=== PATIENT | female | born 1990 | race American Indian/Alaskan Native ===

== ENCOUNTER 2020-04-22 07:59 | Outpatient (REF) | payer OTHER, SELFPAY ==
[2020-04-22 16:49] LABS: CT PCR NOT DETECTED (Not Detect.); NG PCR NOT DETECTED (Not Detect.)
[2020-04-23 12:59] LABS: BV Int Neg Control Negative (Negative); BV Int Pos Control Positive (Positive)
== END 2020-04-22 08:00 | disposition home or self-care (01) ==
LOC: HO.LAB 07:59
PROVIDERS: Visit Provider Obstetrics & Gynecology
DX: Z01.411 Encounter for gynecological examination (general) (routine) with abnormal findings (principal); R35.0 Frequency of micturition; R30.0 Dysuria; R10.2 Pelvic and perineal pain; N76.0 Acute vaginitis; B96.89 Other specified bacterial agents as the cause of diseases classified elsewhere; R31.29 Other microscopic hematuria; N91.2 Amenorrhea, unspecified
CPT/HCPCS: 81002; 81025; 87086; 87480; 87491; 87510; 87591; 87660; 88142

== ENCOUNTER 2020-05-09 10:05 | Emergency (ER) | payer OTHER, SELFPAY ==
[2020-05-09 10:16] VITALS: BP 108/67; BP 115/70; PULSE 109; PULSE 98; RESP 20; TEMP 36.8; O2SAT 97; O2SAT 98; BMI 33.3
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
[2020-05-09] MEDS: clonazePAM 1 MG TABLET PO (10:52)
[2020-05-09] MEDS: Gabapentin 600 MG TABLET PO (10:53)
[2020-05-09 10:55] LABS: MANUAL DIFF FLAG NO
[2020-05-09 10:57] LABS: Basophils Absolute Auto 0.1 X10*3/uL (0.0-0.2); Basophils Percent Auto 0.9 % (0-2); Eosinophils Absolute Auto 0.5 X10*3/uL (0.0-0.4); Eosinophils Percent Auto 5.7 % (0-4); Hemoglobin 14.5 g/dl (12.0-16.0); Imm Gran Abs Auto 0.02 X10*3/uL (0.00-0.03); Imm Gran Pct Auto 0.2 % (0.0-0.4); Lymphocytes Absolute Auto 2.5 X10*3/uL (1.2-4.9); Lymphocytes Percent Auto 30.9 % (20-40); Mean Corpuscular HGB Conc 33.7 g/dl (31.0-35.0); Mean Corpuscular Hemoglobin 32.7 pg (27.0-33.0); Mean Corpuscular Volume 96.8 fL (80-98); Mean Platelet Volume 10.6 fL (9.4-12.3); Monocytes Absolute Auto 0.5 X10*3/uL (0.1-1.2); Neutrophils Absolute Auto 4.5 X10*3/uL (2.0-8.3); Neutrophils Percent Auto 56.3 % (45-73); Platelet Count 364 X10*3/uL (160-400); Red Blood Count 4.44 X10*6/uL (4.20-5.50); Red Cell Distribution Width 12.4 % (11.0-16.0)
[2020-05-09 11:00] LABS: INTERNATIONAL NORM RATIO 0.9 (0.9-1.1)
[2020-05-09 11:03] LABS: Partial Thromboplastin Time 31.4 SEC (24.1-38.0)
[2020-05-09 11:28] LABS: HCG Quantitative < 2 mIU/mL
--- NOTE | 2020-05-09 11:42 | CT_ITS ---
EXAMINATION: CT HEAD WITHOUT CONTRAST CLINICAL INFORMATION: Seizure COMPARISON: 06/21/2018 TECHNIQUE: Contiguous axial imaging was performed from the skull base to vertex without intravenous contrast. This CT examination was performed using dose optimization techniques as appropriate, variously including the following: * Automated exposure control * Adjustment of mA and/or kV according to patient size (this includes techniques or standardized protocols for targeted exams where dose is matched to indication/reason for exam; i.e. extremities or head) Use of iterative reconstruction technique DLP: 703 mGy-cm. FINDINGS: There is no evidence of acute intracranial hemorrhage or territorial infarction. No abnormal mass effect or midline shift is seen. Delgado to white matter differentiation is well preserved. No extra-axial fluid collections are identified. No hydrocephalus. No significant volume loss. There is no abnormal attenuation within the brain parenchyma. The osseous structures and soft tissues are normal. The mastoid air cells and visualized portions of the paranasal sinuses are well aerated. CT/CT head/brain wo con IMPRESSION: No acute intracranial pathology.
--- NOTE | 2020-05-09 11:49 | PC.NURSE ---
Patient to CT at this time
[2020-05-09 12:01] LABS: Glucose Urine UA NEG (NEG); Leukocyte Esterase Urine NEG (NEG); Nitrite Urine NEG (NEG); PH 6.5 (5.0-8.0); Specific Gravity - Urine 1.025 (1.005-1.025); Urine Blood 3+ (NEG); Urine Ketones NEG (NEG); Urine Protein NEG (NEG-TRACE)
[2020-05-09 12:04] VITALS: BP 98/61; PULSE 70; RESP 18; O2SAT 98
[2020-05-09 12:04] LABS: Appearance Urine HAZY; Color Urine YELLOW
[2020-05-09 12:16] LABS: Mucus Urine TRACE /LPF; Squamous Epithelial Cell Urine 1+ /LPF; WBC Urine 0 /HPF (0-4)
[2020-05-09 12:20] LABS: Alanine Aminotransferase 13 U/L (0-31); Albumin Level 4.6 g/dL (3.5-5.0); Alkaline Phosphatase 48 U/L (39-117); Anion Gap 14 (12-20); Aspartate Amino Transferase 14 U/L (5-31); Bilirubin Total 0.3 mg/dL (0.0-1.0); Blood Urea Nitrogen 15 mg/dL (9-16); Calcium 9.7 mg/dL (8.4-10.2); Carbon Dioxide 27 mmol/L (22-29); Chloride 103 mmol/L (96-108); Creatinine Clr Calc Pharmacy 105.7; Estimated Glomerular Filt Rate > 60; Glucose Random 92 mg/dL (60-115); Potassium 4.4 mmol/l (3.3-5.1); Sodium 140 mmol/L (135-145); Total Protein 7.2 g/dL (6.5-8.0)
== END 2020-05-09 12:30 | disposition left against medical advice (07) ==
PROVIDERS: Physician Assistant; Emergency Provider Emergency Medicine
DX: R56.9 Unspecified convulsions (principal); F17.200 Nicotine dependence, unspecified, uncomplicated; Z79.899 Other long term (current) drug therapy; Z71.6 Tobacco abuse counseling
CPT/HCPCS: 36415; 70450; 80053; 81001; 81003; 84702; 85025; 85610; 85730; 96360; 99284

== ENCOUNTER 2020-05-24 09:08 | Outpatient (REF) | payer OTHER, SELFPAY ==
[2020-05-24 11:07] LABS: HCG Quantitative < 2 mIU/mL; Thyroid Stimulating Hormone 1.32 uIU/mL (0.32-4.0)
[2020-05-25 13:47] LABS: Prolactin 5.5 ng/mL
== END 2020-05-24 09:09 | disposition home or self-care (01) ==
LOC: HO.LAB 09:08
PROVIDERS: Absent Provider Obstetrics & Gynecology; Visit Provider Internal Medicine
DX: N91.2 Amenorrhea, unspecified (principal); Z20.828 Contact with and (suspected) exposure to other viral communicable diseases
CPT/HCPCS: 84146; 84443; 84702; C9803; U0003

== ENCOUNTER 2020-06-05 11:18 | Emergency (ER) | payer OTHER, SELFPAY ==
[2020-06-05] VITALS (8 sets, daily range): BP systolic 120–128; BP diastolic 65–82; PULSE 66–120; RESP 16–25; TEMP 37.4; O2SAT 98; BMI 31.3
--- NOTE | 2020-06-05 11:34 | CT_ITS ---
EXAMINATION: CT CERVICAL SPINE WITHOUT CONTRAST CT THORACIC SPINE WITHOUT CONTRAST CT LUMBAR SPINE WITHOUT CONTRAST CLINICAL INFORMATION: History of fall with back injury. Left leg numbness and weakness. COMPARISON: CT cervical spine from 05/22/2018. Radiographs of lumbar spine from 02/04/2018. TECHNIQUE: Noncontrast multidetector CT imaging examination of the cervical spine was performed. Also, separate multidetector CT imaging exams of the thoracic and lumbar spine were performed. Axial images, as well as multiplanar reformatted images, are reviewed. This CT examination was performed using dose optimization techniques as appropriate, variously including the following: *Automated exposure control *Adjustment of mA and/or kV according to patient size (this includes techniques or standardized protocols for targeted exams where dose is matched to indication/reason for exam; i.e. extremities or head) *Use of iterative reconstruction technique DLP: 1974 mGy-cm (total) FINDINGS: CERVICAL SPINE: The skull base and craniocervical junction are normal. The cervical vertebra have normal height and alignment. No fractures in the anterior or posterior elements. No prevertebral soft tissue swelling. 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 The hypertrophied right C2 inferior articular process articulates with the C4 superior articular process. This congenital deformity is associated with chronic mild levocurvature of the upper cervical spine, and dextrocurvature of the lower cervical and upper thoracic spine. The facet joints are normal. The disc spaces are well-preserved. The spinal canal and neural foramina are patent. No focal spinal canal stenosis or spinal hematoma. Thyroid gland is normal. A 0.6 cm structure posterior to the right thyroid lobe likely represents a small lymph node; it is stable in size compared to 05/22/2018. THORACIC SPINE: The thoracic vertebra have normal height and alignment. The anterior and posterior elements are intact. The disc spaces are well-preserved. No degenerative disc disease. No evidence of disc herniation. No spinal canal or neural foraminal stenosis. No fracture, subluxation or paraspinal soft tissue swelling. LUMBAR SPINE: The 5 segmented lumbar vertebra have normal height and alignment. Anterior and posterior elements are intact. No fracture or subluxation. The intervertebral disc heights are maintained. Small central disc protrusions at L4-5 and L5-S1 produce mild indentation on the ventral surface of the thecal sac. No significant narrowing of the central spinal canal. No neural foraminal stenosis. No focal soft tissue swelling. The paraspinal muscles have a normal appearance. The sacrum and sacroiliac joints are normal. Within the pelvis, the visualized portions of the uterus, adnexa and urinary bladder are unremarkable. There are 0.3 cm calyceal stones of the interpolar region and lower pole of the left kidney. No hydronephrosis. CT/CT cervical spine wo con IMPRESSION: * No acute abnormalities in the cervical, thoracic or lumbar spine. No fracture or subluxation. 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 * Small central disc protrusions are noted at L4-L5 and L5-S1. * Small, nonobstructive calculi are present in the left kidney.
--- NOTE | 2020-06-05 11:34 | CT_ITS ---
EXAMINATION: CT HEAD WITHOUT CONTRAST CLINICAL INFORMATION: Seizure and fall COMPARISON: Baseline 05/09/2020 TECHNIQUE: Contiguous axial imaging was performed from the skull base to vertex without intravenous administration of contrast. This CT examination was performed using dose optimization techniques as appropriate, variously including the following: *Automated exposure control *Adjustment of mA and/or kV according to patient size (this includes techniques or standardized protocols for targeted exams where dose is matched to indication/reason for exam; i.e. extremities or head) *Use of iterative reconstruction technique DLP: 573 mGy-cm Motion degradation limits assessment.. Repeat imaging obtained. FINDINGS: There is no evidence of acute intracranial hemorrhage or territorial infarction. No abnormal mass effect or midline shift is seen. Delgado to white matter differentiation is well preserved. No extra-axial fluid collections are identified. The ventricles are normal in size. There is no abnormal attenuation within the brain parenchyma. The osseous structures and soft tissues are normal. The mastoid air cells and visualized portions of the paranasal sinuses are well aerated. CT/CT head/brain wo con IMPRESSION: No acute intracranial pathology.
[2020-06-05] MEDS: 0.9 % Sodium Chloride 1,000 ML 999 ML IVCONT (11:44)
[2020-06-05] MEDS: Morphine Sulfate 2 MG/ML CARTRIDGE 1 MG IVPUSH (11:44)
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
--- NOTE | 2020-06-05 12:43 | PC.NURSE ---
PT extremely agitated, given IM 5mg haldol and IM 2mg ativan.
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
[2020-06-05] MEDS: Haloperidol Lactate 5 MG/ML VIAL IM (12:44)
[2020-06-05] MEDS: LORazepam 2 MG/ML VIAL IM (12:44)
[2020-06-05 13:48] LABS: MANUAL DIFF FLAG NO
[2020-06-05 13:50] LABS: Basophils Absolute Auto 0.1 X10*3/uL (0.0-0.2); Basophils Percent Auto 0.6 % (0-2); Eosinophils Absolute Auto 0.4 X10*3/uL (0.0-0.4); Eosinophils Percent Auto 3.2 % (0-4); Hematocrit 41.7 % (37-47); Hemoglobin 14.1 g/dl (12.0-16.0); Imm Gran Abs Auto 0.05 X10*3/uL (0.00-0.03); Imm Gran Pct Auto 0.5 % (0.0-0.4); Lymphocytes Absolute Auto 2.9 X10*3/uL (1.2-4.9); Lymphocytes Percent Auto 26.5 % (20-40); Mean Corpuscular HGB Conc 33.8 g/dl (31.0-35.0); Mean Corpuscular Hemoglobin 32.8 pg (27.0-33.0); Mean Platelet Volume 10.1 fL (9.4-12.3); Monocytes Absolute Auto 0.6 X10*3/uL (0.1-1.2); Monocytes Percent Auto 5.3 % (2-11); Neutrophils Absolute Auto 7.1 X10*3/uL (2.0-8.3); Neutrophils Percent Auto 63.9 % (45-73); Platelet Count 338 X10*3/uL (160-400); Red Cell Distribution Width 12.4 % (11.0-16.0)
[2020-06-05 14:09] LABS: Anion Gap 13 (12-20); Blood Urea Nitrogen 10 mg/dL (9-16); Calcium 8.8 mg/dL (8.4-10.2); Carbon Dioxide 23 mmol/L (22-29); Chloride 107 mmol/L (96-108); Creatinine Clr Calc Pharmacy 135.2; Estimated Glomerular Filt Rate > 60; Glucose Random 84 mg/dL (60-115); Potassium 4.2 mmol/l (3.3-5.1); Sodium 139 mmol/L (135-145)
[2020-06-05 14:17] LABS: HCG Quantitative < 2 mIU/mL
== END 2020-06-05 16:47 | disposition home or self-care (01) ==
PROVIDERS: Emergency Provider Emergency Medicine
DX: S09.90XA Unspecified injury of head, initial encounter (principal); S39.92XA Unspecified injury of lower back, initial encounter; G40.909 Epilepsy, unspecified, not intractable, without status epilepticus; M54.5 Low back pain; M54.2 Cervicalgia; M79.605 Pain in left leg; M79.604 Pain in right leg; W10.9XXA Fall (on) (from) unspecified stairs and steps, initial encounter; Y93.9 Activity, unspecified; Y92.9 Unspecified place or not applicable; Y99.9 Unspecified external cause status; F17.200 Nicotine dependence, unspecified, uncomplicated; Z71.6 Tobacco abuse counseling; Z79.899 Other long term (current) drug therapy
CPT/HCPCS: 36415; 70450; 72125; 72128; 72131; 80048; 84702; 85025; 96361; 96372; 96374; 99284; 99285; J2060; J2270

== ENCOUNTER 2020-07-14 13:06 | Outpatient (REF) | payer OTHER, SELFPAY ==
[2020-07-15 09:40] LABS: BV Int Neg Control Negative (Negative); BV Int Pos Control Positive (Positive)
[2020-07-15 18:13] LABS: C. trachomatis RNA TMA NOT DETECTED (NOT DETECTED); N. gonorrhoeae RNA TMA NOT DETECTED (NOT DETECTED)
== END 2020-07-14 13:07 | disposition home or self-care (01) ==
LOC: HO.LAB 13:06
PROVIDERS: Visit Provider Advanced Practice Midwife
DX: R10.2 Pelvic and perineal pain (principal); N76.0 Acute vaginitis; B96.89 Other specified bacterial agents as the cause of diseases classified elsewhere; R30.0 Dysuria; F17.210 Nicotine dependence, cigarettes, uncomplicated; N91.2 Amenorrhea, unspecified; Z87.898 Personal history of other specified conditions; Z20.2 Contact with and (suspected) exposure to infections with a predominantly sexual mode of transmission
CPT/HCPCS: 36415; 87210; 87255; 87480; 87491; 87510; 87591; 87660; 99212

== ENCOUNTER 2020-08-15 08:40 | Emergency (ER) | payer OTHER, SELFPAY ==
--- NOTE | 2020-08-15 08:43 | ECG_ITS ---
Test Reason : DIFFICULTY BREATHING Blood Pressure : / mmHG Vent. Rate : 091 BPM Atrial Rate : 091 BPM P-R Int : 156 ms QRS Dur : 092 ms QT Int : 374 ms P-R-T Axes : 079 082 059 degrees QTc Int : 460 ms Poor data quality Normal sinus rhythm with sinus arrhythmia Septal infarct , age undetermined Abnormal ECG When compared with ECG of 21-JUN-2018 01:09, Non-specific change in ST segment in Anterior leads QT has lengthened Repeat EKG Referred By: Generic ED Physician Electronically Signed By:GIL JARRETT MD
[2020-08-15 09:19] VITALS: BP 128/85; PULSE 100; RESP 17; TEMP 36.6; O2SAT 97; BMI 30.9
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
--- NOTE | 2020-08-15 11:19 | PC.NURSE ---
PT DC AFTER REFILL OF MEDS. NO OTHER INTERVENTIONS
== END 2020-08-15 11:21 | disposition home or self-care (01) ==
PROVIDERS: Emergency Provider Emergency Medicine
DX: Z76.0 Encounter for issue of repeat prescription (principal); F41.9 Anxiety disorder, unspecified; J45.909 Unspecified asthma, uncomplicated; F32.9 Major depressive disorder, single episode, unspecified; F43.10 Post-traumatic stress disorder, unspecified; F17.200 Nicotine dependence, unspecified, uncomplicated; Z91.419 Personal history of unspecified adult abuse
CPT/HCPCS: 93005; 99282; 99283

== ENCOUNTER 2020-10-08 01:14 | Emergency (ER) | payer OTHER, SELFPAY ==
[2020-10-08] VITALS (14 sets, daily range): BP systolic 118–134; BP diastolic 67–93; PULSE 71–122; RESP 16–25; TEMP 36.6–36.8; O2SAT 93–100; BMI 29.9
--- NOTE | ~2020-10-08 | CT_ITS ---
EXAMINATION: CT HEAD WITHOUT CONTRAST CLINICAL INFORMATION: EtOH, fall and AMS. COMPARISON: None TECHNIQUE: Contiguous axial imaging was performed from the skull base to vertex without intravenous administration of contrast. This CT examination was performed using dose optimization techniques as appropriate, variously including the following: *Automated exposure control *Adjustment of mA and/or kV according to patient size (this includes techniques or standardized protocols for targeted exams where dose is matched to indication/reason for exam; i.e. extremities or head) *Use of iterative reconstruction technique DLP: 723 mGy-cm FINDINGS: There is no evidence of acute intracranial hemorrhage or territorial infarction. No abnormal mass effect or midline shift is seen. Delgado to white matter differentiation is well preserved. No extra-axial fluid collections are identified. The ventricles are normal in size. There is no abnormal attenuation within the brain parenchyma. The osseous structures and soft tissues are normal. There is diffuse mucoperiosteal thickening bilateral ethmoid and sphenoid sinuses. CT/CT head/brain wo con IMPRESSION: No acute intracranial process seen. Bilateral chronic sphenoid and ethmoid sinus inflammatory changes.
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
--- NOTE | 2020-10-08 01:50 | ECG_ITS ---
Test Reason : ETOH Blood Pressure : / mmHG Vent. Rate : 082 BPM Atrial Rate : 082 BPM P-R Int : 178 ms QRS Dur : 102 ms QT Int : 392 ms P-R-T Axes : 058 064 044 degrees QTc Int : 457 ms Normal sinus rhythm with sinus arrhythmia Normal ECG When compared to the previous EKG of No significant changes seen Referred By: Marisabel Burks Electronically Signed By:Cassius Jian
[2020-10-08] MEDS: Haloperidol Lactate 5 MG/ML VIAL IM (02:40)
[2020-10-08] MEDS: LORazepam 2 MG/ML VIAL IM (02:40)
[2020-10-08 03:04] LABS: Basophils Absolute Auto 0.1 X10*3/uL (0.0-0.2); Basophils Percent Auto 0.4 % (0-2); Eosinophils Absolute Auto 0.1 X10*3/uL (0.0-0.4); Eosinophils Percent Auto 0.4 % (0-4); Hematocrit 44.7 % (37-47); Hemoglobin 15.6 g/dl (12.0-16.0); Imm Gran Abs Auto 0.07 X10*3/uL (0.00-0.03); Imm Gran Pct Auto 0.5 % (0.0-0.4); Lymphocytes Absolute Auto 2.5 X10*3/uL (1.2-4.9); Lymphocytes Percent Auto 17.6 % (20-40); MANUAL DIFF FLAG NO; Mean Corpuscular HGB Conc 34.9 g/dl (31.0-35.0); Mean Corpuscular Hemoglobin 32.1 pg (27.0-33.0); Mean Platelet Volume 10.7 fL (9.4-12.3); Monocytes Absolute Auto 0.8 X10*3/uL (0.1-1.2); Monocytes Percent Auto 5.6 % (2-11); Neutrophils Absolute Auto 10.8 X10*3/uL (2.0-8.3); Neutrophils Percent Auto 75.5 % (45-73); Platelet Count 397 X10*3/uL (160-400); Red Blood Count 4.86 X10*6/uL (4.20-5.50); Red Cell Distribution Width 12.4 % (11.0-16.0); White Blood Count 14.2 X10*3/uL (4.8-10.8)
[2020-10-08 03:28] LABS: Ethanol 81 mg/dL
[2020-10-08 03:35] LABS: Alanine Aminotransferase 16 U/L (0-31); Albumin Level 4.5 g/dL (3.5-5.0); Alkaline Phosphatase 53 U/L (39-117); Anion Gap 20 (12-20); Aspartate Amino Transferase 18 U/L (5-31); Bilirubin Direct < 0.2 mg/dL (0.0-0.5); Bilirubin Total < 0.2 mg/dL (0.0-1.0); Blood Urea Nitrogen 9 mg/dL (9-16); Calcium 9.8 mg/dL (8.4-10.2); Carbon Dioxide 15 mmol/L (22-29); Chloride 110 mmol/L (96-108); Creatinine Clr Calc Pharmacy 114.8; Estimated Glomerular Filt Rate > 60; Glucose Random 102 mg/dL (60-115); Potassium 3.9 mmol/L (3.3-5.1); Sodium 141 mmol/L (135-145); Total Protein 7.2 g/dL (6.5-8.0)
--- NOTE | 2020-10-08 04:20 | PC.NURSE ---
PROVIDER GILBERTO MCFARLAND STATING TO HOLD THE MEDICATION FROM PREVIOUS NURSE FOR NAUSEA AND VOMITING. PATIENT NO LONGER HAVING THE NAUSEA AND VOMITING, WILL CONTINUE TO MONITOR FOR NAUSEA AND VOMITING AND WILL MEDICATE IF NEEDED AT THAT TIME.
[2020-10-08] MEDS: Gabapentin 600 MG TABLET PO (09:33)
[2020-10-08] MEDS: Escitalopram Oxalate 5 MG TABLET PO (09:33)
[2020-10-08] MEDS: clonazePAM 1 MG TABLET PO (09:33)
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
== END 2020-10-08 09:30 | disposition home or self-care (01) ==
PROVIDERS: Emergency Provider Emergency Medicine
DX: F10.120 Alcohol abuse with intoxication, uncomplicated (principal); Y90.4 Blood alcohol level of 80-99 mg/100 ml; Z78.1 Physical restraint status
CPT/HCPCS: 36415; 70450; 80048; 80076; 80320; 85025; 93005; 96372; 96374; 96375; 99285; J2060

== ENCOUNTER 2020-10-24 09:01 | Emergency (ER) | payer OTHER, SELFPAY ==
--- NOTE | ~2020-10-24 | US_ITS ---
EXAMINATION: US OBSTETRICAL ULTRASOUND CLINICAL INFORMATION: Left lower quadrant abdominal pain. Positive . COMPARISON: None. LMP: 08/26/2020. Gestational age by maternal dates is 8 weeks and 3 days. Estimated date of delivery by maternal dates is 06/02/2021. TECHNIQUE: Transabdominal ultrasound pelvis is performed. FINDINGS: There is single intrauterine gestational sac and yolk sac. No pole seen yet. No heart beat or motion seen. Mean distal sac diameter measures 0.99 cm corresponding to 5 weeks and 5 days. The right ovary measures 3.4 x 2.5 x 3.1 cm. There is anechoic corpus luteal cyst with peripheral flow measuring 2.3 x 1.6 x 2.2 cm. The left ovary measures 2.9 x 1.6 x 1.8 cm. US/US OB <= 14 weeks fetus IMPRESSION: Single intrauterine gestational sac with no pole seen yet. Mean sac diameter corresponds to 5 weeks 5 days. Small corpus luteal cyst right ovary.
--- NOTE | ~2020-10-24 | US_ITS ---
EXAMINATION: US OBSTETRICAL ULTRASOUND CLINICAL INFORMATION: Left lower quadrant abdominal pain. Positive . COMPARISON: None. LMP: 08/26/2020. Gestational age by maternal dates is 8 weeks and 3 days. Estimated date of delivery by maternal dates is 06/02/2021. TECHNIQUE: Transabdominal ultrasound pelvis is performed. FINDINGS: There is single intrauterine gestational sac and yolk sac. No pole seen yet. No heart beat or motion seen. Mean distal sac diameter measures 0.99 cm corresponding to 5 weeks and 5 days. The right ovary measures 3.4 x 2.5 x 3.1 cm. There is anechoic corpus luteal cyst with peripheral flow measuring 2.3 x 1.6 x 2.2 cm. The left ovary measures 2.9 x 1.6 x 1.8 cm. US/US OB transvaginal IMPRESSION: Single intrauterine gestational sac with no pole seen yet. Mean sac diameter corresponds to 5 weeks 5 days. Small corpus luteal cyst right ovary.
[2020-10-24 09:04] VITALS: BP 123/72; PULSE 109; RESP 24; TEMP 36.5; O2SAT 98; BMI 30.9
[2020-10-24] MEDS: Acetaminophen 325 MG TABLET 650 MG PO ×2 (09:08→12:10)
[2020-10-24 09:50] LABS: Glucose Urine UA NEG (NEG); Leukocyte Esterase Urine TRACE (NEG); Nitrite Urine NEG (NEG); UACC Culture Trigger YES; Urine Blood NEG (NEG); Urine Ketones 5 MG/DL (NEG); Urine Protein NEG (NEG-TRACE)
[2020-10-24 09:52] LABS: UPreg QC Valid YES; Urine Pregnancy POSITIVE (NEGATIVE)
[2020-10-24 10:11] LABS: Appearance Urine HAZY; Color Urine YELLOW
[2020-10-24 10:13] LABS: Bacteria Urine 1+ /LPF; Mucus Urine 2+ /LPF; RBC Urine 0 /HPF (0); Squamous Epithelial Cell Urine 3+ /LPF
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
[2020-10-24 11:08] LABS: MANUAL DIFF FLAG NO
[2020-10-24 11:10] LABS: Basophils Absolute Auto 0.1 X10*3/uL (0.0-0.2); Basophils Percent Auto 0.6 % (0-2); Eosinophils Absolute Auto 0.4 X10*3/uL (0.0-0.4); Hematocrit 43.8 % (37-47); Hemoglobin 14.9 g/dl (12.0-16.0); Imm Gran Abs Auto 0.05 X10*3/uL (0.00-0.03); Imm Gran Pct Auto 0.4 % (0.0-0.4); Lymphocytes Absolute Auto 2.8 X10*3/uL (1.2-4.9); Lymphocytes Percent Auto 23.1 % (20-40); Mean Corpuscular Volume 96.9 fL (80-98); Mean Platelet Volume 10.2 fL (9.4-12.3); Monocytes Absolute Auto 0.7 X10*3/uL (0.1-1.2); Monocytes Percent Auto 5.8 % (2-11); Neutrophils Absolute Auto 8.1 X10*3/uL (2.0-8.3); Neutrophils Percent Auto 67.1 % (45-73); Platelet Count 396 X10*3/uL (160-400); Red Blood Count 4.52 X10*6/uL (4.20-5.50); Red Cell Distribution Width 12.8 % (11.0-16.0)
[2020-10-24 11:21] LABS: INTERNATIONAL NORM RATIO 1.1 (0.9-1.1); Prothrombin Time 12.6 SEC (10.8-13.0)
--- NOTE | 2020-10-24 11:23 | PC.NURSE ---
PT TO ULTRASOUND, #20 IN L AC.
[2020-10-24 11:25] LABS: Partial Thromboplastin Time 38.3 SEC (24.1-38.0)
[2020-10-24 11:32] LABS: Alanine Aminotransferase 12 U/L (0-31); Albumin Level 4.4 g/dL (3.5-5.0); Alkaline Phosphatase 48 U/L (39-117); Anion Gap 11 (12-20); Aspartate Amino Transferase 13 U/L (5-31); Bilirubin Direct 0.2 mg/dL (0.0-0.5); Bilirubin Total 0.4 mg/dL (0.0-1.0); Blood Urea Nitrogen 8 mg/dL (9-16); Calcium 9.6 mg/dL (8.4-10.2); Carbon Dioxide 24 mmol/L (22-29); Chloride 107 mmol/L (96-108); Estimated Glomerular Filt Rate > 60; Glucose Random 90 mg/dL (60-115); Lipase 26 U/L (8-78); Potassium 4.2 mmol/L (3.3-5.1); Sodium 138 mmol/L (135-145); Total Protein 6.9 g/dL (6.5-8.0)
[2020-10-24 11:35] LABS: HCG Quantitative 11983 mIU/mL
[2020-10-24 11:43] VITALS: BP 92/49; PULSE 59; RESP 18; O2SAT 99
[2020-10-24] MEDS: 0.9 % Sodium Chloride 1,000 ML 999 ML IVCONT (12:04)
--- NOTE | 2020-10-24 12:28 | PC.NURSE ---
PT BECAME INCREASINGLY DISTRESSED AFTER RETURN FROM ULTRASOUND, WITH A FAMILY EMERGENCY REQUIRING HER TO LEAVE. PT INSISTING TO LEAVE AMA, ENCOURAGED TO STAY UNTIL ULTRASOUND RESULT CLEARS PRESENCE OF ECTOPIC PREG. PT BECAME AGITATED, TEARFUL, ADVISED TO WAIT FOR PROVIDER TO DISCUSS RESULTS OF ULTRASOUND. PT BEGAN TO PULL IV OUT, THIS RN INTERVENED. PT LEFT BEFORE SIGNING AMA PAPERWORK. WITNESSED AND DOCUMENTED DEPARTURE.
== END 2020-10-24 12:30 | disposition left against medical advice (07) ==
PROVIDERS: Physician Assistant; Emergency Provider Emergency Medicine
DX: O20.0 Threatened abortion (principal); Z3A.00 Weeks of gestation of pregnancy not specified; Z79.899 Other long term (current) drug therapy
CPT/HCPCS: 36415; 76801; 76817; 80048; 80076; 81001; 81003; 81025; 83690; 84702; 85025; 85610; 85730; 87086; 96360; 99283; 99284

== ENCOUNTER 2020-10-27 13:36 | Outpatient (REF) | payer OTHER, SELFPAY ==
[2020-10-27 14:32] LABS: Glucose Urine UA NEG (NEG); Leukocyte Esterase Urine 2+ (NEG); Nitrite Urine NEG (NEG); UACC Culture Trigger YES; Urine Blood TRACE (NEG); Urine Ketones NEG (NEG); Urine Protein NEG (NEG-TRACE)
[2020-10-27 14:43] LABS: Appearance Urine CLEAR; Color Urine YELLOW
[2020-10-27 15:08] LABS: Bacteria Urine 1+ /LPF; Mucus Urine 1+ /LPF; Squamous Epithelial Cell Urine 1+ /LPF
[2020-10-27 15:09] LABS: Trichomonas Urine NOTED
[2020-10-27 15:30] LABS: HCG Quantitative 26222 mIU/mL
[2020-10-28 04:00] LABS: Syphilis Screen Nonreactive (Nonreactive)
[2020-10-28 04:30] LABS: HBsAGNum1 0.41 S/CO (0.00-0.99); Hepatitis B Surface Antigen Negative (Negative)
[2020-10-28 04:41] LABS: HIV AB/AG Nonreactive (Nonreactive); HIV Num 1 0.08 S/CO (0.00-0.99); ~Hepatitis C Antibody Nonreactive (Nonreactive)
[2020-10-28 09:55] LABS: CT PCR NOT DETECTED (Not Detect.); NG PCR NOT DETECTED (Not Detect.)
== END 2020-10-27 13:37 | disposition home or self-care (01) ==
LOC: HO.LAB 13:36
PROVIDERS: Advanced Practice Midwife; Visit Provider Nurse Practitioner Family
DX: O99.341 Other mental disorders complicating pregnancy, first trimester (principal); O26.891 Other specified pregnancy related conditions, first trimester; B96.89 Other specified bacterial agents as the cause of diseases classified elsewhere; N76.0 Acute vaginitis; R10.2 Pelvic and perineal pain; R30.0 Dysuria; F41.9 Anxiety disorder, unspecified; F32.9 Major depressive disorder, single episode, unspecified; Z79.899 Other long term (current) drug therapy; Z20.2 Contact with and (suspected) exposure to infections with a predominantly sexual mode of transmission
CPT/HCPCS: 36415; 81001; 81003; 84702; 86780; 86803; 87086; 87340; 87389; 87491; 87591; 99212

== ENCOUNTER 2020-11-04 08:24 | Outpatient (REF) | payer OTHER, SELFPAY ==
--- NOTE | ~2020-11-04 | US_ITS ---
EXAMINATION: OBSTETRICAL ULTRASOUND, FIRST TRIMESTER HISTORY: 29-year-old with uncertain dates Viability LMP: Unknown COMPARISON: 10/24/2020 TECHNIQUE: Real time transabdominal imaging with color and M-mode Doppler. FINDINGS: A single, live IUP CRL of 8.1 mm c/w 6.6wks is noted. Heart Rate: 123 beats per minute. Both maternal ovaries are seen and appear normal. GESTATIONAL AGE: 1. GA from LMP: N/A wks 2. GA from AUA: 6.6 wks ESTIMATED DATE OF DELIVERY: 1. ELBA from LMP: N/A 2. ELBA from AUA: 06/24/2021 US/US OB pelvic and transvaginal IMPRESSION: 1. A single live IUP 2. CRL is consistent with 6.6 weeks of gestation giving an ELBA of 06/24/2021. 3. Normal ovaries
== END 2020-11-04 08:25 | disposition home or self-care (01) ==
LOC: HO.US 08:24
PROVIDERS: Visit Provider Obstetrics & Gynecology
DX: Z34.90 Encounter for supervision of normal pregnancy, unspecified, unspecified trimester (principal)
CPT/HCPCS: 76801; 76817

== ENCOUNTER → 2020-11-08 10:17 | Outpatient (BNVA) | payer OTHER, SELFPAY | PROVIDERS: Visit Provider Obstetrics & Gynecology | DX: Z34.90 Encounter for supervision of normal pregnancy, unspecified, unspecified trimester (principal) | CPT/HCPCS: 99212 ==

== ENCOUNTER 2020-11-13 07:40 | Emergency (ER) | payer OTHER, SELFPAY ==
--- NOTE | ~2020-11-13 | US_ITS ---
EXAMINATION: US OBSTETRICAL ULTRASOUND CLINICAL INFORMATION: , bleeding, check viability. Established due date 06/24/2021. COMPARISON: 11/04/2020 Gestational age by first ultrasoundis 8 weeks 1 day. Estimated date of delivery by first ultrasound is 06/24/2021. TECHNIQUE: Transabdominal and endovaginal pelvic ultrasound performed. FINDINGS: There is a single intrauterine gestational sac with visible yolk sac, embryo/fetus, and cardiac activity. Evidence of mild chorioamnionic separation which is normal at this age. There is no significant subchorionic hemorrhage or hematoma. HR: 152 beats per minute. CRL (crown rump length): 1.72 cm (8 weeks 2 days +/- 4 days). MATERNAL ADNEXA: The right maternal ovary measures 2.9 x 2.9 x 2.0 cm, 8.5 mL. No abnormality. The left maternal ovary measures 1.9 x 2.1 x 1.5 cm, 3.1 mL. No abnormality. There is no significant maternal adnexal mass. No maternal pelvic ascites. US/US OB <= 14 weeks fetus IMPRESSION: 1. Single live intrauterine gestation with ultrasound gestational age of 8 weeks 2 days +/- 4 days. 2. Estimated date of delivery is 06/23/2021 +/- 4 days. This is concordant with the original ultrasound which gave an estimated date of delivery of 06/24/2021. 3. No maternal adnexal mass or pelvic ascites. 4. No evidence of subchorionic hemorrhage.
[2020-11-13 07:43] VITALS: BP 100/68; PULSE 62; O2SAT 99
[2020-11-13 08:05] VITALS: BP 97/52; PULSE 69; RESP 18; TEMP 37; O2SAT 97
[2020-11-13 10:13] VITALS: BP 112/50; PULSE 48; RESP 18; TEMP 36.8; O2SAT 99; BMI 8172.4
[2020-11-13 10:37] LABS: MANUAL DIFF FLAG NO
[2020-11-13 10:38] LABS: Basophils Absolute Auto 0.1 X10*3/uL (0.0-0.2); Basophils Percent Auto 0.4 % (0-2); Eosinophils Absolute Auto 0.1 X10*3/uL (0.0-0.4); Eosinophils Percent Auto 0.4 % (0-4); Hematocrit 39.3 % (37-47); Hemoglobin 13.8 g/dl (12.0-16.0); Imm Gran Abs Auto 0.03 X10*3/uL (0.00-0.03); Imm Gran Pct Auto 0.3 % (0.0-0.4); Lymphocytes Percent Auto 17.5 % (20-40); Mean Corpuscular HGB Conc 35.1 g/dl (31.0-35.0); Mean Corpuscular Hemoglobin 32.7 pg (27.0-33.0); Mean Corpuscular Volume 93.1 fL (80-98); Mean Platelet Volume 10.9 fL (9.4-12.3); Monocytes Absolute Auto 0.6 X10*3/uL (0.1-1.2); Monocytes Percent Auto 4.7 % (2-11); Neutrophils Absolute Auto 8.9 X10*3/uL (2.0-8.3); Neutrophils Percent Auto 76.7 % (45-73); Platelet Count 355 X10*3/uL (160-400); Red Blood Count 4.22 X10*6/uL (4.20-5.50); Red Cell Distribution Width 12.4 % (11.0-16.0); White Blood Count 11.6 X10*3/uL (4.8-10.8)
--- NOTE | 2020-11-13 10:43 | ED_ITS ---
HPI - General Chief complaint: Abdominal Pain Stated complaint: ABD PAIN,8 WKS ,W/ SPOTTING Time Seen by Provider: 11/13/20 10:07 Source: patient Mode of arrival: ambulatory Limitations: no limitations History of Present Illness HPI Narrative: PLEASANT 29 YEARS OLD OF FEMALE ABOUT 7 WEEKS GESTATION PRESENTED TO EMERGENCY DEPARTMENT WITH CHIEF COMPLAINT NO NAUSEA VOMITING UNABLE TO KEEP FLUIDS DOWN AND ALSO VAGINAL SPOTTING Complaint: vaginal bleeding (MILD) Onset (ago): day(s) (1) Pain Consistency: constant Related Data Home Medications Medication Instructions Recorded Confirmed albuterol sulfate [ProAir HFA] 2 puff INHALATION Q4H PRN 08/15/20 11/10/20 Previous Rx's Medication Instructions Recorded vitamins no.144-folic 1 tab PO DAILY 180 Days #180 tab 10/27/20 acid 400 mcg chewable tablet pyridoxine (vitamin B6) 25 mg 25 mg PO TID 30 Days #90 tab 10/27/20 tablet metoclopramide HCl [Reglan] 10 mg PO Q6H PRN #15 tab 11/13/20 Allergies Allergy/AdvReac Type Severity Reaction Status Date / Time lamotrigine [From Lamictal] Allergy Unknown mookie Verified 11/10/20 12:59 isa syndrome topiramate [Topamax] Allergy Unknown unknown Verified 11/10/20 12:59 ANTI CONVULSANTS Allergy Mild MOOKIE Uncoded 10/27/20 14:22 ISA SYNDROME Review of Systems Review of Systems: Yes all other systems are reviewed and are negative Eyes: Eyes: Reports no additional eye complaints ENT: Reports as per HPI Cardiovascular: Cardiovascular: Reports no additional cardiovascular complaints Respiratory: Respiratory: Reports no additional respiratory complaints Gastrointestinal: Gastrointestinal: Reports no additional gastrointestinal complaints and Reports abdominal pain Psychiatric: Psychiatric: Reports no additional psychiatric complaints [facility] Past Medical History Medical History Anxiety Asthma Bradycardia Depression ETOH abuse PTSD (post-traumatic stress disorder) Surgical History No history of previous surgery Family History Family History Mother No problems noted. Father No problems noted. Social History Social History Alcohol intake: never Smoking Status: Former smoker Tobacco Type: Cigarette Advance Directives: No Advance Directives Information Provided: No Patient : Yes Sexual orientation: Straight/Heterosexual Gender identity: female Physical Exam Vital Signs: Vital Signs: Last Vital Signs Temp 98.2 F 11/13/20 10:13 Pulse 53 11/13/20 12:00 Resp 18 11/13/20 12:00 BP 100/47 L 11/13/20 12:00 Pulse Ox 99 11/13/20 10:13 Body Mass Index 8172.4 Const: General: cooperative, healthy appearing and comfortable Orientation/consciousness: oriented to person and oriented to place HENMT: Head: Yes normal to inspection Eyes: General: appearance normal, both eyes and all related structures Visual Hdz: normal visual hdz by confrontation Neck: Neck: Yes normal visual inspection, Yes full ROM and Yes no lymp hadenopathy Chest: Chest palpation & inspection: normal inspection of the chest and normal palpation of entire chest wall Resp: Effort & Inspection: able to speak in complete sentences Cardio: Jugular venous distension: no JVD Rate: regular rate GI: Inspection: Yes normal to inspection Palpation (GI): Soft to palpation, nontender, no guarding and not rigid Auscultation: normal bowel sounds Skin: General skin exam: no rashes or lesions noted and elasticity normal Neuro: General: oriented to person and oriented to place Extrem: General: Yes normal to inspection, Yes full ROM and Yes capillary refill normal Course Reevaluation(s) Reevaluation #1: She is feeling better at this time he is tolerating p.o. well ultrasound showed IUP 8 weeks 2 days alive, she is Rh positive, she can be discharged home Procedures EJ/Peripheral Line Arm R: Time Out Performed: Yes Skin Cleansed in Sterile Fashion: Yes Size (gauge): 20 IV Secured and Dressing Applied: Yes Patient Tolerated Procedure: well Additional Comments: ASKED BY RN TO ESTABLISH IV ACCESS PATIENT HAS DIFFICULT IV ACCESS UNDER ULTRASOUND GUIDED WITH LINEAR PROBE CANNULATED THE RIGHT BASILIC VEIN WITH A 20 GAUGE INTRO CAN IV CATHETER 1x 3/4 INCH CATHETER MDM - OB/Uterine Contractions Lab Data Result diagrams: 11/13/20 10:33 11/13/20 10:33 Labs: Lab Results 11/13/20 11/13/20 11/13/20 Range/Units 10:33 10:33 12:20 WBC 11.6 H (4.8-10.8) X10*3/uL RBC 4.22 (4.20-5.50) X10*6/uL Hgb 13.8 (12.0-16.0) g/dl Hct 39.3 (37-47) % MCV 93.1 (80-98) fL MCH 32.7 (27.0-33.0) pg MCHC 35.1 H (31.0-35.0) g/dl RDW 12.4 (11.0-16.0) % Plt Count 355 (160-400) X10*3/uL MPV 10.9 (9.4-12.3) fL Immature Gran % (Auto) 0.3 (0.0-0.4) % Neut % (Auto) 76.7 H (45-73) % Lymph % (Auto) 17.5 L (20-40) % Desha % (Auto) 4.7 (2-11) % Eos % (Auto) 0.4 (0-4) % Baso % (Auto) 0.4 (0-2) % Lymph # (Auto) 2.0 (1.2-4.9) X10*3/uL Desha # (Auto) 0.6 (0.1-1.2) X10*3/uL Eos # (Auto) 0.1 (0.0-0.4) X10*3/uL Baso # (Auto) 0.1 (0.0-0.2) X10*3/uL Abs Immat Gran (auto) 0.03 (0.00-0.03) X10*3/uL Absolute Neuts (auto) 8.9 H (2.0-8.3) X10*3/uL Absolute Nucleated RBC 0.000 (0.0-0.012) X10*3/uL Nucleated RBC % (auto) 0.0 (0.0-0.2) /100WBC Sodium 136 (135-145) mmol/L Potassium 3.8 (3.3-5.1) mmol/L Chloride 106 (96-108) mmol/L Carbon Dioxide 21 L (22-29) mmol/L Anion Gap 13 (12-20) BUN 6 L (9-16) mg/dL Creatinine 0.61 (0.5-1.4) mg/dL Estim Creat Clear Calc -35.1 Estimated GFR > 60 Random Glucose 97 (60-115) mg/dL Calcium 9.1 (8.4-10.2) mg/dL Total Bilirubin 0.4 (0.0-1.0) mg/dL AST 15 (5-31) U/L ALT 44 H (0-31) U/L Alkaline Phosphatase 41 (39-117) U/L Total Protein 6.2 L (6.5-8.0) g/dL Albumin 4.0 (3.5-5.0) g/dL Beta HCG, Quant 87019 mIU/mL Blood Type A Positive Imaging Data OB US: My impression: IUP hert rate Radiologist's impression: IMPRESSION: 1. Single live intrauterine gestation with ultrasound gestational age of 8 weeks 2 days +/- 4 days. 2. Estimated date of delivery is 06/23/2021 +/- 4 days. This is concordant with the original ultrasound which gave an estimated date of delivery of 06/24/2021. 3. No maternal adnexal mass or pelvic ascites. 4. No evidence of subchori Discharge Plan Discharge Clinical Impression: Vomiting affecting , Early stage of Patient Disposition: Home, Self-Care Instructions: Nausea and Vomiting in (ED) Additional Instructions: Follow-up with your OB call in a.m. to make an appointment Prescriptions: New metoclopramide HCl [Reglan] 10 mg tablet 10 mg PO Q6H PRN (Reason: nausea and vomiting) Qty: 15 RF: 0 No Action pyridoxine (vitamin B6) 25 mg tablet 25 mg PO TID 30 Days Qty: 90 RF: 0 albuterol sulfate [ProAir HFA] 90 mcg/actuation Hfa Aerosol Inhaler 2 puff INHALATION Q4H PRN (Reason: Respiratory Distress) RF: 0 no.144-folic acid 400 mcg tablet,chewable 1 tab PO DAILY 180 Days Qty: 180 RF: 1 Referrals: Physician,Unknown [Primary Care Provider] - 2 days Interventions: ED Discharge Assessment Last Done: 11/13/20 14:04 Discharge Date/Time: 11/13/20 13:45
[2020-11-13 11:02] LABS: Alanine Aminotransferase 44 U/L (0-31); Alkaline Phosphatase 41 U/L (39-117); Anion Gap 13 (12-20); Aspartate Amino Transferase 15 U/L (5-31); Bilirubin Total 0.4 mg/dL (0.0-1.0); Blood Urea Nitrogen 6 mg/dL (9-16); Calcium 9.1 mg/dL (8.4-10.2); Carbon Dioxide 21 mmol/L (22-29); Chloride 106 mmol/L (96-108); Creatinine Clr Calc Pharmacy -35.1; Estimated Glomerular Filt Rate > 60; Glucose Random 97 mg/dL (60-115); Potassium 3.8 mmol/L (3.3-5.1); Sodium 136 mmol/L (135-145); Total Protein 6.2 g/dL (6.5-8.0)
[2020-11-13] MEDS: ondansetron HCL 4 MG/2 ML VIAL IVPUSH (11:19)
[2020-11-13 12:00] VITALS: BP 100/47; PULSE 53; RESP 18
[2020-11-13] MEDS: 0.9 % Sodium Chloride 1,000 ML 999 ML IVCONT (12:18)
--- NOTE | 2020-11-13 12:30 | PC.NURSE ---
20G IV placed by to pt's right upper arm. IVF running in.
== END 2020-11-13 13:45 | disposition home or self-care (01) ==
PROVIDERS: Emergency Provider Emergency Medicine
DX: O21.0 Mild hyperemesis gravidarum (principal); Z3A.08 8 weeks gestation of pregnancy; Z87.891 Personal history of nicotine dependence; Z79.899 Other long term (current) drug therapy
CPT/HCPCS: 36415; 36556; 76801; 80053; 84702; 85025; 86900; 86901; 96365; 96375; 99283; 99284; J2405

== ENCOUNTER 2020-11-15 19:14 | Emergency (ER) | payer OTHER, SELFPAY ==
[2020-11-15 19:25] VITALS: BP 121/74; PULSE 89; RESP 22; TEMP 36.7; O2SAT 99
[2020-11-15 19:40] VITALS: BP 82/54; PULSE 79; RESP 18; TEMP 36.9; BMI 31.4
[2020-11-15 19:58] LABS: MANUAL DIFF FLAG NO
[2020-11-15 20:00] LABS: Basophils Absolute Auto 0.1 X10*3/uL (0.0-0.2); Basophils Percent Auto 0.3 % (0-2); Eosinophils Absolute Auto 0.4 X10*3/uL (0.0-0.4); Eosinophils Percent Auto 2.1 % (0-4); Hemoglobin 15.2 g/dl (12.0-16.0); Imm Gran Abs Auto 0.06 X10*3/uL (0.00-0.03); Imm Gran Pct Auto 0.4 % (0.0-0.4); Lymphocytes Percent Auto 29.9 % (20-40); Mean Corpuscular HGB Conc 35.3 g/dl (31.0-35.0); Mean Corpuscular Hemoglobin 33.1 pg (27.0-33.0); Mean Corpuscular Volume 93.7 fL (80-98); Mean Platelet Volume 10.7 fL (9.4-12.3); Monocytes Absolute Auto 1.1 X10*3/uL (0.1-1.2); Monocytes Percent Auto 6.4 % (2-11); Neutrophils Absolute Auto 10.1 X10*3/uL (2.0-8.3); Neutrophils Percent Auto 60.9 % (45-73); Platelet Count 434 X10*3/uL (160-400); Red Blood Count 4.59 X10*6/uL (4.20-5.50); Red Cell Distribution Width 12.4 % (11.0-16.0); White Blood Count 16.6 X10*3/uL (4.8-10.8)
[2020-11-15] MEDS: Magnesium Hydrox/Alum Hydrox 30 ML ORAL.SUSP PO (20:12)
[2020-11-15] MEDS: Famotidine/PF 20 MG/2 ML VIAL IVPUSH (20:12)
[2020-11-15] MEDS: 0.9 % Sodium Chloride 1,000 ML 999 ML IVCONT (20:12)
[2020-11-15] MEDS: ondansetron HCL 4 MG/2 ML VIAL IVPUSH (20:12)
[2020-11-15 20:26] VITALS: BP 95/57; PULSE 51; RESP 16; TEMP 37; O2SAT 99
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
[2020-11-15 20:27] LABS: Anion Gap 17 (12-20); Blood Urea Nitrogen 8 mg/dL (9-16); Calcium 10.3 mg/dL (8.4-10.2); Carbon Dioxide 20 mmol/L (22-29); Chloride 102 mmol/L (96-108); Creatinine Clr Calc Pharmacy 130.2; Estimated Glomerular Filt Rate > 60; Glucose Random 87 mg/dL (60-115); Potassium 3.9 mmol/L (3.3-5.1); Sodium 135 mmol/L (135-145)
[2020-11-15 21:06] VITALS: BP 107/38; PULSE 55; RESP 20; TEMP 36.6; O2SAT 100
[2020-11-15] MEDS: Lidocaine HCl Viscous 2 % 15 ML SOLUTION MUCOUS MEM (22:30)
== END 2020-11-15 22:40 | disposition home or self-care (01) ==
PROVIDERS: Emergency Provider Internal Medicine
DX: O21.0 Mild hyperemesis gravidarum (principal); O26.891 Other specified pregnancy related conditions, first trimester; R10.13 Epigastric pain; Z3A.10 10 weeks gestation of pregnancy
CPT/HCPCS: 36415; 80048; 85025; 96361; 96374; 96375; 99284; 99285; J2405

== ENCOUNTER → 2020-11-18 09:49 | Outpatient (BNVA) | payer OTHER, SELFPAY | PROVIDERS: Visit Provider Obstetrics & Gynecology | DX: Z34.90 Encounter for supervision of normal pregnancy, unspecified, unspecified trimester (principal) | CPT/HCPCS: 99212 ==

== ENCOUNTER 2020-12-03 08:14 | Emergency (ER) | payer OTHER, SELFPAY ==
[2020-12-03 08:18] VITALS: BP 110/60; BP 127/62; PULSE 63; PULSE 66; RESP 16; TEMP 36.7; O2SAT 99
[2020-12-03 08:57] LABS: MANUAL DIFF FLAG NO
[2020-12-03] MEDS: 0.9 % Sodium Chloride 1,000 ML 999 ML IVCONT (08:57)
[2020-12-03] MEDS: ondansetron HCL 4 MG/2 ML VIAL IVPUSH (08:57)
[2020-12-03 09:01] LABS: Basophils Absolute Auto 0.1 X10*3/uL (0.0-0.2); Basophils Percent Auto 0.5 % (0-2); Eosinophils Absolute Auto 0.1 X10*3/uL (0.0-0.4); Eosinophils Percent Auto 1.3 % (0-4); Hematocrit 42.3 % (37-47); Hemoglobin 14.9 g/dl (12.0-16.0); Imm Gran Abs Auto 0.02 X10*3/uL (0.00-0.03); Imm Gran Pct Auto 0.2 % (0.0-0.4); Lymphocytes Absolute Auto 1.8 X10*3/uL (1.2-4.9); Lymphocytes Percent Auto 18.4 % (20-40); Mean Corpuscular HGB Conc 35.2 g/dl (31.0-35.0); Mean Corpuscular Hemoglobin 32.6 pg (27.0-33.0); Mean Corpuscular Volume 92.6 fL (80-98); Mean Platelet Volume 10.4 fL (9.4-12.3); Monocytes Absolute Auto 0.5 X10*3/uL (0.1-1.2); Monocytes Percent Auto 5.5 % (2-11); Neutrophils Absolute Auto 7.3 X10*3/uL (2.0-8.3); Neutrophils Percent Auto 74.1 % (45-73); Platelet Count 385 X10*3/uL (160-400); Red Blood Count 4.57 X10*6/uL (4.20-5.50); Red Cell Distribution Width 12.2 % (11.0-16.0); White Blood Count 9.8 X10*3/uL (4.8-10.8)
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
--- NOTE | 2020-12-03 09:06 | PC.NURSE ---
Addendum entered by Hailey Shirley 12/03/20 09:38: IV established and labs drawn. Patient tolerated well. Hung NS 1l and medicated with Zofran. Urine cup at bedside. Awaiting lab results. Original Note: Patient reports nausea/vomiting with . 11 weeks at this time. Patient was seen in this ED and prescribed Reglan which did not help. Patient reports syncopal episode overnight. Alert and oriented. Respirations regular and even. Skin PWD.
[2020-12-03 09:32] VITALS: BP 99/47; PULSE 52; RESP 16; TEMP 36.7; O2SAT 99
--- NOTE | 2020-12-03 09:39 | PC.NURSE ---
Patient reports improvement in nausea since receiving the Zofran. Denies ability to provide urine sample at this time, cup remains at bedside. IV fluids continue to infuse.
[2020-12-03 10:10] LABS: Alanine Aminotransferase 14 U/L (0-31); Albumin Level 3.7 g/dL (3.5-5.0); Alkaline Phosphatase 32 U/L (39-117); Anion Gap 15 (12-20); Aspartate Amino Transferase 14 U/L (5-31); Bilirubin Total 0.3 mg/dL (0.0-1.0); Blood Urea Nitrogen 6 mg/dL (9-16); Calcium 8.5 mg/dL (8.4-10.2); Carbon Dioxide 16 mmol/L (22-29); Chloride 108 mmol/L (96-108); Creatinine Clr Calc Pharmacy 155.2; Estimated Glomerular Filt Rate > 60; Glucose Random 87 mg/dL (60-115); Magnesium 1.9 mg/dL (1.6-2.6); Potassium 3.7 mmol/L (3.3-5.1); Sodium 135 mmol/L (135-145); Total Protein 5.9 g/dL (6.5-8.0)
--- NOTE | 2020-12-03 10:33 | PC.NURSE ---
Jane RODRIGUEZ at bedside to perform pelvic exam and obtain samples. Patient tolerating well.
[2020-12-03 10:38] LABS: HCG Quantitative 47344 mIU/mL
[2020-12-03 10:44] VITALS: BP 124/60; PULSE 48
[2020-12-03 10:46] VITALS: BP 118/61; PULSE 51
[2020-12-03 10:47] VITALS: BP 118/64; PULSE 55
[2020-12-03 11:03] LABS: Glucose Urine UA NEG (NEG); Leukocyte Esterase Urine 3+ (NEG); Nitrite Urine NEG (NEG); PH 6.5 (5.0-8.0); UACC Culture Trigger YES; Urine Blood TRACE (NEG); Urine Ketones >=80 MG/DL (NEG); Urine Protein NEG (NEG-TRACE)
[2020-12-03 11:04] LABS: Appearance Urine HAZY; Color Urine YELLOW
[2020-12-03 11:13] LABS: Squamous Epithelial Cell Urine 3+ /LPF
[2020-12-03 11:14] LABS: Amorphous Sediment Urine 1+ /LPF; Mucus Urine 2+ /LPF
[2020-12-03 12:54] LABS: CT PCR NOT DETECTED (Not Detect.); NG PCR NOT DETECTED (Not Detect.)
[2020-12-03 12:57] LABS: BV Int Neg Control Negative (Negative); BV Int Pos Control Positive (Positive)
== END 2020-12-03 12:04 | disposition home or self-care (01) ==
PROVIDERS: Physician Assistant Medical; Emergency Provider Emergency Medicine Emergency Medical Services; PCP Internal Medicine
DX: O21.0 Mild hyperemesis gravidarum (principal); O23.41 Unspecified infection of urinary tract in pregnancy, first trimester; O23.591 Infection of other part of genital tract in pregnancy, first trimester; B37.3 Candidiasis of vulva and vagina; Z3A.11 11 weeks gestation of pregnancy
CPT/HCPCS: 36415; 80053; 81001; 81003; 83735; 84702; 85025; 87086; 87480; 87491; 87510; 87591; 87660; 96361; 96374; 99285; J2405

== ENCOUNTER 2020-12-08 09:32 | Outpatient (REF) | payer OTHER, SELFPAY ==
[2020-12-08 15:54] LABS: CT PCR NOT DETECTED (Not Detect.); NG PCR NOT DETECTED (Not Detect.)
[2020-12-09 08:41] LABS: BV Int Neg Control Negative (Negative); BV Int Pos Control Positive (Positive)
== END 2020-12-08 09:33 | disposition home or self-care (01) ==
LOC: HO.LAB 09:32
PROVIDERS: Visit Provider Advanced Practice Midwife
DX: O21.0 Mild hyperemesis gravidarum (principal); O26.891 Other specified pregnancy related conditions, first trimester; F32.9 Major depressive disorder, single episode, unspecified; F41.9 Anxiety disorder, unspecified; A59.9 Trichomoniasis, unspecified; N76.0 Acute vaginitis; B96.89 Other specified bacterial agents as the cause of diseases classified elsewhere; Z20.2 Contact with and (suspected) exposure to infections with a predominantly sexual mode of transmission; Z3A.11 11 weeks gestation of pregnancy
CPT/HCPCS: 81003; 87480; 87491; 87510; 87591; 87660; 88142; 99212

== ENCOUNTER 2020-12-16 12:47 | Outpatient (REF) | payer OTHER, SELFPAY ==
--- NOTE | ~2020-12-16 | US_ITS ---
EXAMINATION: OBSTETRICAL ULTRASOUND, FIRST TRIMESTER HISTORY: 29-year-old at 12.6 weeks of gestation NT screening COMPARISON: 11/13/2020 TECHNIQUE: Real time transabdominal imaging with color and M-mode Doppler. FINDINGS: A single, live IUP CRL of 73.7 mm c/w 13.4wks is noted. Heart Rate: 142 beats per minute. Normal yolk sac seen. NT was 1.43.mm. NB Present The embryo appears sonographically wnl for this GA. Both maternal ovaries are seen and appear normal. GESTATIONAL AGE: 1. Established GA: 12.6 wks 2. GA from AUA: 13.4 wks ESTIMATED DATE OF DELIVERY: 1. Established ELBA: 06/24/2021 2. ELBA from [facility]: 06/19/2021 US/US OB 1T nuc measure IMPRESSION: 1. A single live IUP 2. Size equals dates 3. NT of 1.3 mm MFM Consultation: I reviewed the ultrasound findings along with significance of NT measurement. The NT of less than 3mm is generally reassuring. However, the sensitivity for T21 detection is only 60%. I reviewed the availability of serum aneuploidy screening which includes cell-free DNA and placental protein based tests. I discussed the sensitivity, false-positive rate, and other limitations associated with each test. I also reviewed the availability of invasive diagnostic tests that are associated small but definite risk of miscarriage. We also reviewed the differences between screening tests and diagnostic tests. After our discussion, she opted for the First trimester screening that is based on cell-free DNA or non-invasive testing (NIPT). The result will be faxed to your office in approximately 7 days. A follow up at 18 weeks for survey has been scheduled. Thank you very much for this referral. Total time 30 minutes. The time spent was devoted to counseling the patient about the disease and diagnosis, coordinating care including reviewing her records, pertinent lab data and studies, as well as discussing diagnostic evaluation and workup, plan therapeutic interventions and future disposition of care. This includes any additional research needed to obtain further information in formulating the plan of care of this patient. This note was generated with a voice recognition program. Please excuse any errors which may have been overlooked during my review of this note. Sometimes these errors may affect the content or meaning of a given sentence.
== END 2020-12-16 12:48 | disposition home or self-care (01) ==
LOC: HO.US 12:47
PROVIDERS: Visit Provider Obstetrics & Gynecology
DX: Z34.90 Encounter for supervision of normal pregnancy, unspecified, unspecified trimester (principal); Z36.82 Encounter for antenatal screening for nuchal translucency
CPT/HCPCS: 76813

== ENCOUNTER 2020-12-16 14:12 | Outpatient (REF) | payer OTHER, SELFPAY ==
[2020-12-16 14:17] LABS: Courtesy Draw Natera Courtesy Draw
== END 2020-12-16 14:13 | disposition home or self-care (01) ==
LOC: HO.LNP 14:12
DX: Z13.89 Encounter for screening for other disorder (principal)

== ENCOUNTER 2021-03-03 09:21 | Outpatient (REF) | payer OTHER, SELFPAY | END 2021-03-03 09:22 | disposition home or self-care (01) | LOC: HO.LAB 09:21 | PROVIDERS: PCP Internal Medicine; Visit Provider Internal Medicine | DX: Z20.822 Contact with and (suspected) exposure to COVID-19 (principal) | CPT/HCPCS: C9803; U0003; U0005 ==

== ENCOUNTER 2021-09-01 07:59 | Outpatient (REF) | payer OTHER, SELFPAY ==
[2021-09-01 08:21] LABS: MANUAL DIFF FLAG NO
[2021-09-01 08:33] LABS: Basophils Absolute Auto 0.1 X10*3/uL (0.0-0.2); Basophils Percent Auto 0.6 % (0-2); Eosinophils Absolute Auto 0.4 X10*3/uL (0.0-0.4); Eosinophils Percent Auto 3.8 % (0-4); Hematocrit 44.2 % (37.0-47.0); Hemoglobin 14.5 g/dl (12.0-16.0); Imm Gran Abs Auto 0.03 X10*3/uL (0.00-0.03); Imm Gran Pct Auto 0.3 % (0.0-0.4); Lymphocytes Absolute Auto 3.5 X10*3/uL (1.2-4.9); Lymphocytes Percent Auto 36.2 % (20-40); Mean Corpuscular HGB Conc 32.8 g/dl (31.0-35.0); Mean Corpuscular Hemoglobin 32.3 pg (27.0-33.0); Mean Corpuscular Volume 98.4 fL (80.0-98.0); Mean Platelet Volume 10.1 fL (9.4-12.3); Monocytes Absolute Auto 0.6 X10*3/uL (0.1-1.2); Monocytes Percent Auto 6.6 % (2-11); Neutrophils Absolute Auto 5.1 x10*3/uL (2.0-8.3); Neutrophils Percent Auto 52.5 % (45-73); Platelet Count 412 X10*3/uL (160-400); Red Blood Count 4.49 X10*6/uL (4.20-5.50); Red Cell Distribution Width 12.5 % (11.0-16.0); White Blood Count 9.7 X10*3/uL (4.8-10.8)
[2021-09-01 09:03] LABS: Alanine Aminotransferase 29 U/L (0-31); Albumin Level 4.5 g/dL (3.5-5.0); Alkaline Phosphatase 44 U/L (39-117); Anion Gap 11 (12-20); Aspartate Amino Transferase 20 U/L (5-31); Bilirubin Total 0.6 mg/dL (0.0-1.0); Blood Urea Nitrogen 13 mg/dL (9-16); Calcium 10.6 mg/dL (8.4-10.2); Carbon Dioxide 26 mmol/L (22-29); Chloride 107 mmol/L (96-108); Cholesterol 267 mg/dL; Estimated Glomerular Filt Rate > 60; Glucose Fasting 88 mg/dL (60-99); HDL Cholesterol 51 mg/dL; LDL Cholesterol Calculated 190 mg/dl; Potassium 5.4 mmol/L (3.3-5.1); Sodium 139 mmol/L (135-145); Total Protein 7.3 g/dL (6.5-8.0); Triglycerides 133 mg/dL
[2021-09-01 09:23] LABS: Appearance Urine CLEAR; Color Urine YELLOW; Glucose Urine UA NEG (NEG); Leukocyte Esterase Urine 1+ (NEG); Nitrite Urine NEG (NEG); Urine Blood NEG (NEG); Urine Ketones NEG (NEG); Urine Protein NEG (NEG-TRACE)
[2021-09-01 09:24] LABS: Thyroid Stimulating Hormone 1.27 uIU/mL (0.32-4.0)
[2021-09-01 09:39] LABS: RBC Urine 0 /HPF (0); Squamous Epithelial Cell Urine 1+ /LPF
== END 2021-09-01 08:00 | disposition home or self-care (01) ==
LOC: HO.LAB 07:59
PROVIDERS: PCP Internal Medicine; Visit Provider Internal Medicine
DX: Z00.00 Encounter for general adult medical examination without abnormal findings (principal); Z13.0 Encounter for screening for diseases of the blood and blood-forming organs and certain disorders involving the immune mechanism
CPT/HCPCS: 36415; 80053; 80061; 81001; 84443; 85025

== ENCOUNTER 2021-11-29 09:41 | Emergency (ER) | payer OTHER, SELFPAY ==
--- NOTE | ~2021-11-29 | XR_ITS ---
EXAMINATION: XR CHEST CLINICAL INFORMATION: Chest pain COMPARISON: Chest x-ray 01/09/2018 TECHNIQUE: 2 views of the chest were obtained. FINDINGS: Cardiac silhouette is normal in size. The lungs are well aerated. There is no lobar consolidation. No pleural effusion or pneumothorax. No acute osseous abnormality. XR/XR chest 2V IMPRESSION: Stable examination demonstrating no acute pulmonary pathology.
[2021-11-29 09:45] VITALS: BP 134/95; PULSE 90; RESP 20; TEMP 36.8; O2SAT 98; BMI 29.2
--- NOTE | 2021-11-29 09:47 | ECG_ITS ---
Test Reason : chest pain Blood Pressure : / mmHG Vent. Rate : 042 BPM Atrial Rate : 000 BPM P-R Int : 000 ms QRS Dur : 094 ms QT Int : 448 ms P-R-T Axes : 000 060 047 degrees QTc Int : 374 ms Sinus bradycardia Abnormal ECG When compared with ECG of 29-NOV-2021 09:44, Vent. rate has decreased BY 44 BPM QT has shortened Referred By: Dee Shah Electronically Signed By:PATTY QUINONES
[2021-11-29 10:31] VITALS: PULSE 118; RESP 24; O2SAT 100
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
[2021-11-29] MEDS: Gabapentin 600 MG TABLET PO (11:43)
[2021-11-29] MEDS: clonazePAM 0.5 MG TABLET PO (11:43)
[2021-11-29 11:50] LABS: D Dimer High Sensitivity < 150 NG/ML
[2021-11-29 11:57] LABS: COVID-19 Test Negative (Negative)
[2021-11-29 12:00] LABS: Troponin-I High Sensitivity < 3.5 ng/L (<3.5-17.0)
[2021-11-29 12:16] VITALS: PULSE 44; O2SAT 100
== END 2021-11-29 13:58 | disposition home or self-care (01) ==
PROVIDERS: Physician Assistant; Emergency Provider Emergency Medicine; PCP Internal Medicine
DX: R07.89 Other chest pain (principal); Z20.822 Contact with and (suspected) exposure to COVID-19; F17.200 Nicotine dependence, unspecified, uncomplicated; F41.9 Anxiety disorder, unspecified
CPT/HCPCS: 71046; 84484; 85379; 87635; 93005; 99283; 99284

== ENCOUNTER 2022-01-18 09:52 | Emergency (ER) | payer OTHER, SELFPAY ==
--- NOTE | ~2022-01-18 | US_ITS ---
EXAMINATION: US PELVIS, AND TRANSVAGINAL ULTRASOUND PELVIC OVARIAN DOPPLER CLINICAL INFORMATION: 31-year-old female who is 6 months . Lower abdominal pain. Heavy vaginal bleeding with clots began 3 days ago. COMPARISON: 12/16/2020 TECHNIQUE: Ultrasound of the pelvis is performed using both transabdominal and transvaginal transducers along with Doppler. Transvaginal imaging is performed to improve evaluation of the endometrium and adnexa. FINDINGS: UTERUS AND CERVIX The anteflexed, anteverted uterus measures 12 x 4.2 x 5.8 cm ([id number] x AP x transverse dimension). The myometrial echotexture is normal. No evidence of leiomyoma. The cervix is approximately 3.8 cm in length. The endometrium has normal homogeneous echotexture and measures 0.7 cm AP (image 64 of 70). No evidence of endometrial fluid or polyp. ADNEXA: The right ovary is 3.9 x 3.2 x 2.8 cm. A simple appearing physiologic cyst/dominant follicle measures up to 2.9 cm. No follow-up imaging required. The left ovary, which is visible on transabdominal images, measures 2.2 x 1.4 x 2.5 cm. The ovary has normal echotexture. No adnexal mass. Color Doppler images with spectral waveforms show presence of normal arterial and venous flow within each ovary. FREE FLUID: None. US/US pelvic ovarian doppler IMPRESSION: * Normal ultrasound examination of the uterus and ovaries. No evidence of endometrial lesion. * Normal Doppler flow is detected within each ovary.
--- NOTE | ~2022-01-18 | CT_ITS ---
EXAMINATION: CT ABDOMEN AND PELVIS WITHOUT CONTRAST CLINICAL INFORMATION: Left-sided abdominal pain. Renal colic? COMPARISON: Pelvic ultrasound from 01/18/2022. Abdomen/pelvis CT from 09/18/2017. TECHNIQUE: Multidetector volumetric imaging was performed from the superior aspect of the liver through the pubic symphysis. Sagittal and coronal reformatted images were obtained on the technologist's workstation. This CT examination was performed using dose optimization techniques as appropriate, variously including the following: *Automated exposure control *Adjustment of mA and/or kV according to patient size (this includes techniques or standardized protocols for targeted exams where dose is matched to indication/reason for exam; i.e. extremities or head) *Use of iterative reconstruction technique DLP: 682 mGy-cm FINDINGS: LUNG BASES: The linear, hazy opacities in the lower lobes have a symmetric appearance, suggestive of mild atelectasis. No focal consolidation or pleural effusion. LIVER: The liver has normal size, shape, and attenuation. No evidence of liver mass. GALLBLADDER AND BILIARY TREE: Gallbladder is without radiopaque stones, wall thickening or pericholecystic fluid. No dilated bile ducts. PANCREAS: Normal. No edema, pancreatic ductal dilatation or mass. SPLEEN: Normal. ADRENAL GLANDS: Normal. KIDNEYS AND URETERS: Kidneys have normal size and normal cortical attenuation. No renal mass, hydronephrosis or perinephric edema. Punctate calyceal stone in the right upper pole (image 197, series 4). A few punctate calyceal stones are detected in the upper pole and interpolar region of the left kidney. No hydronephrosis. A calcification located posterior to the bladder in the left lower pelvis was present on 09/18/2017 and is consistent with a phlebolith. BLADDER: Normal. No calculi or wall thickening. BOWEL AND PERITONEUM: Stomach is unremarkable. No dilated loops of bowel. The appendix is normal. No overt bowel wall thickening or mesenteric fat stranding. No ascites or pneumoperitoneum. ABDOMINAL WALL: Unremarkable. VASCULATURE: Unremarkable. LYMPH NODES: No pathologic sized lymph nodes in the abdomen or pelvis. No inguinal lymphadenopathy. PELVIC VISCERA: The uterus is unremarkable. Simple cyst of the right ovary measures up to 2.8 cm. No imaging follow-up is recommended for a simple cyst of this size, if asymptomatic. No left-sided adnexal lesion. SKELETAL: Unremarkable. CT/CT abdomen pelvis wo con IMPRESSION: * No acute imaging findings in the abdomen or pelvis. * Punctate calyceal stones of both kidneys. No evidence of ureteral calculus or hydroureteronephrosis. * 2.8 cm simple cyst of the right ovary. .
--- NOTE | ~2022-01-18 | US_ITS ---
EXAMINATION: US PELVIS, AND TRANSVAGINAL ULTRASOUND PELVIC OVARIAN DOPPLER CLINICAL INFORMATION: 31-year-old female who is 6 months . Lower abdominal pain. Heavy vaginal bleeding with clots began 3 days ago. COMPARISON: 12/16/2020 TECHNIQUE: Ultrasound of the pelvis is performed using both transabdominal and transvaginal transducers along with Doppler. Transvaginal imaging is performed to improve evaluation of the endometrium and adnexa. FINDINGS: UTERUS AND CERVIX The anteflexed, anteverted uterus measures 12 x 4.2 x 5.8 cm ([id number]-[id number] x AP x transverse dimension). The myometrial echotexture is normal. No evidence of leiomyoma. The cervix is approximately 3.8 cm in length. The endometrium has normal homogeneous echotexture and measures 0.7 cm AP (image 64 of 70). No evidence of endometrial fluid or polyp. ADNEXA: The right ovary is 3.9 x 3.2 x 2.8 cm. A simple appearing physiologic cyst/dominant follicle measures up to 2.9 cm. No follow-up imaging required. The left ovary, which is visible on transabdominal images, measures 2.2 x 1.4 x 2.5 cm. The ovary has normal echotexture. No adnexal mass. Color Doppler images with spectral waveforms show presence of normal arterial and venous flow within each ovary. FREE FLUID: None. US/US pelvic and transvaginal IMPRESSION: * Normal ultrasound examination of the uterus and ovaries. No evidence of endometrial lesion. * Normal Doppler flow is detected within each ovary.
[2022-01-18 10:16] VITALS: BP 118/84; BP 124/83; PULSE 65; PULSE 84; RESP 16; TEMP 36.7; O2SAT 98; O2SAT 99
[2022-01-18 10:54] LABS: MANUAL DIFF FLAG NO
--- NOTE | 2022-01-18 10:55 | PC.NURSE ---
pt is being belligerent, loud, extremely rude, accusatory, entitled and badgering this rn for pain meds which have not being ordered by the provider. pt is also falsely accusing this rn of not speaking to the md about her subjective pain complaint. 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
[2022-01-18 10:59] LABS: Basophils Absolute Auto 0.1 X10*3/uL (0.0-0.2); Basophils Percent Auto 0.7 % (0-2); Eosinophils Absolute Auto 0.6 X10*3/uL (0.0-0.4); Eosinophils Percent Auto 5.4 % (0-4); Hematocrit 46.2 % (37.0-47.0); Hemoglobin 15.6 g/dl (12.0-16.0); Imm Gran Abs Auto 0.04 X10*3/uL (0.00-0.03); Imm Gran Pct Auto 0.3 % (0.0-0.4); Lymphocytes Absolute Auto 4.2 X10*3/uL (1.2-4.9); Lymphocytes Percent Auto 35.9 % (20-40); Mean Corpuscular HGB Conc 33.8 g/dl (31.0-35.0); Mean Corpuscular Hemoglobin 32.3 pg (27.0-33.0); Mean Corpuscular Volume 95.7 fL (80.0-98.0); Mean Platelet Volume 10.2 fL (9.4-12.3); Monocytes Absolute Auto 0.8 X10*3/uL (0.1-1.2); Monocytes Percent Auto 6.5 % (2-11); Neutrophils Percent Auto 51.2 % (45-73); Platelet Count 439 X10*3/uL (160-400); Red Blood Count 4.83 X10*6/uL (4.20-5.50); White Blood Count 11.7 X10*3/uL (4.8-10.8)
[2022-01-18] MEDS: Ketorolac Tromethamine 30 MG/ML VIAL 15 MG IVPUSH ×2 (11:01→15:27)
[2022-01-18] MEDS: 0.9 % Sodium Chloride 1,000 ML 999 ML IV (11:01)
[2022-01-18] MEDS: ondansetron HCL 4 MG/2 ML VIAL IVPUSH (11:01)
[2022-01-18 11:05] LABS: Appearance Urine CLOUDY; Color Urine RED; Glucose Urine UA NEG (NEG); Leukocyte Esterase Urine 2+ (NEG); Nitrite Urine POS (NEG); Specific Gravity - Urine <= 1.005 (1.005-1.025); UACC Culture Trigger YES; Urine Blood 3+ (NEG); Urine Ketones 15 MG/DL (NEG); Urine Protein 3+ MG/DL (NEG-TRACE)
[2022-01-18 11:09] LABS: INTERNATIONAL NORM RATIO 0.9 (0.9-1.1); Prothrombin Time 10.4 SEC (10.0-13.1)
[2022-01-18 11:12] LABS: UPreg QC Valid YES; Urine Pregnancy NEGATIVE (NEGATIVE)
[2022-01-18 11:13] LABS: Alanine Aminotransferase 11 U/L (0-31); Albumin Level 4.8 g/dL (3.5-5.0); Alkaline Phosphatase 45 U/L (39-117); Anion Gap 13 (12-20); Aspartate Amino Transferase 16 U/L (5-31); Bilirubin Total 0.5 mg/dL (0.0-1.0); Blood Urea Nitrogen 10 mg/dL (9-16); Calcium 9.6 mg/dL (8.4-10.2); Carbon Dioxide 23 mmol/L (22-29); Chloride 107 mmol/L (96-108); Creatinine Clr Calc Pharmacy 108.9; Estimated Glomerular Filt Rate > 60; Glucose Random 92 mg/dL (60-115); Potassium 4.3 mmol/L (3.3-5.1); Sodium 139 mmol/L (135-145); Total Protein 7.6 g/dL (6.5-8.0)
[2022-01-18 11:23] LABS: RBC Urine TNTC /HPF (0); Squamous Epithelial Cell Urine 4+ /LPF
[2022-01-18 11:24] LABS: Bacteria Urine TRACE /LPF
[2022-01-18] MEDS: Sertraline HCL 50 MG TABLET PO (12:15)
[2022-01-18] MEDS: Gabapentin 600 MG TABLET PO (12:15)
[2022-01-18] MEDS: clonazePAM 0.5 MG TABLET PO (12:15)
[2022-01-18 13:09] VITALS: BP 106/52; PULSE 60; RESP 16
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
[2022-01-18] MEDS: cefTRIAXone sodium 1 GM in 0.9 % Sodium Chloride 50 ML IV (13:22)
[2022-01-18 13:24] VITALS: BP 106/52; PULSE 60; RESP 16
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
--- NOTE | 2022-01-18 13:48 | PC.NURSE ---
IV ABX ORDERED BY PROVIDER. BLOOD CULTURE SAMPLES OBTAINED PRIOR TO THE START OF THE ABX - ROCEPHIN PT REMAINS COOPERATIVE WITH CARE.
[2022-01-18 13:57] LABS: Lactic Acid 0.9 mmol/L (0.5-2.0)
[2022-01-18 15:28] VITALS: BP 106/52; PULSE 60; RESP 16
== END 2022-01-18 16:22 | disposition home or self-care (01) ==
PROVIDERS: Emergency Provider Student in an Organized Health Care Education/Training Program; PCP Internal Medicine
DX: N10 Acute pyelonephritis (principal); N93.8 Other specified abnormal uterine and vaginal bleeding; R10.2 Pelvic and perineal pain; Z79.899 Other long term (current) drug therapy
CPT/HCPCS: 36415; 74176; 76830; 76856; 80053; 81001; 81003; 81025; 83605; 85025; 85610; 87040; 87086; 93975; 96361; 96365; 96375; 96376; 99284; J0696; J1885; J2405

== ENCOUNTER 2022-02-27 11:21 | Outpatient (REF) | payer OTHER, SELFPAY ==
--- NOTE | ~2022-02-27 | XR_ITS ---
EXAMINATION: XR CERVICAL SPINE CLINICAL INFORMATION: Right-sided cervical pain after feeling crack about 6 days ago . COMPARISON: CT cervical spine 06/05/2020. TECHNIQUE: 3 views of the cervical spine were obtained. FINDINGS: Nonspecific straightening of the cervical lordosis. No acute compression deformity or malalignment. The atlantooccipital and atlantoaxial articulations are maintained. Small anteroinferior osteophyte at C5. Mild disc space narrowing at multiple levels. No significant uncovertebral hypertrophy. No prevertebral soft tissue thickening. Imaged lung apices are clear. XR/XR cervical spine 2V IMPRESSION: No acute compression deformity or subluxation. Mild cervical spondylosis. If symptoms persist, recommend correlation with an MR of the cervical spine.
== END 2022-02-27 11:22 | disposition home or self-care (01) ==
LOC: HO.XRAY 11:21
PROVIDERS: PCP Internal Medicine; Visit Provider Internal Medicine
DX: M54.2 Cervicalgia (principal)
CPT/HCPCS: 72040

== ENCOUNTER 2022-04-09 18:09 | Emergency (ER) | payer OTHER, SELFPAY ==
--- NOTE | ~2022-04-09 | XR_ITS ---
EXAMINATION: XR LUMBOSACRAL SPINE CLINICAL INFORMATION: Fall with back pain COMPARISON: Lumbar spine radiographs 02/04/2018 TECHNIQUE: Three views of the lumbosacral spine. FINDINGS: Normal alignment. No subluxation. Vertebral body heights and intervertebral disc space heights are maintained. No appreciable pars defects. XR/XR lumbar spine 2-3V IMPRESSION: 1. No subluxation or fracture. 2. Preserved intervertebral disc space heights.
[2022-04-09 18:29] VITALS: BP 140/70; PULSE 87; O2SAT 98
[2022-04-09 18:30] VITALS: BMI 31.7
[2022-04-09 18:34] VITALS: BP 130/83; PULSE 71; RESP 18; O2SAT 97
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
--- OUTSIDE RECORDS SUMMARY | 2022-04-09 18:41 | XMS_ITS | Continuity of Care Document ---
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 phenobarbital3 anticonvulsant hypersensitivity syndrome Active 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 1had anticonvulsant hypersensitivity syndrome to lamictal, at risk for similar rxn to [id number] anticonvulsant hypersensitivity syndrome to lamictal risk of similar rxn to [id number] anticonvulsant hypersensitivity syndrome to lamictal, at risk for similar rxn to [id number] anticonvulsant hypersensitivity syndrome to lamictal, at risk for similar rxn to primidone Immunizations Given and Recorded Vaccine Date Status Refusal Reason tetanus/diphtheria/pertussis, acel(Tdap) 05/26/21 Given tetanus/diphtheria/pertussis, acel(Tdap) 11/26/13 Given Not Given Vaccine Date Status Refusal Reason pneumococcal 23-valent vaccine 01/03/18 Not Given P atient Refuses Medications albuterol 90 mcg/inh inhalation powder 2 puffs = 180 mcg, Inhalation, Every 6 hours, PRN as needed, # 1 each, 0 Refills, Maintenance, 01/18/21 13:47:00 EDT, Powder, [id number], Partial fill upon patient request if the [...] 28 days, Maintenance dose to being in [facility] 28 days after oading dose in June, # 1 kit, 8 Refills, Maintenance, 07/25/21 14:11:00 EST, [id number], Partial fill upon patient request if the prescripti... Start Date: 07/25/21 Stop Date: 04/21/22 Status: Orderedfamotidine 20 mg oral tablet 20 mg, 1, tablet, By Mouth, 2 times a day, # 60 tablet, Refills 0, Tot. Refills 0, Maintenance, 06/02/21 13:09:00 EST, Route to Pharmacy Electronically, [id number], Partial fill upon patient request if the prescription is for a schedule II opi... Start Date: 06/02/21 Status: OrderedFioricet oral capsule See Instructions, PRN as needed, Take 1 capsule every 4 hours as needed for migraines, # 10 capsule,1 Refills, Maintenance, 05/16/21 15:27:00 EST, Capsule, [facility] #[id number], Partial fill upon patient request if the prescription is for a schedule II... Start Date: 05/16/21 Status: Orderedgabapentin 300 mg oral capsule 300 [...] II opioid drug. Start Date: 03/01/21 Status: Orderedomeprazole 20 mg oral delayed release tablet 1 tablet = 20 mg, By Mouth, Daily, Take daily for acid reflux suppression, # 30 tablet, 1 Refills, Maintenance, 05/16/21 15:38:00 EST, CR Tablet, [facility]/pharmacy #[id number], Partial fill upon patient request if the prescription is for a schedule II opioid gregory... Start Date: 05/16/21 Status: OrderedPrenatal Multivitamins with Folic Acid 1 mg oral tablet 1 tablet, By Mouth, Daily, # 90 tablet, 3 Refills, Maintenance, 12/23/20 12:16:00 EDT, Tablet, [facility]/pharmacy #[id number], Partial fill upon patient request if [...] II opioid drug. Start Date: 12/23/20 Status: Orderedterconazole topical 0.4% cream 1 application, Vaginally, Daily, for 7 days, # 45 Gm, 0 Refills, Acute 06/12/21 17:29:00 EST, 06/05/21 17:29:00 EST, [facility]/pharmacy #[id number], Partial fill upon patient request if the prescription is for a schedule II opioid drug., 1 application Vaginally D... Start Date: 06/05/21 Stop Date: 06/12/21 Status: OrderedTums 500 mg oral tablet, chewable 250 mg, 0.5, tablet, Chew, 2 times a day, # 60 tablet, Refills 0, Tot. Refills 0, Maintenance, 05/26/21 16:02:00 EST, Route to Pharmacy Electronically, [facility]/pharmacy #[id number], Partial fill upon patient request if the prescription is for a schedule II opio... Start Date: 05/26/21 Status: OrderedTylenol 325 mg oral capsule 2 capsule = 650 mg, By Mouth, Every 4 hours, PRN as needed for pain, # 90 capsule, 1 Refills, Maintenance, 05/30/21 10:37:00 EST, Capsule, [facility]/pharmacy #[id number], Partial fill upon patient request if the prescription is for a schedule II opioid drug., 162... Start Date: 05/30/21 Status: OrderedUnisom 25 mg oral tablet 1 tablet = 25 mg, By Mouth, Daily at bedtime, PRN for sleep, Take before bedtime each night to help reduce nausea and vomiting in , # 30 tablet, 1 Refills, Maintenance, 05/16/21 15:26:00 EST, Tablet, [id number], Partial fill upon omer... Start Date: 05/16/21 Status: OrderedVitamin B6 50 mg oral tablet 50 mg, 1, tablet, By Mouth, Daily, Take daily to help prevent nausea and vomiting in , # 30tablet, Refills 1, Tot. Refills 1, Maintenance, 05/16/21 15:27:00 EST, Route to Pharmacy Electronically, [facility]/pharmacy #[id number], Partial fill upon patient... Start Date: 05/16/21 Status: OrderedZofran 4 mg oral tablet 1 tablet = 4 mg, By Mouth, 3 times a day, PRN Nausea, Take as needed every 8 hours for nausea and vomiting in , # 20 tablet, 1 Refills, Maintenance, 05/16/21 15:38:00 EST, [id number], Partial fill upon patient request if the prescript... Start Date: 05/16/21 Status: OrderedZofran 4 mg oral tablet 1 tablet = 4 mg, By Mouth, Every 8 hours, PRN as needed for nausea/vomiting, # 90 tablet, 0 Refills,Maintenance, 03/01/21 13:32:00 EDT, Tablet, [id number], Partial fill upon patient request ifthe [...] and vomiting in Active (Confirmed) Obese class II(Confirmed) Active PTSD (post-traumatic stress Active disorder)(Confirmed) (Confirmed) Active Tobacco use(Confirmed)6 Active Trichomonal vaginitis during Active (Confirmed)7 1Not currently in therapy or on medications. Was previously taking seroquel 150mg to sleep, gabapentin 400mg four times daily, clonazepam 0.5mg BID for anxiety but stopped in October with and moveto [place] (was previously living in [place])2Managed by [id number] states received treatment [place] [id number] with [id number] previous partner, does not have contact with him, has protective order and currenlty feels [id number] down with [id number] at [facility] Social History Social History Type Response Tobacco Use: 4 or less cigarettes(le ss than 1/4 pack)/day in last 30 days. Other: Cutting down wi th , currently down to one cigarette a day, wants to qu it. States gets rashes with patch. Sex
--- OUTSIDE RECORDS SUMMARY | 2022-04-09 18:41 | XMS_ITS | Continuity of Care Document ---
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 Start Date: 06/23/21 Status: OrderedApri 0.15 mg-0.03 mg oral tablet 1 tablet, By Mouth, Daily, # 28 tablet, 0 Refills, Maintenance, 08/02/21 12:51:00 EST, Tablet, [facility]/pharmacy #[id number], Partial fill upon patient request if the prescription is for a schedule II opioid drug., 1 tablet By Mouth Daily, 162, cm, 08/02/21 12:3... Start Date: 08/02/21 Status: OrderedDiflucan 150 mg oral tablet 1 tablet = 150 mg, By Mouth, Once, # 1 tablet, 1 Refills, Soft Stop, 08/02/21 12:51:00 EST, [facility]/pharmacy #[id number], Partial fill upon patient request [...] 0 Refills, Maintenance, 06/24/21 14:08:00 EST, [facility]/pharmacy #[id number], pt has been on Amitriptyline, topamax, Propranolol... Start Date: 06/24/21 Status: Orderedfamotidine 20 mg oral tablet 20 mg, 1, tablet, By Mouth, 2 times a day, # 28 tablet, Refills 1, Tot. Refills 1, Maintenance, 08/02/21 12:49:00 EST, Route to Pharmacy Electronically, [facility]/pharmacy #[id number], Partial fill upon patient request [...] FOR MODERATE PAIN, Route to Pharmacy Electronically, [id number], 162, cm, 08/02/21 12:39:00 EST, Height, 86.1, kg, 06/21/21 5:31:00 EST, Dry Weight Start Date: 09/13/21 Status: Orderedmetronidazole topical 0.75% gel with applicator 1 applicator, Vaginally, Daily at bedtime, for 5 days, # 70 Gm, 0 Refills, Acute 11/04/21 14:48:00 EDT, 10/30/21 14:48:00 EDT, Gel, [facility]/pharmacy #[id number], Partial fill upon patient request if the prescription is for a schedule II opioid drug., 1 applicat... Start Date: 10/30/21 Stop Date: 11/04/21 Status: OrderedrisperiDONE 2 mg oral tablet 2 [...] but stopped in October with and moveto GILLIAN (was previously living in [place])2Managed by [id number] states received treatment [place] [id number] with [id number] previous partner, does not have contact with him, has protective order and currenlty feels [id number] down with [id number] at [facility] Social History Social History Type Response Tobacco Use: 4 or less cigarettes(le ss than 1/4 pack)/day in last 30 days. Other: Cutting down wi th , currently down to one cigarette a day, wants to qu it. States gets rashes with patch. Sex
--- OUTSIDE RECORDS SUMMARY | 2022-04-09 18:41 | XMS_ITS | Continuity of Care Document ---
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 phenytoin2 anticonvulsant hypersensitivity syndrome Active phenobarbital3 anticonvulsant hypersensitivity syndrome Active primidone4 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 hypersensitivity syndrome 1had anticonvulsant hypersensitivity syndrome to lamictal, at risk for similar rxn to [id number] anticonvulsant hypersensitivity syndrome to lamictal risk of similar rxn to zruqjfync8kwb anticonvulsant hypersensitivity syndrome to lamictal, at risk for similar rxn to vtfjzbugkfjuk8arw anticonvulsant hypersensitivity syndrome to lamictal, at risk for similar rxn to primidone Immunizations Given and Recorded Vaccine Date Status Refusal Reason tetanus/diphtheria/pertussis, acel(Tdap) 05/26/21 Given tetanus/diphtheria/pertussis, acel(Tdap) 11/26/13 Given Not Given Vaccine Date Status Refusal Reason pneumococcal 23-valent vaccine 01/03/18 Not Given P atient Refuses Medications acetaminophen 325 mg oral tablet 975 mg, Tablet, By Mouth, Once, STAT, 06/15/21 13:25:00 EST, Stop date 06/15/21 13:25:00 EST Start Date: 06/15/21 Stop Date: 06/15/21 Status: CompletedAjovy Autoinjector 225 mg/1.5 mL subcutaneous solution = 225 mg, Subcutaneous Injection, Every 28 days, # 1 kit, 5 Refills, Maintenance, 06/08/21 16:10:00 EST, [facility], Partial fill upon patient request if the prescription is for a schedule II opioid drug., 162, cm, 06/02/21 13:02:00... Start Date: 06/08/21 Status: Orderedalbuterol 90 mcg/inh inhalation powder 2 puffs = 180 mcg, Inhalation, Every 6 hours, PRN as needed, # 1 each, 0 Refills, Maintenance, 01/18/21 13:47:00 EDT, Powder, [facility]/pharmacy #[id number], Partial fill upon patient request if [...] if the prescriptio... Start Date: 01/23/21 Status: OrderedDiflucan 150 mg oral tablet 1 tablet = 150 mg, By Mouth, Once, # 1 tablet, 0 Refills, Soft Stop, 06/15/21 16:45:00 EST, Tablet, [id number], 162, cm, 06/09/21 11:44:00 EST, Height, 89.5, kg, 06/15/21 12:03:00 EST, Dry Weight Start Date: 06/15/21 Status: OrderedEmgality Prefilled Pen 120 mg/mL subcutaneous [...] 28 days, Maintenance dose to being in [facility] 28 days after oading dose in June, [...] capsule,1 Refills, Maintenance, 05/16/21 15:27:00 EST, Capsule, [id number], Partial fill upon patient request [...] Refills, Maintenance, 05/16/21 15:38:00 EST, CR Tablet, [id number], Partial fill upon patient [...] II opioid drug. Start Date: 12/23/20 Status: OrderedTums 500 mg oral tablet, chewable 250 mg, 0.5, tablet, Chew, 2 times a day, # 60 tablet, Refills 0, Tot. Refills 0, Maintenance, 05/26/21 16:02:00 EST, Route to Pharmacy Electronically, [id number], Partial fill upon patient request if the prescription is for a schedule II opio... Start Date: 05/26/21 Status: OrderedTylenol 325 mg oral capsule 2 capsule = 650 mg, By Mouth, Every 4 hours, PRN as needed for pain, # 90 capsule, 1 Refills, Maintenance, 05/30/21 10:37:00 EST, Capsule, [id number], Partial fill upon patient request if the prescription is for a schedule II opioid drug., 162... Start Date: 05/30/21 Status: OrderedUnisom 25 mg oral tablet 1 tablet = 25 mg, By Mouth, Daily at bedtime, PRN for sleep, Take before bedtime each night to help reduce nausea and vomiting in , # 30 tablet, 1 Refills, Maintenance, 05/16/21 15:26:00 EST, Tablet, [facility]/pharmacy #[id number], Partial fill upon omer... Start Date: 05/16/21 Status: OrderedVitamin B6 50 mg oral tablet 1, tablet, By Mouth, Daily, TO HELP PREVENT NAUSEA AND VOMITING IN ., # 30 tablet, Refills 1, Route to Pharmacy Electronically, [id number], 162, cm, 06/09/21 11:44:00 EST, Height, 82.6, kg, 04/10/21 12:12:00 EDT, Dry Weight Start Date: 06/12/21 Status: OrderedZofran 4 mg oral tablet 1 tablet = 4 mg, By Mouth, 3 times a day, PRN Nausea, Take as needed every 8 hours for nausea and vomiting in , # 20 tablet, 1 Refills, Maintenance, 05/16/21 15:38:00 EST, [facility]/pharmacy #[id number], Partial fill upon patient request if the prescript... Start Date: 05/16/21 Status: OrderedZofran 4 mg oral tablet 1 tablet = 4 mg, By Mouth, Every 8 hours, PRN as needed for nausea/vomiting, # 90 tablet, 0 Refills,Maintenance, 03/01/21 13:32:00 EDT, Tablet, [facility]/pharmacy #[id number], Partial fill upon patient request ifthe [...] [place] (was previously living in [place])2Managed by [id number] states received treatment in [id number] with [id number] previous partner, does not have contact with him, has protective order and currenlty feels [id number] down with wxybrtnpn2Ncesjeb at [facility] Vital Signs Most recent to oldest [Reference Range]: 1 2 Weight 89.5 kg 89.5 kg (06/15/21 12:03 PM) (06/15/21 12:00 PM) Oxygen Saturation [94-100 %] 96 % (06/15/21 12:26 PM) Blood Pressure [90-138/55-84 mm Hg] 105/65 mm Hg (06/15/21 12:26 PM) Respiratory Rate [16-30 br/min] 18 br/min 18 br/mi n (06/15/21 4:39 PM) (06/15/21 12:26 PM) Temperature [96.8-100.4 DegF] 98.2 DegF 98.2 DegF (06/15/21 12:03 PM) (06/15/21 12:00 PM) Mode of Delivery (Oxygen) Room air (06/15/21 12:26 PM) Blood pressure sites Arm, right (06/15/21 12:26 PM) Temperature Route Oral Oral (06/15/21 12:03 PM) (06/15/21 12:00 PM) Dry Weight 89.5 kg 89.5 kg (06/15/21 12:03 PM) (06/15/21 12:00 PM) Social History Social History Type Response Tobacco Use: 4 or less cigarettes(le ss than 1/4 pack)/day in last 30 days. Other: Cutting down wi th , currently down to one cigarette a day, wants to qu it. States gets rashes with patch. Sex
--- OUTSIDE RECORDS SUMMARY | 2022-04-09 18:41 | XMS_ITS | Continuity of Care Document ---
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 phenytoin2 anticonvulsant hypersensitivity syndrome Active phenobarbital3 anticonvulsant hypersensitivity syndrome Active primidone4 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 Start Date: 01/18/21 Status: OrderedColace sodium 100 mg oral capsule 100 mg, 1, capsule, By Mouth, 2 times a day, PRN, # 60 capsule, Refills 1, Tot. Refills 1, Maintenance, for constipation, 01/23/21 14:19:00 EDT, Route to Pharmacy Electronically, [facility]/pharmacy #[id number], Partial fill upon patient request [...] if the prescriptio... Start Date: 01/23/21 Status: OrderedPrenatal Multivitamins with Folic Acid 1 mg oral tablet 1 tablet, By Mouth, Daily, # 90 tablet, 3 Refills, Maintenance, 12/23/20 12:16:00 EDT, Tablet, [id number], Partial fill upon patient request if the prescription is for a schedule II opioid drug., 1 tablet By Mouth Daily, 162, cm, 12/20/20 11:3... Start Date: 12/23/20 Status: Orderedsucralfate 1 gm oral tablet See [...] hours, PRN as needed for nausea/vomiting, # 30 tablet, 0 Refills,Maintenance, 01/18/21 13:47:00 EDT, Tablet, [id number], Partial fill upon patient request ifthe prescription is for a schedule II opioid drug... Start Date: 01/18/21 Status: Ordered Problem List Condition Effective Dates [...] and moveto GILLIAN (was previously living in [place])2Managed by [id number] states received treatment in [id number] with [id number] previous partner, does not have contact with him, has protective order and currenlty feels dseq2Gjirreu down with itszckpro5Rmmxruz at [facility] Social History Social History Type Response Tobacco Use: 4 or less cigarettes(le ss than 1/4 pack)/day in last 30 days. Other: Cutting down wi th , currently down to one cigarette a day, wants to qu it. States gets rashes with patch. Sex
--- OUTSIDE RECORDS SUMMARY | 2022-04-09 18:41 | XMS_ITS | Continuity of Care Document ---
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 phenytoin2 anticonvulsant hypersensitivity syndrome Active phenobarbital3 anticonvulsant hypersensitivity syndrome Active primidone4 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 hypersensitivity syndrome 1had anticonvulsant hypersensitivity syndrome to lamictal, at risk for similar rxn to uafnwnsczuevz8Lxm anticonvulsant hypersensitivity syndrome to lamictal risk of similar rxn to xtdeafwcd8mzf anticonvulsant hypersensitivity syndrome to lamictal, at risk for similar rxn to jpkryanrifrdr9feh anticonvulsant hypersensitivity syndrome to lamictal, at risk [...] Refills, Maintenance, 01/18/21 13:47:00 EDT, Powder, [id number], Partial fill upon patient request if the [...] 28 days, Maintenance dose to being in [facility] 28 days after oading dose in June, # 1 kit, 8 Refills, Maintenance, 07/25/21 14:11:00 EST, [id number], Partial fill upon patient request if the prescripti... Start Date: 07/25/21 Stop Date: 04/21/22 Status: Orderedfamotidine 10 mg oral tablet 1 tablet = 10 mg, By Mouth, 2 times a day, # 60 tablet, 2 Refills, Maintenance, 04/14/21 10:26:00 EDT, Tablet, [id number], Partial fill upon patient request if the prescription is for a schedule II opioid drug., 162, cm, 04/03/21 12:24:00 EDT,... Start Date: 04/14/21 Status: Orderedgabapentin 300 mg oral capsule 300 [...] 3 Refills, Maintenance, 12/23/20 12:16:00 EDT, Tablet, [facility]/pharmacy #[id number], Partial fill [...] tablet, 0 Refills,Maintenance, 03/01/21 13:32:00 EDT, Tablet, [facility]/pharmacy #[id number], Partial fill upon patient request ifthe [...] and moveto [place] (was previously living in [place])2Managed by [id number] states received treatment [place] [id number] with [id number] previous partner, does not have contact with him, has protective order and currenlty feels shup0Vdlfeoe down with pogdrvnzq3Pejgilc at [facility] Social History Social History Type Response Tobacco Use: 4 or less cigarettes(le ss than 1/4 pack)/day in last 30 days. Other: Cutting down wi th , currently down to one cigarette a day, wants to qu it. States gets rashes with patch. Sex
--- OUTSIDE RECORDS SUMMARY | 2022-04-09 18:41 | XMS_ITS | Continuity of Care Document ---
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 phenytoin2 anticonvulsant hypersensitivity syndrome Active phenobarbital3 anticonvulsant hypersensitivity syndrome Active primidone4 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 Start Date: 06/23/21 Status: OrderedEmgality Prefilled Pen 120 mg/mL subcutaneous solution = 120 mg, Subcutaneous Infusion, Every 28 days, loading dose= 2 kits, begin in June 2021 after you deliver June 20, # 2 kit, 0 Refills, Maintenance, 06/24/21 14:08:00 EST, [facility]/pharmacy #[id number], pt has been on Amitriptyline, topamax, Propranolol... Start Date: 06/24/21 Status: Orderedfamotidine 20 mg oral tablet 20 mg, 1, tablet, By Mouth, 2 times a day, # 60 tablet, Refills 0, Tot. Refills 0, Maintenance, 06/02/21 13:09:00 EST, Route to Pharmacy Electronically, [facility]/pharmacy #[id number], Partial fill upon patient request if the prescription is for a schedule II opi... Start Date: 06/02/21 Status: Orderedgabapentin 300 mg oral capsule 300 mg, 1, capsule, By Mouth, 3 times a day, Refills 0, Maintenance, 03/30/21 14:18:00 EDT, Partial fill upon patient request if the prescription is for a schedule II opioid drug. Start Date: 03/30/21 Status: Orderedibuprofen 800 mg oral tablet 800 mg, 1, tablet, By Mouth, Every 8 hours, PRN, Take 1 tablet every 8 hours as needed for pain, # 60 tablet, Refills 0, Tot. Refills 0, Maintenance, Pain , Moderate, 06/23/21 4:20:00 EST, Route to Pharmacy Electronically, [facility]/pharmacy #[id number], Partial... Start Date: 06/23/21 Status: OrderedSEROquel 25 mg oral tablet 25 mg, 1, tablet, By Mouth, Daily, # 30 tablet, Refills 0, Maintenance, 03/30/21 14:17:00 EDT, Partial fill upon patient request if the prescription is for a schedule II opioid drug. Start Date: 03/30/21 Status: OrderedZofran 4 mg oral tablet 1 [...] and moveto [place] (was previously living in [place])2Managed by [id number] states received treatment [place] [id number] with kpzuhjcge6rolh previous partner, does not have contact with him, has protective order and currenlty feels ccok0Nbvcahi down with sialgdrat6Mfctziy at [facility] Social History Social History Type Response Tobacco Use: 4 or less cigarettes(le ss than 1/4 pack)/day in last 30 days. Other: Cutting down wi th , currently down to one cigarette a day, wants to qu it. States gets rashes with patch. Sex
--- OUTSIDE RECORDS SUMMARY | 2022-04-09 18:41 | XMS_ITS | Continuity of Care Document ---
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 Start Date: 01/18/21 Status: OrderedColace sodium 100 mg oral capsule 100 mg, 1, capsule, By Mouth, 2 times a day, PRN, # 60 capsule, Refills 1, Tot. Refills 1, Maintenance, for constipation, 01/23/21 14:19:00 EDT, Route to Pharmacy Electronically, [facility]/pharmacy #[id number], Partial fill upon patient request [...] and moveto GILLIAN (was previously living in [place])2Managed by [id number] states received treatment [place] [id number] with ccjkntann7tbur previous partner, does not have contact with him, has protective order and currenlty feels smuu7Hrtfzee down with msjcpcapy4Uegvnyw at [facility] Social History Social History Type Response Tobacco Use: 4 or less cigarettes(le ss than 1/4 pack)/day in last 30 days. Other: Cutting down wi th , currently down to one cigarette a day, wants to qu it. States gets rashes with patch. Sex
--- OUTSIDE RECORDS SUMMARY | 2022-04-09 18:41 | XMS_ITS | Continuity of Care Document ---
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 phenytoin2 anticonvulsant hypersensitivity syndrome Active phenobarbital3 anticonvulsant hypersensitivity syndrome Active primidone4 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 Start Date: 01/18/21 Status: OrderedColace sodium 100 mg oral capsule 100 mg, 1, capsule, By Mouth, 2 times a day, PRN, # 60 capsule, Refills 1, Tot. Refills 1, Maintenance, for constipation, 01/23/21 14:19:00 EDT, Route to Pharmacy Electronically, [facility]/pharmacy #[id number], Partial fill upon patient request [...] if the prescriptio... Start Date: 01/23/21 Status: Orderedfamotidine 10 mg oral tablet 1 tablet = 10 mg, By Mouth, 2 times a day, # 60 tablet, 0 Refills, Maintenance, 03/06/21 12:19:00 EDT, Tablet, [facility]/pharmacy #[id number], Partial fill upon patient request if the prescription is for a schedule II opioid drug., 162, cm, 03/06/21 11:46:00 EDT,... Start Date: 03/06/21 Status: Orderedgabapentin 300 mg oral capsule 300 mg, 1, capsule, By Mouth, 3 times a day, Refills 0, Maintenance, 03/30/21 14:18:00 EDT, Partial fill upon patient request if the prescription is for a schedule II opioid drug. Start Date: 03/30/21 Status: OrderedLotrisone 0.05%-1% cream 1 application, Topically, 2 times a day, # 45 Gm, 0 Refills, Acute 04/09/21 17:13:00 EDT, 03/30/21 17:12:00 EDT, Cream, [facility]/pharmacy #[id number], Partial fill upon patient request if the prescription is for a schedule II opioid drug., 1 application Topicall... Start Date: 03/30/21 Stop Date: 04/09/21 Status: OrderedMelatonin Daily at bedtime, 0 Refills, [...] and moveto GILLIAN (was previously living in [place])2Managed by [id number] states [place] [id number] with xzvoeutdx6vpbx previous partner, does not have contact with him, has protective order and currenlty feels ktfs9Cfgfqyh down with ezbrnuoze7Uddgysz at [facility] Social History Social History Type Response Tobacco Use: 4 or less cigarettes(le ss than 1/4 pack)/day in last 30 days. Other: Cutting down wi th , currently down to one cigarette a day, wants to qu it. States gets rashes with patch. Sex
--- OUTSIDE RECORDS SUMMARY | 2022-04-09 18:41 | XMS_ITS | Continuity of Care Document ---
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 phenytoin2 anticonvulsant hypersensitivity syndrome Active phenobarbital3 anticonvulsant hypersensitivity syndrome Active 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 Start Date: 01/18/21 Status: OrderedAspercreme with Lidocaine 4% topical cream See Instructions, apply to sore area as needed for low back discomfort not to exceed 3 applications in 24 hours, # 5 Gm, 0 Refills, Acute 03/30/21 15:44:00 EDT, 03/01/21 15:43:00 EDT, [id number], Partial fill upon patient request if the presc... Start Date: 03/01/21 Stop Date: 03/30/21 Status: OrderedColace sodium 100 mg oral capsule [...] 0 Refills, Maintenance, 03/06/21 12:19:00 EDT, Tablet, [facility]/pharmacy #[id number], Partial fill upon patient request if the prescription is for a schedule II opioid drug., 162, cm, 03/06/21 11:46:00 EDT,... Start Date: 03/06/21 Status: OrderedMelatonin Daily at bedtime, 0 Refills, [...] and moveto [place] (was previously living in [place])2Managed by [id number] states received [place] [id number] with bvchdxtqv8lzvy previous partner, does not have contact with him, has protective order and currenlty feels cuxu0Isluquq down with jzsyywlfu7Jyarjwr at [facility] [place] Social History Social History Type Response Tobacco Use: 4 or less cigarettes(le ss than 1/4 pack)/day in last 30 days. Other: Cutting down wi th , currently down to one cigarette a day, wants to qu it. States gets rashes with patch. Sex
--- OUTSIDE RECORDS SUMMARY | 2022-04-09 18:41 | XMS_ITS | Continuity of Care Document ---
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 phenytoin2 anticonvulsant hypersensitivity syndrome Active phenobarbital3 anticonvulsant hypersensitivity syndrome Active primidone4 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 Start Date: 06/23/21 Status: OrderedApri 0.15 mg-0.03 mg oral tablet 1 tablet, By Mouth, Daily, # 28 tablet, 0 Refills, Maintenance, 08/02/21 12:51:00 EST, Tablet, [id number], Partial fill upon patient request if the prescription is for a schedule II opioid drug., 1 tablet By Mouth Daily, 162, cm, 08/02/21 12:3... Start Date: 08/02/21 Status: OrderedDiflucan 150 mg oral tablet 1 tablet = 150 mg, By Mouth, Once, # 1 tablet, 1 Refills, Soft Stop, 08/02/21 12:51:00 EST, [id number], Partial fill upon patient [...] 08/02/21 12:49:00 EST, Route to Pharmacy Electronically, [id number], Partial fill upon patient [...] FOR MODERATE PAIN, Route to Pharmacy Electronically, [id number], 162, cm, 08/02/21 12:39:00 EST, Height, 86.1, [...] and moveto [place] (was previously living in [place])2Managed by [id number] states received treatment [place] [id number] with mloqhsqrz9wayc previous partner, does not have contact with him, has protective order and currenlty feels mtqe1Fmuswdn down with inmbkbxpg7Pfbkkbp at [facility] [place] Social History Social History Type Response Tobacco Use: 4 or less cigarettes(le ss than 1/4 pack)/day in last 30 days. Other: Cutting down wi th , currently down to one cigarette a day, wants to qu it. States gets rashes with patch. Sex
--- OUTSIDE RECORDS SUMMARY | 2022-04-09 18:41 | XMS_ITS | Continuity of Care Document ---
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 phenytoin2 anticonvulsant hypersensitivity syndrome Active phenobarbital3 anticonvulsant hypersensitivity syndrome Active primidone4 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 Start Date: 06/23/21 Status: OrderedApri 0.15 mg-0.03 mg oral tablet 1 tablet, By Mouth, Daily, # 28 tablet, 0 Refills, Maintenance, 08/02/21 12:51:00 EST, Tablet, [facility]/pharmacy #[id number], Partial fill upon patient request if the prescription is for a schedule II opioid drug., 1 tablet By Mouth Daily, 162, cm, 08/02/21 12:3... Start Date: 08/02/21 Status: OrderedDiflucan 150 mg oral tablet 1 tablet = 150 mg, By Mouth, Once, # 1 tablet, 1 Refills, Soft Stop, 08/02/21 12:51:00 EST, [facility]/pharmacy #[id number], Partial fill [...] kit, 0 Refills, Maintenance, 06/24/21 14:08:00 EST, [facility]/pharmacy #[id number], pt has been on Amitriptyline, topamax, Propranolol... Start Date: 06/24/21 Status: Orderedfamotidine 20 mg oral tablet 20 mg, 1, tablet, By Mouth, 2 times a day, # 28 tablet, Refills 1, Tot. Refills 1, Maintenance, 08/02/21 12:49:00 EST, [facility] [...] FOR MODERATE PAIN, Route to Pharmacy Electronically, [id number], 162, cm, 08/02/21 12:39:00 EST, Height, 86.1, kg, 06/21/21 5:31:00 EST, Dry Weight Start Date: 09/13/21 Status: OrderedrisperiDONE 2 mg oral tablet 2 [...] [place] (was previously living in [place])2Managed by [id number] states received treatment [place] [id number] with eljhtngli7tkwj previous partner, does not have contact with him, has protective order and currenlty feels agxh4Sytntas down with hcejxoxee9Dencfla at [facility] Social History Social History Type Response Tobacco Use: 4 or less cigarettes(le ss than 1/4 pack)/day in last 30 days. Other: Cutting down wi th , currently down to one cigarette a day, wants to qu it. States gets rashes with patch. Sex
--- OUTSIDE RECORDS SUMMARY | 2022-04-09 18:41 | XMS_ITS | Continuity of Care Document ---
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 phenytoin2 anticonvulsant hypersensitivity syndrome Active phenobarbital3 anticonvulsant hypersensitivity syndrome Active primidone4 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 Start Date: 01/18/21 Status: OrderedColace sodium 100 mg oral capsule 100 mg, 1, capsule, By Mouth, 2 times a day, PRN, # 60 capsule, Refills 1, Tot. Refills 1, Maintenance, for constipation, 01/23/21 14:19:00 EDT, Route to Pharmacy Electronically, [facility]/pharmacy #[id number], Partial fill upon patient request [...] and moveto [place]ILLIAN (was previously living in [place])2Managed by [id number] states received treatment [place] [id number] with kpqtkyzcg1wfdf previous partner, does not have contact with him, has protective order and currenlty feels ddpp7Lqettvu down with wpmsmxbno7Gjthvmq at [facility] Social History Social History Type Response Tobacco Use: 4 or less cigarettes(le ss than 1/4 pack)/day in last 30 days. Other: Cutting down wi th , currently down to one cigarette a day, wants to qu it. States gets rashes with patch. Sex
--- OUTSIDE RECORDS SUMMARY | 2022-04-09 18:41 | XMS_ITS | Continuity of Care Document ---
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 phenytoin2 anticonvulsant hypersensitivity syndrome Active phenobarbital3 anticonvulsant hypersensitivity syndrome Active primidone4 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 Start Date: 06/23/21 Status: OrderedApri 0.15 mg-0.03 mg oral tablet 1 tablet, By Mouth, Daily, # 28 tablet, 3 Refills, Maintenance, 01/22/22 12:59:00 EDT, Tablet, [facility]/pharmacy #[id number], Partial fill upon patient request if the prescription is for a schedule II opioid drug., 1 tablet By Mouth Daily, 162, cm, 10/26/21 15:3... Start Date: 01/22/22 Status: OrderedDiflucan 150 mg oral tablet 1 tablet = 150 mg, By Mouth, Once, # 1 tablet, 1 Refills, Soft Stop, 08/02/21 12:51:00 EST, [facility]/pharmacy #[id number], Partial fill upon patient request [...] kit, 0 Refills, Maintenance, 06/24/21 14:08:00 EST, [facility]/pharmacy #[id number], pt has been on Amitriptyline, topamax, Propranolol... Start Date: 06/24/21 Status: Orderedfamotidine 20 mg oral tablet 20 mg, 1, tablet, By Mouth, 2 times a day, # 28 tablet, Refills 1, Tot. Refills 1, Maintenance, 08/02/21 12:49:00 EST, Route to Pharmacy Electronically, [facility]/pharmacy #[id number], Partial fill upon patient request [...] FOR MODERATE PAIN, Route to Pharmacy Electronically, [id number], 162, cm, 08/02/21 12:39:00 EST, Height, 86.1, [...] but stopped in October with and moveto [place] (was previously living in [place])2Managed by [id number] states received treatment [place] [id number] with ijflcttxf5cwrh previous partner, does not have contact with him, has protective order and currenlty feels vwrr2Mpienbd down with obagczcrx1Uwpohwg at [facility] Social History Social History Type Response Tobacco Use: 4 or less cigarettes(le ss than 1/4 pack)/day in last 30 days. Other: Cutting down wi th , currently down to one cigarette a day, wants to qu it. States gets rashes with patch. Sex
--- OUTSIDE RECORDS SUMMARY | 2022-04-09 18:41 | XMS_ITS | Continuity of Care Document ---
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 phenytoin2 anticonvulsant hypersensitivity syndrome Active phenobarbital3 anticonvulsant hypersensitivity syndrome Active primidone4 anticonvulsant hypersensitivity syndrome Active 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 1had anticonvulsant hypersensitivity syndrome to lamictal, at risk for similar rxn to mgbkwifqmuipa3Jbj anticonvulsant hypersensitivity syndrome to lamictal risk of similar rxn to xytxuwdab2pcl anticonvulsant hypersensitivity syndrome to lamictal, at risk for similar rxn to adsdppbjcsdse3wmr anticonvulsant hypersensitivity syndrome to lamictal, at risk for similar rxn to primidone Immunizations Given and Recorded Vaccine Date Status Refusal Reason tetanus/diphtheria/pertussis, acel(Tdap) 11/26/13 Given Not Given Vaccine Date Status Refusal Reason pneumococcal 23-valent vaccine 01/03/18 Not Given P atient Refuses Medications acetaminophen/butalbital/caffeine 325 mg-50 mg-40 mg oral tablet TAKE 1 TO 2 TABLETS EVERY 6 HOURS NEEDED FOR PAIN Start Date: 01/02/18 Status: Orderedalbuterol 90 mcg/inh inhalation powder 2 puffs, Inhalation, Every 6 hours, PRN as needed, # 1 each, 0 Refills, Maintenance, 01/03/18 14:46:50 EDT, Powder Start Date: 01/03/18 Status: OrderedAtivan 1 mg oral tablet 1 tablet = 1 mg, By Mouth, 2 times a day, 0 Refills, Maintenance, 01/02/18 21:41:52 EDT, Tablet Start Date: 01/02/18 Status: OrderedcloNIDine 0.1 mg oral tablet 0.1 mg, 1, tablet, By Mouth, Daily at bedtime, Refills 0, Maintenance, 01/02/18 21:42:09 EDT Start Date: 01/02/18 Status: OrderedProtonix 40 mg oral delayed release tablet = 40 mg, By Mouth, 2 times a day, # 60 tablet, 0 Refills, Maintenance, 10/18/18 9:46:45 EDT, EC Tablet Start Date: 10/18/18 Stop Date: 11/17/18 Status: Orderedraltegravir 600 mg oral tablet 2 tablet = 1,200 mg, By Mouth, Daily, # 10 tablet, 0 Refills, Maintenance, 09/30/18 2:10:38 EDT, Tablet Start Date: 09/30/18 Stop Date: 10/05/18 Status: OrderedTruvada 200 mg-300 mg oral tablet 1 tablet, By Mouth, Daily, # 5 tablet, 0 Refills, Maintenance, 09/30/18 2:10:26 EDT, Tablet Start Date: 09/30/18 Stop Date: 10/05/18 Status: Ordered Problem List Condition Effective Dates Status Health Status Informant Anxiety(Confirmed) Active Asthma(Confirmed) Active Depression(Confirmed) Active Pelvic inflammatory disease(Confirmed) Active Gastritis(Confirmed) Active GERD (gastroesophageal reflux Active disease)(Confirmed) Migraines(Confirmed) Active PTSD (post-traumatic stress Active disorder)(Confirmed) Vital Signs Most recent to oldest [Reference Range]: 1 Height 162 cm (12/20/20 11:30 AM) Pulse Rate [55-90 bpm] 64 bpm (12/20/20 11:30 AM) Blood Pressure [90-138/55-84 mm Hg] 114/75 mm Hg (12/20/20 11:30 AM) Respiratory Rate [16-30 br/min] 18 br/min (12/20/20 11:30 AM) Temperature [96.8-100.4 DegF] 98.6 DegF (12/20/20 11:30 AM) Blood pressure sites Arm, right (12/20/20 11:30 AM) Temperature Route Oral (12/20/20 11:30 AM) Social History Social History Type Response Smoking Status Former smoker entered on: 01/02/18 Sex
--- OUTSIDE RECORDS SUMMARY | 2022-04-09 18:41 | XMS_ITS | Continuity of Care Document ---
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 Start Date: 06/23/21 Status: OrderedApri 0.15 mg-0.03 mg oral tablet 1 tablet, By Mouth, Daily, # 28 tablet, 3 Refills, Maintenance, 01/22/22 12:59:00 EDT, Tablet, [facility]/pharmacy #[id number], Partial fill upon patient request if the prescription is for a schedule II opioid drug., 1 tablet By Mouth Daily, 162, cm, 10/26/21 15:3... Start Date: 01/22/22 Status: OrderedDiflucan 150 mg oral tablet 1 tablet = 150 mg, By Mouth, Once, # 1 tablet, 1 Refills, Soft Stop, 08/02/21 12:51:00 EST, [facility]/pharmacy #[id number], Partial fill upon patient request [...] kit, 0 Refills, Maintenance, 06/24/21 14:08:00 EST, [facility]/pharmacy #[id number], pt has been on Amitriptyline, topamax, Propranolol... Start Date: 06/24/21 Status: Orderedfamotidine 20 mg oral tablet 20 mg, 1, tablet, By Mouth, 2 times a day, # 28 tablet, Refills 1, Tot. Refills 1, Maintenance, 08/02/21 12:49:00 EST, Route to Pharmacy Electronically, [facility]/pharmacy #[id number], Partial fill upon patient request [...] hours, PRN, # 60 tablet, Refills 0, Maintenance, NEEDED FOR MODERATEPAIN, 02/19/22 15:19:00 EDT, Route to Pharmacy Electronically, [id number], 162, cm, 02/09/22 15:31:00 EDT, Height, 86.1, kg, 06/21/21 5:31:00 EST... Start Date: 02/19/22 Status: OrderedrisperiDONE 2 mg oral tablet 2 [...] but stopped in October with and moveto [place] (was previously living in [place])2Managed by [id number] states received treatment [place] [id number] with lwgnydibt3ewxc previous partner, does not have contact with him, has protective order and currenlty feels tzad7Etcpngt down with aafotqkba2Tpvqhvy at [facility] Social History Social History Type Response Tobacco Use: 4 or less cigarettes(le ss than 1/4 pack)/day in last 30 days. Other: Cutting down wi th , currently down to one cigarette a day, wants to qu it. States gets rashes with patch. Sex Care Team PersonnelName: Quentin Magana MD Address: [address] [place] [id number]-
--- OUTSIDE RECORDS SUMMARY | 2022-04-09 18:41 | XMS_ITS | Continuity of Care Document ---
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 phenytoin2 anticonvulsant hypersensitivity syndrome Active phenobarbital3 anticonvulsant hypersensitivity syndrome Active primidone4 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/pharmacy #[id number], Partial fill upon omer... Start Date: 06/23/21 Status: OrderedEmgality Prefilled Pen 120 mg/mL subcutaneous solution = 120 mg, Subcutaneous Infusion, Every 28 days, loading dose= 2 kits, begin in June 2021 after you deliver June 20, # 2 kit, 0 Refills, Maintenance, 06/24/21 14:08:00 EST, [facility]/pharmacy #[id number], pt has been on Amitriptyline, topamax, Propranolol... Start Date: 06/24/21 Status: Orderedfamotidine 20 mg oral tablet 20 mg, 1, tablet, By Mouth, 2 times a day, # 60 tablet, Refills 0, Tot. Refills 0, Maintenance, 06/02/21 13:09:00 EST, Route to Pharmacy Electronically, [facility]/pharmacy #[id number], Partial fill upon patient request if [...] 06/23/21 4:20:00 EST, Route to Pharmacy Electronically, [facility]/pharmacy #[id number], Partial... Start Date: 06/23/21 Status: OrderedSEROquel 25 mg oral tablet 25 mg, 1, tablet, By Mouth, Daily, # 30 tablet, Refills 0, Maintenance, 03/30/21 14:17:00 EDT, Partial fill upon patient request if the prescription is for a schedule II opioid drug. Start Date: 03/30/21 Status: OrderedVitamin B6 50 mg oral tablet 1, tablet, By Mouth, Daily, TO HELP PREVENT NAUSEA AND VOMITING IN ., # 30 tablet, Refills 1, Route to Pharmacy Electronically, [id number], 162, cm, 06/22/21 14:22:00 EST, Height, 86.1, kg, 06/21/21 5:31:00 EST, Dry Weight Start Date: 07/13/21 Status: OrderedZofran 4 mg oral tablet 1 tablet = 4 mg, By Mouth, Every 8 hours, PRN as needed for nausea/vomiting, # 90 tablet, 0 Refills,Maintenance, 03/01/21 13:32:00 EDT, Tablet, [facility]/pharmacy #[id number], Partial fill upon patient request ifthe [...] and moveto [place] (was previously living in [place])2Managed by [id number] states received treatment [place] [id number] with [id number] previous partner, does not have contact with him, has protective order and currenlty feels zovq2Etjdmng down with cylnpomqj9Motnfnu at [facility] Social History Social History Type Response Tobacco Use: 4 or less cigarettes(le ss than 1/4 pack)/day in last 30 days. Other: Cutting down wi th , currently down to one cigarette a day, wants to qu it. States gets rashes with patch. Sex
--- OUTSIDE RECORDS SUMMARY | 2022-04-09 18:41 | XMS_ITS | Continuity of Care Document ---
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 phenytoin2 anticonvulsant hypersensitivity syndrome Active phenobarbital3 anticonvulsant hypersensitivity syndrome Active primidone4 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 hypersensitivity syndrome 1had anticonvulsant hypersensitivity syndrome to lamictal, at risk for similar rxn to yxavrloksdgfh0Tuy anticonvulsant hypersensitivity syndrome to lamictal risk of similar rxn to ryupgtbhx4iuk anticonvulsant hypersensitivity syndrome to lamictal, at risk for similar rxn to ktrafzdaotqdw0xrs anticonvulsant hypersensitivity syndrome to lamictal, at risk [...] Refills, Maintenance, 01/18/21 13:47:00 EDT, Powder, [id number], Partial fill upon patient request if the [...] 28 days, Maintenance dose to being in [facility] 28 days after oading dose in [...] 3 Refills, Maintenance, 12/23/20 12:16:00 EDT, Tablet, [facility]/pharmacy #[id number], Partial fill upon patient request if [...] tablet, 0 Refills,Maintenance, 03/01/21 13:32:00 EDT, Tablet, [facility]/pharmacy #[id number], Partial fill upon patient request ifthe [...] but stopped in October with and moveto [place] (was previously living in [place])2Managed by [id number] states [place] [id number] with nweihjnlx3oqdf previous partner, does not have contact with him, has protective order and currenlty feels qquo9Qmjgfrq down with rqdprlygk7Bfgnkbi at [facility] Social History Social History Type Response Tobacco Use: 4 or less cigarettes(le ss than 1/4 pack)/day in last 30 days. Other: Cutting down wi th , currently down to one cigarette a day, wants to qu it. States gets rashes with patch. Sex
--- OUTSIDE RECORDS SUMMARY | 2022-04-09 18:41 | XMS_ITS | Continuity of Care Document ---
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 phenytoin2 anticonvulsant hypersensitivity syndrome Active phenobarbital3 anticonvulsant hypersensitivity syndrome Active primidone4 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 Start Date: 06/23/21 Status: OrderedEmgality Prefilled Pen 120 mg/mL subcutaneous solution = 120 mg, Subcutaneous Infusion, Every 28 days, loading dose= 2 kits, begin in June 2021 after you deliver June 20, # 2 kit, 0 Refills, Maintenance, 06/24/21 14:08:00 EST, [facility]/pharmacy #[id number], pt has been on Amitriptyline, topamax, Propranolol... Start Date: 06/24/21 Status: Orderedfamotidine 20 mg oral tablet 20 mg, 1, tablet, By Mouth, 2 times a day, # 60 tablet, Refills 0, Tot. Refills 0, Maintenance, 06/02/21 13:09:00 EST, Route to Pharmacy Electronically, [facility]/pharmacy #[id number], Partial fill upon patient request if the prescription is for a schedule II opi... Start Date: 06/02/21 Status: Orderedgabapentin 300 mg oral capsule 300 mg, 1, capsule, By Mouth, 3 times a day, Refills 0, Maintenance, 03/30/21 14:18:00 EDT, Partial fill upon patient request if the prescription is for a schedule II opioid drug. Start Date: 03/30/21 Status: Orderedgabapentin 300 mg oral capsule 300 mg, Capsule, By Mouth, 06/23/21 9:00:00 EST Start Date: 06/23/21 Stop Date: 06/23/21 Status: Completedibuprofen 800 mg oral tablet 800 mg, 1, tablet, By Mouth, Every 8 hours, PRN, Take 1 tablet every 8 hours as needed for pain, # 60 tablet, Refills 0, Tot. Refills 0, Maintenance, Pain , Moderate, 06/23/21 4:20:00 EST, Route to Pharmacy Electronically, [facility]/pharmacy #[id number], Partial... Start Date: 06/23/21 Status: OrderedSEROquel [...] tablet, 0 Refills,Maintenance, 03/01/21 13:32:00 EDT, Tablet, [facility]/pharmacy #[id number], Partial fill upon patient [...] and moveto [place] (was previously living in [place])2Managed by [id number] states received [place] [id number] with srnhnwwbw3xtff previous partner, does not have contact with him, has protective order and currenlty feels mbma1Tacxvlf down with xrsnsrgcg5Rywovpu at [facility] [place] Vital Signs Most recent to oldest 1 2 3 [Reference Range]: Height 162 cm 162 cm 162 cm (06/22/21 2:22 PM) (06/22/21 8:52 AM) (06/21/21 11:14 PM) Weight 86.1 kg (06/21/21 4:35 AM) Oxygen Saturation [94-100 99 % 99 % 100 % %] (06/21/21 8:15 AM) (06/21/21 8:00 AM) (06/21/21 6:45 AM) Pulse Rate [55-90 bpm] 70 bpm 74 bpm 68 bpm (06/23/21 7:44 AM) (06/23/21 12:00 AM) (06/22/21 2:22 PM) Body Mass Index 32.81 [18.5-24.99] *>HHI* (06/21/21 4:35 AM) Blood Pressure 110/69 mm Hg 122/77 mm Hg 122/78 mm Hg [90-138/55-84 mm Hg] (06/23/21 7:44 AM) (06/23/21 12:00 AM) ( 2:22 PM) Respiratory Rate [16-30 16 br/min 18 br/min 19 br/mi n br/min] (06/23/21 7:44 AM) (06/23/21 7:39 AM) (06/23/21 12:00 AM) Temperature [96.8-100.4 98.1 DegF 97.9 DegF 97.9 Deg F DegF] (06/23/21 7:44 AM) (06/23/21 12:00 AM) (06/22/21 2:22 PM) Mode of Delivery (Oxygen) Room air Room air (06/21/21 3:54 AM) (06/21/21 3:05 AM) Blood pressure sites Arm, right Arm, right Arm, right (06/23/21 7:44 AM) (06/23/21 12:00 AM) (06/22/21 2:22 PM) Temperature Route Oral Oral Oral (06/23/21 7:44 AM) (06/23/21 12:00 AM) (06/22/21 2:22 PM) Dry Weight 86.1 kg (06/21/21 4:35 AM) Social History Social History Type Response Tobacco Use: 4 or less cigarettes(le ss than 1/4 pack)/day in last 30 days. Other: Cutting down wi th , currently down to one cigarette a day, wants to qu it. States gets rashes with patch. Sex
--- OUTSIDE RECORDS SUMMARY | 2022-04-09 18:42 | XMS_ITS | Continuity of Care Document ---
:1990 Author Organization 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 phenytoin2 anticonvulsant hypersensitivity syndrome Active phenobarbital3 anticonvulsant hypersensitivity syndrome Active primidone4 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 Start Date: 04/10/21 Stop Date: 04/16/21 Status: Orderedalbuterol 90 mcg/inh inhalation powder 2 puffs = 180 mcg, Inhalation, Every 6 hours, PRN as needed, # 1 each, 0 Refills, Maintenance, 01/18/21 13:47:00 EDT, Powder, [facility]/pharmacy #[id number], Partial fill upon patient request [...] 0 Refills, Maintenance, 03/06/21 12:19:00 EDT, Tablet, [id number], Partial fill upon patient request if the prescription is for a schedule II opioid drug., 162, cm, 03/06/21 11:46:00 EDT,... Start Date: 03/06/21 Status: OrderedFlagyl 500 mg oral tablet 1 tablet = 500 mg, By Mouth, Every 12 hours, for 7 days, # 14 tablet, 0 Refills, Acute 04/17/21 13:56:00 EDT, 04/10/21 13:56:00 EDT, Tablet, [id number], Partial fill upon [...] 3 Refills, Maintenance, 12/23/20 12:16:00 EDT, Tablet, [facility]/pharmacy #[id number], Partial fill upon patient request [...] 0 Refills,Maintenance, 03/01/21 13:32:00 EDT, Tablet, [facility]/pharmacy #[id number], Partial fill upon patient request [...] and moveto [place] (was previously living in [place])2Managed by [id number] states [place] [id number] with tggqjhgpy5gnby previous partner, does not have contact with him, has protective order and currenlty feels qvrx1Mbmoaio down with ynibqnmmx1Fngwrxi at [facility] Vital Signs Most recent to oldest [Reference Range]: 1 Oxygen Saturation [94-100 %] 99 % (04/10/21 12:36 PM) Blood Pressure [90-138/55-84 mm Hg] 110/64 mm Hg (04/10/21 12:36 PM) Respiratory Rate [16-30 br/min] 18 br/min (04/10/21 12:36 PM) Temperature [96.8-100.4 DegF] 98.1 DegF (04/10/21 12:12 PM) Mode of Delivery (Oxygen) Room air (04/10/21 12:36 PM) Blood pressure sites Arm, right (04/10/21 12:36 PM) Temperature Route Oral (04/10/21 12:12 PM) Dry Weight 82.6 kg (04/10/21 12:12 PM) Dry Weight Obtained Via Standing scale (04/10/21 12:12 PM) Social History Social History Type Response Tobacco Use: 4 or less cigarettes(le ss than 1/4 pack)/day in last 30 days. Other: Cutting down wi th , currently down to one cigarette a day, wants to qu it. States gets rashes with patch. Sex
--- OUTSIDE RECORDS SUMMARY | 2022-04-09 18:42 | XMS_ITS | Continuity of Care Document ---
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 phenytoin2 anticonvulsant hypersensitivity syndrome Active phenobarbital3 anticonvulsant hypersensitivity syndrome Active primidone4 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 hypersensitivity syndrome 1had anticonvulsant hypersensitivity syndrome to lamictal, at risk for similar rxn to oegflvzdcjfia1Nhc anticonvulsant hypersensitivity syndrome to lamictal risk of similar rxn to seglgpsir0xqt anticonvulsant hypersensitivity syndrome to lamictal, at risk for similar rxn to svlncnsyhtcbg5bzo anticonvulsant hypersensitivity syndrome to lamictal, at risk [...] Refills, Maintenance, 01/18/21 13:47:00 EDT, Powder, [id number], Partial fill upon patient request if the [...] 28 days, Maintenance dose to being in [facility] 28 days after oading dose in June, [...] 3 Refills, Maintenance, 12/23/20 12:16:00 EDT, Tablet, [facility]/pharmacy #[id number], Partial fill upon patient [...] tablet, 0 Refills,Maintenance, 03/01/21 13:32:00 EDT, Tablet, [facility]/pharmacy #[id number], Partial fill upon patient [...] and moveto [place] (was previously living in [place])2Managed by [id number] states received treatment [place] [id number] with fjwbkjjqp9ufrt previous partner, does not have contact with him, has protective order and currenlty feels kemg9Gjczypw down with eqvcxnsbp3Meglpyw at [facility] Social History Social History Type Response Tobacco Use: 4 or less cigarettes(le ss than 1/4 pack)/day in last 30 days. Other: Cutting down wi th , currently down to one cigarette a day, wants to qu it. States gets rashes with patch. Sex
--- OUTSIDE RECORDS SUMMARY | 2022-04-09 18:42 | XMS_ITS | Continuity of Care Document ---
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 phenytoin2 anticonvulsant hypersensitivity syndrome Active phenobarbital3 anticonvulsant hypersensitivity syndrome Active primidone4 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 Start Date: 01/23/21 Status: OrderedMelatonin Daily at bedtime, 0 Refills, [...] 0 Refills,Maintenance, 03/01/21 13:32:00 EDT, Tablet, [id number], Partial fill upon patient request ifthe prescription [...] but stopped in October with and moveto [place] (was previously living in [place])2Managed by [id number] states received treatment [place] [id number] with qwefdhgvh8pces previous partner, does not have contact with him, has protective order and currenlty feels xrcz6Bincyxc down with [place]sesvkznj4Hzhbdtj [place] [facility] [place] Social History Social History Type Response Tobacco Use: 4 or less cigarettes(le ss than 1/4 pack)/day in last 30 days. Other: Cutting down wi th , currently down to one cigarette a day, wants to qu it. States gets rashes with patch. Sex
--- OUTSIDE RECORDS SUMMARY | 2022-04-09 18:42 | XMS_ITS | Continuity of Care Document ---
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 phenytoin2 anticonvulsant hypersensitivity syndrome Active phenobarbital3 anticonvulsant hypersensitivity syndrome Active primidone4 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 Start Date: 06/23/21 Status: OrderedApri 0.15 mg-0.03 mg oral tablet 1 tablet, By Mouth, Daily, # 28 tablet, 0 Refills, Maintenance, 08/02/21 12:51:00 EST, Tablet, [facility]/pharmacy #[id number], Partial fill upon patient request if the prescription is for a schedule II opioid drug., 1 tablet By Mouth Daily, 162, cm, 08/02/21 12:3... Start Date: 08/02/21 Status: OrderedDiflucan 150 mg oral tablet 1 tablet = 150 mg, By Mouth, Once, # 1 tablet, 1 Refills, Soft Stop, 08/02/21 12:51:00 EST, [facility]/pharmacy #[id number], Partial fill upon [...] kit, 0 Refills, Maintenance, 06/24/21 14:08:00 EST, [facility]/pharmacy #[id number], pt has been on Amitriptyline, topamax, Propranolol... Start Date: 06/24/21 Status: Orderedfamotidine 20 mg oral tablet 20 mg, 1, tablet, By Mouth, 2 times a day, # 28 tablet, Refills 1, Tot. Refills 1, Maintenance, 08/02/21 12:49:00 EST, Route to Pharmacy Electronically, [facility]/pharmacy #[id number], Partial fill upon [...] FOR MODERATE PAIN, Route to Pharmacy Electronically, [id number], 162, cm, 08/02/21 12:39:00 EST, Height, 86.1, [...] [place] (was previously living in [place])2Managed by [id number] states received treatment [place] [id number] with gthgznqhi6iulj previous partner, does not have contact with him, has protective order and currenlty feels rpfh9Fcfqqod down with llfeaqwgk4Tjvgibz at [facility] [place] Social History Social History Type Response Tobacco Use: 4 or less cigarettes(le ss than 1/4 pack)/day in last 30 days. Other: Cutting down wi th , currently down to one cigarette a day, wants to qu it. States gets rashes with patch. Sex
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
--- OUTSIDE RECORDS SUMMARY | 2022-04-09 18:42 | XMS_ITS | Continuity of Care Document ---
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 Start Date: 01/18/21 Status: OrderedColace sodium 100 mg oral capsule 100 mg, 1, capsule, By Mouth, 2 times a day, PRN, # 60 capsule, Refills 1, Tot. Refills 1, Maintenance, for constipation, 01/23/21 14:19:00 EDT, Route to Pharmacy Electronically, [facility]/pharmacy #[id number], Partial fill upon [...] 0 Refills, Maintenance, 03/06/21 12:19:00 EDT, Tablet, [facility]/pharmacy #[id number], Partial fill upon [...] 04/09/21 17:13:00 EDT, 03/30/21 17:12:00 EDT, Cream, [facility]/pharmacy #[id number], Partial fill upon [...] [place] (was previously living in [place])2Managed by [id number] states received treatment [place] [id number] with bzxavqzzt4fral previous partner, does not have contact with him, has protective order and currenlty feels hiem7Dzcttgi down with pbztocttq8Lxdgmkc at [facility] [place] Social History Social History Type Response Tobacco Use: 4 or less cigarettes(le ss than 1/4 pack)/day in last 30 days. Other: Cutting down wi th , currently down to one cigarette a day, wants to qu it. States gets rashes with patch. Sex
--- OUTSIDE RECORDS SUMMARY | 2022-04-09 18:42 | XMS_ITS | Continuity of Care Document ---
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 phenytoin2 anticonvulsant hypersensitivity syndrome Active phenobarbital3 anticonvulsant hypersensitivity syndrome Active primidone4 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 hypersensitivity syndrome 1had anticonvulsant hypersensitivity syndrome to lamictal, at risk for similar rxn to klwczgedemjqo1Qzc anticonvulsant hypersensitivity syndrome to lamictal risk of similar rxn to yhhtuikfg9teh anticonvulsant hypersensitivity syndrome to lamictal, at risk for similar rxn to oyahcroftcxgy4qyg anticonvulsant hypersensitivity syndrome to lamictal, at risk [...] Refills, Maintenance, 01/18/21 13:47:00 EDT, Powder, [id number], Partial fill upon patient request if the [...] and moveto [place] (was previously living in [place])2Managed by [id number] states received treatment in [id number] with xuvwulxkq3ygae previous partner, does not have contact with him, has protective order and currenlty feels ftgv9Xqocfdr down with tavaszoem0Wdezece at [facility] [place] Social History Social History Type Response Tobacco Use: 4 or less cigarettes(le ss than 1/4 pack)/day in last 30 days. Other: Cutting down wi th , currently down to one cigarette a day, wants to qu it. States gets rashes with patch. Sex
--- OUTSIDE RECORDS SUMMARY | 2022-04-09 18:42 | XMS_ITS | Continuity of Care Document ---
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 phenytoin2 anticonvulsant hypersensitivity syndrome Active phenobarbital3 anticonvulsant hypersensitivity syndrome Active primidone4 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 Start Date: 01/23/21 Stop Date: 03/24/21 Status: OrderedColace sodium 100 mg oral capsule 100 mg, 1, capsule, By Mouth, 2 times a day, PRN, # 20 capsule, Refills 0, Tot. Refills 0, Maintenance, for constipation, 01/23/21 17:05:00 EDT, Route to Pharmacy Electronically, [facility]/pharmacy #[id number], Partial fill upon patient request [...] tablet, 0 Refills,Maintenance, 01/18/21 13:47:00 EDT, Tablet, [facility]/pharmacy #[id number], Partial fill upon patient request ifthe prescription [...] but stopped in October with and moveto [place] (was previously living in [place])2Managed by [id number] states received treatment [place] [id number] with iogjsalge7khns previous partner, does not have contact with him, has protective order and currenlty feels kvsd2Knrwjen down with cpvviarpa3Qezesqj at [facility] [place] Social History Social History Type Response Tobacco Use: 4 or less cigarettes(le ss than 1/4 pack)/day in last 30 days. Other: Cutting down wi th , currently down to one cigarette a day, wants to qu it. States gets rashes with patch. Sex
--- OUTSIDE RECORDS SUMMARY | 2022-04-09 18:42 | XMS_ITS | Continuity of Care Document ---
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 Anticonvulsant hypersensitivity syndrome primidone4 anticonvulsant hypersensitivity syndrome Active 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 Start Date: 06/23/21 Status: OrderedApri 0.15 mg-0.03 mg oral tablet 1 tablet, By Mouth, Daily, # 28 tablet, 0 Refills, Maintenance, 08/02/21 12:51:00 EST, Tablet, [facility]/pharmacy #[id number], Partial fill upon patient request if the prescription is for a schedule II opioid drug., 1 tablet By Mouth Daily, 162, cm, 08/02/21 12:3... Start Date: 08/02/21 Status: OrderedDiflucan 150 mg oral tablet 1 tablet = 150 mg, By Mouth, Once, # 1 tablet, 1 Refills, Soft Stop, 08/02/21 12:51:00 EST, [facility]/pharmacy #[id number], Partial fill upon patient request if [...] Refills, Maintenance, 06/24/21 14:08:00 EST, [facility]/pharmacy #[id number], pt has been on Amitriptyline, topamax, Propranolol... Start Date: 06/24/21 Status: Orderedfamotidine 20 mg oral tablet 20 mg, 1, tablet, By Mouth, 2 times a day, # 28 tablet, Refills 1, Tot. Refills 1, Maintenance, 08/02/21 12:49:00 EST, Route to Pharmacy Electronically, [facility]/pharmacy #[id number], Partial fill upon patient request if [...] 08/02/21 Status: Orderedibuprofen 800 mg oral tablet See Instructions, TAKE 1 TABLET EVERY 8 HOURS NEEDED FOR MODERATE PAIN, # 60 tablet, Refills 0, Instructions Replace Required Details, Route to Pharmacy Electronically, [id number], 162, cm, 06/22/21 14:22:00 EST, Height, 86.1, kg, 06/21/21 5:3... Start Date: 07/27/21 Status: OrderedrisperiDONE 2 mg oral tablet 2 [...] and moveto [place] (was previously living in [place])2Managed by [id number] states received treatment [place] [id number] with wishmoyls3iauu previous partner, does not have contact with him, has protective order and currenlty feels tfke4Swwurtq down with jvpeikppd4Pximblj at [facility] Social History Social History Type Response Tobacco Use: 4 or less cigarettes(le ss than 1/4 pack)/day in last 30 days. Other: Cutting down wi th , currently down to one cigarette a day, wants to qu it. States gets rashes with patch. Sex
--- OUTSIDE RECORDS SUMMARY | 2022-04-09 18:42 | XMS_ITS | Continuity of Care Document ---
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 phenytoin2 anticonvulsant hypersensitivity syndrome Active phenobarbital3 anticonvulsant hypersensitivity syndrome Active primidone4 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/pharmacy #[id number], Partial fill upon omer... Start Date: 06/23/21 Status: OrderedEmgality Prefilled Pen 120 mg/mL subcutaneous solution = 120 mg, Subcutaneous Infusion, Every 28 days, loading dose= 2 kits, begin in June 2021 after you deliver June 20, # 2 kit, 0 Refills, Maintenance, 06/24/21 14:08:00 EST, [facility]/pharmacy #[id number], pt has been on Amitriptyline, topamax, Propranolol... Start Date: 06/24/21 Status: Orderedfamotidine 20 mg oral tablet 20 mg, 1, tablet, By Mouth, 2 times a day, # 60 tablet, Refills 0, Tot. Refills 0, Maintenance, 06/02/21 13:09:00 EST, Route to Pharmacy Electronically, [facility]/pharmacy #[id number], Partial fill upon patient [...] EST, Route to Pharmacy Electronically, [facility]/pharmacy #[id number], Partial... Start Date: 06/23/21 Status: [...] 0 Refills,Maintenance, 03/01/21 13:32:00 EDT, Tablet, [id number], Partial fill upon patient request ifthe prescription [...] and moveto [place] (was previously living in [place])2Managed by [id number] states [place] [id number] with opbacduzf7syps previous partner, does not have contact with him, has protective order and currenlty feels yeaf6Myoklcx down with qaspmcnss1Kfmtrsi at [facility] Social History Social History Type Response Tobacco Use: 4 or less cigarettes(le ss than 1/4 pack)/day in last 30 days. Other: Cutting down wi th , currently down to one cigarette a day, wants to qu it. States gets rashes with patch. Sex
--- OUTSIDE RECORDS SUMMARY | 2022-04-09 18:42 | XMS_ITS | Continuity of Care Document ---
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 phenytoin2 anticonvulsant hypersensitivity syndrome Active phenobarbital3 anticonvulsant hypersensitivity syndrome Active primidone4 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 Start Date: 01/18/21 Status: OrderedColace sodium 100 mg oral capsule 100 mg, 1, capsule, By Mouth, 2 times a day, PRN, # 60 capsule, Refills 1, Tot. Refills 1, Maintenance, for constipation, 01/23/21 14:19:00 EDT, Route to Pharmacy Electronically, [facility]/pharmacy #[id number], Partial fill [...] tablet, 0 Refills,Maintenance, 01/18/21 13:47:00 EDT, Tablet, [facility]/pharmacy #[id number], Partial fill upon patient request ifthe prescription [...] but stopped in October with and moveto [place] (was previously living in [place])2Managed by [id number] states received treatment [place] [id number] with wksuicnvr3dsby previous partner, does not have contact with him, has protective order and currenlty feels lfnw3Ozeefgb down with ihjfgqayo6Hfywapf at [facility] [place] Social History Social History Type Response Tobacco Use: 4 or less cigarettes(le ss than 1/4 pack)/day in last 30 days. Other: Cutting down wi th , currently down to one cigarette a day, wants to qu it. States gets rashes with patch. Sex
--- OUTSIDE RECORDS SUMMARY | 2022-04-09 18:42 | XMS_ITS | Continuity of Care Document ---
:1990 Author Organization [facility] Address [address] [place] [address]- Care Team Providers Name Role Phone Po Quentin MCFARLAND [id number] Date[facility]): [facility] - 03/03/[address] 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 hypersensitivity syndrome 1had anticonvulsant hypersensitivity syndrome to lamictal, at risk for similar rxn to uawtuftbpovhi3Txv anticonvulsant hypersensitivity syndrome to lamictal risk of similar rxn to kskcwjskd2vyl anticonvulsant hypersensitivity syndrome to lamictal, at risk for similar rxn to aprdiqiidfhht8jvm anticonvulsant hypersensitivity syndrome to lamictal, at risk [...] Refills, Maintenance, 01/18/21 13:47:00 EDT, Powder, [id number], Partial fill upon patient request if the [...] tablet, 0 Refills,Maintenance, 03/01/21 13:32:00 EDT, Tablet, [facility]/pharmacy #[id number], Partial fill upon patient request ifthe prescription [...] but stopped in October with and moveto [place] (was previously living in [place])2Managed by [id number] states received treatment [place] [id number] with qjqnvbpqq6fwhm previous partner, does not have contact with him, has protective order and currenlty feels jkrx5Ifosqjy down with uztkoipsl0Vezcrqj at [facility] Social History Social History Type Response Tobacco Use: 4 or less cigarettes(le ss than 1/4 pack)/day in last 30 days. Other: Cutting down wi th , currently down to one cigarette a day, wants to qu it. States gets rashes with patch. Sex
--- OUTSIDE RECORDS SUMMARY | 2022-04-09 18:42 | XMS_ITS | Continuity of Care Document ---
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 phenytoin2 anticonvulsant hypersensitivity syndrome Active phenobarbital3 anticonvulsant hypersensitivity syndrome Active 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 28 days after oading dose in [...] Refills, Maintenance, 12/23/20 12:16:00 EDT, Tablet, [facility]/pharmacy #[id number], Partial fill upon patient request if [...] 0 Refills,Maintenance, 03/01/21 13:32:00 EDT, Tablet, [facility]/pharmacy #[id number], Partial fill upon patient request ifthe [...] but stopped in October with and moveto [place] (was previously living in [place])2Managed by [id number] states received treatment [place] [id number] with axdkaadru5zmxz previous partner, does not have contact with him, has protective order and currenlty feels uati7Kjuqsss down with gkwraqliq3Puqtzdv at [facility] Social History Social History Type Response Tobacco Use: 4 or less cigarettes(le ss than 1/4 pack)/day in last 30 days. Other: Cutting down wi th , currently down to one cigarette a day, wants to qu it. States gets rashes with patch. Sex
--- OUTSIDE RECORDS SUMMARY | 2022-04-09 18:42 | XMS_ITS | Continuity of Care Document ---
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 phenytoin2 anticonvulsant hypersensitivity syndrome Active phenobarbital3 anticonvulsant hypersensitivity syndrome Active primidone4 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 Start Date: 03/06/21 Status: Orderedlidocaine-menthol 4.5%-5% topical gel 1 application, Topically, Daily, PRN as needed for pain, # 99.2 Gm, 0 Refills, Acute 03/14/21 13:00:00 EDT, 03/06/21 12:23:00 EDT, Gel, [id number], Partial fill upon patient request if the prescription is for a schedule II opioid drug., 1 appl... Start Date: 03/06/21 Stop Date: 03/14/21 Status: Orderedmagnesium oxide 400 mg oral tablet 1 tablet = 400 mg, By Mouth, Daily, for 10 days, # 10 tablet, 0 Refills, Acute 03/16/21 12:27:00 EDT, 03/06/21 12:27:00 EDT, Tablet, [id number], Partial fill upon patient request if the prescription is for a schedule II opioid drug., 162, cm,... Start Date: 03/06/21 Stop Date: 03/16/21 Status: OrderedMelatonin Daily at bedtime, 0 Refills, [...] but stopped in October with and moveto [place] (was previously living in [place])2Managed by [id number] states received treatment [place] [id number] with smbpswhaf5jbgx previous partner, does not have contact with him, has protective order and currenlty feels oftm9Njhasvb down with elcwsaclp9Rpzhktg at [facility] Social History Social History Type Response Tobacco Use: 4 or less cigarettes(le ss than 1/4 pack)/day in last 30 days. Other: Cutting down wi th , currently down to one cigarette a day, wants to qu it. States gets rashes with patch. Sex
--- OUTSIDE RECORDS SUMMARY | 2022-04-09 18:42 | XMS_ITS | Continuity of Care Document ---
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 Start Date: 01/18/21 Status: OrderedColace sodium 100 mg oral capsule 100 mg, 1, capsule, By Mouth, 2 times a day, PRN, # 60 capsule, Refills 1, Tot. Refills 1, Maintenance, for constipation, 01/23/21 14:19:00 EDT, Route to Pharmacy Electronically, [facility]/pharmacy #[id number], Partial fill upon patient [...] 0 Refills, Maintenance, 03/06/21 12:19:00 EDT, Tablet, [facility]/pharmacy #[id number], Partial fill upon patient [...] 04/09/21 17:13:00 EDT, 03/30/21 17:12:00 EDT, Cream, [facility]/pharmacy #[id number], Partial fill upon patient [...] and moveto [place] (was previously living in [place])2Managed by [id number] states received treatment [place] [id number] with tagfzlrvd1dtjg previous partner, does not have contact with him, has protective order and currenlty feels kyie2Uxvgfwn down with hbvoolghl8Hdpadub at [facility] Social History Social History Type Response Tobacco Use: 4 or less cigarettes(le ss than 1/4 pack)/day in last 30 days. Other: Cutting down wi th , currently down to one cigarette a day, wants to qu it. States gets rashes with patch. Sex
--- OUTSIDE RECORDS SUMMARY | 2022-04-09 18:42 | XMS_ITS | Continuity of Care Document ---
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 phenytoin2 anticonvulsant hypersensitivity syndrome Active phenobarbital3 anticonvulsant hypersensitivity syndrome Active primidone4 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 Start Date: 06/23/21 Status: OrderedApri 0.15 mg-0.03 mg oral tablet 1 tablet, By Mouth, Daily, # 28 tablet, 3 Refills, Maintenance, 01/22/22 12:59:00 EDT, Tablet, [facility]/pharmacy #[id number], Partial fill upon patient request if the prescription is for a schedule II opioid drug., 1 tablet By Mouth Daily, 162, cm, 10/26/21 15:3... Start Date: 01/22/22 Status: OrderedDiflucan 150 mg oral tablet 1 tablet = 150 mg, By Mouth, Once, # 1 tablet, 1 Refills, Soft Stop, 08/02/21 12:51:00 EST, [facility]/pharmacy #[id number], Partial fill upon patient request if [...] Refills, Maintenance, 06/24/21 14:08:00 EST, [facility]/pharmacy #[id number], pt has been on Amitriptyline, topamax, Propranolol... Start Date: 06/24/21 Status: Orderedfamotidine 20 mg oral tablet 20 mg, 1, tablet, By Mouth, 2 times a day, # 28 tablet, Refills 1, Tot. Refills 1, Maintenance, 08/02/21 12:49:00 EST, Route to Pharmacy Electronically, [facility]/pharmacy #[id number], Partial fill upon patient request if [...] FOR MODERATE PAIN, Route to Pharmacy Electronically, [id number], 162, cm, 08/02/21 12:39:00 EST, Height, 86.1, [...] but stopped in October with and moveto [place] (was previously living in [place])2Managed by [id number] states received treatment [place] [id number] with ahagqeexi3ghdg previous partner, does not have contact with him, has protective order and currenlty feels xpro4Auduggw down with dllocqfyz7Jogixin at [facility] Social History Social History Type Response Tobacco Use: 4 or less cigarettes(le ss than 1/4 pack)/day in last 30 days. Other: Cutting down wi th , currently down to one cigarette a day, wants to qu it. States gets rashes with patch. Sex
--- OUTSIDE RECORDS SUMMARY | 2022-04-09 18:42 | XMS_ITS | Continuity of Care Document ---
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 phenytoin2 anticonvulsant hypersensitivity syndrome Active phenobarbital3 anticonvulsant hypersensitivity syndrome Active primidone4 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 Start Date: 06/23/21 Status: OrderedEmgality Prefilled Pen 120 mg/mL subcutaneous solution = 120 mg, Subcutaneous Infusion, Every 28 days, loading dose= 2 kits, begin in June 2021 after you deliver June 20, # 2 kit, 0 Refills, Maintenance, 06/24/21 14:08:00 EST, [facility]/pharmacy #[id number], pt has been on Amitriptyline, topamax, Propranolol... Start Date: 06/24/21 Status: Orderedfamotidine 20 mg oral tablet 20 mg, 1, tablet, By Mouth, 2 times a day, # 60 tablet, Refills 0, Tot. Refills 0, Maintenance, 06/02/21 13:09:00 EST, Route to Pharmacy Electronically, [facility]/pharmacy #[id number], Partial fill upon patient request [...] 03/30/21 Status: Orderedibuprofen 800 mg oral tablet See Instructions, TAKE 1 TABLET EVERY 8 HOURS NEEDED FOR MODERATE PAIN, # 60 tablet, Refills 0, Instructions Replace Required Details, Route to Pharmacy Electronically, [facility] [id number], 162, cm, 06/22/21 14:22:00 EST, Height, 86.1, kg, 06/21/21 5:3... Start Date: 07/27/21 Status: OrderedSEROquel 25 mg oral tablet 25 [...] tablet, Refills 1, Route to Pharmacy Electronically, [facility] [id number], 162, cm, 06/22/21 14:22:00 EST, Height, 86.1, kg, 06/21/21 5:31:00 EST, Dry Weight Start Date: 07/13/21 Status: OrderedZofran 4 mg oral tablet 1 tablet = 4 mg, By Mouth, Every 8 hours, PRN as needed for nausea/vomiting, # 90 tablet, 0 Refills,Maintenance, 03/01/21 13:32:00 EDT, Tablet, [facility]/pharmacy #[id number], Partial fill upon patient request [...] [place] (was previously living in [place])2Managed by [id number] states received treatment [place] [id number] with pftddgzpr4dcqm previous partner, does not have contact with him, has protective order and currenlty feels xswc1Xapnzsa down with ypmxymqsg3Uaeuuym [place] [facility] Social History Social History Type Response Tobacco Use: 4 or less cigarettes(le ss than 1/4 pack)/day in last 30 days. Other: Cutting down wi th , currently down to one cigarette a day, wants to qu it. States gets rashes with patch. Sex
--- OUTSIDE RECORDS SUMMARY | 2022-04-09 18:42 | XMS_ITS | Continuity of Care Document ---
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 phenobarbital3 anticonvulsant hypersensitivity syndrome Active 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 Start Date: [...] 08/02/21 12:49:00 EST, [facility]ically, [facility] [...] FOR MODERATE PAIN, Route to Pharmacy Electronically, [id number], 162, cm, 08/02/21 12:39:00 EST, Height, 86.1, [...] [place] (was previously living in [place])2Managed by [id number] states received treatment [place] [id number] with acpgjcptz4qjlv previous partner, does not have contact with him, has protective order and currenlty feels uumo5Bhshwqx down with msyqlllek4Zmywpjj at [facility] Social History Social History Type Response Tobacco Use: 4 or less cigarettes(le ss than 1/4 pack)/day in last 30 days. Other: Cutting down wi th , currently down to one cigarette a day, wants to qu it. States gets rashes with patch. Sex
--- OUTSIDE RECORDS SUMMARY | 2022-04-09 18:42 | XMS_ITS | Continuity of Care Document ---
:1990 Author Organization [facility] Address Unavailable , Care Team Providers Name Role Phone Po Quentin MCFARLAND Primary Care Physician Encounter 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 hypersensitivity syndrome phenobarbital3 anticonvulsant hypersensitivity syndrome Active primidone4 anticonvulsant hypersensitivity syndrome Active 1had anticonvulsant hypersensitivity syndrome to lamictal, at risk for similar rxn to qwthfgaycuxmf8Iqk anticonvulsant hypersensitivity syndrome to lamictal risk of similar rxn to tjdypgzmy1jkl anticonvulsant hypersensitivity syndrome to lamictal, at risk for similar rxn to ouhlwjgnpyamb2qwk anticonvulsant hypersensitivity syndrome to lamictal, at risk [...] 06/23/21 4:19:00 EST, Route to Pharmacy Electronically, [facility]/pharmacy #[id number], Partial fill upon omer... Start Date: 06/23/21 Status: OrderedApri 0.15 mg-0.03 mg oral tablet 1 tablet, By Mouth, Daily, # 28 tablet, 0 Refills, Maintenance, 08/02/21 12:51:00 EST, Tablet, [facility]/pharmacy #[id number], Partial fill upon patient request if the prescription is for a schedule II opioid drug., 1 tablet By Mouth Daily, 162, cm, 08/02/21 12:3... Start Date: 08/02/21 Status: OrderedDiflucan 150 mg oral tablet 1 tablet = 150 mg, By Mouth, Once, # 1 tablet, 1 Refills, Soft Stop, 08/02/21 12:51:00 EST, [facility]/pharmacy #[id number], Partial fill upon patient [...] kit, 0 Refills, Maintenance, 06/24/21 14:08:00 EST, [facility]/pharmacy #[id number], pt has been on Amitriptyline, topamax, Propranolol... Start Date: 06/24/21 Status: Orderedfamotidine 20 mg oral tablet 20 mg, 1, tablet, By Mouth, 2 times a day, # 28 tablet, Refills 1, Tot. Refills 1, Maintenance, 08/02/21 12:49:00 EST, Route to Pharmacy Electronically, [facility]/pharmacy #[id number], Partial fill upon patient [...] FOR MODERATE PAIN, Route to Pharmacy Electronically, [id number], 162, cm, 08/02/21 12:39:00 EST, Height, 86.1, [...] but stopped in October with and moveto [place] (was previously living in [place])2Managed by [id number] states received treatment [place] [id number] with mxvbkqkxf6yrpg previous partner, does not have contact with him, has protective order and currenlty feels gzcq0Blvmrhb down with jyajwaliq4Vfgiirh at [facility] Social History Social History Type Response Tobacco Use: 4 or less cigarettes(le ss than 1/4 pack)/day in last 30 days. Other: Cutting down wi th , currently down to one cigarette a day, wants to qu it. States gets rashes with patch. Sex
--- OUTSIDE RECORDS SUMMARY | 2022-04-09 18:42 | XMS_ITS | Continuity of Care Document ---
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 phenytoin2 anticonvulsant hypersensitivity syndrome Active phenobarbital3 anticonvulsant hypersensitivity syndrome Active primidone4 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 hypersensitivity syndrome 1had anticonvulsant hypersensitivity syndrome to lamictal, at risk for similar rxn to kosdkjoialrgg6Cfz anticonvulsant hypersensitivity syndrome to lamictal risk of similar rxn to mqqtvsrnd9dsr anticonvulsant hypersensitivity syndrome to lamictal, at risk for similar rxn to ilmxanscufgez9rhz anticonvulsant hypersensitivity syndrome to lamictal, at risk for similar rxn to primidone Immunizations Given and Recorded Vaccine Date Status Refusal Reason tetanus/diphtheria/pertussis, acel(Tdap) 05/26/21 Given tetanus/diphtheria/pertussis, acel(Tdap) 11/26/13 Given Not Given Vaccine Date Status Refusal Reason pneumococcal 23-valent vaccine 01/03/18 Not Given P atient Refuses Medications Ajovy Autoinjector 225 mg/1.5 mL subcutaneous solution = 225 mg, Subcutaneous Injection, Every 28 days, # 1 kit, 5 Refills, Maintenance, 06/08/21 16:10:00 [facility], [employer] [facility], Partial fill upon patient request if the prescription is for a schedule II opioid drug., 162, cm, 06/02/21 13:02:00... Start Date: 06/08/21 Status: Orderedalbuterol 90 mcg/inh inhalation powder 2 puffs = 180 mcg, Inhalation, Every 6 hours, PRN as needed, # 1 each, 0 Refills, Maintenance, 01/18/21 13:47:00 EDT, Powder, [facility]/pharmacy #[id number], Partial fill upon patient [...] 28 days, Maintenance dose to being in [facility] 28 days after oading dose in June, # 1 kit, 8 Refills, Maintenance, 07/25/21 14:11:00 EST, [facility]/pharmacy #[id number], Partial fill upon patient request if the prescripti... Start Date: 07/25/21 Stop Date: 04/21/22 Status: Orderedfamotidine 20 mg oral tablet 20 mg, 1, tablet, By Mouth, 2 times a day, # 60 tablet, Refills 0, Tot. Refills 0, Maintenance, 06/02/21 13:09:00 EST, Route to Pharmacy Electronically, [facility]/pharmacy #[id number], Partial fill upon patient [...] 3 Refills, Maintenance, 12/23/20 12:16:00 EDT, Tablet, [facility]/pharmacy #[id number], Partial fill upon patient [...] 05/26/21 16:02:00 EST, Route to Pharmacy Electronically, [facility]/pharmacy #[id number], Partial fill upon patient [...] 1 Refills, Maintenance, 05/16/21 15:26:00 EST, Tablet, [facility]/pharmacy #[id number], Partial fill upon omer... Start Date: 05/16/21 Status: OrderedVitamin B6 50 mg oral tablet 1, tablet, By Mouth, Daily, TO HELP PREVENT NAUSEA AND VOMITING IN ., # 30 tablet, Refills 1, Route to Pharmacy Electronically, [id number], 162, cm, 06/09/21 11:44:00 EST, Height, 82.6, kg, 04/10/21 12:12:00 EDT, Dry Weight Start Date: 06/12/21 Status: OrderedZofran 4 mg oral tablet 1 tablet = 4 mg, By Mouth, Every 8 hours, PRN as needed for nausea/vomiting, # 90 tablet, 0 Refills,Maintenance, 03/01/21 13:32:00 EDT, Tablet, [facility]/pharmacy #[id number], Partial fill upon patient request ifthe prescription is for a schedule II opioid drug... Start Date: 03/01/21 Status: OrderedZofran 4 mg oral tablet 1 tablet = 4 mg, By Mouth, 3 times a day, PRN Nausea, Take as needed every 8 hours for nausea and vomiting in , # 10 tablet, 0 Refills, Maintenance, 06/19/21 19:38:00 EST, [facility]/pharmacy #[id number], Partial fill upon patient request if the prescript... Start Date: 06/19/21 Status: Ordered Problem List Condition Effective Dates [...] and moveto [place] (was previously living in [place])2Managed by [id number] states received [place] [id number] with cikfvyefi3qxnu previous partner, does not have contact with him, has protective order and currenlty feels iyng7Diwszad down with inetvvlss1Yrmztyf at [facility] Vital Signs Most recent to oldest [Reference Range]: 1 Weight 86.1 kg (06/18/21 10:38 PM) Oxygen Saturation [94-100 %] 99 % (06/18/21 10:44 PM) Blood Pressure [90-138/55-84 mm Hg] 124/76 mm Hg (06/18/21 10:44 PM) Dry Weight 86.1 kg (06/18/21 10:38 PM) Weight Obtained Via Standing scale (06/18/21 10:38 PM) Dry Weight Obtained Via Standing scale (06/18/21 10:38 PM) Social History Social History Type Response Tobacco Use: 4 or less cigarettes(le ss than 1/4 pack)/day in last 30 days. Other: Cutting down wi th , currently down to one cigarette a day, wants to qu it. States gets rashes with patch. Sex
--- OUTSIDE RECORDS SUMMARY | 2022-04-09 18:42 | XMS_ITS | Continuity of Care Document ---
:1990 Author Organization [facility] Address [address] [place] [id number]- Care Team Providers Name Role Phone Po Quentin MCFARLAND Primary Care Physician Encounter [facility] Date(s): 03/01/21 - 03/01/[address] [address] Discharge Disposition: A-D/C Home Attending [...] lamictal, at risk for similar rxn to phrybqajyndan7Ipf anticonvulsant hypersensitivity syndrome to lamictal risk of similar rxn to xumiimsos4vkm anticonvulsant hypersensitivity syndrome to lamictal, at risk for similar rxn to irobmnzaxgboo5hnm anticonvulsant hypersensitivity syndrome to lamictal, at risk [...] tablet, 0 Refills,Maintenance, 03/01/21 13:32:00 EDT, Tablet, [facility]/pharmacy #[id number], Partial fill upon patient [...] but stopped in October with and moveto [place] (was previously living in [place])2Managed by [id number] states received treatment [place] [id number] with spjcrygac0ukuv previous partner, does not have contact with him, has protective order and currenlty feels wckg4Chxwnuc down with dtpfpzrxq1Sdmcrho at [facility] Social History Social History Type Response Tobacco Use: 4 or less cigarettes(le ss than 1/4 pack)/day in last 30 days. Other: Cutting down wi th , currently down to one cigarette a day, wants to qu it. States gets rashes with patch. Sex
--- OUTSIDE RECORDS SUMMARY | 2022-04-09 18:42 | XMS_ITS | Continuity of Care Document ---
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 phenytoin2 anticonvulsant hypersensitivity syndrome Active phenobarbital3 anticonvulsant hypersensitivity syndrome Active primidone4 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 Start Date: 01/18/21 Status: OrderedColace sodium 100 mg oral capsule 100 mg, 1, capsule, By Mouth, 2 times a day, PRN, # 60 capsule, Refills 1, Tot. Refills 1, Maintenance, for constipation, 01/23/21 14:19:00 EDT, Route to Pharmacy Electronically, [facility]/pharmacy #[id number], Partial fill upon patient request [...] GILLIAN (was previously living in [place])2Managed by [id number] states received treatment [place] [id number] with upadpbbny4soro previous partner, does not have contact with him, has protective order and currenlty feels bwky1Sxtciec down with etxbkhpsv1Dlrfxcw at [facility] Social History Social History Type Response Tobacco Use: 4 or less cigarettes(le ss than 1/4 pack)/day in last 30 days. Other: Cutting down wi th , currently down to one cigarette a day, wants to qu it. States gets rashes with patch. Sex
--- OUTSIDE RECORDS SUMMARY | 2022-04-09 18:42 | XMS_ITS | Continuity of Care Document ---
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 phenytoin2 anticonvulsant hypersensitivity syndrome Active phenobarbital3 anticonvulsant hypersensitivity syndrome Active primidone4 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 Start Date: 06/23/21 Status: OrderedEmgality Prefilled Pen 120 mg/mL subcutaneous solution = 120 mg, Subcutaneous Infusion, Every 28 days, loading dose= 2 kits, begin in June 2021 after you deliver June 20, # 2 kit, 0 Refills, Maintenance, 06/24/21 14:08:00 EST, [facility]/pharmacy #[id number], pt has been on Amitriptyline, topamax, Propranolol... Start Date: 06/24/21 Status: Orderedfamotidine 20 mg oral tablet 20 mg, 1, tablet, By Mouth, 2 times a day, # 60 tablet, Refills 0, Tot. Refills 0, Maintenance, 06/02/21 13:09:00 EST, Route to Pharmacy Electronically, [facility]/pharmacy #[id number], Partial fill upon patient [...] 06/23/21 4:20:00 EST, Route to Pharmacy Electronically, [facility]/pharmacy #[id number], Partial... Start Date: 06/23/21 Status: OrderedSEROquel [...] tablet, Refills 1, Route to Pharmacy Electronically, [id number], 162, cm, 06/22/21 14:22:00 EST, Height, 86.1, kg, 06/21/21 5:31:00 EST, Dry Weight Start Date: 07/13/21 Status: OrderedZofran 4 mg oral tablet 1 tablet = 4 mg, By Mouth, Every 8 hours, PRN as needed for nausea/vomiting, # 90 tablet, 0 Refills,Maintenance, 03/01/21 13:32:00 EDT, Tablet, [facility]/pharmacy #[id number], Partial fill upon patient [...] and moveto [place] (was previously living in [place])2Managed by [id number] states received treatment [place] [id number] with mppddhoqv8spdw previous partner, does not have contact with him, has protective order and currenlty feels nned5Sodymxo down with lrehisezk5Jnocyni at [facility] Social History Social History Type Response Tobacco Use: 4 or less cigarettes(le ss than 1/4 pack)/day in last 30 days. Other: Cutting down wi th , currently down to one cigarette a day, wants to qu it. States gets rashes with patch. Sex
--- OUTSIDE RECORDS SUMMARY | 2022-04-09 18:43 | XMS_ITS | Continuity of Care Document ---
:1990 Author Organization [facility] Address [address] [place] [address]- Care Team Providers Name Role Phone Po Quentin MCFARLAND Primary Care Physician Encounter [facility] [place] Date(s): 03/30/21 - 03/30/[address] [address] Discharge Disposition: A-D/C Home Attending Physician: Florence [...] lamictal, at risk for similar rxn to abbzbyloltlyi6Tpw anticonvulsant hypersensitivity syndrome to lamictal risk of similar rxn to cvxwvdgze1fbq anticonvulsant hypersensitivity syndrome to lamictal, at risk for similar rxn to kdsbhpfpwsuuq4bro anticonvulsant hypersensitivity syndrome to lamictal, at risk [...] Refills, Maintenance, 01/18/21 13:47:00 EDT, Powder, [id number], Partial fill upon patient request if the prescription is for a schedule II opioid drug., 2 puffs Inhalati... Start Date: 01/18/21 Status: OrderedColace sodium 100 mg oral capsule 100 mg, 1, capsule, By Mouth, 2 times a day, PRN, # 60 capsule, Refills 1, Tot. Refills 1, Maintenance, for constipation, 01/23/21 14:19:00 EDT, Route to Pharmacy Electronically, [facility]/pharmacy #[id number], Partial fill upon [...] 0 Refills, Maintenance, 03/06/21 12:19:00 EDT, Tablet, [facility]/pharmacy #[id number], Partial fill upon [...] 04/09/21 17:13:00 EDT, 03/30/21 17:12:00 EDT, Cream, [id number], Partial fill upon patient request [...] 3 Refills, Maintenance, 12/23/20 12:16:00 EDT, Tablet, [facility]/pharmacy #[id number], Partial fill upon [...] tablet, 0 Refills,Maintenance, 03/01/21 13:32:00 EDT, Tablet, [facility]/pharmacy #[id number], Partial fill upon [...] and moveto [place] (was previously living in [place])2Managed by [id number] states received treatment [place] [id number] with vkbxwzqkk6wnzb previous partner, does not have contact with him, has protective order and currenlty feels wxjx3Pmknyoc down with ungjjgvld4Qfljfvw at [facility] Vital Signs Most recent to oldest [Reference Range]: 1 Oxygen Saturation [94-100 %] 99 % (03/30/21 2:10 PM) Blood Pressure [90-138/55-84 mm Hg] 125/71 mm Hg (03/30/21 2:10 PM) Temperature [96.8-100.4 DegF] 98.5 DegF (03/30/21 2:10 PM) Social History Social History Type Response Tobacco Use: 4 or less cigarettes(le ss than 1/4 pack)/day in last 30 days. Other: Cutting down wi th , currently down to one cigarette a day, wants to qu it. States gets rashes with patch. Sex
--- OUTSIDE RECORDS SUMMARY | 2022-04-09 18:43 | XMS_ITS | Continuity of Care Document ---
:1990 Author Organization [facility] Address [address] [place] [id number]- Care Team Providers Name Role Phone Po Quentin MCFARLAND Primary Care Physician Encounter [facility] Date(s): 10/26/21 - 11/25/[address] [address]- Attending Physician: Bernardo Eason Admitting Physician: AdmtrBernardo [...] lamictal, at risk for similar rxn to ngihzasevctab4Drh anticonvulsant hypersensitivity syndrome to lamictal risk of similar rxn to lrttvnysj9hkp anticonvulsant hypersensitivity syndrome to lamictal, at risk for similar rxn to cbvipvwwplbif4knh anticonvulsant hypersensitivity syndrome to lamictal, at risk [...] 06/23/21 4:19:00 EST, Route to Pharmacy Electronically, [facility]/pharmacy #[id number], Partial fill upon omer... Start Date: 06/23/21 Status: OrderedApri 0.15 mg-0.03 mg oral tablet 1 tablet, By Mouth, Daily, # 28 tablet, 0 Refills, Maintenance, 08/02/21 12:51:00 EST, Tablet, [facility]/pharmacy #[id number], Partial fill upon patient request if the prescription is for a schedule II opioid drug., 1 tablet By Mouth Daily, 162, cm, 08/02/21 12:3... Start Date: 08/02/21 Status: OrderedDiflucan 150 mg oral tablet 1 tablet = 150 mg, By Mouth, Once, # 1 tablet, 1 Refills, Soft Stop, 08/02/21 12:51:00 EST, [facility]/pharmacy #[id number], Partial fill upon patient request if [...] kit, 0 Refills, Maintenance, 06/24/21 14:08:00 EST, [facility]/pharmacy #[id number], pt has been on Amitriptyline, topamax, Propranolol... Start Date: 06/24/21 Status: Orderedfamotidine 20 mg oral tablet 20 mg, 1, tablet, By Mouth, 2 times a day, # 28 tablet, Refills 1, Tot. Refills 1, Maintenance, 08/02/21 12:49:00 EST, Route to Pharmacy Electronically, [facility]/pharmacy #[id number], Partial fill upon patient request if [...] FOR MODERATE PAIN, Route to Pharmacy Electronically, [facility]35, 162, cm, 08/02/21 12:39:00 EST, Height, 86.1, [...] but stopped in October with and moveto [place] (was previously living in [place])2Managed by [id number] states received treatment [place] [id number] with ljxnnidpb8mwta previous partner, does not have contact with him, has protective order and currenlty feels wtef1Cmobowu down with xurxhomtz3Mgfasnn at [facility] Social History Social History Type Response Tobacco Use: 4 or less cigarettes(le ss than 1/4 pack)/day in last 30 days. Other: Cutting down wi th , currently down to one cigarette a day, wants to qu it. States gets rashes with patch. Sex
--- OUTSIDE RECORDS SUMMARY | 2022-04-09 18:43 | XMS_ITS | Continuity of Care Document ---
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 phenytoin2 anticonvulsant hypersensitivity syndrome Active phenobarbital3 anticonvulsant hypersensitivity syndrome Active primidone4 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 Start Date: 06/23/21 Status: OrderedApri 0.15 mg-0.03 mg oral tablet 1 tablet, By Mouth, Daily, # 28 tablet, 3 Refills, Maintenance, 01/22/22 12:59:00 EDT, Tablet, [facility]/pharmacy #[id number], Partial fill upon patient request if the prescription is for a schedule II opioid drug., 1 tablet By Mouth Daily, 162, cm, 10/26/21 15:3... Start Date: 01/22/22 Status: OrderedDiflucan 150 mg oral tablet 1 tablet = 150 mg, By Mouth, Once, # 1 tablet, 1 Refills, Soft Stop, 08/02/21 12:51:00 EST, [facility]/pharmacy #[id number], Partial fill upon patient [...] kit, 0 Refills, Maintenance, 06/24/21 14:08:00 EST, [facility]/pharmacy #[id number], pt has been on Amitriptyline, topamax, Propranolol... Start Date: 06/24/21 Status: Orderedfamotidine 20 mg oral tablet 20 mg, 1, tablet, By Mouth, 2 times a day, # 28 tablet, Refills 1, Tot. Refills 1, Maintenance, 08/02/21 12:49:00 EST, Route to Pharmacy Electronically, [facility]/pharmacy #[id number], Partial fill upon patient [...] 02/19/22 15:19:00 EDT, Route to Pharmacy Electronically, [id number], 162, cm, 02/09/22 15:31:00 EDT, Height, 86.1, kg, 06/21/21 5:31:00 EST... Start Date: 02/19/22 Status: Orderedmetronidazole topical 0.75% gel with applicator 1 application, Vaginally, Daily at bedtime, X5 DAYS., # 70 Gm, 0 Refills, Maintenance, 03/01/22 11:29:00 EDT, [id number], 5, 1 APPLICATOR VAGINALLY DAILY AT BEDTIME,X5 DAYS, 162, cm, 02/09/22 15:31:00 EDT, Height, 86.1, kg, 06/21/21 5:31:00 EST,... Start Date: 03/01/22 Status: OrderedrisperiDONE 2 mg oral tablet 2 [...] and moveto [place] (was previously living in [place])2Managed by [id number] states received treatment [place] [id number] with [id number] previous partner, does not have contact with him, has protective order and currenlty feels [id number] down with [id number] [facility] [place] History Social History Type Response Tobacco Use: 4 or less cigarettes(le ss than 1/4 pack)/day in last 30 days. Other: Cutting down wi th , currently down to one cigarette a day, wants to qu it. States gets rashes with patch. Sex Care Team PersonnelName: Quentin Magana MD Address: [address] [place] [phone]
[2022-04-09] MEDS: LORazepam 1 MG TABLET 2 MG PO (19:14)
[2022-04-09] MEDS: oxyCODONE HCl Immed Release 5 MG TABLET PO (19:14)
--- NOTE | 2022-04-09 19:20 | PC.NURSE ---
Assumed care of pt. at 1900. Pt. is alert and oriented, sitting in bed talking on phone. Pt. c/o pain during movement at a 10/10 d/t sciatic pain. Pt. requesting to attempt to use the bathroom. Medicated with pain meds and then will attempt to ambulate after pain meds have had a chance to be effective.
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
[2022-04-09 20:25] VITALS: BP 111/54; PULSE 63; RESP 20; TEMP 36.8; O2SAT 98
--- NOTE | 2022-04-09 21:11 | PC.NURSE ---
Pt. able to use the restroom when going for her x-ray. Pt. sitting in bed. Pt. reports decrease in pain following pain meds. Pt. being dc'd back to home.
== END 2022-04-09 21:19 | disposition home or self-care (01) ==
PROVIDERS: Emergency Provider Emergency Medicine; PCP Internal Medicine
DX: S30.0XXA Contusion of lower back and pelvis, initial encounter (principal); W10.8XXA Fall (on) (from) other stairs and steps, initial encounter; F41.9 Anxiety disorder, unspecified; F17.210 Nicotine dependence, cigarettes, uncomplicated; F12.90 Cannabis use, unspecified, uncomplicated; Y93.89 Activity, other specified; Y92.038 Other place in apartment as the place of occurrence of the external cause; Y99.9 Unspecified external cause status
CPT/HCPCS: 72100; 99283; 99284

== ENCOUNTER 2022-08-04 15:43 | Emergency (ER) | payer OTHER, SELFPAY ==
--- NOTE | 2022-08-04 | ECG_ITS ---
Test Reason : CHEST PAIN Blood Pressure : / mmHG Vent. Rate : 050 BPM Atrial Rate : 050 BPM P-R Int : 172 ms QRS Dur : 108 ms QT Int : 452 ms P-R-T Axes : 057 071 048 degrees QTc Int : 412 ms Sinus bradycardia with marked sinus arrhythmia Otherwise normal ECG When compared with ECG of 29-NOV-2021 11:59, No significant change was found Referred By: Santos Vogt Electronically Signed By:GIL JARRETT MD
--- NOTE | ~2022-08-04 | CT_ITS ---
EXAMINATION: CT HEAD WITHOUT CONTRAST CLINICAL INFORMATION: Seizure COMPARISON: 10.08.2020 TECHNIQUE: Contiguous axial imaging was performed from the skull base to vertex without intravenous administration of contrast. This CT examination was performed using dose optimization techniques as appropriate, variously including the following: *Automated exposure control *Adjustment of mA and/or kV according to patient size (this includes techniques or standardized protocols for targeted exams where dose is matched to indication/reason for exam; i.e. extremities or head) *Use of iterative reconstruction technique DLP: 642 mGy-cm FINDINGS: There is no evidence of acute intracranial hemorrhage or territorial infarction. No abnormal mass effect or midline shift is seen. Delgado to white matter differentiation is well preserved. No extra-axial fluid collections are identified. No hydrocephalus. No significant volume loss. There is no abnormal attenuation within the brain parenchyma. No acute osseous or soft tissue abnormality. Mild mucosal thickening within the included paranasal sinuses. Mastoid air cells are clear. CT/CT head/brain wo IV con IMPRESSION: No acute intracranial pathology.
[2022-08-04 15:48] VITALS: BP 114/78; BP 126/83; PULSE 88; RESP 18; TEMP 36.7; O2SAT 97; O2SAT 99; BMI 31.8
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
--- OUTSIDE RECORDS SUMMARY | 2022-08-04 16:15 | XMS_ITS | Continuity of Care Document ---
:1990 Author Organization [facility] Address [address] [place] [address]- Care Team Providers Name Role Phone Po Quentin MCFARLAND Primary Care Physician Encounter [facility] Date(s): 05/02/22 - 06/01/[address] [address]- Allergies, Adverse Reactions, Alerts Substance Reaction Severity Status carbamazepine1 anticonvulsant hypersensitivity syndrome Active phenytoin2 anticonvulsant hypersensitivity syndrome Active phenobarbital3 mookie marcello syndrome Severe Active anticonvulsant hypersensitivity syndrome 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 Lamictal4 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 Start Date: 06/23/21 Status: OrderedApri 0.15 mg-0.03 mg oral tablet 1 tablet, By Mouth, Daily, # 28 tablet, 3 Refills, Maintenance, 01/22/22 12:59:00 EDT, Tablet, [facility]/pharmacy #[id number], Partial fill upon patient request if [...] 1 Refills, Soft Stop, 08/02/21 12:51:00 EST, [facility]/pharmacy #[id number], Partial fill upon patient request if the prescription is for a schedule II opioid drug., 162, cm, 08/02/21 12:39:00 EST, Height, 86.1, kg,... Start Date: 08/02/21 Status: OrderedElla 30 mg oral tablet 1 tablet = 30 mg, By Mouth, Once, # 1 tablet, 11 Refills, Soft Stop, 06/01/22 14:34:00 EST, [facility]/pharmacy #[id number], Partial fill upon patient request if [...] kit, 0 Refills, Maintenance, 06/24/21 14:08:00 EST, [facility]/pharmacy #[id number], pt has been on Amitriptyline, topamax, Propranolol... Start Date: 06/24/21 Status: Orderedfamotidine 20 mg oral tablet 20 mg, 1, tablet, By Mouth, 2 times a day, # 28 tablet, Refills 1, Tot. Refills 1, Maintenance, 08/02/21 12:49:00 EST, Route to Pharmacy Electronically, [facility]/pharmacy #[id number], Partial fill upon patient request if [...] 02/19/22 15:19:00 EDT, Route to Pharmacy Electronically, [id number], 162, cm, 02/09/22 15:31:00 EDT, Height, 86.1, [...] Gm, 0 Refills, Maintenance, 03/01/22 11:29:00 EDT, [facility] [id number], 5, 1 APPLICATOR VAGINALLY DAILY AT BEDTIME,X5 DAYS, 162, cm, 02/09/22 15:31:00 EDT, Height, 86.1, kg, 06/21/21 5:31:00 EST,... Start Date: 03/01/22 Status: Orderednaproxen 500 mg oral tablet 1 tablet = 500 mg, By Mouth, 2 times a day, # 60 tablet, 3 Refills, Maintenance, 05/23/22 11:17:00 EST, Tablet, [facility]/pharmacy #[id number], Partial fill upon patient request if [...] II opioid drug. Start Date: 04/08/22 Status: OrderedHerb Salas, See Instructions, # 1 each, Refills 0, Tot. Refills 0, Maintenance, Patient needs herb fordischarge. Thank you, 04/09/22 12:44:00 EDT, Supply [...] [place] (was previously living in [place])2Managed by [id number] states received treatment [place] [id number] with xohowqmea5mrle previous partner, does not have contact with him, has protective order and currenlty feels ytcp9Hrorksz down with jfxfgevxy0Isbbhkx at [facility] [place] [place] Social History Social History Type Response Tobacco [...] Reference Physician Member Role: PCP Address: Address: [address] [place] [address]- Care Team Related PersonsName: SKY MCKEON Address: AMERCN Address: home [address] [place] [address] [place] Name: ANTONIO CHAMPION Address: home [address] [place] [address] Name: ALBA CHAMPION Address: home [address] [place] [address] Name: ANTONIO VARGAS Address: home [address] [place] [address] Name: WARREN VARGAS Address: home [address] Name: CRISSY FOX Address: home [address] [place] [address]
--- OUTSIDE RECORDS SUMMARY | 2022-08-04 16:15 | XMS_ITS | Continuity of Care Document ---
:1990 Author Organization [facility] Address [address] [place] [address]- Care Team Providers Name Role Phone Po Quentin MCFARLAND Primary Care Physician Encounter [facility] Date(s): 04/04/22 - 05/11/[address] [id number] Attending Physician: [...] lamictal, at risk for similar rxn to fuacyecqdfuuk2Xuq anticonvulsant hypersensitivity syndrome to lamictal risk of similar rxn to fmcfmcrey0dru anticonvulsant hypersensitivity syndrome to lamictal, at risk for similar rxn to xvwtshnirqqct9liojmd marcello bwhybtmn4nwm anticonvulsant hypersensitivity syndrome to lamictal, at risk [...] 06/23/21 4:19:00 EST, Route to Pharmacy Electronically, [facility]/pharmacy #[id number], Partial fill upon omer... Start Date: 06/23/21 Status: OrderedApri 0.15 mg-0.03 mg oral tablet 1 tablet, By Mouth, Daily, # 28 tablet, 3 Refills, Maintenance, 01/22/22 12:59:00 EDT, Tablet, [facility]/pharmacy #[id number], Partial fill upon patient request [...] 1 Refills, Soft Stop, 08/02/21 12:51:00 EST, [facility]/pharmacy #[id number], Partial fill upon patient request [...] kit, 0 Refills, Maintenance, 06/24/21 14:08:00 EST, [facility]/pharmacy #[id number], pt has been on Amitriptyline, topamax, Propranolol... Start Date: 06/24/21 Status: Orderedfamotidine 20 mg oral tablet 20 mg, 1, tablet, By Mouth, 2 times a day, # 28 tablet, Refills 1, Tot. Refills 1, Maintenance, 08/02/21 12:49:00 EST, Route to Pharmacy Electronically, [facility]/pharmacy #[id number], Partial fill upon patient request [...] 02/19/22 15:19:00 EDT, Route to Pharmacy Electronically, [facility] [id number], 162, cm, 02/09/22 15:31:00 EDT, Height, 86.1, [...] Gm, 0 Refills, Maintenance, 03/01/22 11:29:00 EDT, [facility] 20568, 5, 1 APPLICATOR VAGINALLY DAILY AT BEDTIME,X5 DAYS, 162, cm, 02/09/22 15:31:00 EDT, Height, 86.1, kg, 06/21/21 5:31:00 EST,... Start Date: 03/01/22 Status: Orderedoutpatient Physical therapy outpatient Physical therapy, [...] opioid drug. Start Date: 04/08/22 Status: OrderedJosue Walker, See Instructions, # 1 each, Refills 0, [...] and moveto [place] (was previously living in [place])2Managed by MIE4Mzxoysk states received treatment [place] [id number] with rzmmcjizy3cfuh previous partner, does not have contact with him, has protective order and currenlty feels uati4Bmkjfxg down with vniwwnbgv8Hkpjytw at [facility] [place] Social History Social History Type Response Tobacco Use: 4 or less cigarettes(le ss than 1/4 pack)/day in last 30 days. Other: Cutting down wi th , currently down to one cigarette a day, wants to qu it. States gets rashes with patch. Sex Patient Care team information Care Team PersonnelName: Bruna Hoyos RN Position: Lynda RN Member Role: Primary Care Nurse Name: Edin Jacobs RN Position: S RN Member Role: Primary Care Nurse Name: Quentin Magana MD Position: Reference Physician Member Role: PCP Address: Address: [address] [place] [address]- [place] Care Team Related PersonsName: SKY MCKEON Address: AMER[employer] Address: home [address] [place] [address] Name: ANTONIO CHAMPION Address: home [address] [place] [address] Name: ALBA CHAMPION Address: home [address] [place] [address] Name: ANTONIO VARGAS Address: home [address] [place] [address] Name: WARREN VARGAS Address: home [address] Name: CRISSY FOX Address: home [address] [place] [address]
--- OUTSIDE RECORDS SUMMARY | 2022-08-04 16:16 | XMS_ITS | Continuity of Care Document ---
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 phenytoin2 anticonvulsant hypersensitivity syndrome Active phenobarbital3 mookie marcello syndrome Severe Active anticonvulsant hypersensitivity syndrome primidone4 anticonvulsant hypersensitivity syndrome Active 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 Start Date: 06/23/21 Status: OrderedApri 0.15 mg-0.03 mg oral tablet 1 tablet, By Mouth, Daily, # 28 tablet, 3 Refills, Maintenance, 01/22/22 12:59:00 EDT, Tablet, [facility]/pharmacy #[id number], Partial fill upon patient [...] 1 Refills, Soft Stop, 08/02/21 12:51:00 EST, [facility]/pharmacy #[id number], Partial fill upon patient [...] kit, 0 Refills, Maintenance, 06/24/21 14:08:00 EST, [facility]/pharmacy #0373, pt has been on Amitriptyline, topamax, Propranolol... Start Date: 06/24/21 Status: Orderedfamotidine 20 mg oral tablet 20 mg, 1, tablet, By Mouth, 2 times a day, # 28 tablet, Refills 1, Tot. Refills 1, Maintenance, 08/02/21 12:49:00 EST, Route to Pharmacy Electronically, [facility]/pharmacy #[id number], Partial fill upon patient [...] 02/19/22 15:19:00 EDT, Route to Pharmacy Electronically, [facility] [id number], 162, cm, 02/09/22 15:31:00 EDT, Height, 86.1, [...] Gm, 0 Refills, Maintenance, 03/01/22 11:29:00 EDT, [facility] 56172, 5, 1 APPLICATOR VAGINALLY DAILY AT BEDTIME,X5 [...] and moveto [place] (was previously living in [place])2Managed by [id number] states received treatment [place] [id number] with znvceaztp9vcpf previous partner, does not have contact with him, has protective order and currenlty feels qnnl4Yqirswf down with wvhfzqexm6Iqbbkpi at [place] Social History Social History Type Response Tobacco Use: 4 or less cigarettes(le ss than 1/4 pack)/day in last 30 days. Other: Cutting down wi th , currently down to one cigarette a day, wants to qu it. States gets rashes with patch. Sex Patient Care team information Care Team PersonnelName: Bruna Hoyos RN Position: S RN Member Role: Primary Care Nurse Name: Edin Jacobs RN Position: S RN Member Role: Primary Care Nurse Name: Quentin Magana MD Position: Reference Physician Member Role: PCP Address: Address: [address] [place] [address]- Care Team Related PersonsName: SKY MCKEON Address: AMERCN Address: home [address] [place] [address] Name: ANTONIO CHAMPION Address: home [address] [place] [address] Name: ALBA CHAMPION Address: [address] [place] [address] Name: ANTONIO VARGAS Address: home [address] [place] [address] Name: WARREN VARGAS Address: home [address] Name: CRISSY FOX Address: home [address] [place] [address]
--- OUTSIDE RECORDS SUMMARY | 2022-08-04 16:16 | XMS_ITS | Continuity of Care Document ---
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 phenytoin2 anticonvulsant hypersensitivity syndrome Active primidone3 anticonvulsant hypersensitivity syndrome Active phenobarbital4 mookie marcello syndrome Severe Active anticonvulsant hypersensitivity syndrome Lamictal5 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 1had anticonvulsant hypersensitivity syndrome to lamictal, at risk for similar rxn to qwexzkntktmld0Qlh anticonvulsant hypersensitivity syndrome to lamictal risk of similar rxn to kkphmivyh5jcp anticonvulsant hypersensitivity syndrome to lamictal, at risk for similar rxn to bmeebnuvz3hkf anticonvulsant hypersensitivity syndrome to lamictal, at risk for similar rxn to phenobarbital5 mookie marcello syndrome Immunizations Given and Recorded [...] 06/23/21 4:19:00 EST, Route to Pharmacy Electronically, [facility]/pharmacy #[id number], Partial fill upon omer... Start Date: 06/23/21 Status: OrderedApri 0.15 mg-0.03 mg oral tablet 1 tablet, By Mouth, Daily, # 28 tablet, 3 Refills, Maintenance, 01/22/22 12:59:00 EDT, Tablet, [facility]/pharmacy #[id number], Partial fill upon patient request [...] 1 Refills, Soft Stop, 08/02/21 12:51:00 EST, [facility]/pharmacy #[id number], Partial fill upon patient request if the prescription is for a schedule II opioid drug., 162, cm, 08/02/21 12:39:00 EST, Height, 86.1, kg,... Start Date: 08/02/21 Status: OrderedElla 30 mg oral tablet 1 tablet = 30 mg, By Mouth, Once, # 1 tablet, 11 Refills, Soft Stop, 06/01/22 14:34:00 EST, [facility]/pharmacy #[id number], Partial fill upon patient request [...] kit, 0 Refills, Maintenance, 06/24/21 14:08:00 EST, [facility]/pharmacy #0373, pt has been on Amitriptyline, topamax, Propranolol... Start Date: 06/24/21 Status: Orderedfamotidine 20 mg oral tablet 20 mg, 1, tablet, By Mouth, 2 times a day, # 28 tablet, Refills 1, Tot. Refills 1, Maintenance, 08/02/21 12:49:00 EST, Route to Pharmacy Electronically, [facility]/pharmacy #0373, Partial fill upon patient request [...] 02/19/22 15:19:00 EDT, Route to Pharmacy Electronically, [facility] 78934, 162, cm, 02/09/22 15:31:00 EDT, Height, 86.1, [...] Gm, 0 Refills, Maintenance, 03/01/22 11:29:00 EDT, [facility] 16596, 5, 1 APPLICATOR VAGINALLY DAILY AT BEDTIME,X5 DAYS, 162, cm, 02/09/22 15:31:00 EDT, Height, 86.1, kg, 06/21/21 5:31:00 EST,... Start Date: 03/01/22 Status: Orderednaproxen 500 mg oral tablet 1 tablet = 500 mg, By Mouth, 2 times a day, # 60 tablet, 3 Refills, Maintenance, 05/23/22 11:17:00 EST, Tablet, [facility]/pharmacy #[id number], Partial fill upon patient request [...] but stopped in October with and moveto [place] (was previously living in [place])2Managed by [id number] states received treatment [place] [id number] with jbbhqnnnr5ehva previous partner, does not have contact with him, has protective order and currenlty feels fjvg2Drlbdtx down with upoqinsyz4Upfawci at [place] Social History Social History Type [...] Reference Physician Member Role: PCP Address: Address: [address] [place] [address]- Care Team Related PersonsName: CINDYDG DAVIKELVIN Address: AMERCN Address: home [address] [place] [address] Name: ANTONIO CHAMPION Address: home [address] [place] [address] Name: ALBA CHAMPION Address: [address] [place] [address] Name: ANTONIO VARGAS Address: home [address] [place] [address] Name: WARREN VARGAS Address: home [address] Name: CRISSY FOX Address: home [address] [place] [address]
[2022-08-04 17:31] LABS: Appearance Urine Cloudy; Color Urine Yellow; Glucose Urine UA Negative (Negative); Leukocyte Esterase Urine Small (1+) (Negative); Nitrite Urine Negative (Negative); PH 5.5 (5.0-9.0); Specific Gravity - Urine 1.015 (1.005-1.025); UMIC TRIGGER UACC YES; Urine Blood Moderate (2+) (Negative); Urine Ketones Negative (Negative); Urine Protein Negative (Neg-Trace)
--- NOTE | 2022-08-04 17:31 | ED_ITS ---
HPI - Psych General Chief Complaint: Psychiatric Symptoms <MICHAEL Loo - Last Filed: 08/05/22 16:43> Stated Complaint: CRISIS,MANIC,?SZ/NO POST ICTAL PERIOD PER EMS <MICHAEL Loo - Last Filed: 08/05/22 16:43> Time Seen by Provider: 08/04/22 16:16 <MICHEAL Loo - Last Filed: 08/05/22 16:43> Source: patient <MICHAEL Loo - Last Filed: 08/05/22 16:43> Mode of arrival: ambulatory <MICHAEL Loo - Last Filed: 08/05/22 16:43> Limitations: no limitations <MICHAEL Loo Last Filed: 08/05/22 16:43> History of Present Illness HPI Narrative: 31-year-old female with depression presents to the ED for severe depression, and paranoia and sad. Patient states feeling like this since her physician changed the doses of her antidepressants. Usually when her antidepressants doses are changed patient states she does have reversing gets more sad. Patient denies any suicidal or homicidal thoughts. Patient wants help. Patient did not take his psych meds today. <MICHAEL Loo - Last Filed: 08/05/22 16:43> Related Data Home Medications: Home Medications Medication Instructions Recorded Confirmed albuterol sulfate 90 mcg/actuation 2 puff inhalation Q4H PRN 08/15/20 08/04/22 aerosol inhaler (ProAir HFA) Respiratory Distress clonazepam 1 mg tablet 1 mg PO BID PRN Anxiety 05/03/22 08/04/22 quetiapine 50 mg tablet 100 mg PO BEDTIME 05/03/22 08/04/22 fluoxetine 20 mg capsule 2 cap PO DAILY 08/04/22 08/04/22 prazosin 2 mg capsule 1 cap PO BID 08/04/22 08/04/22 Previous Rx's Medication Instructions Recorded metronidazole 0.75 % (37.5 mg/5 1 appful vaginal DAILY 7 days #70 02/27/22 gram) vaginal gel grams acetaminophen 500 mg tablet 1,000 mg PO QID PRN fever or pain 03/23/22 (Tylenol Extra Strength) #14 tabs gabapentin 600 mg tablet 600 mg PO BID 2 days #4 tabs 05/03/22 tramadol 50 mg tablet 50 mg PO Q8H PRN pain #60 tabs 05/03/22 <MICHAEL Loo - Last Filed: 08/05/22 16:43> Allergies/Adverse Reactions: Allergies Allergy/AdvReac Type Severity Reaction Status Date / Time lamotrigine [From Lamictal] Allergy Unknown mookie Verified 05/03/22 11:20 isa syndrome topiramate [Topamax] Allergy Unknown unknown Verified 05/03/22 11:20 ANTI CONVULSANTS Allergy Mild MOOKIE Uncoded 05/03/22 11:20 ISA SYNDROME <MICHAEL Loo - Last Filed: 08/05/22 16:43> Review of Systems Review of Systems: Paranoid, depressed. <MICHAEL Loo - Last Filed: 08/05/22 16:43> Yes all other systems are reviewed and are negative <MICHAEL Loo - Last Filed: 08/05/22 16:43> PMFSH Past Medical History Medical History: Medical History Anxiety Asthma Bradycardia Depression ETOH abuse PTSD (post-traumatic stress disorder) <MICHAEL Loo - Last Filed: 08/05/22 16:43> Surgical History: Surgical History No history of previous surgery <MICHAEL Loo - Last Filed: 08/05/22 16:43> Family History Family History: Family History Mother Heart attack Father Suicide Maternal Grandmother Emphysema lung <MICHAEL Loo - Last Filed: 08/05/22 16:43> Social History Social History: Social History (Updated 05/03/22 @ 11:23 by DION Pecaock) Household Members: Children Housing: Condominium Housing Other:: Snf Alcohol intake: never Patient Tobacco Use Status: Current everyday Tobacco user Tobacco use type: Cigarette Cigarette Packs Per Day: 1 Cigarettes Per Day: 3 Years Smoked: 10 e-Cigarette/Vaping Use: Never Used Second Hand Smoke Exposure: Yes Substance Use Type: Marijuana Trauma History: HX DV service: No Current occupational status: disabled Sexual orientation: Straight/Heterosexual Gender identity: Female Cognitive needs: No Hearing needs: No Vision needs: No <MICHAEL Loo - Last Filed: 08/05/22 16:43> Physical Exam Vital Signs: Vital Signs: Last Vital Signs Temp 98.1 F 08/05/22 05:13 Pulse 55 08/05/22 11:10 Resp 18 08/05/22 11:10 BP 92/53 L 08/05/22 11:10 Pulse Ox 98 08/05/22 11:10 O2 Del Method 08/05/22 11:10 BMI result Body Mass Index 31.8 <MICHAEL Loo - Last Filed: 08/05/22 16:43> Vital Signs: Last Vital Signs Temp 98.1 F 08/05/22 05:13 Pulse 55 08/05/22 11:10 Resp 18 08/05/22 11:10 BP 92/53 L 08/05/22 11:10 Pulse Ox 98 08/05/22 11:10 O2 Del Method 08/05/22 11:10 BMI result Body Mass Index 31.8 <Ryan London MD - Last Filed: 08/05/22 06:22> Vital Signs: Last Vital Signs Temp 98.1 F 08/05/22 05:13 Pulse 55 08/05/22 11:10 Resp 18 08/05/22 11:10 BP 92/53 L 08/05/22 11:10 Pulse Ox 98 08/05/22 11:10 O2 Del Method 08/05/22 11:10 BMI result Body Mass Index 31.8 <Raymond Rocha MD - Last Filed: 08/05/22 14:29> Const: General: cooperative, healthy appearing, comfortable, no acute distress, well developed, alert, awake and Physically active <MICHAEL Loo - Last Filed: 08/05/22 16:43> Orientation/consciousness: oriented to person, oriented to place, oriented to time and patient oriented x3 <MICHAEL Loo - Last Filed: 08/05/22 16:43> HEENT: Head: Yes normal to inspection, Yes No palpable skull fracture present, Yes normocephalic, Yes atraumatic and No abrasion <MICHAEL Loo - Last Filed: 08/05/22 16:43> Eyes: General: appearance normal, both eyes and all related structures <MICHAEL Loo Last Filed: 08/05/22 16:43> Neck: Neck: Yes normal visual inspection, Yes full ROM, Yes no lymph adenopathy, Yes no meningeal signs, Yes trachea midline, Yes supple, No anterior neck swelling and No tender <MICHAEL Loo Last Filed: 08/05/22 16:43> Chest: Chest palpation & inspection: normal inspection of the chest and normal palpation of entire chest wall <MICHAEL Loo Last Filed: 08/05/22 16:43> Resp: Effort & Inspection: normal respiratory effort and able to speak in complete sentences <Santos Vogt [facility] Last Filed: 08/05/22 16:43> Auscultation: clear to auscultation bilaterally <MICHAEL Loo Last Filed: 08/05/22 16:43> Cardio: Jugular venous distension: no JVD <MICHAEL Loo Last Filed: 08/05/22 16:43> Heart sounds: S1 normal heart sound present and S2 normal heart sound present <Santos Vogt [facility] Last Filed: 08/05/22 16:43> GI: Inspection: Yes normal to inspection and No abdominal wall ecchymosis <Santos Vogt [facility] Last Filed: 08/05/22 16:43> Palpation (GI): Soft to palpation, not firm, nontender, no guarding and not rigid <Santos Vogt [facility] Last Filed: 08/05/22 16:43> : General: No CVA tenderness and Yes no CVA tenderness <MICHAEL Loo Last Filed: 08/05/22 16:43> Back/Spine/Pelvis: Back: no CVA tenderness, No CVA tenderness and No back tenderness <MICHAEL Loo Last Filed: 08/05/22 16:43> Skin: General skin exam: no rashes or lesions noted and elasticity normal <MICHAEL Loo Last Filed: 08/05/22 16:43> Neuro: Other: negative for any neuro deficits. <MICHAEL Loo Last Filed: 08/05/22 16:43> General: oriented to person, oriented to place, oriented to time, patient oriented x3, gait normal, tone normal, moves all extremities, Normal light touch and pain sensation, no meningeal signs, no focal motor deficits and CN's II-XI intact bilaterally <MICHAEL Loo - Last Filed: 08/05/22 16:43> Extrem: General: Yes normal to inspection and Yes full ROM <MICHAEL Loo - Last Filed: 08/05/22 16:43> Psych: Appearance: grossly normal, well kempt and not disheveled <MICHAEL Loo - Last Filed: 08/05/22 16:43> Course Course Course Narrative: Labs ordered. Med rec and crisis consult placed <MICHAEL Loo Last Filed: 08/05/22 16:43> Reevaluation(s) Reevaluation #1: EMS notes states patient had tonic clonic seizure at home. Patient states she has had seizures multiple times before in the past but she states she never followed up with the primary care doctor or informed in so she was never placed on medication. Presently no neuro deficits. <MICHAEL Loo - Last Filed: 08/05/22 16:43> Reevaluation #2: patient is complaining of migraine headache requesting Fioricet. Patient is awaiting crisis evaluation. <Ryan London MD - Last Filed: 08/05/22 06:22> Time: 04:22 <Ryan London MD - Last Filed: 08/05/22 06:22> Reevaluation #3: The patient is waiting for care team evaluation however due to significant amount of patient's decrease care team staff at this time, the patient's evaluation is pending. I did interview the patient, she is here for depression and anxiety after having her medications changed. She states she is not suicidal or homicidal. She states she just wants to get into a respite and she states that she can call [facility] resp[facility] the and they will accept her she is medically cleared. The patient denied being ill in any way recently. She denied fever, chills, chest pain, shortness of breath. Patient's physical exa mination was unremarkable with a nonfocal neurologic exam. My independent interpretation the patient's laboratory evaluation is as follows, white blood cell count was elevated 12,100 she had similar elevations in the past. Comprehensive metabolic panel was normal. test was negative. Ur inalysis revealed moderate blood and trace leukocyte esterase. Microscopic revealed 6-10 rbc's 0-5 wbc's and 6-10 squamous cells with trace bacteria-this is a non clean catch specimen I do not think this urinary infection. Urine tox screen was positive for benzodiazepines, she takes clonidine) and marijuana. COVID-19 is negative. At this time I believe the patient is medically cleared and can go to a respite for further treatment. Therefore the patient will be discharged home. I did advise her to contact my time to see if they can take her interested, otherwise she should follow-up with her prescribing provider to discuss her medication regimen. <Raymond Rocha MD - Last Filed: 08/05/22 14:29> Time: 14:24 <Raymond Rocha MD - Last Filed: 08/05/22 14:29> Medications Administered Discontinued Medications Generic Name Dose Route Start Last Admin Trade Name Freq PRN Reason Stop Dose Admin Acetaminophen/Butalbital/Caffeine 1 tab 08/04/22 18:50 08/04/22 18:57 Butalb/Acetamin/Caff 50/325/40 Tablet PO 08/04/22 18:51 1 tab ONCE ONE Administration Acetaminophen/Butalbital/Caffeine 1 tab 08/05/22 04:21 08/05/22 04:28 Butalb/Acetamin/Caff 50/325/40 Tablet PO 08/05/22 04:22 1 tab ONCE ONE Administration Clonazepam 1 mg 08/04/22 18:08 08/04/22 18:16 Clonazepam 1 Mg Tablet PO 08/04/22 18:09 1 mg ONCE ONE Administration Clonazepam 1 mg 08/04/22 20:48 08/05/22 05:32 Clonazepam 1 Mg Tablet PO 1 mg BID PRN Administration Anxiety Fluoxetine HCl 40 mg 08/04/22 21:00 08/05/22 08:22 Fluoxetine Hcl 20 Mg Capsule PO 40 mg DAILY FELTON Administration Gabapentin 600 mg 08/04/22 21:00 08/05/22 05:32 Gabapentin 600 Mg Tablet PO 600 mg BID FELTON Administration Metronidazole 5 gm 08/04/22 21:00 08/05/22 08:11 Metronidazole 0.75 % Vaginal Gel 70 Gm Tube VAGINAL Not Given DAILY FELTON Prazosin HCl 2 mg 08/04/22 21:00 08/05/22 08:22 Prazosin Hcl 1 Mg Capsule PO 2 mg BID FELTON Administration Protocol Quetiapine Fumarate 100 mg 08/04/22 21:00 08/04/22 21:02 Quetiapine Fumarate 100 Mg Tablet PO 100 mg BEDTIME FELTON Administration Tramadol HCl 50 mg 08/04/22 20:48 08/05/22 13:45 Tramadol Hcl 50 Mg Tablet PO 50 mg Q8H PRN Administration Pain, Mild (Pain Scale 1-3) <MICHAEL Loo - Last Filed: 08/05/22 16:43> Medications Administered Discontinued Medications Generic Name Dose Route Start Last Admin Trade Name Freq PRN Reason Stop Dose Admin Acetaminophen/Butalbital/Caffeine 1 tab 08/04/22 18:50 08/04/22 18:57 Butalb/Acetamin/Caff 50/325/40 Tablet PO 08/04/22 18:51 1 tab ONCE ONE Administration Acetaminophen/Butalbital/Caffeine 1 tab 08/05/22 04:21 08/05/22 04:28 Butalb/Acetamin/Caff 50/325/40 Tablet PO 08/05/22 04:22 1 tab ONCE ONE Administration Clonazepam 1 mg 08/04/22 18:08 08/04/22 18:16 Clonazepam 1 Mg Tablet PO 08/04/22 18:09 1 mg ONCE ONE Administration Clonazepam 1 mg 08/04/22 20:48 08/05/22 05:32 Clonazepam 1 Mg Tablet PO 1 mg BID PRN Administration Anxiety Fluoxetine HCl 40 mg 08/04/22 21:00 08/05/22 08:22 Fluoxetine Hcl 20 Mg Capsule PO 40 mg DAILY FELTON Administration Gabapentin 600 mg 08/04/22 21:00 08/05/22 05:32 Gabapentin 600 Mg Tablet PO 600 mg BID FELTON Administration Metronidazole 5 gm 08/04/22 21:00 08/05/22 08:11 Metronidazole 0.75 % Vaginal Gel 70 Gm Tube VAGINAL Not Given DAILY FELTON Prazosin HCl 2 mg 08/04/22 21:00 08/05/22 08:22 Prazosin Hcl 1 Mg Capsule PO 2 mg BID FELTON Administration Protocol Quetiapine Fumarate 100 mg 08/04/22 21:00 08/04/22 21:02 Quetiapine Fumarate 100 Mg Tablet PO 100 mg BEDTIME FELTON Administration Tramadol HCl 50 mg 08/04/22 20:48 08/05/22 13:45 Tramadol Hcl 50 Mg Tablet PO 50 mg Q8H PRN Administration Pain, Mild (Pain Scale 1-3) <Ryan London MD - Last Filed: 08/05/22 06:22> Medications Administered Discontinued Medications Generic Name Dose Route Start Last Admin Trade Name Freq PRN Reason Stop Dose Admin Acetaminophen/Butalbital/Caffeine 1 tab 08/04/22 18:50 08/04/22 18:57 Butalb/Acetamin/Caff 50/325/40 Tablet PO 08/04/22 18:51 1 tab ONCE ONE Administration Acetaminophen/Butalbital/Caffeine 1 tab 08/05/22 04:21 08/05/22 04:28 Butalb/Acetamin/Caff 50/325/40 Tablet PO 08/05/22 04:22 1 tab ONCE ONE Administration Clonazepam 1 mg 08/04/22 18:08 08/04/22 18:16 Clonazepam 1 Mg Tablet PO 08/04/22 18:09 1 mg ONCE ONE Administration Clonazepam 1 mg 08/04/22 20:48 08/05/22 05:32 Clonazepam 1 Mg Tablet PO 1 mg BID PRN Administration Anxiety Fluoxetine HCl 40 mg 08/04/22 21:00 08/05/22 08:22 Fluoxetine Hcl 20 Mg Capsule PO 40 mg DAILY FELTON Administration Gabapentin 600 mg 08/04/22 21:00 08/05/22 05:32 Gabapentin 600 Mg Tablet PO 600 mg BID FELTON Administration Metronidazole 5 gm 08/04/22 21:00 08/05/22 08:11 Metronidazole 0.75 % Vaginal Gel 70 Gm Tube VAGINAL Not Given DAILY FELTON Prazosin HCl 2 mg 08/04/22 21:00 08/05/22 08:22 Prazosin Hcl 1 Mg Capsule PO 2 mg BID FELTON Administration Protocol Quetiapine Fumarate 100 mg 08/04/22 21:00 08/04/22 21:02 Quetiapine Fumarate 100 Mg Tablet PO 100 mg BEDTIME FELTON Administration Tramadol HCl 50 mg 08/04/22 20:48 08/05/22 13:45 Tramadol Hcl 50 Mg Tablet PO 50 mg Q8H PRN Administration Pain, Mild (Pain Scale 1-3) <Raymond Rocha MD - Last Filed: 08/05/22 14:29> Medical Decision Making Medical Decision Making [facility] Narrative: 31 yold female presents to the ED for depression paranoia and not sleeping. Patient states there was a change in psych medication and wanting psych evaluation. patient did not have any seizure during the ED and had normal workup. <MICHAEL Loo - Last Filed: 08/05/22 16:43> Differential Diagnosis Differential Diagnoses: The differential diagnosis associated with the presentation includes ( Depression, SI,) <MICHAEL Loo - Last Filed: 08/05/22 16:43> Admission/Observation considered <MICHAEL Loo - Last Filed: 08/05/22 16:43> Consult Healthcare Provider Management of the patient was discussed with: Behavioral Health Provider <MICHAEL Loo - Last Filed: 08/05/22 16:43> Lab Data [facility] Lab Attestation statement: I reviewed the patient's lab results. <MICHAEL Loo - Last Filed: 08/05/22 16:43> Result Diagrams: 08/04/22 17:31 08/04/22 17:31 <MICHAEL Loo - Last Filed: 08/05/22 16:43> Labs: Lab Results 08/04/22 08/04/22 08/04/22 Range/Units 17:23 17:23 17:31 WBC 12.1 H (4.8-10.8) X10*3/uL RBC 4.13 L (4.20-5.50) X10*6/uL Hgb 13.2 (12.0-16.0) g/dl Hct 38.4 (37.0-47.0) % MCV 93.0 (80.0-98.0) fL MCH 32.0 (27.0-33.0) pg MCHC 34.4 (31.0-35.0) g/dl RDW 13.2 (11.0-16.0) % Plt Count 441 H (160-400) X10*3/uL MPV 10.2 (9.4-12.3) fL Immature Gran % (Auto) 0.3 (0.0-0.4) % Neut % (Auto) 63.7 (45-73) % Lymph % (Auto) 26.9 (20-40) % [place] % (Auto) 5.4 (2-11) % Eos % (Auto) 3.0 (0-4) % Baso % (Auto) 0.7 (0-2) % Lymph # (Auto) 3.3 (1.2-4.9) X10*3/uL [place] # (Auto) 0.7 (0.1-1.2) X10*3/uL Eos # (Auto) 0.4 (0.0-0.4) X10*3/uL Baso # (Auto) 0.1 (0.0-0.2) X10*3/uL Abs Immat Gran (auto) 0.04 H (0.00-0.03) X10*3/uL Absolute Neuts (auto) 7.7 (2.0-8.3) x10*3/uL Absolute Nucleated RBC 0.000 (0.0-0.012) X10*3/uL Nucleated RBC % (auto) 0.0 (0.0-0.2) /100WBC Sodium (135-145) mmol/L Potassium (3.3-5.1) mmol/L Chloride (96-108) mmol/L Carbon Dioxide (22-29) mmol/L Anion Gap (12-20) BUN (9-16) mg/dL Creatinine (0.5-1.4) mg/dL Estim Creat Clear Calc Estimated GFR Random Glucose (60-115) mg/dL Calcium (8.4-10.2) mg/dL Magnesium (1.6-2.6) mg/dL Total Bilirubin (0.0-1.0) mg/dL AST (5-31) U/L ALT (0-31) U/L Alkaline Phosphatase (39-117) U/L Total Protein (6.5-8.0) g/dL Albumin (3.5-5.0) g/dL Beta HCG, Quant mIU/mL Urine Color Yellow Urine Appearance Cloudy Urine pH 5.5 (5.0-9.0) Ur Specific [place] 1.015 (1.005-1.025) Urine Protein Negative (Neg-Trace) mg/dL Urine Glucose (UA) Negative (Negative) mg/dL Urine Ketones Negative (Negative) mg/dL Urine Blood Moderate (2+) H (Negative) Urine Nitrite Negative (Negative) Ur Leukocyte Esterase Small (1+) H (Negative) Urine RBC 6-10 H (0-2) /HPF Urine WBC 0-5 (0-5) /HPF Ur Squamous Epith Cells 6-10 (0-2) /HPF Urine Bacteria Trace (None Seen) Hyaline Casts 0-2 (0-2) /LPF Urine Opiates Screen Not Detected (Not Detect) Urine Fentanyl Screen Not Detected (Not Detect) Ur Barbiturates Screen Not Detected (Not Detect) Ur Phencyclidine Scrn Not Detected (Not Detect) Ur Amphetamines Screen Not Detected (Not Detect) U Benzodiazepines Scrn POSITIVE H (Not Detect) Urine Cocaine Screen Not Detected (Not Detect) U Marijuana (THC) Screen POSITIVE H (Not Detect) COVID-19 (YADIRA) (Negative) COVID-19 Clin Com 08/04/22 08/05/22 Range/Units 17:31 09:17 WBC (4.8-10.8) X10*3/uL RBC (4.20-5.50) X10*6/uL Hgb (12.0-16.0) g/dl Hct (37.0-47.0) % MCV (80.0-98.0) fL MCH (27.0-33.0) pg MCHC (31.0-35.0) g/dl RDW (11.0-16.0) % Plt Count (160-400) X10*3/uL MPV (9.4-12.3) fL Immature Gran % (Auto) (0.0-0.4) % Neut % (Auto) (45-73) % Lymph % (Auto) (20-40) % [place] % (Auto) (2-11) % Eos % (Auto) (0-4) % Baso % (Auto) (0-2) % Lymph # (Auto) (1.2-4.9) X10*3/uL [place] # (Auto) (0.1-1.2) X10*3/uL Eos # (Auto) (0.0-0.4) X10*3/uL Baso # (Auto) (0.0-0.2) X10*3/uL Abs Immat Gran (auto) (0.00-0.03) X10*3/uL Absolute Neuts (auto) (2.0-8.3) x10*3/uL Absolute Nucleated RBC (0.0-0.012) X10*3/uL Nucleated RBC % (auto) (0.0-0.2) /100WBC Sodium 140 (135-145) mmol/L Potassium 4.5 (3.3-5.1) mmol/L Chloride 108 (96-108) mmol/L Carbon Dioxide 22 (22-29) mmol/L Anion Gap 15 (12-20) BUN 9 (9-16) mg/dL Creatinine 0.79 (0.5-1.4) mg/dL Estim Creat Clear Calc 105.3 Estimated GFR > 60 Random Glucose 88 (60-115) mg/dL Calcium 9.6 (8.4-10.2) mg/dL Magnesium 2.1 (1.6-2.6) mg/dL Total Bilirubin 0.5 (0.0-1.0) mg/dL AST 16 (5-31) U/L ALT 11 (0-31) U/L Alkaline Phosphatase 41 (39-117) U/L Total Protein 6.7 (6.5-8.0) g/dL Albumin 4.3 (3.5-5.0) g/dL Beta HCG, Quant < 2 mIU/mL Urine Color Urine Appearance Urine pH (5.0-9.0) Ur Specific [place] (1.005-1.025) Urine Protein (Neg-Trace) mg/dL Urine Glucose (UA) (Negative) mg/dL Urine Ketones (Negative) mg/dL Urine Blood (Negative) Urine Nitrite (Negative) Ur Leukocyte Esterase (Negative) Urine RBC (0-2) /HPF Urine WBC (0-5) /HPF Ur Squamous Epith Cells (0-2) /HPF Urine Bacteria (None Seen) Hyaline Casts (0-2) /LPF Urine Opiates Screen (Not Detect) Urine Fentanyl Screen (Not Detect) Ur Barbiturates Screen (Not Detect) Ur Phencyclidine Scrn (Not Detect) Ur Amphetamines Screen (Not Detect) U Benzodiazepines Scrn (Not Detect) Urine Cocaine Screen (Not Detect) U Marijuana (THC) Screen (Not Detect) COVID-19 (YADIRA) Negative (Negative) COVID-19 Clin Com See Note <MICHAEL Loo - Last Filed: 08/05/22 16:43> Lab Results 08/04/22 08/04/22 08/04/22 Range/Units 17:23 17:23 17:31 WBC 12.1 H (4.8-10.8) X10*3/uL RBC 4.13 L (4.20-5.50) X10*6/uL Hgb 13.2 (12.0-16.0) g/dl Hct 38.4 (37.0-47.0) % MCV 93.0 (80.0-98.0) fL MCH 32.0 (27.0-33.0) pg MCHC 34.4 (31.0-35.0) g/dl RDW 13.2 (11.0-16.0) % Plt Count 441 H (160-400) X10*3/uL MPV 10.2 (9.4-12.3) fL Immature Gran % (Auto) 0.3 (0.0-0.4) % Neut % (Auto) 63.7 (45-73) % Lymph % (Auto) 26.9 (20-40) % [place] % (Auto) 5.4 (2-11) % Eos % (Auto) 3.0 (0-4) % Baso % (Auto) 0.7 (0-2) % Lymph # (Auto) 3.3 (1.2-4.9) X10*3/uL [place] # (Auto) 0.7 (0.1-1.2) X10*3/uL Eos # (Auto) 0.4 (0.0-0.4) X10*3/uL Baso # (Auto) 0.1 (0.0-0.2) X10*3/uL Abs Immat Gran (auto) 0.04 H (0.00-0.03) X10*3/uL Absolute Neuts (auto) 7.7 (2.0-8.3) x10*3/uL Absolute Nucleated RBC 0.000 (0.0-0.012) X10*3/uL Nucleated RBC % (auto) 0.0 (0.0-0.2) /100WBC Sodium (135-145) mmol/L Potassium (3.3-5.1) mmol/L Chloride (96-108) mmol/L Carbon Dioxide (22-29) mmol/L Anion Gap (12-20) BUN (9-16) mg/dL Creatinine (0.5-1.4) mg/dL Estim Creat Clear Calc Estimated GFR Random Glucose (60-115) mg/dL Calcium (8.4-10.2) mg/dL Magnesium (1.6-2.6) mg/dL Total Bilirubin (0.0-1.0) mg/dL AST (5-31) U/L ALT (0-31) U/L Alkaline Phosphatase (39-117) U/L Total Protein (6.5-8.0) g/dL Albumin (3.5-5.0) g/dL Beta HCG, Quant mIU/mL Urine Color Yellow Urine Appearance Cloudy Urine pH 5.5 (5.0-9.0) Ur Specific [place] 1.015 (1.005-1.025) Urine Protein Negative (Neg-Trace) mg/dL Urine Glucose (UA) Negative (Negative) mg/dL Urine Ketones Negative (Negative) mg/dL Urine Blood Moderate (2+) H (Negative) Urine Nitrite Negative (Negative) Ur Leukocyte Esterase Small (1+) H (Negative) Urine RBC 6-10 H (0-2) /HPF Urine WBC 0-5 (0-5) /HPF Ur Squamous Epith Cells 6-10 (0-2) /HPF Urine Bacteria Trace (None Seen) Hyaline Casts 0-2 (0-2) /LPF Urine Opiates Screen Not Detected (Not Detect) Urine Fentanyl Screen Not Detected (Not Detect) Ur Barbiturates Screen Not Detected (Not Detect) Ur Phencyclidine Scrn Not Detected (Not Detect) Ur Amphetamines Screen Not Detected (Not Detect) U Benzodiazepines Scrn POSITIVE H (Not Detect) Urine Cocaine Screen Not Detected (Not Detect) U Marijuana (THC) Screen POSITIVE H (Not Detect) COVID-19 (YADIRA) (Negative) COVID-19 Clin Com 08/04/22 08/05/22 Range/Units 17:31 09:17 WBC (4.8-10.8) X10*3/uL RBC (4.20-5.50) X10*6/uL Hgb (12.0-16.0) g/dl Hct (37.0-47.0) % MCV (80.0-98.0) fL MCH (27.0-33.0) pg MCHC (31.0-35.0) g/dl RDW (11.0-16.0) % Plt Count (160-400) X10*3/uL MPV (9.4-12.3) fL Immature Gran % (Auto) (0.0-0.4) % Neut % (Auto) (45-73) % Lymph % (Auto) (20-40) % [place] % (Auto) (2-11) % Eos % (Auto) (0-4) % Baso % (Auto) (0-2) % Lymph # (Auto) (1.2-4.9) X10*3/uL [place] # (Auto) (0.1-1.2) X10*3/uL Eos # (Auto) (0.0-0.4) X10*3/uL Baso # (Auto) (0.0-0.2) X10*3/uL Abs Immat Gran (auto) (0.00-0.03) X10*3/uL Absolute Neuts (auto) (2.0-8.3) x10*3/uL Absolute Nucleated RBC (0.0-0.012) X10*3/uL Nucleated RBC % (auto) (0.0-0.2) /100WBC Sodium 140 (135-145) mmol/L Potassium 4.5 (3.3-5.1) mmol/L Chloride 108 (96-108) mmol/L Carbon Dioxide 22 (22-29) mmol/L Anion Gap 15 (12-20) BUN 9 (9-16) mg/dL Creatinine 0.79 (0.5-1.4) mg/dL Estim Creat Clear Calc 105.3 Estimated GFR > 60 Random Glucose 88 (60-115) mg/dL Calcium 9.6 (8.4-10.2) mg/dL Magnesium 2.1 (1.6-2.6) mg/dL Total Bilirubin 0.5 (0.0-1.0) mg/dL AST 16 (5-31) U/L ALT 11 (0-31) U/L Alkaline Phosphatase 41 (39-117) U/L Total Protein 6.7 (6.5-8.0) g/dL Albumin 4.3 (3.5-5.0) g/dL Beta HCG, Quant < 2 mIU/mL Urine Color Urine Appearance Urine pH (5.0-9.0) Ur Specific [place] (1.005-1.025) Urine Protein (Neg-Trace) mg/dL Urine Glucose (UA) (Negative) mg/dL Urine Ketones (Negative) mg/dL Urine Blood (Negative) Urine Nitrite (Negative) Ur Leukocyte Esterase (Negative) Urine RBC (0-2) /HPF Urine WBC (0-5) /HPF Ur Squamous Epith Cells (0-2) /HPF Urine Bacteria (None Seen) Hyaline Casts (0-2) /LPF Urine Opiates Screen (Not Detect) Urine Fentanyl Screen (Not Detect) Ur Barbiturates Screen (Not Detect) Ur Phencyclidine Scrn (Not Detect) Ur Amphetamines Screen (Not Detect) U Benzodiazepines Scrn (Not Detect) Urine Cocaine Screen (Not Detect) U Marijuana (THC) Screen (Not Detect) COVID-19 ([facility]) Negative (Negative) COVID-19 Clin Com See Note <Ryan London MD - Last Filed: 08/05/22 06:22> Lab Results 08/04/22 08/04/22 08/04/22 Range/Units 17:23 17:23 17:31 WBC 12.1 H (4.8-10.8) X10*3/uL RBC 4.13 L (4.20-5.50) X10*6/uL Hgb 13.2 (12.0-16.0) g/dl Hct 38.4 (37.0-47.0) % MCV 93.0 (80.0-98.0) fL MCH 32.0 (27.0-33.0) pg MCHC 34.4 (31.0-35.0) g/dl RDW 13.2 (11.0-16.0) % Plt Count 441 H (160-400) X10*3/uL MPV 10.2 (9.4-12.3) fL Immature Gran % (Auto) 0.3 (0.0-0.4) % Neut % (Auto) 63.7 (45-73) % Lymph % (Auto) 26.9 (20-40) % [place] % (Auto) 5.4 (2-11) % Eos % (Auto) 3.0 (0-4) % Baso % (Auto) 0.7 (0-2) % Lymph # (Auto) 3.3 (1.2-4.9) X10*3/uL [place] # (Auto) 0.7 (0.1-1.2) X10*3/uL Eos # (Auto) 0.4 (0.0-0.4) X10*3/uL Baso # (Auto) 0.1 (0.0-0.2) X10*3/uL Abs Immat Gran (auto) 0.04 H (0.00-0.03) X10*3/uL Absolute Neuts (auto) 7.7 (2.0-8.3) x10*3/uL Absolute Nucleated RBC 0.000 (0.0-0.012) X10*3/uL Nucleated RBC % (auto) 0.0 (0.0-0.2) /100WBC Sodium (135-145) mmol/L Potassium (3.3-5.1) mmol/L Chloride (96-108) mmol/L Carbon Dioxide (22-29) mmol/L Anion Gap (12-20) BUN (9-16) mg/dL Creatinine (0.5-1.4) mg/dL Estim Creat Clear Calc Estimated GFR Random Glucose (60-115) mg/dL Calcium (8.4-10.2) mg/dL Magnesium (1.6-2.6) mg/dL Total Bilirubin (0.0-1.0) mg/dL AST (5-31) U/L ALT (0-31) U/L Alkaline Phosphatase (39-117) U/L Total Protein (6.5-8.0) g/dL Albumin (3.5-5.0) g/dL Beta HCG, Quant mIU/mL Urine Color Yellow Urine Appearance Cloudy Urine pH 5.5 (5.0-9.0) Ur Specific [place] 1.015 (1.005-1.025) Urine Protein Negative (Neg-Trace) mg/dL Urine Glucose (UA) Negative (Negative) mg/dL Urine Ketones Negative (Negative) mg/dL Urine Blood Moderate (2+) H (Negative) Urine Nitrite Negative (Negative) Ur Leukocyte Esterase Small (1+) H (Negative) Urine RBC 6-10 H (0-2) /HPF Urine WBC 0-5 (0-5) /HPF Ur Squamous Epith Cells 6-10 (0-2) /HPF Urine Bacteria Trace (None Seen) Hyaline Casts 0-2 (0-2) /LPF Urine Opiates Screen Not Detected (Not Detect) Urine Fentanyl Screen Not Detected (Not Detect) Ur Barbiturates Screen Not Detected (Not Detect) Ur Phencyclidine Scrn Not Detected (Not Detect) Ur Amphetamines Screen Not Detected (Not Detect) U Benzodiazepines Scrn POSITIVE H (Not Detect) Urine Cocaine Screen Not Detected (Not Detect) U Marijuana (THC) Screen POSITIVE H (Not Detect) COVID-19 (YADIRA) (Negative) COVID-19 Clin Com 08/04/22 08/05/22 Range/Units 17:31 09:17 WBC (4.8-10.8) X10*3/uL RBC (4.20-5.50) X10*6/uL Hgb (12.0-16.0) g/dl Hct (37.0-47.0) % MCV (80.0-98.0) fL MCH (27.0-33.0) pg MCHC (31.0-35.0) g/dl RDW (11.0-16.0) % Plt Count (160-400) X10*3/uL MPV (9.4-12.3) fL Immature Gran % (Auto) (0.0-0.4) % Neut % (Auto) (45-73) % Lymph % (Auto) (20-40) % [place] % (Auto) (2-11) % Eos % (Auto) (0-4) % Baso % (Auto) (0-2) % Lymph # (Auto) (1.2-4.9) X10*3/uL [place] # (Auto) (0.1-1.2) X10*3/uL Eos # (Auto) (0.0-0.4) X10*3/uL Baso # (Auto) (0.0-0.2) X10*3/uL Abs Immat Gran (auto) (0.00-0.03) X10*3/uL Absolute Neuts (auto) (2.0-8.3) x10*3/uL Absolute Nucleated RBC (0.0-0.012) X10*3/uL Nucleated RBC % (auto) (0.0-0.2) /100WBC Sodium 140 (135-145) mmol/L Potassium 4.5 (3.3-5.1) mmol/L Chloride 108 (96-108) mmol/L Carbon Dioxide 22 (22-29) mmol/L Anion Gap 15 (12-20) BUN 9 (9-16) mg/dL Creatinine 0.79 (0.5-1.4) mg/dL Estim Creat Clear Calc 105.3 Estimated GFR > 60 Random Glucose 88 (60-115) mg/dL Calcium 9.6 (8.4-10.2) mg/dL Magnesium 2.1 (1.6-2.6) mg/dL Total Bilirubin 0.5 (0.0-1.0) mg/dL AST 16 (5-31) U/L ALT 11 (0-31) U/L Alkaline Phosphatase 41 (39-117) U/L Total Protein 6.7 (6.5-8.0) g/dL Albumin 4.3 (3.5-5.0) g/dL Beta HCG, Quant < 2 mIU/mL Urine Color Urine Appearance Urine pH (5.0-9.0) Ur Specific [place] (1.005-1.025) Urine Protein (Neg-Trace) mg/dL Urine Glucose (UA) (Negative) mg/dL Urine Ketones (Negative) mg/dL Urine Blood (Negative) Urine Nitrite (Negative) Ur Leukocyte Esterase (Negative) Urine RBC (0-2) /HPF Urine WBC (0-5) /HPF Ur Squamous Epith Cells (0-2) /HPF Urine Bacteria (None Seen) Hyaline Casts (0-2) /LPF Urine Opiates Screen (Not Detect) Urine Fentanyl Screen (Not Detect) Ur Barbiturates Screen (Not Detect) Ur Phencyclidine Scrn (Not Detect) Ur Amphetamines Screen (Not Detect) U Benzodiazepines Scrn (Not Detect) Urine Cocaine Screen (Not Detect) U Marijuana (THC) Screen (Not Detect) COVID-19 (YADIRA) Negative (Negative) COVID-19 Clin Com See Note <Raymond Rocha MD - Last Filed: 08/05/22 14:29> Chronic Conditions Patient?s care impacted by: Other (Depression) <MICHAEL Loo - Last Filed: 08/05/22 16:43> Attestation Attending Attestation: I reviewed [employer]/PA/Resident note, assessment and plan. I agree with the documentation, assessment and plan unless otherwise stated. <Ryan London MD - Last Filed: 08/05/22 06:22> Discharge Plan Discharge Clinical Impression: Depression <MICHAEL Loo - Last Filed: 08/05/22 16:43> Patient Disposition: Home, Self-Care <MICHAEL Loo - Last Filed: 08/05/22 16:43> Additional Instructions: Your blood work was unremarkable. Your urine tox screen was positive for marijuana. Your urine tox screen was also positive for benzodiazepines but this is secondary to the medication that you take for anxiety (Klonopin) Your COVID-19 test was negative At this time you are not suicidal or homicida but you are depressed. Your medically cleared to go to respite. [facility] can [facility]. If you are feeling worse in any way please return to the emergency department and we can re-evaluate you and try to help you. <MICHAEL Loo - Last Filed: 08/05/22 16:43> Prescriptions: No Action acetaminophen [Tylenol Extra Strength] 500 mg tablet 1,000 mg PO QID PRN (Reason: fever or pain) Qty: 14 0RF albuterol sulfate [ProAir HFA] 90 mcg/actuation Hfa Aerosol Inhaler 2 puff INHALATION Q4H PRN (Reason: Respiratory Distress) fluoxetine 20 mg capsule 2 cap PO DAILY prazosin 2 mg capsule 1 cap PO BID metronidazole 0.75 % (37.5mg/5 gram) gel 1 appful vaginal DAILY 7 Days Qty: 70 0RF Rx Instructions: Please given a for 7 days total clonazepam 1 mg tablet 1 mg PO BID PRN (Reason: Anxiety) quetiapine 50 mg tablet 100 mg PO BEDTIME gabapentin 600 mg tablet 600 mg PO BID 2 Days Qty: 4 0RF tramadol 50 mg tablet 50 mg PO Q8H PRN (Reason: pain) Qty: 60 0RF <MICHAEL Loo - Last Filed: 08/05/22 16:43> Interventions: [place]-Suicide Risk Severity Scale Last Done: 08/04/22 23:51 ED Discharge Assessment Last Done: 08/05/22 14:47 <MICHAEL Loo - Last Filed: 08/05/22 16:43> Discharge Date/Time: 08/05/22 14:48 <MICHAEL Loo - Last Filed: 08/05/22 16:43>
[2022-08-04 17:35] LABS: MANUAL DIFF FLAG NO
[2022-08-04 17:37] LABS: Basophils Absolute Auto 0.1 X10*3/uL (0.0-0.2); Basophils Percent Auto 0.7 % (0-2); Eosinophils Absolute Auto 0.4 X10*3/uL (0.0-0.4); Hematocrit 38.4 % (37.0-47.0); Hemoglobin 13.2 g/dl (12.0-16.0); Imm Gran Abs Auto 0.04 X10*3/uL (0.00-0.03); Imm Gran Pct Auto 0.3 % (0.0-0.4); Lymphocytes Absolute Auto 3.3 X10*3/uL (1.2-4.9); Lymphocytes Percent Auto 26.9 % (20-40); Mean Corpuscular HGB Conc 34.4 g/dl (31.0-35.0); Mean Platelet Volume 10.2 fL (9.4-12.3); Monocytes Absolute Auto 0.7 X10*3/uL (0.1-1.2); Monocytes Percent Auto 5.4 % (2-11); Neutrophils Absolute Auto 7.7 x10*3/uL (2.0-8.3); Neutrophils Percent Auto 63.7 % (45-73); Platelet Count 441 X10*3/uL (160-400); Red Blood Count 4.13 X10*6/uL (4.20-5.50); Red Cell Distribution Width 13.2 % (11.0-16.0); White Blood Count 12.1 X10*3/uL (4.8-10.8)
[2022-08-04 17:39] LABS: Amphetamine Screen Urine Not Detected (Not Detect); Barbiturates, Urine Not Detected (Not Detect); Benzodiazepines Screen Urine POSITIVE (Not Detect); Cannabinoid Screen Urine POSITIVE (Not Detect); Cocaine Screen Urine Not Detected (Not Detect); Fentanyl, urine Not Detected (Not Detect); Opiate Screen Urine Not Detected (Not Detect); Phencyclidine Screen Urine Not Detected (Not Detect)
[2022-08-04 17:45] LABS: Bacteria Urine Trace (None Seen); Hyaline Casts Urine 0-2 /LPF (0-2); UACC Culture Trigger YES; WBC Urine 0-5 /HPF (0-5)
[2022-08-04 18:02] LABS: Alanine Aminotransferase 11 U/L (0-31); Albumin Level 4.3 g/dL (3.5-5.0); Alkaline Phosphatase 41 U/L (39-117); Anion Gap 15 (12-20); Aspartate Amino Transferase 16 U/L (5-31); Bilirubin Total 0.5 mg/dL (0.0-1.0); Blood Urea Nitrogen 9 mg/dL (9-16); Calcium 9.6 mg/dL (8.4-10.2); Carbon Dioxide 22 mmol/L (22-29); Chloride 108 mmol/L (96-108); Creatinine Clr Calc Pharmacy 105.3; Estimated Glomerular Filt Rate > 60; Glucose Random 88 mg/dL (60-115); HCG Quantitative < 2 mIU/mL; Potassium 4.5 mmol/L (3.3-5.1); Sodium 140 mmol/L (135-145); Total Protein 6.7 g/dL (6.5-8.0)
--- NOTE | 2022-08-04 18:14 | PHA.MEDREC ---
Pharmacy Consult ? Medication Reconciliation Pharmacy has completed the medication reconciliation. Poor historian, able to name some medications but unclear about doses and timing. Pt told Claudio our quality assurance intern that along with her prescription medications she takes the maximum dose of Matt's Wort and she confirmed that her prescriber was aware of this.
[2022-08-04] MEDS: clonazePAM 1 MG TABLET PO (18:16)
--- NOTE | 2022-08-04 18:17 | PC.NURSE ---
pt reporting increased anxiety, pacing around room stating that the call resendiz noise is a trigger. verbal order for Clonazapam 1mg administered per MAR
[2022-08-04] MEDS: Butalb/Acetamin/Caff 50/325/40 TABLET 1 TAB PO (18:57)
--- NOTE | 2022-08-04 19:50 | PC.NURSE ---
Pt resting comfortably on stretcher at this time, reports decreased anxiety, talking on phone with son
[2022-08-04] MEDS: Gabapentin 600 MG TABLET PO (21:02)
[2022-08-04] MEDS: QUEtiapine Fumarate 100 MG TABLET PO (21:02)
[2022-08-04 21:05] VITALS: BP 104/51; PULSE 79; RESP 15; O2SAT 99
--- NOTE | 2022-08-04 21:09 | PC.NURSE ---
Pt refusing Prazosin and prozac states I am not sure if that is what is causing my mood swings and change in behavior so I do not want that medication tonight . provider aware
--- NOTE | 2022-08-04 22:15 | PC.NURSE ---
pt sleeping at this time, respirations are even and unlabored, no apparent distress
[2022-08-05 00:44] LABS: Magnesium 2.1 mg/dL (1.6-2.6)
[2022-08-05] MEDS: traMADoL HCL 50 MG TABLET PO ×2 (04:28→13:45)
[2022-08-05] MEDS: Butalb/Acetamin/Caff 50/325/40 TABLET 1 TAB PO (04:28)
--- NOTE | 2022-08-05 04:45 | PC.NURSE ---
I assumed nursing care of Gayla at 0300. Since that time she has remained on a 1:1, mostly sleeping. She has woken once to void and had a c/o of migraine AMES. She requested Tramadol and Fioricet, which were given. SHe is calm, cooperative, makes eye contact with RN and has been pleasant. There are no complaints in addition to AMES. We will continue to monitor Gayla.
[2022-08-05 05:13] VITALS: BP 114/83; PULSE 67; RESP 18; TEMP 36.7; O2SAT 98
[2022-08-05] MEDS: Gabapentin 600 MG TABLET PO (05:32)
[2022-08-05] MEDS: clonazePAM 1 MG TABLET PO (05:32)
--- NOTE | 2022-08-05 07:38 | PC.NURSE ---
Patient remains watch for safety denies SI/HI waiitng to speak with care team, some anxiety noted is easily redirected. No distress noted reports improved headache pain will CTM awaiting care team
[2022-08-05] MEDS: FLUoxetine HCl 20 MG CAPSULE 40 MG PO (08:22)
[2022-08-05] MEDS: Prazosin HCL 1 MG CAPSULE 2 MG PO (08:22)
[2022-08-05 09:36] LABS: COVID-19 Test Negative (Negative); IDNOW Serial# 16C4AD1C
[2022-08-05 11:10] VITALS: BP 92/53; PULSE 55; RESP 18; O2SAT 98
--- NOTE | 2022-08-05 12:44 | PC.NURSE ---
Patient sleeping no distress or agitation noted will CTM
--- NOTE | 2022-08-05 14:24 | PC.NURSE ---
Patient agitation increased apologized to patient who was angry agitated and swearing advised patient she cannot swear needs to be patient with proces patient difficult to redirect advised attending MD who spoke with patient and agreed patient can leave will prepare for transfer.
== END 2022-08-05 14:48 | disposition home or self-care (01) ==
PROVIDERS: Internal Medicine; Physician Assistant; Emergency Provider Emergency Medicine Emergency Medical Services; PCP Internal Medicine
DX: F32.A Depression, unspecified (principal); R45.1 Restlessness and agitation; F60.0 Paranoid personality disorder; F41.9 Anxiety disorder, unspecified; F43.10 Post-traumatic stress disorder, unspecified; R51.9 Headache, unspecified; F17.210 Nicotine dependence, cigarettes, uncomplicated; F12.90 Cannabis use, unspecified, uncomplicated; Z79.899 Other long term (current) drug therapy; Z20.822 Contact with and (suspected) exposure to COVID-19
CPT/HCPCS: 36415; 70450; 80053; 80307; 81001; 83735; 84702; 85025; 87086; 87635; 93005; 99285

== ENCOUNTER 2022-11-02 11:36 | Emergency (ER) | payer OTHER, SELFPAY ==
[2022-11-02 11:46] VITALS: BP 139/79; PULSE 90; RESP 20; TEMP 36.9; O2SAT 98; BMI 31.9
[2022-11-02] MEDS: oxyCODONE HCl Immed Release 5 MG TABLET PO (11:57)
[2022-11-02] MEDS: LORazepam 2 MG/ML VIAL IM (11:59)
[2022-11-02] MEDS: Ketorolac Tromethamine 60 MG/2 ML VIAL IM (12:00)
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
--- OUTSIDE RECORDS SUMMARY | 2022-11-02 12:07 | XMS_ITS | Continuity of Care Document ---
Author Name Unknown Organization [facility] Address [address] [place] [id number]- Care Team Providers Care Engraver Apprentice Decorative Name Role Phone Po Quentin MCFARLAND Primary Care Physician Encounter [facility] [place] Date(s): 09/19/22 - 10/19/[address] [address]- Attending Physician: Bernardo Eason Admitting Physician: Bernardo Eason Referring Physician: Admtr ArJolanta Allergies, Adverse Reactions, Alerts Substance Reaction [...] 02/07/11 Fer rded SARS-CoV-2 (COVID-19) Ad26 vaccine 12/30/21 Given SARS-CoV-2 (COVID-19) Ad26 vaccine 06/22/21 Record [...] 06/23/21 4:19:00 EST, Route to Pharmacy Electronically, [facility]/pharmacy #[id number], Partial fill upon omer... Start Date: 06/23/21 Status: Ordered Apri 0.15 mg-0.03 mg oral tablet 1 tablet, By Mouth, Daily, # 28 tablet, 3 Refills, Maintenance, 01/22/22 12:59:00 EDT, Tablet, [facility]/pharmacy #[id number], Partial fill upon patient [...] 1 Refills, Soft Stop, 08/02/21 12:51:00 EST, [facility]/pharmacy #[id number], Partial fill upon patient request if the prescription is for a schedule II opioid drug., 162, cm, 08/02/21 12:39:00 EST, Height, 86.1, kg,... Start Date: 08/02/21 Status: Ordered Donna 30 mg oral tablet 1 tablet = 30 mg, By Mouth, Once, # 1 tablet, 11 Refills, Soft Stop, 06/01/22 14:34:00 EST, [facility]/pharmacy #[id number], Partial fill upon patient [...] 08/02/21 12:49:00 EST, Route to Pharmacy Electronically, [facility]/pharmacy #[id number], Partial fill upon patient [...] Refills 0, Maintenance, NEEDED FOR MODERATE PAIN, 10/06/22 2:47:00 EDT, Route to Pharmacy Electronically, [facility] STORE [id number], 162, cm, 05/23/22 10:54:00 EST, Height, 84, kg, 04/09/22 0:16:00 EDT, D... Start Date: 10/06/22 Status: Ordered lidocaine 4% patch 1 patch, [...] 3 Refills, Maintenance, 05/23/22 11:17:00 EST, Tablet, [facility]/pharmacy #[id number], Partial fill upon patient [...] stopped in October with and move to [place] (was previously living in [place]) 2Managed by PCP 3Patient states received treatment in 2019 4quit with 5with previous partner, does not have contact with him, has protective order and currenlty feels safe 6Cutting down with 7Treated at [facility] Social History Social History Type Response Tobacco [...] Reference Physician Member Role: PCP Address: Address: [address] [place] [id number]- Care Team Related Persons Name: SKY MCKEON Address: [employer] Address: home [address] [place] [address] Name: ANTONIO CHAMPION Address: home [address] [place] [address] Name: ALBA CHAMPION Address: home [address] [place] [address] Name: ANTONIO VARGAS Address: home [address] [place] [address] Name: WARREN VARGAS Address: home [address] Name: CRISSY FOX Address: home [address] [place] [address]
[2022-11-02 12:08] LABS: MANUAL DIFF FLAG NO
--- OUTSIDE RECORDS SUMMARY | 2022-11-02 12:08 | XMS_ITS | Continuity of Care Document ---
Author Name Unknown Organization [facility] Marilin Hopper [facility] Address [address], [address] [place] [address]- Care Team Providers Care Microfilm Technician Name Role Phone Po Quentin MCFARLAND Primary Care Physician Encounter [facility] [place] Date(s): 07/22/22 - 08/21/22 [facility] [employer] [facility] [address], [address]th [place] [address]- Allergies, Adverse Reactions, Alerts Substance Reaction Severity [...] 4:19:00 EST, Route to Pharmacy Electronically, [facility]/pharmacy #[id number], Partial fill upon omer... Start Date: 06/23/21 Status: Ordered Apri 0.15 mg-0.03 mg oral tablet 1 tablet, By Mouth, Daily, # 28 tablet, 3 Refills, Maintenance, 01/22/22 12:59:00 EDT, Tablet, [facility]/pharmacy #[id number], [...] Refills, Soft Stop, 08/02/21 12:51:00 EST, [facility]/pharmacy #[id number], Partial fill upon patient request if the prescription is for a schedule II opioid drug., 162, cm, 08/02/21 12:39:00 EST, Height, 86.1, kg,... Start Date: 08/02/21 Status: Ordered Donna 30 mg oral tablet 1 tablet = 30 mg, By Mouth, Once, # 1 tablet, 11 Refills, Soft Stop, 06/01/22 14:34:00 EST, [facility]/pharmacy #[id number], [...] 0 Refills, Maintenance, 06/24/21 14:08:00 EST, [facility]/pharmacy #[id number], pt has been on Amitriptyline, topamax, Propranolol... Start Date: 06/24/21 Status: Ordered famotidine 20 mg oral tablet 20 mg, 1, tablet, By Mouth, 2 times a day, # 28 tablet, Refills 1, Tot. Refills 1, Maintenance, 08/02/21 12:49:00 EST, [facility] [...] 02/19/22 15:19:00 EDT, Route to Pharmacy Electronically, [facility] STORE [id number], 162, cm, 02/09/22 15:31:00 EDT, Height, 86.1, [...] Refills, Maintenance, 05/23/22 11:17:00 EST, Tablet, [facility]/pharmacy #[id number], [...] stopped in October with and move to [place] (was previously living in [place]) 2Managed by PCP 3Patient states received treatment in 2019 4quit with 5with previous partner, does not have contact with him, has protective order and currenlty feels safe 6Cutting down with 7[place] [facility] [place] Social History Social History Type Response Tobacco Use: 4 or less cigar ettes(less than 1/4 pack)/day in last 30 days. Other: Cutting down with , currently down to one cigarette a day, wants to quit. States gets rashes with patch. Sex Patient Care team information Care Team Personnel Name: Bruna Hoyos RN Position: Lynda RN Member Role: Primary Care Nurse Name: Quentin Magana MD Position: Reference Physician Member Role: PCP Address: Address: [address] [place] [address]- Care Team Related Persons Name: SKY MCKENO Address: [employer] Address: home [address] [place] [address] Name: ANTONIO CHAMPION Address: home [address] [place] [address] Name: ALBA CHAMPION Address: home [address] [place] [address] Name: ANTONIO VARGAS Address: home [address] [place] [address] Name: WARREN VARGAS Address: home [address] Name: CRISSY FOX Address: home [address] [place] [address]
--- OUTSIDE RECORDS SUMMARY | 2022-11-02 12:08 | XMS_ITS | Continuity of Care Document ---
Author Name Unknown Organization [facility] Address [address] [place] [id number]- Care Team Providers Care Power System Operator Name Role Phone Po Quentin MCFARLAND Primary Care Physician [place] [facility] [place](s): 07/10/22 - 09/28/[address] [address] Attending Physician: Haylee Hill MD Admitting Physician: Haylee Hill MD Allergies, Adverse Reactions, Alerts Substance Reaction [...] 4:19:00 EST, Route to Pharmacy Electronically, [facility]/pharmacy #[id number], Partial fill upon omer... Start Date: 06/23/21 Status: Ordered Apri 0.15 mg-0.03 mg oral tablet 1 tablet, By Mouth, Daily, # 28 tablet, 3 Refills, Maintenance, 01/22/22 12:59:00 EDT, Tablet, [facility]/pharmacy #[id number], Partial fill upon patient [...] Refills, Soft Stop, 08/02/21 12:51:00 EST, [facility]/pharmacy #[id number], Partial fill upon patient request if the prescription is for a schedule II opioid drug., 162, cm, 08/02/21 12:39:00 EST, Height, 86.1, kg,... Start Date: 08/02/21 Status: Ordered Donna 30 mg oral tablet 1 tablet = 30 mg, By Mouth, Once, # 1 tablet, 11 Refills, Soft Stop, 06/01/22 14:34:00 EST, [facility]/pharmacy #[id number], Partial fill upon patient [...] 0 Refills, Maintenance, 06/24/21 14:08:00 EST, [facility]/pharmacy #[id number], pt has been on Amitriptyline, topamax, Propranolol... Start Date: 06/24/21 Status: Ordered famotidine 20 mg oral tablet 20 mg, 1, tablet, By Mouth, 2 times a day, # 28 tablet, Refills 1, Tot. Refills 1, Maintenance, 08/02/21 12:49:00 EST, Route to Pharmacy Electronically, [facility]/pharmacy #[id number], Partial fill upon patient [...] 02/19/22 15:19:00 EDT, Route to Pharmacy Electronically, [facility] STORE [id number], 162, cm, 02/09/22 15:31:00 EDT, Height, 86.1, [...] 3 Refills, Maintenance, 05/23/22 11:17:00 EST, Tablet, [facility]/pharmacy #[id number], Partial fill upon patient [...] stopped in October with and move to [place] (was previously living in [place]) 2Managed by PCP 3Patient states received treatment in 2019 4quit with 5with previous partner, does not have contact with him, has protective order and currenlty feels safe 6Cutting down with 7[place] [facility] [place] Social History Social History Type [...] Reference Physician Member Role: PCP Address: Address: [address] [place] [id number]- Care Team Related Persons Name: SKY MCKEON Address: [employer] Address: home [address] [place] [address] Name: ANTONIO CHAMPION Address: home [address] [place] [address] Name: ALBA CHAMPION Address: home [address] [place] [address] Name: ANTONIO VARGAS Address: home [address] [place] [address] Name: WARREN VARGAS Address: home [address] Name: CRISSY FOX Address: home [address] [place] [address]
--- OUTSIDE RECORDS SUMMARY | 2022-11-02 12:08 | XMS_ITS | Continuity of Care Document ---
Author Name Unknown Organization [facility] Address [address] [place] [id number]- Care Team Providers Care Info Analyst Name Role Phone Po Quentin MCFARLAND Primary Care Physician [place] [facility] [place] 07/08/22 - 08/31/[address] [address]- Attending Physician: Not on Staff, Attending MD [...] Pharmacy Electronically, [facility] STORE [id number], 162, cm, 02/09/22 15:31:00 EDT, Height, 86.1, [...] stopped in October with and move to [place] (was previously living in [place]) 2Managed by PCP 3Patient states received treatment in 2019 4quit with 5with previous partner, does not have contact with him, has protective order and currenlty feels safe 6Cutting down with 7[place] [facility] [place] Reference Physician Member Role: PCP Address: Address: [address] [place] [id number]- Care Team Related Persons Name: SKY MCKEON Address: [employer] Address: home [address] [place] [address] [place] Name: ANTONIO CHAMPION Address: [address] [place] [address] Name: ALBA CHAMPION Address: [address] [place] [address] Name: ANTONIO VARGAS Address: home [address] [place] [address] Name: WARREN VARGAS Address: home [address] Name: CRISSY FOX Address: home [address] [place] [address]
--- OUTSIDE RECORDS SUMMARY | 2022-11-02 12:09 | XMS_ITS | Continuity of Care Document ---
Author Name Unknown Organization [facility] Address [address] [place] [address]- Care Team Providers Care Washer Assembler Name Role Phone Po Quentin MCFARLAND Primary Care Physician [place] [facility] [place] Date(s): 08/10/22 - 10/19/[address] [address]- Attending Physician: Not on Staff, Attending MD [...] 06/23/21 4:19:00 EST, Route to Pharmacy Electronically, [facility]/pharmacy #[id number], Partial fill upon omer... Start Date: 06/23/21 Status: Ordered Apri 0.15 mg-0.03 mg oral tablet 1 tablet, By Mouth, Daily, # 28 tablet, 3 Refills, Maintenance, 01/22/22 12:59:00 EDT, Tablet, [facility]/pharmacy #[id number], Partial fill upon patient request if [...] 1 Refills, Soft Stop, 08/02/21 12:51:00 EST, [facility]/pharmacy #[id number], Partial fill upon patient request if the prescription is for a schedule II opioid drug., 162, cm, 08/02/21 12:39:00 EST, Height, 86.1, kg,... Start Date: 08/02/21 Status: Ordered Donna 30 mg oral tablet 1 tablet = 30 mg, By Mouth, Once, # 1 tablet, 11 Refills, Soft Stop, 06/01/22 14:34:00 EST, [facility]/pharmacy #[id number], Partial fill upon patient request if [...] kit, 0 Refills, Maintenance, 06/24/21 14:08:00 EST, [facility]/pharmacy #0373, pt has been on Amitriptyline, topamax, Propranolol... Start Date: 06/24/21 Status: Ordered famotidine 20 mg oral tablet 20 mg, 1, tablet, By Mouth, 2 times a day, # 28 tablet, Refills 1, Tot. Refills 1, Maintenance, 08/02/21 12:49:00 EST, Route to Pharmacy Electronically, [facility]/pharmacy #[id number], Partial fill upon patient request if [...] 10/06/22 2:47:00 EDT, Route to Pharmacy Electronically, [facility] STORE [id number], 162, cm, 05/23/22 10:54:00 EST, Height, 84, [...] 3 Refills, Maintenance, 05/23/22 11:17:00 EST, Tablet, [facility]/pharmacy #[id number], Partial fill upon patient request if [...] stopped in October with and move to [place] (was previously living in [place]) 2Managed by PCP 3Patient states received treatment in 2019 4quit with 5with previous partner, does not have contact with him, has protective order and currenlty feels safe 6Cutting down with 7[place] [facility] [place] Social History Social History Type Response Tobacco [...] Reference Physician Member Role: PCP Address: Address: [address] [place] [address]- Care Team Related Persons Name: SKY MCKEON Address: [employer] Address: [address] [place] [address] Name: ANTONIO CHAMPION Address: [address] [place] [address] Name: ALBA CHAMPION Address: [address] [place] [address] Name: ANTONIO VARGAS Address: home [address] [place] [address] Name: WARREN VARGAS Address: home [address] Name: CRISSY FOX Address: home [address] [place] [address]
[2022-11-02 12:10] LABS: Basophils Absolute Auto 0.1 X10*3/uL (0.0-0.2); Eosinophils Absolute Auto 0.2 X10*3/uL (0.0-0.4); Eosinophils Percent Auto 2.7 % (0-4); Hematocrit 43.9 % (37.0-47.0); Imm Gran Abs Auto 0.02 X10*3/uL (0.00-0.03); Imm Gran Pct Auto 0.2 % (0.0-0.4); Lymphocytes Percent Auto 36.8 % (20-40); Mean Corpuscular HGB Conc 34.2 g/dl (31.0-35.0); Mean Corpuscular Hemoglobin 32.5 pg (27.0-33.0); Mean Platelet Volume 10.1 fL (9.4-12.3); Monocytes Absolute Auto 0.6 X10*3/uL (0.1-1.2); Monocytes Percent Auto 7.8 % (2-11); Neutrophils Absolute Auto 4.2 x10*3/uL (2.0-8.3); Neutrophils Percent Auto 51.5 % (45-73); Platelet Count 443 X10*3/uL (160-400); Red Blood Count 4.62 X10*6/uL (4.20-5.50); Red Cell Distribution Width 12.7 % (11.0-16.0); White Blood Count 8.1 X10*3/uL (4.8-10.8)
[2022-11-02 12:30] LABS: Alanine Aminotransferase 14 U/L (0-31); Albumin Level 4.5 g/dL (3.5-5.0); Alkaline Phosphatase 39 U/L (39-117); Anion Gap 14 (12-20); Aspartate Amino Transferase 17 U/L (5-31); Bilirubin Total 0.5 mg/dL (0.0-1.0); Blood Urea Nitrogen 12 mg/dL (9-16); Carbon Dioxide 23 mmol/L (22-29); Chloride 108 mmol/L (96-108); Creatinine Clr Calc Pharmacy 110.8; Estimated Glomerular Filt Rate > 60; Glucose Random 89 mg/dL (60-115); Potassium 4.5 mmol/L (3.3-5.1); Sodium 140 mmol/L (135-145); Total Protein 7.1 g/dL (6.5-8.0)
[2022-11-02 12:33] LABS: HCG Quantitative < 2 mIU/mL
[2022-11-02] MEDS: diazePAM 10 MG/2 ML CARTRIDGE 5 MG IM (12:51)
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
== END 2022-11-02 14:46 | disposition home or self-care (01) ==
PROVIDERS: Physician Assistant Medical; Emergency Provider Emergency Medicine; PCP Internal Medicine
DX: M54.16 Radiculopathy, lumbar region (principal); F17.210 Nicotine dependence, cigarettes, uncomplicated; F12.90 Cannabis use, unspecified, uncomplicated
CPT/HCPCS: 36415; 80053; 83735; 84702; 85025; 96372; 99284; J1885; J2060; J3360

== ENCOUNTER 2022-12-10 13:06 | Emergency (ER) | payer OTHER, SELFPAY ==
--- NOTE | ~2022-12-10 | US_ITS ---
EXAMINATION: US VENOUS ULTRASOUND WITH DOPPLER LOWER EXTREMITY, LEFT CLINICAL INFORMATION: Left lower extremity pain. COMPARISON: None available. TECHNIQUE: Ultrasound of the deep veins is performed from the hip to the calf with compression sonography and color and pulse Doppler assessment. Spectral analysis with color-flow imaging is performed. FINDINGS: There is normal venous compression and respiratory variation and augmented flow. The visualized common femoral vein, superficial femoral vein, profunda femoral vein, popliteal vein, and the trifurcation region shows no evidence of deep venous thrombosis. If the patient's symptoms persist, followup ultrasound in 5 days 7 days might be of value to exclude proximal propagation from a non-visualized calf vein. US/US venous duplex LE IMPRESSION: No DVT demonstrated in the left lower extremity.
--- NOTE | ~2022-12-10 | XR_ITS ---
EXAMINATION: XR CHEST CLINICAL INFORMATION: Chest pain. COMPARISON: 11/29/2021 TECHNIQUE: 2 views of the chest were obtained. FINDINGS: The lungs are well expanded. No focal consolidation. No pleural effusion. Cardiac silhouette is unchanged. XR/XR chest 2V IMPRESSION: No acute abnormality.
--- NOTE | 2022-12-10 13:08 | ECG_ITS ---
Test Reason : RADIATING CHEST PAIN Blood Pressure : / mmHG Vent. Rate : 098 BPM Atrial Rate : 098 BPM P-R Int : 166 ms QRS Dur : 096 ms QT Int : 366 ms P-R-T Axes : 072 069 051 degrees QTc Int : 467 ms Normal sinus rhythm Possible Left atrial enlargement Borderline ECG When compared with ECG of 04-AUG-2022 16:52, Vent. rate has increased BY 48 BPM QT has lengthened Referred By: Garry Locke Electronically Signed By:PATTY QUINONES
[2022-12-10 14:19] VITALS: BP 113/75; PULSE 67; RESP 22; TEMP 36.4; O2SAT 97; BMI 31.4
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
[2022-12-10 15:33] VITALS: BP 108/77; PULSE 87; RESP 18; TEMP 36.7; O2SAT 99
--- NOTE | 2022-12-10 15:36 | PC.NURSE ---
Alert and oriented. States has had pain in her left lower leg for 1 week. reports that it feels like a strong stabbing cramping pain that comes and goes. States today the pain has worsened. Leg without edema or redness, however patient states that at times it becomes red and swollen . States left arm is also swollen however does not appear swollen at this time. Vss. afebrile. Denies trauma to leg. Able to wiggle toes and has good sensation in leg and toes. states toes feel a little numb'.
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
--- NOTE | 2022-12-10 15:42 | PC.NURSE ---
states pain starts in the back of her calf and shoots up towards her thigh. Tender upon palpation.
[2022-12-10 16:00] VITALS: BP 118/62; PULSE 54; RESP 16; TEMP 36.7; O2SAT 97
[2022-12-10] MEDS: oxyCODONE HCl Immed Release 5 MG TABLET PO ×3 (16:13→19:00)
--- NOTE | 2022-12-10 17:11 | PC.NURSE ---
Patient states pain is 7/10. Provider notified with new order for 5mg oxy, given per order. Patient on phone resting in room at this time.
[2022-12-10 18:55] VITALS: BP 118/67; PULSE 65; RESP 16; TEMP 36.8; O2SAT 98
--- NOTE | 2022-12-10 19:01 | PC.NURSE ---
Alert and oriented, medicated per order and reviewed discharge plan. patient verbalized understanding
== END 2022-12-10 19:02 | disposition home or self-care (01) ==
PROVIDERS: Emergency Provider Emergency Medicine; PCP Internal Medicine
DX: M54.16 Radiculopathy, lumbar region (principal); M79.605 Pain in left leg; R07.89 Other chest pain; R60.0 Localized edema; F17.210 Nicotine dependence, cigarettes, uncomplicated; Z71.6 Tobacco abuse counseling; Z79.899 Other long term (current) drug therapy
CPT/HCPCS: 71046; 93005; 93971; 99284

== ENCOUNTER 2022-12-17 10:03 | Emergency (ER) | payer OTHER, SELFPAY ==
--- NOTE | ~2022-12-17 | US_ITS ---
EXAMINATION: ULTRASOUND PELVIC, COMPLETE CLINICAL INFORMATION: Heavy bleeding. Beta hCG less than 2 COMPARISON: Pelvic ultrasound 01/18/2022. CT scan abdomen pelvis 01/18/2022 TECHNIQUE: Transvaginal: Used to better visualize pelvic structures Transabdominal: Not adequate for visualization Spectral Doppler and color Doppler exam was utilized. LMP: 10/20/2022 FINDINGS: UTERUS: Uterus is anteverted. Uterus is unremarkable. Uterus measures 10.6 x 4.1 x 5.0 cm endometrial thickness 0.6 cm. No fluid collections in the endometrial cavity. Nabothian cysts at cervix. ADNEXA: Ovarian vascularity:Doppler demonstrates both arterial and venous vascular flow in the right and left ovary. No evidence of ovarian torsion. Right Ovary: 2 x 2 0.5 x 2.4 cm. Volume 6.3 mL Left Ovary: 3.4 x 3.8 x 2.8 cm. Volume 18.9 mL. Dominant anechoic follicle measuring 2.4 x 2 x 2.2 cm Cul-de-sac: No Fluid US/US pelvic and transvaginal IMPRESSION: Normal ultrasound of pelvis.
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
[2022-12-17 10:10] VITALS: BP 117/51; BP 120/72; PULSE 65; PULSE 68; RESP 18; TEMP 36.7; O2SAT 98; O2SAT 99; BMI 33.6
[2022-12-17 10:40] LABS: MANUAL DIFF FLAG NO
[2022-12-17 10:42] LABS: Basophils Absolute Auto 0.1 X10*3/uL (0.0-0.2); Basophils Percent Auto 0.7 % (0-2); Eosinophils Absolute Auto 0.6 X10*3/uL (0.0-0.4); Eosinophils Percent Auto 6.7 % (0-4); Hematocrit 40.9 % (37.0-47.0); Hemoglobin 13.7 g/dl (12.0-16.0); Imm Gran Abs Auto 0.02 X10*3/uL (0.00-0.03); Imm Gran Pct Auto 0.2 % (0.0-0.4); Lymphocytes Absolute Auto 2.7 X10*3/uL (1.2-4.9); Lymphocytes Percent Auto 33.3 % (20-40); Mean Corpuscular HGB Conc 33.5 g/dl (31.0-35.0); Mean Corpuscular Hemoglobin 31.9 pg (27.0-33.0); Mean Corpuscular Volume 95.1 fL (80.0-98.0); Mean Platelet Volume 10.1 fL (9.4-12.3); Monocytes Absolute Auto 0.4 X10*3/uL (0.1-1.2); Monocytes Percent Auto 5.4 % (2-11); Neutrophils Absolute Auto 4.4 x10*3/uL (2.0-8.3); Neutrophils Percent Auto 53.7 % (45-73); Platelet Count 400 X10*3/uL (160-400); Red Cell Distribution Width 12.4 % (11.0-16.0); White Blood Count 8.2 X10*3/uL (4.8-10.8)
[2022-12-17 10:45] LABS: Appearance Urine Clear; Color Urine Yellow; Glucose Urine UA Negative (Negative); Leukocyte Esterase Urine Negative (Negative); Nitrite Urine Negative (Negative); Specific Gravity - Urine <= 1.005 (1.005-1.025); Urine Blood Negative (Negative); Urine Ketones Negative (Negative); Urine Protein Negative (Neg-Trace)
[2022-12-17 10:49] LABS: INTERNATIONAL NORM RATIO 0.9 (0.9-1.1); Prothrombin Time 10.6 SEC (10.0-13.1)
[2022-12-17 11:22] LABS: Alanine Aminotransferase 10 U/L (0-31); Alkaline Phosphatase 39 U/L (39-117); Anion Gap 11 (12-20); Aspartate Amino Transferase 15 U/L (5-31); Bilirubin Direct 0.1 mg/dL (0.0-0.5); Bilirubin Total 0.4 mg/dL (0.0-1.0); Blood Urea Nitrogen 8 mg/dL (9-16); Calcium 9.5 mg/dL (8.4-10.2); Carbon Dioxide 27 mmol/L (22-29); Chloride 106 mmol/L (96-108); Creatinine Clr Calc Pharmacy 119.9; Estimated Glomerular Filt Rate > 60; Glucose Random 101 mg/dL (60-115); Lipase 12 U/L (8-78); Potassium 4.1 mmol/L (3.3-5.1); Sodium 140 mmol/L (135-145); Total Protein 6.8 g/dL (6.5-8.0)
[2022-12-17 11:45] LABS: HCG Quantitative < 2 mIU/mL
[2022-12-17] MEDS: Morphine Sulfate 4 MG/ML CARTRIDGE IVPUSH (12:21)
[2022-12-17 13:20] VITALS: BP 127/75; PULSE 85; RESP 13; TEMP 36.5; O2SAT 100
[2022-12-17 13:32] LABS: CT PCR NOT DETECTED (Not Detect.); NG PCR NOT DETECTED (Not Detect.)
[2022-12-17] MEDS: Ketorolac Tromethamine 15 MG/ML VIAL IVPUSH (15:01)
--- NOTE | 2022-12-17 15:23 | PC.NURSE ---
pt medicated per aug for 04/02 pain
[2022-12-17] MEDS: metroNIDAZOLE 500 MG TABLET PO (16:35)
[2022-12-17] MEDS: Doxycycline Monohydrate 100 MG CAPSULE PO (16:35)
[2022-12-17] MEDS: Fluconazole 150 MG TABLET PO (16:35)
[2022-12-17] MEDS: cefTRIAXone sodium 500 MG, Lidocaine HCl 1 % MPF 1 ML IM (16:37)
[2022-12-17] MEDS: clonazePAM 1 MG TABLET PO (16:41)
[2022-12-17] MEDS: Gabapentin 600 MG TABLET PO (16:41)
[2022-12-18 08:30] LABS: BV Int Neg Control Negative (Negative); BV Int Pos Control Positive (Positive)
== END 2022-12-17 16:53 | disposition home or self-care (01) ==
PROVIDERS: Physician Assistant; Emergency Provider Emergency Medicine; PCP Internal Medicine
DX: N73.0 Acute parametritis and pelvic cellulitis (principal); R10.30 Lower abdominal pain, unspecified
CPT/HCPCS: 0353U; 36415; 76830; 76856; 80048; 80076; 81003; 83690; 83735; 84702; 85025; 85610; 87480; 87510; 87660; 96372; 96374; 96375; 99284; J0696; J1885; J2270

== ENCOUNTER 2023-01-07 09:31 | Emergency (ER) | payer OTHER, SELFPAY ==
[2023-01-07 09:43] VITALS: BP 150/100; PULSE 86; O2SAT 98
[2023-01-07 09:53] VITALS: BP 150/110; PULSE 108; RESP 20; TEMP 36.4; O2SAT 98; BMI 35.4
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
--- NOTE | 2023-01-07 10:41 | MHC.EDTECH ---
Called [facility] line @[phone], took call
[2023-01-07 10:58] LABS: MANUAL DIFF FLAG NO
[2023-01-07 11:07] LABS: Basophils Absolute Auto 0.1 X10*3/uL (0.0-0.2); Basophils Percent Auto 0.8 % (0-2); Eosinophils Absolute Auto 0.4 X10*3/uL (0.0-0.4); Eosinophils Percent Auto 4.8 % (0-4); Hematocrit 43.1 % (37.0-47.0); Hemoglobin 14.9 g/dl (12.0-16.0); Imm Gran Abs Auto 0.03 X10*3/uL (0.00-0.03); Imm Gran Pct Auto 0.3 % (0.0-0.4); Lymphocytes Absolute Auto 3.4 X10*3/uL (1.2-4.9); Lymphocytes Percent Auto 38.6 % (20-40); Mean Corpuscular HGB Conc 34.6 g/dl (31.0-35.0); Mean Corpuscular Volume 95.4 fL (80.0-98.0); Mean Platelet Volume 10.4 fL (9.4-12.3); Monocytes Absolute Auto 0.5 X10*3/uL (0.1-1.2); Monocytes Percent Auto 5.4 % (2-11); Neutrophils Absolute Auto 4.5 x10*3/uL (2.0-8.3); Neutrophils Percent Auto 50.1 % (45-73); Platelet Count 399 X10*3/uL (160-400); Red Blood Count 4.52 X10*6/uL (4.20-5.50); Red Cell Distribution Width 12.7 % (11.0-16.0); White Blood Count 8.9 X10*3/uL (4.8-10.8)
--- NOTE | 2023-01-07 11:07 | MHC.EDTECH ---
Called [facility]. Spoke w/ jose @ [phone]. took call
[2023-01-07] MEDS: dexAMETHasone sod phosphate 10 MG/ML VIAL IVPUSH (11:14)
[2023-01-07] MEDS: Ketorolac Tromethamine 15 MG/ML VIAL IVPUSH (11:14)
[2023-01-07] MEDS: LORazepam 2 MG/ML VIAL 1 MG IVPUSH (11:14)
[2023-01-07 11:24] LABS: Anion Gap 13 (12-20); Blood Urea Nitrogen 17 mg/dL (9-16); C Reactive Protein 0.23 mg/dL (< or = 0.50); Calcium 9.3 mg/dL (8.4-10.2); Carbon Dioxide 21 mmol/L (22-29); Chloride 108 mmol/L (96-108); Creatinine Clr Calc Pharmacy 114.7; Estimated Glomerular Filt Rate > 60; Glucose Random 77 mg/dL (60-115); Sodium 138 mmol/L (135-145)
[2023-01-07 11:49] LABS: Appearance Urine Clear; Color Urine Yellow; Glucose Urine UA Negative (Negative); Leukocyte Esterase Urine Negative (Negative); Nitrite Urine Negative (Negative); Specific Gravity - Urine <= 1.005 (1.005-1.025); Urine Blood Negative (Negative); Urine Ketones Negative (Negative); Urine Protein Negative (Neg-Trace)
[2023-01-07 11:58] LABS: Erythrocyte Sedimentation Rate 6 MM/HR (0-20)
[2023-01-07 11:58] LABS: Amphetamine Screen Urine Not Detected (Not Detect); Barbiturates, Urine Not Detected (Not Detect); Benzodiazepines Screen Urine Not Detected (Not Detect); Cannabinoid Screen Urine POSITIVE (Not Detect); Cocaine Screen Urine Not Detected (Not Detect); Fentanyl, urine Not Detected (Not Detect); Opiate Screen Urine Not Detected (Not Detect); Phencyclidine Screen Urine Not Detected (Not Detect)
[2023-01-07] MEDS: HYDROmorphone HCl 0.5 MG/0.5 ML SYRINGE IVPUSH (12:01)
--- NOTE | 2023-01-07 12:01 | PC.NURSE ---
PT REMAINS TEARFUL AND STATES NO CHANGE IN HER PAIN. MEDICATED CHARTED
[2023-01-07 13:23] LABS: UPreg QC Valid YES; Urine Pregnancy NEGATIVE (NEGATIVE)
== END 2023-01-07 12:39 | disposition short-term general hospital (02) ==
PROVIDERS: Emergency Provider Emergency Medicine; PCP Internal Medicine
DX: M54.16 Radiculopathy, lumbar region (principal); R32 Unspecified urinary incontinence; F17.210 Nicotine dependence, cigarettes, uncomplicated; F12.90 Cannabis use, unspecified, uncomplicated; Z79.899 Other long term (current) drug therapy
CPT/HCPCS: 36415; 51702; 80048; 80307; 81003; 81025; 82550; 85025; 85652; 86140; 96374; 96375; 99285; J1100; J1170; J1885; J2060

== ENCOUNTER 2023-01-17 08:38 | Outpatient (AMB) | payer OTHER, SELFPAY ==
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
[2023-01-17 08:42] VITALS: BP 110/70; BMI 34.9
== END 2023-01-17 09:28 | disposition home or self-care (01) ==
PROVIDERS: PCP Internal Medicine; Visit Provider Internal Medicine
DX: M54.32 Sciatica, left side (principal); F32.0 Major depressive disorder, single episode, mild; F41.9 Anxiety disorder, unspecified; G47.00 Insomnia, unspecified
CPT/HCPCS: 99214

== ENCOUNTER 2023-02-15 09:27 | Emergency (ER) | payer OTHER, SELFPAY ==
--- NOTE | ~2023-02-15 | XR_ITS ---
EXAMINATION: XR CHEST CLINICAL INFORMATION: Chest pain COMPARISON: Previous chest x-ray November 2022 TECHNIQUE: Frontal view of the chest was obtained. FINDINGS: No significant abnormality is noted involving the heart, lungs, mediastinum, bony thorax or soft tissues. XR/XR chest 1V IMPRESSION: Unremarkable examination.
--- NOTE | ~2023-02-15 | CT_ITS ---
EXAMINATION: CT HEAD WITHOUT CONTRAST CLINICAL INFORMATION: Question head strike. Right lower extremity numbness. COMPARISON: CT scan of the head 08/05/2022. TECHNIQUE: Contiguous axial imaging was performed from the skull base to vertex without intravenous administration of contrast. This CT examination was performed using dose optimization techniques as appropriate, variously including the following: *Automated exposure control *Adjustment of mA and/or kV according to patient size (this includes techniques or standardized protocols for targeted exams where dose is matched to indication/reason for exam; i.e. extremities or head) *Use of iterative reconstruction technique DLP: 638 mGy-cm FINDINGS: There is no acute intracranial hemorrhage or abnormal extra-axial collection. No intracranial mass effect or midline shift. Lateral and third ventricles are normal. No hydrocephalus. Delgado-white matter differentiation is grossly preserved and there is no evidence of acute territorial infarct. The calvarium and skull base are intact. Mastoid air cells and middle ear cavities are well aerated. No active paranasal sinus disease. CT/CT head/brain wo IV con IMPRESSION: Normal CT scan of the head.
[2023-02-15 09:34] VITALS: BP 114/63; BP 89/69; PULSE 72; PULSE 75; RESP 20; TEMP 36.6; O2SAT 98; BMI 32.2
--- NOTE | 2023-02-15 09:48 | ECG_ITS ---
Test Reason : CHEST PAIN, DIZZINESS Blood Pressure : / mmHG Vent. Rate : 050 BPM Atrial Rate : 050 BPM P-R Int : 176 ms QRS Dur : 104 ms QT Int : 424 ms P-R-T Axes : 054 046 031 degrees QTc Int : 386 ms Sinus bradycardia with sinus arrhythmia Otherwise normal ECG When compared with ECG of 10-DEC-2022 13:10, Vent. rate has decreased BY 48 BPM QT has shortened Referred By: Ariel Beavers Electronically Signed By:ZANE MACHUCA
[2023-02-15 10:27] VITALS: BP 108/59; PULSE 55; RESP 16; TEMP 36.6; O2SAT 97
[2023-02-15 10:29] LABS: MANUAL DIFF FLAG NO
[2023-02-15 10:32] LABS: Basophils Percent Auto 0.5 % (0-2); Eosinophils Absolute Auto 0.2 X10*3/uL (0.0-0.4); Eosinophils Percent Auto 2.4 % (0-4); Hematocrit 45.1 % (37.0-47.0); Hemoglobin 15.6 g/dl (12.0-16.0); Imm Gran Abs Auto 0.02 X10*3/uL (0.00-0.03); Imm Gran Pct Auto 0.2 % (0.0-0.4); Lymphocytes Absolute Auto 2.2 X10*3/uL (1.2-4.9); Lymphocytes Percent Auto 26.6 % (20-40); Mean Corpuscular HGB Conc 34.6 g/dl (31.0-35.0); Mean Corpuscular Hemoglobin 32.1 pg (27.0-33.0); Mean Corpuscular Volume 92.8 fL (80.0-98.0); Mean Platelet Volume 10.5 fL (9.4-12.3); Monocytes Absolute Auto 0.5 X10*3/uL (0.1-1.2); Monocytes Percent Auto 5.8 % (2-11); Neutrophils Absolute Auto 5.3 x10*3/uL (2.0-8.3); Neutrophils Percent Auto 64.5 % (45-73); Platelet Count 362 X10*3/uL (160-400); Red Blood Count 4.86 X10*6/uL (4.20-5.50); Red Cell Distribution Width 12.4 % (11.0-16.0); White Blood Count 8.2 X10*3/uL (4.8-10.8)
[2023-02-15 10:47] LABS: IDNOW Serial# 9DB6401D
[2023-02-15 10:48] LABS: Alanine Aminotransferase 8 U/L (0-31); Albumin Level 3.9 g/dL (3.5-5.0); Alkaline Phosphatase 39 U/L (39-117); Anion Gap 12 (12-20); Aspartate Amino Transferase 13 U/L (5-31); Bilirubin Total 0.4 mg/dL (0.0-1.0); Blood Urea Nitrogen 9 mg/dL (9-16); COVID-19 Test Negative (Negative); Calcium 9.7 mg/dL (8.4-10.2); Carbon Dioxide 24 mmol/L (22-29); Chloride 108 mmol/L (96-108); Creatinine Clr Calc Pharmacy 116.2; Estimated Glomerular Filt Rate > 60; Glucose Random 104 mg/dL (60-115); Magnesium 1.9 mg/dL (1.6-2.6); Potassium 3.7 mmol/L (3.3-5.1); Sodium 140 mmol/L (135-145); Total Protein 6.7 g/dL (6.5-8.0)
[2023-02-15 10:53] LABS: B Type Natriuretic Peptide < 10 pg/mL (<100)
[2023-02-15 10:55] LABS: Troponin-I High Sensitivity < 2.7 ng/L (<3.5-17.0)
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
[2023-02-15 11:10] VITALS: O2SAT 100
[2023-02-15 11:11] VITALS: PULSE 62; RESP 20; O2SAT 100
[2023-02-15] MEDS: Gabapentin 600 MG TABLET PO (11:20)
[2023-02-15 11:21] VITALS: BP 99/68; PULSE 53; RESP 16; O2SAT 100
[2023-02-15 11:45] LABS: Appearance Urine Clear; Color Urine Yellow; Glucose Urine UA Negative (Negative); Leukocyte Esterase Urine Negative (Negative); Nitrite Urine Negative (Negative); Urine Blood Negative (Negative); Urine Ketones Trace mg/dL (Negative); Urine Protein Negative (Neg-Trace)
--- NOTE | 2023-02-15 12:04 | PC.NURSE ---
pt vitals stable, reports bilateral leg numbness and pain. ekg, ct, labs done. will cont to [facility].
[2023-02-15 12:23] LABS: UPreg QC Valid YES; Urine Pregnancy NEGATIVE (NEGATIVE)
[2023-02-15 12:28] LABS: Amphetamine Screen Urine Not Detected (Not Detect); Barbiturates, Urine Not Detected (Not Detect); Benzodiazepines Screen Urine POSITIVE (Not Detect); Cannabinoid Screen Urine POSITIVE (Not Detect); Cocaine Screen Urine Not Detected (Not Detect); Fentanyl, urine Not Detected (Not Detect); Opiate Screen Urine Not Detected (Not Detect); Phencyclidine Screen Urine Not Detected (Not Detect)
[2023-02-15] MEDS: clonazePAM 1 MG TABLET PO (12:44)
--- NOTE | 2023-02-15 12:59 | PC.NURSE ---
called to bedside by tech who noted pt was shaking, HR increased from baseline segun 50s to mid 90s. Eval by Guy and , pseudo seizure suspected, pt was alert and talking, and remembered episode. home klonapin given per aug, will cont to [facility]
[2023-02-15 13:10] VITALS: BP 104/56; PULSE 56; RESP 16; O2SAT 98
[2023-02-15 13:21] LABS: C Reactive Protein 0.17 mg/dL (< or = 0.50)
[2023-02-15 13:42] LABS: HCG Quantitative < 2 mIU/mL
[2023-02-15 14:04] LABS: Erythrocyte Sedimentation Rate 6 MM/HR (0-20)
[2023-02-15] MEDS: Ketorolac Tromethamine 15 MG/ML VIAL 30 MG IM (14:28)
[2023-02-15 15:02] LABS: Troponin-I High Sensitivity < 2.7 ng/L (<3.5-17.0)
== END 2023-02-15 14:40 | disposition home or self-care (01) ==
PROVIDERS: Physician Assistant; Emergency Provider Emergency Medicine Emergency Medical Services; PCP Internal Medicine
DX: M54.32 Sciatica, left side (principal); M54.31 Sciatica, right side; R55 Syncope and collapse; R07.89 Other chest pain; F41.1 Generalized anxiety disorder; F43.0 Acute stress reaction; R42 Dizziness and giddiness; F17.210 Nicotine dependence, cigarettes, uncomplicated; R06.02 Shortness of breath; R00.2 Palpitations; Z20.822 Contact with and (suspected) exposure to COVID-19; Z20.828 Contact with and (suspected) exposure to other viral communicable diseases; Z79.899 Other long term (current) drug therapy; Z71.6 Tobacco abuse counseling
CPT/HCPCS: 36415; 70450; 71045; 80053; 80307; 81003; 81025; 82550; 83605; 83735; 83880; 84484; 84702; 85025; 85652; 86140; 87635; 93005; 96372; 99285; J1885

== ENCOUNTER 2023-03-21 07:13 | Outpatient (AMB) | payer OTHER, SELFPAY ==
--- NOTE | 2023-03-21 07:15 | MHC.PC.OV ---
Intake Visit Reasons: weak nails, ? vitamin deficiency [phone] Allergies oxycodone Allergy (Intermediate, Verified 03/21/23 07:15) pruritus lamotrigine [From Lamictal] Allergy (Unknown, Verified 03/21/23 07:15) mookie ias syndrome topiramate [Topamax] Allergy (Unknown, Verified 03/21/23 07:15) unknown ANTI CONVULSANTS Allergy (Mild, Uncoded 03/21/23 07:15) MOOKIE ISA SYNDROME Tobacco use date assessed: 01/17/23 Dental Screening Dental Screen Date: 03/21/23 Did you have a dental visit in the last 12 months?: Yes Did you have a dental problem in the last 6 months where you did not have access to dental care?: No Was dental information given to patient?: Patient has dentist HPI HPI Comments History of Present Illness Details 32-year-old female past medical history significant for depression, insomnia, low back pain. Patient last seen by Dr. Cuevas in April 2022. Patient presents today for Telehealth for Brittle nails. Patient reports weak nails since she was admitted at [facility] x3 weeks and December due to her to her sciatica pain. Patient reports she was diagnosed with degenerative disc disease. Since being home she reports her nails on bilateral hands and toes are extremely weak and that her whole nails are falling off and is painful. Patient reports when they grow back they are very thin and do have yellowish discoloration. [facility] Medical History Anxiety Asthma Bradycardia Depression ETOH abuse PTSD (post-traumatic stress disorder) Surgical History No history of previous surgery Family History Mother Heart attack Father Suicide Mental health disorder Maternal Grandmother Emphysema lung Social History Household Members: Children [facility] Alcohol intake: never Patient Tobacco Use Status: Current everyday Tobacco user Tobacco use type: Cigarette Cigarette Packs Per Day: 1 Years Smoked: 10 e-Cigarette/Vaping Use: Never Used Second Hand Smoke Exposure: Yes Substance Use Type: Marijuana Trauma History: HX DV service: No Current occupational status: disabled Sexual orientation: Straight/Heterosexual Gender identity: Female Cognitive needs: No Hearing needs: No Vision needs: No Female Reproductive History Menstrual Age of Menarche: 13 Questionnaire PHQ-9 Over the last 2 weeks, how often have you been bothered by any of the following problems? 1. Little interest or pleasure in doing things: more than half the days 2. Feeling down, depressed, or hopeless: more than half the days 3. Trouble falling or staying asleep, or sleeping too much: more than half the days 4. Feeling tired or having little energy: not at all 5. Poor appetite or overeating: not at all 6. Feeling bad about yourself - or that you are a failure or have let yourself or your family down: not at all 7. Trouble concentrating on things, such as reading the newspaper or watching television: not at all 8. Moving or speaking so slowly that other people could have noticed. Or the opposite - being so fidgety or restless that you have been moving around a lot more than usual: not at all 9. Thoughts that you would be better off or of hurting yourself in some way: not at all Total score: 6 Depression Screening Interpretation: Positive Depression Screening Follow-up: Existing condition, In treatment and Community Mental Health Worker F/U 33209 - PHQ-9 Billing: Yes Source: Developed by Drs. Mejia Dennis, Roscoe Blake and colleagues, with an educational madison from [employer]. Thrive Questionnaire Date Thrive assessed: 01/17/23 AUDIT C Alcohol Use Questionnaire (AUDIT-C) 1. How often do you have a drink containing alcohol?: Never Total Score: 0 THEE-7 AMB Questionnaire THEE-7 Date THEE - 7 assessed: 01/17/23 Source: Developed by Drs. Mejia Dennis, Roscoe Blake and colleagues, with an educational madison from [employer]. Physical exam (Primary Care) Tobacco/Smoking Status: Tobacco use Status Tobacco use date assessed 01/17/23 03/21/23 07:17 Patient Tobacco Use Status Current everyday Tobacco 03/21/23 07:17 Tobacco use type Cigarette 03/21/23 07:17 e-Cigarette/Vaping Use Never Used 03/21/23 07:17 PHQ-9: PHQ-9 Score PHQ-9: Total score 6 03/21/23 07:26 Depression Screening Interpretation: Positive Depression Screening Follow-up: Existing condition, In treatment and Community Mental Health Worker F/U Thrive Assessment: Date of Thrive Assessment Date Thrive assessed 01/17/23 03/21/23 07:17 Telehealth Telehealth Location of provider rendering services: practice address Location of patient: address on file Patient Identification confirmed using: Name, : Yes Telehealth method: video (Android) Patient verbally consented to treatment: Yes Patient verbally consented to billing insurance company: Yes Patient informed of any privacy concerns related to visit: Yes Minutes spent on Phone/Video with Pt.: 5 Assessment and Plan Assessment & Plan (1) Brittle nails: Code(s): L60.3 - Nail dystrophy Plan: Will draw CBC, CMP, ferritin, iron studies, vitamin-D, TSH, vitamin B12, folate and vitamin B1 to further evaluate for any deficiencies. If lab so are within normal limits patient can take zrml-[id number] biotin to strengthen nails. If no impyovemtn dicussed referral to podiatry/Dermatology. Orders: Orders Comprehensive Met. Panel Today L60.3 - Nail dystrophy Complete Blood Count no Diff Today L60.3 - Nail dystrophy TSH reflex Free T4 Today L60.3 - Nail dystrophy Ferritin Today L60.3 - Nail dystrophy Vitamin D 25-OH Total Today L60.3 - Nail dystrophy Vitamin B12 and Folate Today L60.3 - Nail dystrophy Vitamin B1 Today L60.3 - Nail dystrophy IRON PROFILE Today L60.3 - Nail dystrophy Coding Level of Care Code Tele New Pt Level 3 (16428) Diagnoses Brittle nails L60.3
--- OUTSIDE RECORDS SUMMARY | 2023-03-21 07:16 | XMS_ITS | Continuity of Care Document ---
Author Name Unknown Organization [facility] Address [address] [place] [id number]- Care Team Providers Care Wild Life Photographer Name Role Phone Po Quentin MCFARLAND Primary Care Physician En[place] [facility] [place](s): 01/17/23 - 02/16/[address] [address]- Allergies, Adverse Reactions, Alerts Substance Reaction Severity Status carbamazepine 1 anticonvulsant hypersensitivity syndro me Active phenytoin 2 anticonvulsant hypersensitivity syndrome Active phenobarbital 3 mookie marcello syndr ome anticonvulsant hypersensitivity syndrome Severe Active Lamictal 4 mookie marcello syndr ome 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 primidone 5 anticonvulsant hypersensitivity syndrome Active 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 1had anticonvulsant hypersensitivity syndrome to lamictal, at risk for similar rxn to carbamazepine 2Had anticonvulsant hypersensitivity syndrome to lamictal risk of similar rxn to phenytoin 3had anticonvulsant hypersensitivity syndrome to lamictal, at risk for similar rxn to phenobarbital 4steven marcello syndrome 5had anticonvulsant hypersensitivity syndrome to lamictal, at risk [...] acel(DTaP) 05/13/12 Recorded diphtheria/tetanus/pertussis, acel(DTaP) 05/13/12 Recorded Medications acetaminophen 325 mg oral tablet 650 mg, By Mouth, Every 4 hours, PRN, Take 2 tablets every 4 hours as needed for pain, # 60 tablet,Refills 0, Tot. Refills 0, Maintenance, Pain , Mild, 06/23/21 4:19:00 EST, [id number] fill upon omer... Start Date: 06/23/21 Status: Ordered Apri 0.15 mg-0.03 mg oral tablet 1 tablet, By Mouth, Daily, # 28 tablet, 3 Refills, Maintenance, 01/22/22 12:59:00 EDT, Tablet, [facility]/pharmacy #[id number], Partial fill upon patient request [...] 1 Refills, Soft Stop, 08/02/21 12:51:00 EST, [facility]/pharmacy #[id number], Partial fill upon patient request if the prescription is for a schedule II opioid drug., 162, cm, 08/02/21 12:39:00 EST, Height, 86.1, kg,... Start Date: 08/02/21 Status: Ordered Donna 30 mg oral tablet 1 tablet = 30 mg, By Mouth, Once, # 1 tablet, 11 Refills, Soft Stop, 06/01/22 14:34:00 EST, [facility]/pharmacy #[id number], Partial fill upon patient request [...] kit, 0 Refills, Maintenance, 06/24/21 14:08:00 EST, [facility]/pharmacy #[id number], pt has been on Amitriptyline, topamax, Propranolol... Start Date: 06/24/21 Status: Ordered famotidine 20 mg oral tablet 20 mg, 1, tablet, By Mouth, 2 times a day, # 28 tablet, Refills 1, Tot. Refills 1, Maintenance, 08/02/21 12:49:00 EST, Route to Pharmacy Electronically, [facility]/pharmacy #[id number], Partial fill upon patient request [...] 10/06/22 2:47:00 EDT, Route to Pharmacy Electronically, [id number], 162, cm, 05/23/22 10:54:00 EST, Height, 84, [...] 3 Refills, Maintenance, 05/23/22 11:17:00 EST, Tablet, [facility]/pharmacy #[id number], Partial fill upon patient request [...] stopped in October with and move to [place] (was previously living in [place]) 2Managed by PCP 3Patient states received treatment in 2019 4quit with 5with previous partner, does not have contact with him, has protective order and currenlty feels safe 6Cutting down with 7Treated at [facility] [place] Social History Social History Type [...] Physician Member Role: PCP Address: Address: [address] [place] [address]- [place] Care Team Related Persons Name: SKY MCKEON Address: [employer] Address: home [address] [place] [address] Name: ANTONIO CHAMPION Address: home [address] [place] [address] Name: ALBA CHAMPION Address: home [address] [place] [address] Name: ANTONIO VARGAS Address: home [address] [place] [address] Name: WARREN VARGAS Address: home [address] Name: CRISSY FOX Address: home [address] [place] [address]
== END 2023-03-21 07:35 | disposition home or self-care (01) ==
LOC: HO.HMGH 07:13
PROVIDERS: PCP Internal Medicine; Visit Provider Nurse Practitioner Family
DX: L60.3 Nail dystrophy (principal)
CPT/HCPCS: 99212

== ENCOUNTER 2023-05-05 04:31 | Emergency (ER) | payer OTHER, SELFPAY ==
--- NOTE | ~2023-05-05 | XR_ITS ---
EXAMINATION: XR WRIST, RIGHT XR HAND, RIGHT CLINICAL INFORMATION: Fall and pain. COMPARISON: None available. TECHNIQUE: PA, lateral, and oblique views of the right wrist and PA, lateral, and oblique views of the right hand FINDINGS: RIGHT WRIST: The bones and soft tissues are normal. No fracture. Alignment is anatomic. Joint spaces are maintained. No erosions or soft tissue calcifications. RIGHT HAND: The bones and soft tissues are normal. No fracture. Alignment is anatomic. Joint spaces are maintained. No erosions or soft tissue calcifications. XR/XR hand wrist RT IMPRESSION: No acute osseous abnormality.
--- NOTE | ~2023-05-05 | CT_ITS ---
EXAMINATION: CT HEAD WITHOUT CONTRAST CT CERVICAL SPINE WITHOUT CONTRAST CLINICAL INFORMATION: Fall. Pain. COMPARISON: 02/15/2023. TECHNIQUE: Contiguous axial imaging was performed through the head and cervical spine without intravenous administration of contrast. This CT examination was performed using dose optimization techniques as appropriate, variously including the following: *Automated exposure control *Adjustment of mA and/or kV according to patient size (this includes techniques or standardized protocols for targeted exams where dose is matched to indication/reason for exam; i.e. extremities or head) *Use of iterative reconstruction technique DLP: 1020 mGy-cm FINDINGS: The lateral, third and fourth ventricles are normally outlined. The cortical sulci and basal cisterns are normally outlined as well. There is no acute territorial defect, hemorrhage or midline shift. The extra-axial spaces are unremarkable. Calvarium: Intact. Maxilla facial sinuses and mastoids: Clear as visualized. Cervical spine: There is straightening of the expected cervical spine curvature. The disc spaces are maintained. The bone mineralization is normal. There is no fracture. The spinal canal and neuroforamen are patent. The soft tissues are unremarkable. The visualized upper lung leach are clear. CT/CT head/brain wo IV con IMPRESSION: No acute intracranial abnormality. Straightening of the cervical spine curvature of uncertain significance. No evidence for fracture.
--- NOTE | ~2023-05-05 | CT_ITS ---
EXAMINATION: CT HEAD WITHOUT CONTRAST CT CERVICAL SPINE WITHOUT CONTRAST CLINICAL INFORMATION: Fall. Pain. COMPARISON: 02/15/2023. TECHNIQUE: Contiguous axial imaging was performed through the head and cervical spine without intravenous administration of contrast. This CT examination was performed using dose optimization techniques as appropriate, variously including the following: *Automated exposure control *Adjustment of mA and/or kV according to patient size (this includes techniques or standardized protocols for targeted exams where dose is matched to indication/reason for exam; i.e. extremities or head) *Use of iterative reconstruction technique DLP: 1020 mGy-cm FINDINGS: The lateral, third and fourth ventricles are normally outlined. The cortical sulci and basal cisterns are normally outlined as well. There is no acute territorial defect, hemorrhage or midline shift. The extra-axial spaces are unremarkable. Calvarium: Intact. Maxilla facial sinuses and mastoids: Clear as visualized. Cervical spine: There is straightening of the expected cervical spine curvature. The disc spaces are maintained. The bone mineralization is normal. There is no fracture. The spinal canal and neuroforamen are patent. The soft tissues are unremarkable. The visualized upper lung leach are clear. CT/CT cervical spine wo IV con IMPRESSION: No acute intracranial abnormality. Straightening of the cervical spine curvature of uncertain significance. No evidence for fracture.
[2023-05-05 04:38] VITALS: BP 108/62; PULSE 96; O2SAT 96
--- NOTE | 2023-05-05 04:40 | ED.FALL ---
HPI - Fall General Chief Complaint: Fall Stated Complaint: Fall Time Seen by Provider: 05/05/23 04:38 Source: patient and EMS Mode of arrival: EMS Limitations: no limitations History of Present Illness HPI Narrative: 32-year-old female came in by EMS for evaluation after a mechanical fall. Patient took a prescribed Seroquel last night to help her to sleep, patient was going down stairs fell about 3 steps complaining of neck pain and right hand / wrist pain. No head injury, no LOC. No abdominal pain, no lower extremities pain. Related Data Home Medications Medication Instructions Recorded Confirmed albuterol sulfate 90 mcg/actuation 2 puff inhalation Q4H PRN 08/15/20 01/17/23 aerosol inhaler (ProAir HFA) Respiratory Distress clonazepam 1 mg tablet 1 mg PO BID PRN Anxiety 05/03/22 01/17/23 quetiapine 50 mg tablet 100 mg PO BEDTIME 05/03/22 01/17/23 magnesium oxide 400 mg (241.3 mg 400 mg PO DAILY 01/17/23 01/17/23 magnesium) tablet prednisone 20 mg tablet 20 mg PO DAILY 01/17/23 01/17/23 quetiapine 50 mg tablet,extended 50 mg PO BEDTIME 01/17/23 01/17/23 release 24 hr Previous Rx's Medication Instructions Recorded acetaminophen 500 mg tablet 1,000 mg (2 x 500 mg) PO QID PRN 03/23/22 (Tylenol Extra Strength) fever or pain #14 tabs tramadol 50 mg tablet 50 mg PO Q8H PRN pain 30 days #90 04/04/23 tabs Allergies Allergy/AdvReac Type Severity Reaction Status Date / Time oxycodone Allergy Intermediate pruritus Verified 03/21/23 07:15 lamotrigine [From Lamictal] Allergy Unknown mookie Verified 03/21/23 07:15 isa syndrome topiramate [Topamax] Allergy Unknown unknown Verified 03/21/23 07:15 ANTI CONVULSANTS Allergy Mild MOOKIE Uncoded 03/21/23 07:15 ISA SYNDROME Review of Systems Review of Systems: All other systems are reviewed and are negative Constitutional: Reports as per HPI and Reports no additional constitutional complaints Eyes: Reports as per HPI and Reports no additional eye complaints Reports system reviewed and no additional complaints, except as documented Cardiovascular: Reports as per HPI and Reports no additional cardiovascular complaints Respiratory: Reports as per HPI and Reports no additional respiratory complaints Gastrointestinal: Reports as per HPI and Reports no additional gastrointestinal complaints Genitourinary: Reports no additional female genitourinary complaints Musculoskeletal: Reports no additional musculoskeletal complaints Skin/Breast: Reports system reviewed and no additional complaints, except as docu Psychiatric: Reports no additional psychiatric complaints Endocrine: Reports no additional endocrine complaints Hematologic/Lymphatic: Reports no additional hematologic/lymphatic complaints Allergic/Immunologic: Reports no additional allergic/immunologic complaints Reports system reviewed and no additional complaints, except as documented and Reports Abnormal speech present [facility] Past Medical History Medical History ETOH abuse Anxiety Asthma Depression Bradycardia PTSD (post-traumatic stress disorder) Surgical History No history of previous surgery Family History Family History Mother Heart attack Father Suicide Mental health disorder Maternal Grandmother Emphysema lung Social History Social History Household Members: Children Housing: [facility] Alcohol intake: never Patient Tobacco Use Status: Current everyday Tobacco user Tobacco use type: Cigarette Cigarette Packs Per Day: 1 Years Smoked: 10 Smoked in Last 30 Days: No e-Cigarette/Vaping Use: Never Used Second Hand Smoke Exposure: Yes Use of substances other than those prescribed or required for medical reasons: No Substance Use Type: Marijuana Trauma History: HX DV service: No Current occupational status: disabled Sexual orientation: Straight/Heterosexual Gender identity: Female Cognitive needs: No Hearing needs: No Vision needs: No Physical Exam Vital Signs: Vital Signs: Last Vital Signs Temp 97.5 F 05/05/23 04:41 Pulse 84 05/05/23 04:41 Resp 16 05/05/23 04:41 BP 111/59 L 05/05/23 04:41 Pulse Ox 94 05/05/23 04:41 O2 Del Method Room Air 05/05/23 04:41 BMI result Body Mass Index 30.9 Vital signs have been reviewed and appear to be correct. Blood pressure elevated. Heart rate normal. Respiratory rate normal. Temperature normal. Oxygen saturation normal. Appearance: Alert. Oriented X3. No acute distress. Head: Normal external exam. Normocephalic. Atraumatic. No Hoffmann signs noted. No raccoon eyes noted Eyes: PERRLA. EOMI. Conjunctiva and sclera normal. Eyelids normal. ENT: TM's Normal. Pharynx normal. Uvula midline. Moist mucous membranes. No trismus noted. No drooling noted. No muffled voice noted. Neck: Normal inspection. Neck supple. FROM. No adenopathy. Thyroid Normal. No meningeal signs. No neck mass noted. CVS: Normal heart rate and rhythm. Heart sound normal. No murmurs noted. Pulses normal throughout. Respiratory: No respiratory distress. Painless inspiration. Breath sounds normal. No wheezes/rales/rhonchi noted. Chest nontender. No accessory muscle usage noted or decreased air movement noted. Abdomen: Soft and nontender. Bowel sounds normal in all 4 quadrants. No distention noted. No organomegaly noted. No visible injury noted. Back: No CVA tenderness. Full range of motion noted. Skin: Skin warm and dry. Normal skin color. Normal skin turgor. No rashes/lesions/lacerations noted. Extremities: right hand/ wrist: Tenderness with no deformity neurovascularly intact Neuro: Oriented X 3. Cranial nerve exam: II-XII are grossly intact No motor deficit. No sensory deficit. Reflexes normal. Course Reevaluation(s) Reevaluation #1: s/p fall head and neck and right hand / wrist injury. No radiographic evidence of acute fracture or pathology and head/C-spine CT and right hand/ wrist x-ray. Time: 06:07 Medications Administered Discontinued Medications Generic Name Dose Route Start Last Admin Trade Name Freq PRN Reason Stop Dose Admin Ibuprofen 800 mg 05/05/23 04:38 05/05/23 05:16 Ibuprofen 800 Mg Tablet PO 05/05/23 04:39 800 mg ONCE ONE Administration Medical Decision Making Differential Diagnosis Differential Diagnoses: The differential diagnosis associated with the presentation includes ( Mechanical fall, right hand fracture, right hand contusion, right wrist fracture, right wrist contusion, intracranial bleed, cervical spine injury.) Admission/Observation Consideration of admission/observation: Escalation of care including admission/observation considered Independent Interpretation I performed an independent interpretation of an: Plain X-Ray ( Right hand/ wrist: No acute fracture dislocation.) and CT Scan ( Head /cervical spine: No acute intracranial pathology, no cervical spine fracture or subluxation.) Radiology Impression Discussion of test interpretation with radiology: I have reviewed the radiologist's reading. Discharge Plan Discharge Clinical Impression: Accident due to mechanical fall without injury, Contusion of multiple sites of right hand and wrist, Closed head injury Patient Disposition: Home, Self-Care Instructions: Contusion in Adults (ED) Additional Instructions: take [id number] Tylenol 500 mg tablet or ibuprofen 200 mg tablet every 6 hours if needed for pain. Prescriptions: No Action acetaminophen [Tylenol Extra Strength] 500 mg tablet 1,000 mg PO QID PRN (Reason: fever or pain) Qty: 14 0RF tramadol 50 mg tablet 50 mg PO Q8H PRN (Reason: pain) 30 Days Qty: 90 0RF albuterol sulfate [ProAir HFA] 90 mcg/actuation Hfa Aerosol Inhaler 2 puff INHALATION Q4H PRN (Reason: Respiratory Distress) clonazepam 1 mg tablet 1 mg PO BID PRN (Reason: Anxiety) quetiapine 50 mg tablet 100 mg PO BEDTIME quetiapine 50 mg tablet extended release 24 hr 50 mg PO BEDTIME magnesium oxide 400 mg (241.3 mg magnesium) tablet 400 mg PO DAILY prednisone 20 mg tablet 20 mg PO DAILY
[2023-05-05 04:41] VITALS: BP 111/59; PULSE 84; RESP 16; TEMP 36.4; O2SAT 94; BMI 30.9
[2023-05-05] MEDS: Ibuprofen 800 MG TABLET PO (05:16)
== END 2023-05-05 06:44 | disposition home or self-care (01) ==
LOC: HO.ED 06:42
PROVIDERS: Emergency Provider Emergency Medicine
DX: S09.90XA Unspecified injury of head, initial encounter (principal); S60.221A Contusion of right hand, initial encounter; S60.211A Contusion of right wrist, initial encounter; W10.8XXA Fall (on) (from) other stairs and steps, initial encounter; F17.210 Nicotine dependence, cigarettes, uncomplicated; F12.90 Cannabis use, unspecified, uncomplicated; Y93.9 Activity, unspecified; Y92.9 Unspecified place or not applicable; Y99.9 Unspecified external cause status
CPT/HCPCS: 70450; 72125; 73110; 73130; 99284

== ENCOUNTER 2023-07-12 19:39 | Emergency (ER) | payer OTHER, SELFPAY ==
--- NOTE | ~2023-07-12 | CT_ITS ---
EXAMINATION: CT SOFT TISSUE NECK WITH CONTRAST CLINICAL INFORMATION: Questionable foreign body COMPARISON: CT cervical spine 05/05/2023 TECHNIQUE: Following the administration of 60 mL of Omnipaque 350 intravenous contrast, helical imaging was performed in the axial plane with generation of coronal and sagittal reformatted images. This CT examination was performed using dose optimization techniques as appropriate, variously including the following: *Automated exposure control. *Adjustment of mA and/or kV according to patient size (this includes techniques or standardized protocols for targeted exams where dose is matched to indication/reason for exam; i.e. extremities or head). *Use of iterative reconstruction technique. DLP: 459.65 mGy-cm mGy-cm. FINDINGS: Nasopharynx/Skull Base: Nonspecific prominence of the adenoid tonsils. Trace scattered paranasal sinus mucosal thickening. The mastoid air cells are well-aerated. Suprahyoid Neck: No exophytic mass/lesion is visualized. The parotid and submandibular glands are within normal limits. Infrahyoid Neck: The hypopharynx, larynx, and proximal subglottic airway are within normal limits. Thyroid: Heterogeneous thyroid gland. Nodes: No significant cervical lymph nodes by CT size criteria. Lung Apices: The partially visualized lungs are clear. Vascular Structures:The left vertebral artery arises directly from the aorta. Osseous Structures: The curvature of the upper cervical spine which may be partially positional. Reversal of the normal cervical lordosis. Other Findings: Limited intracranial evaluation is within normal limits. CT/CT soft tissue neck w IV con IMPRESSION: No radiopaque foreign body is visualized. Nonspecific prominence of the adenoid tonsils may be reactive. Clinical correlation is recommended.
[2023-07-12 19:46] VITALS: BP 141/106; PULSE 118; RESP 18; TEMP 37; O2SAT 98; BMI 33.5
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
[2023-07-12 20:14] LABS: MANUAL DIFF FLAG NO
[2023-07-12] MEDS: HYDROmorphone HCl 0.5 MG/0.5 ML SYRINGE IVPUSH (20:16)
[2023-07-12] MEDS: 0.9 % Sodium Chloride 1,000 ML 999 ML IV (20:16)
[2023-07-12 20:19] VITALS: BP 112/88; PULSE 83; RESP 18; O2SAT 98
[2023-07-12 20:19] LABS: Basophils Percent Auto 0.3 % (0-2); Eosinophils Percent Auto 0.7 % (0-4); Hematocrit 45.5 % (37.0-47.0); Hemoglobin 15.7 g/dl (12.0-16.0); Imm Gran Abs Auto 0.01 X10*3/uL (0.00-0.03); Imm Gran Pct Auto 0.2 % (0.0-0.4); Lymphocytes Absolute Auto 2.5 X10*3/uL (1.2-4.9); Lymphocytes Percent Auto 43.1 % (20-40); Mean Corpuscular HGB Conc 34.5 g/dl (31.0-35.0); Mean Corpuscular Hemoglobin 31.9 pg (27.0-33.0); Mean Corpuscular Volume 92.5 fL (80.0-98.0); Mean Platelet Volume 10.3 fL (9.4-12.3); Monocytes Absolute Auto 0.8 X10*3/uL (0.1-1.2); Monocytes Percent Auto 13.8 % (2-11); Neutrophils Absolute Auto 2.4 x10*3/uL (2.0-8.3); Neutrophils Percent Auto 41.9 % (45-73); Platelet Count 333 X10*3/uL (160-400); Red Blood Count 4.92 X10*6/uL (4.20-5.50); Red Cell Distribution Width 12.6 % (11.0-16.0); White Blood Count 5.8 X10*3/uL (4.8-10.8)
[2023-07-12 20:39] LABS: Alanine Aminotransferase 33 U/L (0-31); Albumin Level 4.5 g/dL (3.5-5.0); Alkaline Phosphatase 47 U/L (39-117); Anion Gap 11 (12-20); Aspartate Amino Transferase 37 U/L (5-31); Bilirubin Direct < 0.2 mg/dL (0.0-0.5); Bilirubin Total 0.2 mg/dL (0.0-1.0); Blood Urea Nitrogen 10 mg/dL (9-16); Calcium 9.9 mg/dL (8.4-10.2); Carbon Dioxide 27 mmol/L (22-29); Chloride 106 mmol/L (96-108); Creatinine Clr Calc Pharmacy 104.5; Estimated Glomerular Filt Rate > 60; Glucose Random 94 mg/dL (60-115); Lipase 14 U/L (8-78); Potassium 4.3 mmol/L (3.3-5.1); Sodium 140 mmol/L (135-145); Total Protein 7.7 g/dL (6.5-8.0)
[2023-07-12 20:43] LABS: HCG Quantitative < 2 mIU/mL
[2023-07-12] MEDS: iohexoL 350 MG/ML 100 ML INFUS..BTL 60 ML IV (20:58)
--- NOTE | 2023-07-12 21:00 | PC.NURSE ---
pt appears more comfortable. has been handling secretions since arrival to ed. reports diff breathing but has no evidence of such, grimaces with movement and cough.
--- NOTE | 2023-07-13 00:28 | PC.NURSE ---
pt discharged to waiting room, explained to the pt that this rn was going to look for a ride home for her and to wait in her room till discharged then go to the waiting room where a ride would pick her up. Pt upset crying and unable to confirm her address with her due to she was not in the waiting room when this rn came to confirm her address. I also looked outside and pt was not there. pt ambulated with steady gait to waiting room.
--- NOTE | 2023-07-13 00:32 | PC.NURSE ---
charger Jessa also offered the pt a bus pass for the morning and stated she has kids at home.
== END 2023-07-12 23:50 | disposition home or self-care (01) ==
PROVIDERS: Emergency Provider Emergency Medicine Emergency Medical Services
DX: R09.A2 Foreign body sensation, throat (principal)
CPT/HCPCS: 36415; 70491; 80048; 80076; 83690; 84702; 85025; 96361; 96374; 99284; J1170; Q9967

== ENCOUNTER 2023-07-17 10:19 | Emergency (ER) | payer OTHER, SELFPAY ==
--- NOTE | ~2023-07-17 | CT_ITS ---
EXAMINATION: CT FACIAL BONES WITH CONTRAST CLINICAL INFORMATION: Right-sided mandibular pain. History of abscess. COMPARISON: Soft tissue neck CT scan 07/12/2023. TECHNIQUE: Assurance Analyst images were obtained. CT acquisition of the face was performed after the intravenous administration of 85 mL Omnipaque 350. This CT examination was performed using dose optimization techniques as appropriate, variously including the following: *Automated exposure control *Adjustment of mA and/or kV according to patient size (this includes techniques or standardized protocols for targeted exams where dose is matched to indication/reason for exam; i.e. extremities or head) *Use of iterative reconstruction technique DLP: 230 mGy-cm FINDINGS: The mandible is intact with no evidence of acute fracture. No worrisome or lytic osseous lesion. The temporomandibular joints are unremarkable. No worrisome inflammatory changes within the subcutaneous soft tissues. Cash Teller spaces are symmetric. Parapharyngeal and retromaxillary fat is preserved. Parotid glands and submandibular glands are normal. The tongue base and epiglottis are normal. There are no pathologically enlarged cervical lymph nodes within the [id number] of this examination. Visualized cervical carotid and vertebral arteries are patent. Internal jugular veins fill symmetrically. The skull base is intact. No mastoid or middle ear effusion. There is mild to moderate paranasal sinus disease primarily affecting the maxillary sinuses. All of the major paranasal sinus and pathways are patent. Limited visualization of the intracranial anatomy reveals no abnormal finding. Specifically there is no midline shift or hydrocephalus. CT/CT facial bones w IV con IMPRESSION: Unremarkable examination in that there is no discrete anatomic finding to provide an explanation for this patient's right mandibular pain.
[2023-07-17 10:46] VITALS: BP 132/85; BP 136/88; PULSE 61; PULSE 68; RESP 16; TEMP 36.8; O2SAT 97; O2SAT 98; BMI 33.3
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
[2023-07-17 11:51] LABS: MANUAL DIFF FLAG NO
[2023-07-17] MEDS: 0.9 % Sodium Chloride 1,000 ML 999 ML IV (11:53)
[2023-07-17] MEDS: Morphine Sulfate 4 MG/ML CARTRIDGE IVPUSH (11:54)
[2023-07-17 11:58] LABS: Basophils Absolute Auto 0.1 X10*3/uL (0.0-0.2); Basophils Percent Auto 0.6 % (0-2); Eosinophils Absolute Auto 0.3 X10*3/uL (0.0-0.4); Eosinophils Percent Auto 2.8 % (0-4); Hematocrit 46.9 % (37.0-47.0); Hemoglobin 16.1 g/dl (12.0-16.0); Imm Gran Abs Auto 0.03 X10*3/uL (0.00-0.03); Imm Gran Pct Auto 0.3 % (0.0-0.4); Lymphocytes Absolute Auto 3.1 X10*3/uL (1.2-4.9); Lymphocytes Percent Auto 34.6 % (20-40); Mean Corpuscular HGB Conc 34.3 g/dl (31.0-35.0); Mean Corpuscular Hemoglobin 31.5 pg (27.0-33.0); Mean Corpuscular Volume 91.8 fL (80.0-98.0); Mean Platelet Volume 10.7 fL (9.4-12.3); Monocytes Absolute Auto 0.5 X10*3/uL (0.1-1.2); Monocytes Percent Auto 6.1 % (2-11); Neutrophils Percent Auto 55.6 % (45-73); Platelet Count 388 X10*3/uL (160-400); Red Blood Count 5.11 X10*6/uL (4.20-5.50); Red Cell Distribution Width 12.3 % (11.0-16.0); White Blood Count 8.9 X10*3/uL (4.8-10.8)
--- NOTE | 2023-07-17 11:58 | PC.NURSE ---
patient a&ox3, left sided dental pain, iv inserted by ultrasound to lt ac, labs drawn, ivf hung per order, pt medicated for pain 04/02, will continue to monitor
[2023-07-17 12:00] VITALS: BP 136/82; PULSE 66; RESP 16; TEMP 36.7; O2SAT 97
[2023-07-17 12:14] LABS: C Reactive Protein < 0.10 mg/dL (< or = 0.50)
[2023-07-17 12:17] LABS: Alanine Aminotransferase 16 U/L (0-31); Albumin Level 4.7 g/dL (3.5-5.0); Alkaline Phosphatase 39 U/L (39-117); Anion Gap 14 (12-20); Aspartate Amino Transferase 15 U/L (5-31); Bilirubin Direct 0.2 mg/dL (0.0-0.5); Bilirubin Total 0.5 mg/dL (0.0-1.0); Blood Urea Nitrogen 13 mg/dL (9-16); Calcium 9.9 mg/dL (8.4-10.2); Carbon Dioxide 22 mmol/L (22-29); Chloride 112 mmol/L (96-108); Creatinine Clr Calc Pharmacy 105.4; Estimated Glomerular Filt Rate > 60; Glucose Random 84 mg/dL (60-115); Magnesium 2.2 mg/dL (1.6-2.6); Potassium 3.7 mmol/L (3.3-5.1); Sodium 144 mmol/L (135-145)
[2023-07-17 13:16] LABS: Erythrocyte Sedimentation Rate 10 MM/HR (0-20)
[2023-07-17] MEDS: HYDROmorphone HCl 1 MG/ML SYRINGE IVPUSH (13:32)
--- NOTE | 2023-07-17 13:33 | PC.NURSE ---
pt a&ox3, returned from CT scan in 04/02 pain, pt being medicated per order, call resendiz within reach, will continue to monitor
[2023-07-17] MEDS: iohexoL 350 MG/ML 75 ML INFUS..BTL 85 ML IV (13:34)
[2023-07-17] MEDS: OXcarbazepine 300 MG TABLET PO (15:28)
[2023-07-17 15:37] VITALS: BP 127/80; PULSE 61; RESP 15; TEMP 36.9; O2SAT 97
== END 2023-07-17 15:40 | disposition home or self-care (01) ==
PROVIDERS: Physician Assistant Medical; Emergency Provider Emergency Medicine
DX: G50.0 Trigeminal neuralgia (principal); K08.89 Other specified disorders of teeth and supporting structures; R50.9 Fever, unspecified; F17.210 Nicotine dependence, cigarettes, uncomplicated; Z79.899 Other long term (current) drug therapy
CPT/HCPCS: 36415; 70487; 80048; 80076; 83735; 85025; 85652; 86140; 96361; 96374; 96375; 99284; J1170; J2270; Q9967

== ENCOUNTER 2023-08-18 11:27 | Emergency (ER) | payer OTHER, SELFPAY ==
[2023-08-18 11:37] VITALS: BP 133/80; BP 150/81; PULSE 89; PULSE 90; RESP 22; TEMP 37; O2SAT 98; BMI 31.5
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
[2023-08-18 11:51] VITALS: BP 114/69; PULSE 71; RESP 16; O2SAT 98
[2023-08-18] MEDS: 0.9 % Sodium Chloride 1,000 ML 999 ML IV (11:54)
[2023-08-18] MEDS: Morphine Sulfate 4 MG/ML CARTRIDGE IVPUSH (11:55)
[2023-08-18 12:05] LABS: MANUAL DIFF FLAG NO
[2023-08-18 12:06] VITALS: BP 128/84; PULSE 72; RESP 16; O2SAT 98
[2023-08-18 12:06] LABS: Basophils Percent Auto 0.4 % (0-2); Eosinophils Absolute Auto 0.5 X10*3/uL (0.0-0.4); Eosinophils Percent Auto 5.4 % (0-4); Hematocrit 38.5 % (37.0-47.0); Hemoglobin 13.4 g/dl (12.0-16.0); Imm Gran Abs Auto 0.01 X10*3/uL (0.00-0.03); Imm Gran Pct Auto 0.1 % (0.0-0.4); Lymphocytes Absolute Auto 2.7 X10*3/uL (1.2-4.9); Lymphocytes Percent Auto 29.6 % (20-40); Mean Corpuscular HGB Conc 34.8 g/dl (31.0-35.0); Mean Corpuscular Hemoglobin 32.4 pg (27.0-33.0); Mean Corpuscular Volume 93.2 fL (80.0-98.0); Mean Platelet Volume 10.5 fL (9.4-12.3); Monocytes Absolute Auto 0.5 X10*3/uL (0.1-1.2); Monocytes Percent Auto 5.6 % (2-11); Neutrophils Absolute Auto 5.4 x10*3/uL (2.0-8.3); Neutrophils Percent Auto 58.9 % (45-73); Platelet Count 313 X10*3/uL (160-400); Red Blood Count 4.13 X10*6/uL (4.20-5.50); Red Cell Distribution Width 12.7 % (11.0-16.0); White Blood Count 9.1 X10*3/uL (4.8-10.8)
[2023-08-18 12:17] LABS: Anion Gap 12 (12-20); Blood Urea Nitrogen 7 mg/dL (9-16); Calcium 8.6 mg/dL (8.4-10.2); Carbon Dioxide 22 mmol/L (22-29); Chloride 114 mmol/L (96-108); Creatinine Clr Calc Pharmacy 102.5; Estimated Glomerular Filt Rate > 60; Glucose Random 86 mg/dL (60-115); Potassium 3.7 mmol/L (3.3-5.1); Sodium 144 mmol/L (135-145)
[2023-08-18] MEDS: oxyCODONE HCl Immed Release 5 MG TABLET PO (12:50)
[2023-08-18] MEDS: OXcarbazepine 300 MG TABLET PO (12:50)
== END 2023-08-18 12:58 | disposition home or self-care (01) ==
PROVIDERS: Nurse Practitioner Family; Emergency Provider Emergency Medicine
DX: G50.0 Trigeminal neuralgia (principal); Z79.899 Other long term (current) drug therapy; F17.210 Nicotine dependence, cigarettes, uncomplicated
CPT/HCPCS: 36415; 80048; 85025; 96361; 96374; 99284; J2270

== ENCOUNTER 2023-08-25 09:06 | Emergency (ER) | payer OTHER, SELFPAY ==
[2023-08-25 09:20] VITALS: BP 134/81; PULSE 87; RESP 22; TEMP 36.9; O2SAT 97
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
[2023-08-25 09:30] VITALS: BP 126/90; PULSE 110; O2SAT 98; BMI 32.7
[2023-08-25] MEDS: Ketorolac Tromethamine 15 MG/ML VIAL IM (09:54)
[2023-08-25 10:29] LABS: MANUAL DIFF FLAG NO
[2023-08-25 10:38] LABS: Basophils Percent Auto 0.4 % (0-2); Eosinophils Absolute Auto 0.3 X10*3/uL (0.0-0.4); Eosinophils Percent Auto 3.3 % (0-4); Hematocrit 44.8 % (37.0-47.0); Hemoglobin 15.7 g/dl (12.0-16.0); Imm Gran Abs Auto 0.03 X10*3/uL (0.00-0.03); Imm Gran Pct Auto 0.3 % (0.0-0.4); Lymphocytes Percent Auto 38.3 % (20-40); Mean Corpuscular Hemoglobin 32.2 pg (27.0-33.0); Mean Platelet Volume 10.5 fL (9.4-12.3); Monocytes Absolute Auto 0.6 X10*3/uL (0.1-1.2); Monocytes Percent Auto 6.1 % (2-11); Neutrophils Absolute Auto 5.3 x10*3/uL (2.0-8.3); Neutrophils Percent Auto 51.6 % (45-73); Platelet Count 408 X10*3/uL (160-400); Red Blood Count 4.87 X10*6/uL (4.20-5.50); Red Cell Distribution Width 12.5 % (11.0-16.0); White Blood Count 10.3 X10*3/uL (4.8-10.8)
[2023-08-25] MEDS: Acetaminophen 325 MG TABLET 975 MG PO (10:48)
[2023-08-25] MEDS: oxyCODONE HCl Immed Release 5 MG TABLET PO (10:48)
[2023-08-25 10:54] LABS: Alanine Aminotransferase 15 U/L (0-31); Albumin Level 4.4 g/dL (3.5-5.0); Alkaline Phosphatase 37 U/L (39-117); Anion Gap 14 (12-20); Aspartate Amino Transferase 16 U/L (5-31); Bilirubin Total 0.4 mg/dL (0.0-1.0); Blood Urea Nitrogen 18 mg/dL (9-16); Calcium 9.7 mg/dL (8.4-10.2); Carbon Dioxide 23 mmol/L (22-29); Chloride 108 mmol/L (96-108); Creatinine Clr Calc Pharmacy 115.6; Estimated Glomerular Filt Rate > 60; Glucose Random 101 mg/dL (60-115); Potassium 4.2 mmol/L (3.3-5.1); Sodium 141 mmol/L (135-145); Total Protein 7.1 g/dL (6.5-8.0)
[2023-08-25 10:56] LABS: HCG Quantitative < 2 mIU/mL
[2023-08-25] MEDS: OXcarbazepine 150 MG TABLET 450 MG PO (11:11)
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
[2023-08-29 01:48] LABS: Oxcarbazepine 8.6 mcg/mL (8.0-35.0)
== END 2023-08-25 11:45 | disposition home or self-care (01) ==
PROVIDERS: Emergency Provider Student in an Organized Health Care Education/Training Program; PCP Internal Medicine
DX: G50.0 Trigeminal neuralgia (principal); R56.9 Unspecified convulsions; Z79.899 Other long term (current) drug therapy
CPT/HCPCS: 36415; 80053; 80339; 84702; 85025; 96372; 99284; J1885

== ENCOUNTER 2023-08-26 12:25 | Outpatient (AMB) | payer OTHER, SELFPAY ==
[2023-08-26 12:28] VITALS: BP 122/78; BMI 31.6
--- NOTE | 2023-08-26 12:28 | MHC.PC.OV ---
Vital Signs 08/26/23 12:28 Height 5 ft 4 in Weight 184 lb BMI 31.6 BP 122/78 Blood Pressure Location Lt brachial Position Sitting Intake Visit Reasons: ED Follow up Intake Note: Patient here for ED follow up Trigeminal Neuralgia [employer] Required: No Accompanied by: Child Allergies oxycodone Allergy (Intermediate, Verified 08/26/23 12:40) pruritus lamotrigine [From Lamictal] Allergy (Unknown, Verified 08/26/23 12:40) mookie isa syndrome topiramate [Topamax] Allergy (Unknown, Verified 08/26/23 12:40) unknown ANTI CONVULSANTS Allergy (Mild, Uncoded 08/26/23 12:40) MOOKIE ISA SYNDROME Medication List - Last Reconciled 08/26/23 by Daily Llamas MD acetaminophen (Tylenol Extra Strength) 1,000 mg (2 x 500 mg) PO QID PRN albuterol sulfate 90 mcg/actuation (ProAir HFA) 2 puffs inhalation Q4H PRN clonazepam 1 mg PO BID PRN gabapentin 600 mg PO TID magnesium oxide 400 mg PO DAILY oxcarbazepine (Trileptal) 450 mg (1.5 x 300 mg) PO BID 5 days quetiapine 100 mg PO BEDTIME quetiapine ER 50 mg PO BEDTIME tramadol 50 mg PO Q8H PRN 30 days Tobacco use date assessed: 08/26/23 Dental Screening Dental Screen Date: 08/26/23 Did you have a dental visit in the last 12 months?: Yes Did you have a dental problem in the last 6 months where you did not have access to dental care?: No Was dental information given to patient?: Patient has dentist HPI HPI Comments History of Present Illness Details This is a 32-year-old female with mild major depression, anxiety and mild asthma that comes today as a hospital discharge follow-up with discharge date 08/25/2023 due to right facial pain that started yesterday after having what it looked like a seizure despite no loss of consciousness. She has a very poor historian. She was seen August 18 and was diagnosed with trigeminal neuralgia and started oxycodone and ox carbamazepine which she said it did help with the pain. I was giving her tramadol for a very long time and last prescription was feel August 05 through [facility] and this is not the 1st time that she feels oxycodone while feeling tramadol. Last refill of tramadol that she as she asking to be 4 times a day instead of 3 times a day. I did refused. She use tramadol for her sciatica. In April she went to ER due to a fall and head CT showed no acute intracranial abnormality. Her right jaw pain is like electric shock-like and happens about every 30 seconds. While I was interviewing her a was very hard because she kept screaming and touching her right side of the face while crying. She is accompanied by her 2-year-old son which as per patient he is autistic although was well behaved today in the office visit. She had labs done yesterday with no significant abnormality. Had face CT showing no mandibular abnormality in June 2023 in 1 of her ER visits. She will be referred to Neurology and I will order an urgent MRI of the brain. She denies any blurry vision. While she was walking out she threw herself on the floor and started to shake while being conscious and saying my baby . She did not hit her head or had any bowel or bladder incontinence. Oxygen saturation was 96% and heart rate of 110. 911 was called and she was transported by stretcher to [facility] ER. Mild major depression and anxiety are follow by Psychiatry Bethany Morris which prescribed clonazepam and gabapentin for her. She use rescue inhaler as needed for her asthma. [facility] Medical History ETOH abuse Anxiety Asthma Depression Bradycardia PTSD (post-traumatic stress disorder) Surgical History No history of previous surgery Family History Mother Heart attack Father Suicide Mental health disorder Maternal Grandmother Emphysema lung Social History Household Members: Children Housing: Condominium Alcohol intake: never Patient Tobacco Use Status: Current everyday Tobacco user Tobacco use type: Cigarette Cigarettes Per Day: 3 Years Smoked: 10 e-Cigarette/Vaping Use: Never Used Second Hand Smoke Exposure: Yes Substance Use Type: Marijuana Trauma History: HX DV service: No Current occupational status: disabled Sexual orientation: Straight/Heterosexual Gender identity: Female Cognitive needs: No Hearing needs: No Vision needs: No Female Reproductive History Menstrual Age of Menarche: 13 Questionnaire PHQ-9 Over the last 2 weeks, how often have you been bothered by any of the following problems? 1. Little interest or pleasure in doing things: nearly every day 2. Feeling down, depressed, or hopeless: nearly every day 3. Trouble falling or staying asleep, or sleeping too much: not at all 4. Feeling tired or having little energy: not at all 5. Poor appetite or overeating: nearly every day 6. Feeling bad about yourself - or that you are a failure or have let yourself or your family down: nearly every day 7. Trouble concentrating on things, such as reading the newspaper or watching television: nearly every day 8. Moving or speaking so slowly that other people could have noticed. Or the opposite - being so fidgety or restless that you have been moving around a lot more than usual: nearly every day 9. Thoughts that you would be better off or of hurting yourself in some way: not at all Total score: 18 Depression Screening Interpretation: Positive Depression Screening Follow-up: Existing condition and Community Mental Health Worker F/U Depression Screening Done: Yes 20999 - PHQ-9 Billing: Yes Source: Developed by Drs. Mejia Dennis, Chely Boyd, Roscoe Arizmendi and colleagues, with an educational madison from [employer]. Thrive Questionnaire Date Thrive assessed: 08/26/23 I am a: Patient What is your living situation today?: I have a steady place to live Within the past 12 months, did the food you bought not last and you didn't have the money to get more?: Never true Within the past 12 months, did you worry whether your food would run out before you got money to buy more?: Never true Do you have trouble paying for medicines?: No Do you have trouble getting transportation to medical appointments?: No Do you have trouble paying your heating and electricity bill?: No Do you have trouble taking care of your child, family member or friend?: No Do you have trouble with day-to-day activities such as bathing, preparing meals, shopping, managing finances, etc.?: No Are you currently unemployed and looking for a job?: No Are you interested in more education?: No Please select the resources that you would like help with: None Currently or been in a relationship where the following occur: no concerns reported THRIVE Score: 0 AUDIT C Alcohol Use Questionnaire (AUDIT-C) 1. How often do you have a drink containing alcohol?: Never Total Score: 0 THEE-7 AMB Questionnaire THEE-7 Date THEE - 7 assessed: 08/26/23 Feeling nervous, anxious, or on edge: 3 = Nearly every day Not being able to stop or control worryin = More than half the days Worrying too much about different things: 3 = Nearly every day Trouble relaxin = More than half the days Being so restless that it is hard to sit still: 3 = Nearly every day Becoming easily annoyed or irritable: 3 = Nearly every day Feeling afraid as if something awful might happen: 1 = Several days Total THEE-7 score (0-4 normal; 5-9 mild; 10-14 moderate; 15-21 severe): 17 Source: Developed by Drs. Mejia Dennis, Chely Boyd, Roscoe Arizmendi and colleagues, with an educational madison from [employer]. THEE-7 Assessment Billing THEE-7 Assessment Tool: THEE-7 Assessment 13845 Review of Systems Const All systems reviewed & are unremarkable except as noted in HPI and below Reports headache(s) Eyes Reports no additional complaints, Denies change in vision and Denies other visual disturbances ENT Reports headache(s) Card Denies chest pain at rest, Denies chest pain with activity, Denies edema, Denies irregular heart rhythm, Denies claudication, Denies dyspnea, Denies dyspnea on exertion, Denies orthopnea, Denies paroxysmal nocturnal dyspnea and Denies slow heart rate Resp Denies cough, Denies dyspnea and Denies dyspnea on exertion GI Denies abdominal pain, Denies change in bowel habits, Denies excessive flatus, Denies nausea and Denies vomiting Denies urinary incontinence, Denies urinary hesitancy and Denies urinary urgency Musc Denies abnormal gait, Reports back pain, Denies atrophy, Denies deformity, Reports arthralgias and Denies limited range of motion Skin/Breast Denies bleeding lesions, Denies changing lesions and Denies rash Neuro Denies abnormal gait, Reports headache(s) and Denies lack of coordination Physical exam (Primary Care) Vital Signs: Last Vital Signs BP 122/78 08/26/23 12:28 BMI result Body Mass Index 31.6 Tobacco/Smoking Status: Tobacco use Status Tobacco use date assessed 08/26/23 08/26/23 12:41 Patient Tobacco Use Status Current everyday Tobacco 08/26/23 12:41 Tobacco use type Cigarette 08/26/23 12:41 e-Cigarette/Vaping Use Never Used 08/26/23 12:41 PHQ-9: PHQ-9 Score PHQ-9: Total score 18 08/26/23 13:05 Depression Screening Interpretation: Positive Depression Screening Follow-up: Existing condition and Community Mental Health Worker F/U Thrive Assessment: Date of Thrive Assessment Date Thrive assessed 08/26/23 08/26/23 12:43 Currently or been in a relationship where the following occur: no concerns reported Const Other: In pain. Eyes General: appearance normal, both eyes and all related structures Eyelids: Yes eyelids normal Conjunctivae: conjunctivae normal Neck Neck: Yes normal visual inspection and Yes supple Resp Effort & Inspection: normal respiratory effort Auscultation: clear to auscultation bilaterally Cardio Jugular venous distension: no JVD Rate: regular rate Rhythm: regular rhythm Heart sounds: S1 normal heart sound present and S2 normal heart sound present Extrem General: Yes full ROM Assessment and Plan Assessment & Plan (1) Hospital discharge follow-up: Code(s): Z09 - Encounter for follow-up examination after completed treatment for conditions other than malignant neoplasm Plan: Discharge date 08/25/2023 due to right facial headache. Labs were done showing no significant abnormality. Still is in the same pain as before discharge. Was asking for oxycodone. Said that oxycodone 10 mg every 8 hours was given to her before any was given her pruritus but not the 5 mg. (2) Trigeminal neuralgia of right side of face: Code(s): G50.0 - Trigeminal neuralgia Plan: Continue oxcarbazepine. Refer urgently to neurology. (3) Mild major depression: Code(s): F32.0 - Major depressive disorder, single episode, mild Plan: Continue Seroquel. Follow-up with psychiatry. (4) Anxiety: Code(s): F41.9 - Anxiety disorder, unspecified Plan: Follow-up with psychiatry. (5) Mild asthma: Code(s): J45.909 - Unspecified asthma, uncomplicated Plan: Use rescue inhaler as needed. Orders: Orders MR head/brain wo con Today G50.0 - Trigeminal neuralgia Referrals Neurology Referral G50.0 - Trigeminal neuralgia Medications: Changed From oxcarbazepine (Trileptal) Trigeminal neuralgia 450 mg (1.5 x 300 mg) PO BID 5 days 15 tabs 0RF G50.0 - Trigeminal neuralgia To oxcarbazepine (Trileptal) Trigeminal neuralgia 450 mg (1.5 x 300 mg) PO BID 30 days 90 tabs 1RF G50.0 - Trigeminal neuralgia Coding Level of Care Code TCM Mod MDM <= 7 Days Diagnoses Hospital discharge follow-up Z09 Trigeminal neuralgia of right side of face G50.0 Mild major depression F32.0 Anxiety F41.9 Mild asthma J45.909 Additional Codes THEE-7 Assessment Billing - THEE-7 Assessment Tool: THEE-7 Assessment 85820 ([id number]) Time Spent (min) 25
== END 2023-08-26 12:53 | disposition home or self-care (01) ==
PROVIDERS: Visit Provider Internal Medicine
DX: G50.0 Trigeminal neuralgia (principal); Z79.891 Long term (current) use of opiate analgesic; F33.9 Major depressive disorder, recurrent, unspecified; J45.909 Unspecified asthma, uncomplicated
CPT/HCPCS: 99214

== ENCOUNTER 2023-08-26 13:20 | Emergency (ER) | payer OTHER, SELFPAY ==
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
[2023-08-26 13:48] VITALS: BP 157/67; PULSE 100; BMI 24.0
[2023-08-26] MEDS: diazePAM 2 MG TABLET 5 MG PO (14:01)
--- NOTE | 2023-08-26 14:45 | PC.NURSE ---
PT VERBALLY ABUSIVE TO STAFF SINCE ARRIVAL. RX'S FOR ALL NEEDED MEDS SENT TO PHARMACY. PT CRYING, YELLING. LEA CANCHOLA SPOKE WITH PT
== END 2023-08-26 14:46 | disposition home or self-care (01) ==
PROVIDERS: Emergency Provider Emergency Medicine
DX: R51.9 Headache, unspecified (principal); G50.0 Trigeminal neuralgia; Z79.899 Other long term (current) drug therapy
CPT/HCPCS: 99282; 99283

== ENCOUNTER 2023-09-30 16:34 | Outpatient (REF) | payer OTHER, SELFPAY ==
--- NOTE | ~2023-09-30 | MR_ITS ---
EXAMINATION: MR BRAIN WITHOUT AND WITH CONTRAST CLINICAL INFORMATION: Trigeminal neuralgia. COMPARISON: CT scan of the head 05/05/2023. CT face 07/17/2023. TECHNIQUE: Multiplanar MR imaging of the brain was performed without and with contrast. A total of 8 mL Gadavist was utilized for this examination. FINDINGS: Dedicated high-resolution imaging through the posterior fossa reveals no cerebellopontine angle cistern mass. There is no abnormal enhancement along the cisternal segments of the trigeminal nerves. Meckel's caves are unremarkable. Cavernous sinuses enhance symmetrically. Cavernous internal carotid artery flow voids are maintained. There is homogeneous enhancement within the anterior lobe of the pituitary gland. No suprasellar mass effect or chiasmatic compression. The pituitary stalk is midline. Although only partially included within the [id number] of this examination there is absence of the right C3 pedicle and articular pillar. The right C2 pillar articulates with C4 on the right side. Postcontrast images reveal no abnormal intracranial mass or enhancement. There is no intracranial mass effect or midline shift. Lateral and third ventricles are normal. No hydrocephalus. Midline structures including the cervicomedullary junction are normal. No acute bone marrow signal changes. There is no acute territorial infarct. MR/MR head/brain wo/w con IMPRESSION: Unremarkable examination in that there is no discrete anatomic finding to provide an explanation for this patient's trigeminal neuralgia. 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 The right C2 pillar articulates with C4 on the right side.
[2023-09-30] MEDS: gadobutroL 10 ML VIAL IVPUSH (17:19)
== END 2023-09-30 16:35 | disposition home or self-care (01) ==
LOC: HO.MRI 16:34
PROVIDERS: PCP Internal Medicine; Visit Provider Internal Medicine
DX: G50.0 Trigeminal neuralgia (principal)
CPT/HCPCS: 70553; A9585

== ENCOUNTER 2023-11-11 10:34 | Outpatient (REF) | payer OTHER, SELFPAY ==
[2023-11-11 11:32] LABS: Amphetamine Screen Urine POSITIVE (Not Detect); Barbiturates, Urine Not Detected (Not Detect); Benzodiazepines Screen Urine Not Detected (Not Detect); Buprenorphine Scr Not Detected (Not Detect); Cannabinoid Screen Urine POSITIVE (Not Detect); Cocaine Screen Urine Not Detected (Not Detect); Fentanyl, urine Not Detected (Not Detect); Methadone Screen, Urine Not Detected (Not Detect); Opiate Screen Urine Not Detected (Not Detect); Oxycodone Screen Urine Not Detected (Not Detect); Phencyclidine Screen Urine Not Detected (Not Detect)
== END 2023-11-11 10:35 | disposition home or self-care (01) ==
LOC: HO.LAB 10:34
PROVIDERS: Visit Provider Internal Medicine
DX: G50.0 Trigeminal neuralgia (principal)
CPT/HCPCS: 80307

== ENCOUNTER 2023-11-12 21:20 | Emergency (ER) | payer OTHER, SELFPAY ==
[2023-11-12 21:32] VITALS: BP 146/88; BP 95/64; PULSE 100; PULSE 110; RESP 17; TEMP 37.1; O2SAT 94; O2SAT 99
[2023-11-12 21:50] LABS: MANUAL DIFF FLAG NO
--- NOTE | 2023-11-12 21:53 | MHC.EDTECH ---
labs drawn pt tolerated it well.
[2023-11-12 21:54] LABS: Basophils Absolute Auto 0.1 X10*3/uL (0.0-0.2); Basophils Percent Auto 0.7 % (0-2); Eosinophils Absolute Auto 0.3 X10*3/uL (0.0-0.4); Eosinophils Percent Auto 3.4 % (0-4); Imm Gran Abs Auto 0.02 X10*3/uL (0.00-0.03); Imm Gran Pct Auto 0.2 % (0.0-0.4); Lymphocytes Absolute Auto 4.7 X10*3/uL (1.2-4.9); Lymphocytes Percent Auto 51.2 % (20-40); Mean Corpuscular Hemoglobin 32.7 pg (27.0-33.0); Mean Corpuscular Volume 93.5 fL (80.0-98.0); Mean Platelet Volume 10.5 fL (9.4-12.3); Monocytes Absolute Auto 0.6 X10*3/uL (0.1-1.2); Monocytes Percent Auto 6.8 % (2-11); Neutrophils Absolute Auto 3.5 x10*3/uL (2.0-8.3); Neutrophils Percent Auto 37.7 % (45-73); Platelet Count 333 X10*3/uL (160-400); Red Blood Count 4.28 X10*6/uL (4.20-5.50); Red Cell Distribution Width 12.7 % (11.0-16.0); White Blood Count 9.1 X10*3/uL (4.8-10.8)
[2023-11-12] MEDS: OXcarbazepine 150 MG TABLET 450 MG PO (21:58)
[2023-11-12] MEDS: oxyCODONE HCl Immed Release 5 MG TABLET PO (21:58)
--- NOTE | 2023-11-12 22:00 | PC.NURSE ---
pt biba from home, a&ox4, respirations even and unlabored. per ems pt from home where son witnessed 2 seizures, per ems pt had one 15 second seizure prior to arrival. upon arrival, pt moaning in pain and grabbing right face. pt reports hx of similar episodes. reports 10/10 right sided face pain. seizure pads in place. at bedside. pt medicated per aug at this time, tolerated well with water.
[2023-11-12 22:02] LABS: Lactic Acid 0.6 mmol/L (0.5-2.0)
[2023-11-12 22:11] LABS: Alanine Aminotransferase 14 U/L (0-31); Albumin Level 4.2 g/dL (3.5-5.0); Alkaline Phosphatase 53 U/L (39-117); Anion Gap 13 (12-20); Aspartate Amino Transferase 16 U/L (5-31); Bilirubin Direct < 0.2 mg/dL (0.0-0.5); Bilirubin Total 0.2 mg/dL (0.0-1.0); Blood Urea Nitrogen 14 mg/dL (9-16); Calcium 10.3 mg/dL (8.4-10.2); Carbon Dioxide 25 mmol/L (22-29); Chloride 107 mmol/L (96-108); Estimated Glomerular Filt Rate > 60; Ethanol < 10 mg/dL; Glucose Random 91 mg/dL (60-115); Potassium 4.2 mmol/L (3.3-5.1); Sodium 141 mmol/L (135-145); Total Protein 6.7 g/dL (6.5-8.0)
--- NOTE | 2023-11-12 22:15 | ED_ITS ---
HPI - Seizure General Chief Complaint: Seizure Stated Complaint: pain, 10 sec seizure Time Seen by Provider: 11/12/23 21:32 Source: patient and EMS Mode of arrival: EMS Limitations: no limitations History of Present Illness ED Provider: Dr. Marisabel Burks HPI Narrative: Patient comes to the emergency room complaining of shock like sensation to the right side of the face. Patient states that she has previously been diagnosed with trigeminal neuralgia. According to EMS, patient had a 12nd seizure. Patient was not postictal. Patient denies SI or HI Seizure History: Yes Related Data Home Medications ?Medication ?Instructions ?Recorded ?Confirmed albuterol sulfate 90 mcg/actuation 2 puff inhalation Q4H PRN 08/15/20 08/26/23 aerosol inhaler (ProAir HFA) Respiratory Distress clonazepam 1 mg tablet 1 mg PO BID PRN Anxiety 05/03/22 08/26/23 quetiapine 50 mg tablet 100 mg PO BEDTIME 05/03/22 08/26/23 magnesium oxide 400 mg (241.3 mg 400 mg PO DAILY 01/17/23 08/26/23 magnesium) tablet quetiapine 50 mg tablet,extended 50 mg PO BEDTIME 01/17/23 08/26/23 release 24 hr gabapentin 600 mg tablet 600 mg PO TID 08/26/23 08/26/23 Previous Rx's ?Medication ?Instructions ?Recorded acetaminophen 500 mg tablet 1,000 mg (2 x 500 mg) PO QID PRN 03/23/22 (Tylenol Extra Strength) fever or pain #14 tabs tramadol 50 mg tablet 50 mg PO Q8H PRN pain 30 days #90 08/05/23 tabs diazepam 5 mg tablet (Valium) 5 mg PO TID PRN muscle spasm #6 08/26/23 tabs oxcarbazepine 300 mg tablet 450 mg (1.5 x 300 mg) PO BID #20 08/26/23 (Trileptal) tabs oxcarbazepine 300 mg tablet 450 mg (1.5 x 300 mg) PO BID 30 08/26/23 (Trileptal) days #90 tabs oxcarbazepine 150 mg tablet 450 mg (3 x 150 mg) PO DAILY 1 11/12/23 (Trileptal) month #90 tabs Allergies Allergy/AdvReac Type Severity Reaction Status Date / Time oxycodone Allergy Intermediate pruritus Verified 11/12/23 21:36 lamotrigine [From Lamictal] Allergy Unknown mookie Verified 11/12/23 21:36 isa syndrome topiramate [Topamax] Allergy Unknown unknown Verified 11/12/23 21:36 ANTI CONVULSANTS Allergy Mild MOOKIE Uncoded 11/12/23 21:36 ISA SYNDROME Review of Systems 2 Review of Systems: Constitutional : No Weight loss, No Fever, No Chills, No Night Sweats, No Fatigue, No Malaise ENT/Mouth : No Hearing loss, No Ear Pain, No Nasal Congestion, No Sinus Pain, No Hoarseness, No sore throat, No Rhinorrhea, No Swallowing Difficulty Eyes: No Eye Pain, No Swelling, No Redness, No Foreign Body, No Discharge, No Vision Changes Cardiovascular : No Chest Pain, No SOB, No Dyspnea on Exertion, No Orthopnea, No Edema, No Palpitations Respiratory : No Cough, No Sputum, No Wheezing, No Smoke Exposure, No Dyspnea Gastrointestinal : No Nausea, No Vomiting, No Diarrhea, No Constipation, No abdominal Pain, No Hematochezia, No Melena Genitourinary : no irregular bleeding, No Dysuria, No Urinary Frequency, No Hematuria, No Urinary Incontinence, No Urgency, No Flank Pain, No Urinary Flow Changes, No Hesitancy Musculoskeletal : No joint pain, No Myalgias, No Joint Swelling Skin : No Skin Lesions, No rash Neuro : No Weakness, No Numbness, No Paresthesias, No Loss of Consciousness, No Dizziness, No Headache, complaining of shock-like sensations on the right side of the face Psych : No Anxiety/Panic, No Depression, No SI/HI/AH/VH, No Social Issues, Heme/Lymph: No Bruising, No Bleeding,No Lymphadenopathy Endocrine : No Polyuria, No Polydipsia, No Temperature Intolerance [facility] Past Medical History Medical History (Updated 11/12/23 @ 22:23 by Marisabel Burks MD) Trigeminal neuralgia of right side of face ETOH abuse Anxiety Asthma Depression Bradycardia PTSD (post-traumatic stress disorder) Surgical History No history of previous surgery Family History Family History Mother Heart attack Father Suicide Mental health disorder Maternal Grandmother Emphysema lung Social History Social History Household Members: Children Housing: Condominium Alcohol intake: never Patient Tobacco Use Status: Current everyday Tobacco user Tobacco use type: Cigarette Cigarettes Per Day: 3 Years Smoked: 10 e-Cigarette/Vaping Use: Never Used Second Hand Smoke Exposure: Yes Substance Use Type: Marijuana Trauma History: HX DV service: No Current occupational status: disabled Sexual orientation: Straight/Heterosexual Gender identity: Female Cognitive needs: No Hearing needs: No Vision needs: No Physical Exam 2 Vital Signs: Vital Signs: Last Vital Signs Temp 98.7 F 11/12/23 21:32 Pulse 110 H 11/12/23 21:32 Resp 17 11/12/23 21:32 BP 95/64 11/12/23 21:32 Pulse Ox 94 11/12/23 21:32 O2 Del Method Room Air 11/12/23 21:32 BMI result Body Mass Index 30.0 Const: Other: Appearance: Alert. Oriented X3. Crying Eyes: Pupils equal, round and reactive to light. ENT: Pharynx normal. Neck: Normal inspection. Neck supple. No lymph nodes noted. No crepitus CVS: Normal heart rate and rhythm. Pulses normal. Normal S1 and S2 Respiratory: No respiratory distress. Breath sounds normal. No Wheezing. No rales Abdomen: Soft and nontender. No rigidity. No distention. Skin: Skin warm and dry. Normal skin color. Normal skin turgor. Extremities: No lower extremity edema. No Lacerations. No Rash Neuro: Oriented X 3. No motor deficit. No sensory deficit. Moving all extremities. No slurred speech. CN 2 through 12 grossly intact patient jolting her face and neck Psych: calm, cooperative, crying Medications Administered Discontinued Medications Generic Name Dose Route Start Last Admin Trade Name Freq PRN Reason Stop Dose Admin Oxcarbazepine 450 mg 11/12/23 21:41 11/12/23 21:58 Oxcarbazepine 150 Mg Tablet PO 11/12/23 21:42 450 mg ONCE ONE Administration Oxycodone HCl 5 mg 11/12/23 21:41 11/12/23 21:58 Oxycodone Hcl Immed Release 5 Mg Tablet PO 11/12/23 21:42 5 mg ONCE ONE Administration Medical Decision Making Medical Decision Making MDM Narrative: -my interpretation of labs: Chemistry and hematology at baseline. Back within normal limits. -patient likely had a pseudo-seizure. Patient has had 2 seizures in the past. -patient was given p.o. ox carbamazepine 450 mg and 1 tablet of oxycodone. Patient's pain significantly improved, nearly resolved. -patient instructed to follow-up with neurology. Differential Diagnosis Differential Diagnoses: The differential diagnosis associated with the presentation includes (Trigeminal neuralgia, local seizures, pseudoseizures) Lab Data 11/12/23 21:46 11/12/23 21:46 Labs: Lab Results 11/12/23 Range/Units 21:46 WBC 9.1 (4.8-10.8) X10*3/uL RBC 4.28 (4.20-5.50) X10*6/uL Hgb 14.0 (12.0-16.0) g/dl Hct 40.0 (37.0-47.0) % MCV 93.5 (80.0-98.0) fL MCH 32.7 (27.0-33.0) pg MCHC 35.0 (31.0-35.0) g/dl RDW 12.7 (11.0-16.0) % Plt Count 333 (160-400) X10*3/uL MPV 10.5 (9.4-12.3) fL Immature Gran % (Auto) 0.2 (0.0-0.4) % Neut % (Auto) 37.7 L (45-73) % Lymph % (Auto) 51.2 H (20-40) % Coke % (Auto) 6.8 (2-11) % Eos % (Auto) 3.4 (0-4) % Baso % (Auto) 0.7 (0-2) % Lymph # (Auto) 4.7 (1.2-4.9) X10*3/uL Coke # (Auto) 0.6 (0.1-1.2) X10*3/uL Eos # (Auto) 0.3 (0.0-0.4) X10*3/uL Baso # (Auto) 0.1 (0.0-0.2) X10*3/uL Abs Immat Gran (auto) 0.02 (0.00-0.03) X10*3/uL Absolute Neuts (auto) 3.5 (2.0-8.3) x10*3/uL Absolute Nucleated RBC 0.000 (0.0-0.012) X10*3/uL Nucleated RBC % (auto) 0.0 (0.0-0.2) /100WBC Sodium 141 (135-145) mmol/L Potassium 4.2 (3.3-5.1) mmol/L Chloride 107 (96-108) mmol/L Carbon Dioxide 25 (22-29) mmol/L Anion Gap 13 (12-20) BUN 14 (9-16) mg/dL Creatinine 0.83 (0.5-1.4) mg/dL Estim Creat Clear Calc 100.0 Estimated GFR > 60 Random Glucose 91 (60-115) mg/dL Lactic Acid 0.6 (0.5-2.0) mmol/L Calcium 10.3 H D (8.4-10.2) mg/dL Total Bilirubin 0.2 (0.0-1.0) mg/dL Direct Bilirubin < 0.2 (0.0-0.5) mg/dL AST 16 (5-31) U/L ALT 14 (0-31) U/L Alkaline Phosphatase 53 (39-117) U/L Total Protein 6.7 (6.5-8.0) g/dL Albumin 4.2 (3.5-5.0) g/dL Ethyl Alcohol < 10 mg/dL Discharge Plan Discharge Clinical Impression: Trigeminal neuralgia Patient Disposition: Home, Self-Care Instructions: Trigeminal Neuralgia (ED) Additional Instructions: Please follow-up with your primary care physician tomorrow. If you have any worsening or new symptoms, please return to the emergency room or call 911 Prescriptions: New oxcarbazepine [Trileptal] 150 mg tablet 450 mg PO DAILY 30 Days Qty: 90 0RF No Action acetaminophen [Tylenol Extra Strength] 500 mg tablet 1,000 mg PO QID PRN (Reason: fever or pain) Qty: 14 0RF tramadol 50 mg tablet 50 mg PO Q8H PRN (Reason: pain) 30 Days Qty: 90 0RF albuterol sulfate [ProAir HFA] 90 mcg/actuation Hfa Aerosol Inhaler 2 puff INHALATION Q4H PRN (Reason: Respiratory Distress) diazepam [Valium] 5 mg tablet 5 mg PO TID PRN (Reason: muscle spasm) Qty: 6 0RF Rx Instructions: partial fill is okay oxcarbazepine [Trileptal] 300 mg tablet 450 mg PO BID Qty: 20 0RF gabapentin 600 mg tablet 600 mg PO TID oxcarbazepine [Trileptal] 300 mg tablet 450 mg PO BID 30 Days Qty: 90 1RF Rx Instructions: Trigeminal neuralgia clonazepam 1 mg tablet 1 mg PO BID PRN (Reason: Anxiety) quetiapine 50 mg tablet 100 mg PO BEDTIME quetiapine 50 mg tablet extended release 24 hr 50 mg PO BEDTIME magnesium oxide 400 mg (241.3 mg magnesium) tablet 400 mg PO DAILY Referrals: Emily Ibrahim MD [Physician] - 11/13/23 Print Language: Pashto
--- OUTSIDE RECORDS SUMMARY | 2023-11-12 22:19 | XMS_ITS | Continuity of Care Document ---
Author Organization [facility] ter Address [address] [place] [id number]- Care Team Providers Care Risk Prevention Engineer Name Role Phone Fermin Llamas MD, Daily Mancilla Primary Care Physician [place] [facility] [place](s): 10/21/23 - 10/21/[address] [address]- Encounter Diagnosis Trigeminal neuralgia(Final) - 10/21/23 Discharge Disposition: A-D/C Home Attending Physician: Anshul Mott MD Admitting Physician: Anshul Mott MD Referring Physician: Not on Staff, Referring MD Allergies, Adverse Reactions, Alerts Substance Reaction Severity Status carbamazepine 1, 2 anticonvulsant hypersensitivity syn drome Active phenytoin 3 anticonvulsant hypersensitivity syndrome Active 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 OXcarbazepine Severe Active phenobarbital 4 mookie marcello syndr ome anticonvulsant hypersensitivity syndrome Severe Active Lamictal 5 mookie marcello syndr ome 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 primidone 6 anticonvulsant hypersensitivity syndrome Active Patient reports taking carbamazepine at home and tolerating 2had anticonvulsant hypersensitivity syndrome to lamictal, at risk for similar rxn to carbamazepine 3Had anticonvulsant hypersensitivity syndrome to lamictal risk of similar rxn to phenytoin 4had anticonvulsant hypersensitivity syndrome to lamictal, at risk for similar rxn to phenobarbital 5steven marcello syndrome 6had anticonvulsant hypersensitivity syndrome to lamictal, at risk [...] mg oral tablet 650 mg, By Mouth, 3 times a day, PRN, not to exceed 2000 mg/day, # 60 tablet, Refills 0, Tot. Refills 0, Maintenance, Pain , Mild, 06/23/21 4:19:00 EST, [id number] Partial fill upon patient request if the pre... Start Date: 06/23/21 Status: Ordered acetaminophen-HYDROcodone 325 mg-5 mg oral tablet 1 tablet, By Mouth, Every 6 hours, PRN for pain, # 12 tablet, 0 Refills, Maintenance, 10/18/23 15:03:00 EDT, Tablet, [id number], Partial fill upon patient request if the prescription is for aschedule II opioid drug., 1 tablet By Mouth Every 6... Start Date: 10/18/23 Status: Ordered baclofen 10 mg oral tablet 10 mg, By Mouth, 3 times a day, PRN, # 15 tablet, Refills 0, Tot. Refills 0, Maintenance, Spasm, 10/16/23 15:17:00 EDT, Route to Pharmacy Electronically, [facility], Partial fill upon patient request if the prescription is for a schedule... Start Date: 10/16/23 Stop Date: 10/21/23 Status: Ordered Caplyta 42 mg oral capsule 1 capsule = 42 mg, By Mouth, Daily at bedtime, 0 Refills, Maintenance, 10/05/23 11:07:00 EDT, Partial fill upon patient request if the prescription is for a schedule II opioid drug. Start Date: 10/05/23 Status: Ordered clonazePAM 1 mg oral tablet 1 tablet = 1 mg, By Mouth, 2 times a day, PRN Anxiety, 0 Refills, Maintenance, 04/08/22 18:27:00 EDT, Tablet, Partial fill upon patient request if the prescription is for a schedule II opioid drug. Start Date: 04/08/22 Status: Ordered gabapentin 400 mg oral capsule 800 mg, Capsule, By Mouth, 10/21/23 15:00:00 EDT Start Date: 10/21/23 Stop Date: 10/21/23 Status: Completed gabapentin 600 mg oral tablet 1 tablet [...] opioid drug. Start Date: 04/08/22 Status: Ordered multivitamin Multiple Vitamins oral tablet 1 tablet, By Mouth, Every other day, 0 Refills, Maintenance, 10/05/23 11:08:00 EDT, Partial fill upon patient request if the prescription is for a schedule II opioid drug. Start Date: 10/05/23 Status: Ordered polyethylene glycol 3350 oral powder for reconstitution = 17 Gm, By Mouth, Daily, PRN Constipation, for 7 days, dissolve in 4 to 8 oz of beverage, # 238 Gm, 0 Refills, Acute 10/23/23 15:16:00 EDT, 10/16/23 15:16:00 EDT, REC Powder, [facility], Partial fill upon patient request if the prescrip... Start Date: 10/16/23 Stop Date: 10/23/23 Status: Ordered QUEtiapine 200 mg oral tablet 200 mg, By Mouth, Daily at bedtime, Refills 0, Maintenance, 10/16/23 15:08:00 EDT, Partial fill upon patient request if the prescription is for a schedule II opioid drug. Start Date: 10/16/23 Status: Ordered traMADol 50 mg oral tablet 1 tablet = 50 mg, By Mouth, Every 6 hours, PRN for pain, # 30 tablet, 0 Refills, Maintenance, 10/21/23 14:33:00 EDT, Tablet, [id number], Partial fill upon patient request if the prescription is for a schedule II opioid drug., 163, cm, 10/16/23... Start Date: 10/21/23 Status: Ordered traZODone 50 mg oral tablet 1-2 tablets, By Mouth, Daily at bedtime, Refills 0, Maintenance, 10/05/23 11:06:00 EDT, Partial fill upon patient request if the prescription is for a schedule II opioid drug. Start Date: 10/05/23 Status: Ordered Problem List Condition Confirmation Course [...] stopped in October with and move to [place] (was previously living in [place]) 2Managed by PCP 3Patient states received treatment in 2019 4quit with 5with previous partner, does not have contact with him, has protective order and currenlty feels safe 6Cutting down with 7Treated at [facility] Vital Signs Most recent to oldest [Reference Range]: 1 2 3 Oxygen Saturation [94-100 %] 99 % (10/21/23 12:15 PM) 97 % (10/21/23 11:08 AM) 95 % (10/21/23 9:43 AM) Pulse Rate [55-90 bpm] 43 bpm *L* (10/21/23 12:15 PM) 40 bpm *L* (10/21/23 11:08 AM) 99 bpm *H* (10/21/23 9:43 AM) Blood Pressure [90-138/55-84 mm Hg] 123/68mm Hg (10/21/23 12:15 PM) 107/79mm Hg (10/21/23 11:08 AM) 133/93mm Hg (10/21/23 9:43 AM) Respiratory Rate [16-30 br/min] 18 br/min (10/21/23 2:53 PM) 17 br/min (10/21/23 12:15 PM) 18 br/min (10/21/23 11:08 AM) Temperature [96.8-100.4 DegF] 98.2 DegF (10/21/23 9:43 AM) Mode of Delivery (Oxygen) Room air (10/21/23 12:15 PM) Room air (10/21/23 11:08 AM) Room air (10/21/23 9:43 AM) Blood pressure sites Arm, left (10/21/23 12:15 PM) Arm, left (10/21/23 11:08 AM) Arm, left (10/21/23 9:43 AM) Temperature Route Axillary (10/21/23 9:43 AM) Social History Social History Type Response Tobacco Use: 4 or less cigar ettes(less than 1/4 pack)/day in last 30 days. Other: Cutting down with , currently down to one cigarette a day, wants to quit. States gets rashes with patch. Sex Note * Stewart Wetzel MD: PERFORM Event Display: Patient Education Leaflets Authored Date: [id number] Trigeminal Neuralgia ?? [id number] Trigeminal Neuralgia You have trigeminal neuralgia. This is pain caused by irritation of the trigeminal nerve on your face. Symptoms include sudden, sharp pain in your head or face. It may feel like an electric shock. Itcan last for several seconds or minutes. It often happens on only 1 side of your face. Pain may be triggered by things such as moving your jaw when brushing your teeth or eating. Or by a touch on theskin of your face. The pain may be caused by something irritating the trigeminal nerve, such as a blood vessel pressing against it. But the exact cause of this problem often isn???t known. It can be very painful. But the condition isn???t dangerous. Trigeminal neuralgia is often treated with medicines. These include antiseizure medicines or antidepressants. Certain other treatments may also help. In some cases, you may need surgery. For some people, radiation therapy is needed with a precise tool called gamma knife. This does not make any cuts(incisions). Some people have underlying health problems causing trigeminal neuralgia, such as multiple sclerosis. You may need an imaging test, such as a CT scan or an MRI of the brain and skull. You will be advised if other health problems need treatment. Home care Your healthcare provider may prescribe medicines to help ease and prevent pain. Take all medicines as directed. Please note that it may take several changes in dose and medicines before the right combination is found that controls the pain. General care: ??? Plan to rest at home today. ??? Don't do any specific activities that seem to trigger the pain. ??? Over the next few weeks, keep a pain diary. Write down when your symptoms happen and how they feel. Certain activities, such as touching your face, chewing, talking, or brushing your teeth, may bring on the pain. Cold air can also trigger the pain. Make sure you write down any triggers and discuss these with your provider. This will help guide treatment. ?? Follow-up care Follow up with your healthcare provider, or as advised. If you were referred to a specialist, be sure to make an appointment. ?? When to get medical advice Call your healthcare provider right away??if any of these occur: ??? Fever of 100.4??F (38??C) or higher, or as advised by your provider ??? Headache with very stiff neck ??? You aren???t able to keep liquids down (repeated vomiting) ??? Extreme drowsiness or confusion ??? Dizziness or fainting ???A new feeling of weakness or numbness or tingling in your arm, leg, or face ??? Trouble speaking orseeing ?? Last Reviewed Date: 2021 ?? [id number] The [employer]. All rights reserved. This information is not intended as a substitute for professional medical care. Always follow your healthcare professional's instructions. ?? Patient Care team information Care Team Personnel Name: Elie Parker RN Position: [facility] RN Member Role: Primary Care Nurse Name: Florence Galvez Position: S RN Member Role: Primary Care Nurse Name: Georgette Calvillo RN Position: S RN Member Role: Primary Care Nurse Name: Hitesh Burt RN Position: [facility] RN Member Role: Primary Care Nurse Name: Bruna Hoyos RN Position: [facility] RN Member Role: Primary Care Nurse Name: Natasha Mireles LPN Position: [facility] RN Member Role: Primary Care Nurse Name: Georgette Lyons RN Position: [facility] RN Member Role: Primary Care Nurse Name: Vinicio Shin Position: [facility] RN Member Role: Primary Care Nurse Name: Carolina Gonzalez RN Position: [facility] RN Member Role: Primary Care Nurse Name: Florence Park LPN Position: [facility] RN Member Role: Primary Care Nurse Name: Mauricio Leigh RN Position: [facility] RN Member Role: Primary Care Nurse Name: Talisha Mane RN Position: [facility] RN Member Role: Primary Care Nurse Name: Fermin Llamas MD , Daily Mancilla Position: Reference Physician Member Role: PCP Address: Address: [address] [place] [address] [address] [place], [place] - Name: Cecily Dunlap RN Position: [facility] RN Member Role: Primary Care Nurse Name: Evita Ernandez LPN Position: [facility] RN Member Role: Primary Care Nurse Name: Amelie Traore RN Position: [facility] RN Member Role: Primary Care Nurse Name: Deyanira Caballero RN Position: [facility] RN Member Role: Primary Care Nurse Care Team Related Persons Name: CINDYDAVI CONTEKELVIN Address: [employer] Address: home [address] [place] [address] [place] Name: ANTONIO CHAMPION Address: home [address], [place] Name: ALBA CHAMPION Address: home [address] [place], [place] Name: ANTONIO VARGAS Address: home [address] [place] [address] Name: WARREN VARGAS Address: home [address] Name: CRISSY FOX Address: home [address] [place] [address]
--- OUTSIDE RECORDS SUMMARY | 2023-11-12 22:19 | XMS_ITS | Continuity of Care Document ---
Author Organization [facility] Address [address] [place] [address]- Care Team Providers Care Riding Silks Custodian Name Role Phone Po Quentin MCFARLAND Primary Care Physician [phone] Encounter [facility] [place] R [id number] Date(s): 10/08/23 - 11/07/23 [facility] [address] [place] [address]- Attending Physician: Bernardo Eason Admitting Physician: Bernardo Eason Referring Physician: Bernardo Eason Allergies, Adverse Reactions, Alerts Substance Reaction Severity Status carbamazepine 1, 2 anticonvulsant hypersensitivity syn drome Active phenytoin 3 anticonvulsant hypersensitivity syndrome Active phenobarbital 4 mookie marcello syndr ome 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 Lamictal 6 mookie marcello syndr ome 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 Patient reports taking carbamazepine at home and tolerating 2had anticonvulsant hypersensitivity syndrome to lamictal, at risk for similar rxn to carbamazepine 3Had anticonvulsant hypersensitivity syndrome to lamictal risk of similar rxn to phenytoin 4had anticonvulsant hypersensitivity syndrome to lamictal, at risk for similar rxn to phenobarbital 5had anticonvulsant hypersensitivity syndrome to lamictal, at risk for similar rxn to primidone 6steven marcello syndrome Immunizations Given and Recorded Vaccine [...] 06/23/21 4:19:00 EST, Route to Pharmacy Electronically, [facility]/pharmacy#[id number], Partial fill upon patient request if the pre... Start Date: 06/23/21 Status: Ordered acetaminophen-HYDROcodone 325 mg-5 mg oral tablet 1 tablet, By Mouth, Every 6 hours, PRN for pain, # 12 tablet, 0 Refills, Maintenance, 10/18/23 15:03:00 EDT, Tablet, [facility]/pharmacy #[id number], Partial fill upon patient request if the prescription is for aschedule II opioid drug., 1 tablet By Mouth Every 6... Start Date: 10/18/23 Status: Ordered baclofen 10 mg oral tablet 10 mg, By Mouth, 3 times a day, PRN, # 15 tablet, Refills 0, Tot. Refills 0, Maintenance, Spasm, 10/16/23 15:17:00 EDT, Route to Pharmacy Electronically, [facility], Partial fill upon patient request if [...] drug. Start Date: 04/08/22 Status: Ordered gabapentin 600 mg oral tablet [...] opioid drug. Start Date: 10/05/23 Status: Ordered QUEtiapine 200 mg oral tablet [...] 0 Refills, Maintenance, 10/21/23 14:33:00 EDT, Tablet, [facility]/pharmacy #[id number], Partial fill upon patient request [...] stopped in October with and move to [place] (was previously living in [place]) 2Managed by PCP 3Patient states received treatment in 2019 4quit with 5with previous partner, does not have contact with him, has protective order and currenlty feels safe 6Cutting down with 7Treated at [facility] Social History Social History Type Response Tobacco Use: 4 or less cigar ettes(less than 1/4 pack)/day in last 30 days. Other: Cutting down with , currently down to one cigarette a day, wants to quit. States gets rashes with patch. Sex Patient Care team information Care Team Personnel Name: Elie Parker RN Position: S RN Member Role: Primary Care Nurse Name: Florence Galvez Position: S RN Member Role: Primary Care Nurse Name: Georgette Calvillo RN Position: S RN Member Role: Primary Care Nurse Name: Hitesh Burt RN Position: S RN Member Role: Primary Care Nurse Name: Bruna Hoyos RN Position: S RN Member Role: Primary Care Nurse Name: Natasha Mireles LPN Position: S RN Member Role: Primary Care Nurse Name: Georgette Lyons RN Position: S RN Member Role: Primary Care Nurse Name: Vinicio Shin Position: S RN Member Role: Primary Care Nurse Name: Carolina Gonzalez RN Position: S RN Member Role: Primary Care Nurse Name: Florence Park LPN Position: S RN Member Role: Primary Care Nurse Name: Mauricio Leigh RN Position: S RN Member Role: Primary Care Nurse Name: Talisha Mane RN Position: S RN Member Role: Primary Care Nurse Name: Quentin Magana MD Position: Reference Physician Member Role: PCP Address: Address: [address] [place] [address]- Name: Cecily Dunlap RN Position: S RN Member Role: Primary Care Nurse Name: Evita Ernandez LPN Position: S RN Member Role: Primary Care Nurse Name: Amelie Traore RN Position: S RN Member Role: Primary Care Nurse Name: Deyanira Caballero RN Position: S RN Member Role: Primary Care Nurse Care Team Related Persons Name: SKY MCKEON Address: AMER[employer] Address: home [address] [place] [address] [place] Name: ANTONIO CHAMPION Address: home [address] [place] [address] Name: ALBA CHAMPION Address: home [address] [place] [address] Name: ANTONIO VARGAS Address: home [address] [place] [address] Name: WARREN VARGAS Address: home [address] Name: CRISSY FOX Address: home [address] [place] [address]
--- OUTSIDE RECORDS SUMMARY | 2023-11-12 22:20 | XMS_ITS | Continuity of Care Document ---
Author Organization [facility] Address [address] [place] [address]- Care Team Providers Care Claims Collector Name Role Phone Po Quentin MCFARLAND Primary Care Physician [phone] Encounter [facility] Date(s): 10/09/23 - 11/08/23 [facility] [address] [place] [address]- Allergies, Adverse Reactions, Alerts Substance Reaction Severity [...] 06/23/21 4:19:00 EST, [id number] Partial fill upon patient request if the pre... Start Date: 06/23/21 Status: Ordered acetaminophen-HYDROcodone 325 mg-5 mg oral tablet 1 tablet, By Mouth, Every 6 hours, PRN for pain, # 12 tablet, 0 Refills, Maintenance, 10/18/23 15:03:00 EDT, Tablet, [facility]/pharmacy #[id number], [...] Route to Pharmacy Electronically, [facility], Partial fill upon patient request if [...] 0 Refills, Maintenance, 10/21/23 14:33:00 EDT, Tablet, [facility]/pharmacy #[id number], [...] List Condition Confirmation Course Effective Dates Status [facility] atus Informant Abnormal genetic test in [...] stopped in October with and move to [place] (was previously living in [place]) 2Managed by PCP 3Patient states received treatment in 2018 4quit with 5with previous partner, does not have contact with him, has protective order and currenlty feels safe 6Cutting down with 7Treated at [facility] Social History Social History Type Response Tobacco Use: 4 or less cigar ettes(less than 1/4 pack)/day in last 30 days. Other: Cutting down with , currently down to one cigarette a day, wants to quit. States gets rashes with patch. Sex Patient Care team information Care Team Personnel Name: Elie Parker RN Position: [facility] RN Member Role: Primary Care Nurse Name: [...] Reference Physician Member Role: PCP Address: Address: [address] [place] [address]- Name: Cecily Dunlap RN Position: S RN Member Role: Primary Care Nurse Name: Evita Ernandez LPN Position: S RN Member Role: Primary Care Nurse Name: Amelie Traore RN Position: S RN Member Role: Primary Care Nurse Name: Deyanira Caballero RN Position: S RN Member Role: Primary Care Nurse Care Team Related Persons Name: SKY MCKEON Address: [employer] Address: home [address] [place] [address] Name: ANTONIO CHAMPION Address: home [address] [place] [address] Name: ALBA CHAMPION Address: home [address] [place] [address] Name: ANTONIO VARGAS Address: home [address] [place] [address] Name: WARREN VARGAS Address: home [address] Name: CRISSY FOX Address: home [address] [place] [address]
--- OUTSIDE RECORDS SUMMARY | 2023-11-12 22:20 | XMS_ITS | Continuity of Care Document ---
Author Organization [facility] Address [address] [place], [place] [address]willy michelle, [address] [place] [address]- Care Team Providers Care Microbiology Coordinator Name Role Phone Po Quentin MCFARLAND Primary Care Physician [place] [facility] [place] 10/07[place]23 - 11/09/23 [facility] [address] [place] [address] Drive [address] [place] [address]- Attending Physician: Samuel Medina MD Referring Physician: Fermin Llamas MD , Daily Mancilla Allergies, Adverse Reactions, Alerts Substance Reaction Severity Status carbamazepine 1, 2 anticonvulsant hypersensitivity syn drome Active phenytoin 3 anticonvulsant hypersensitivity syndrome Active phenobarbital 4 mookie marcello syndr ome anticonvulsant hypersensitivity syndrome Severe Active Lamictal 5 mookie marcello syndr ome 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 Start Date: 06/23/21 Status: Ordered acetaminophen-HYDROcodone 325 mg-5 mg oral tablet 1 tablet, By Mouth, Every 6 hours, PRN for pain, # 12 tablet, 0 Refills, Maintenance, 10/18/23 15:03:00 EDT, Tablet, [facility] #[id number], Partial fill upon patient request if the prescription is for aschedule II opioid drug., 1 tablet By Mouth Every 6... Start Date: 10/18/23 Status: Ordered baclofen 10 mg oral tablet 10 mg, By Mouth, 3 times a day, PRN, # 15 tablet, Refills 0, Tot. Refills 0, Maintenance, Spasm, 10/16/23 15:17:00 EDT, Route to Pharmacy Electronically, [facility], Partial fill upon patient request [...] 0 Refills, Maintenance, 10/21/23 14:33:00 EDT, Tablet, [facility] #[id number], Partial fill upon patient [...] stopped in October with and move to [place] (was previously living [place]) 2Managed by PCP 3Patient states received treatment [...] Reference Physician Member Role: PCP Address: Address: [address] [place] [address] Name: Cecily Dunlap RN Position: S RN Member Role: Primary Care Nurse Name: Evita Ernandez LPN Position: S RN Member Role: Primary Care Nurse Name: Eugenie MARQUEZ, Amelie Lord Position: S RN Member Role: Primary Care Nurse Name: Deyanira Caballero RN Position: S RN Member Role: Primary Care Nurse Care Team Related Persons Name: SKY MCKEON Address: [employer] Address: home [address] [place] [address] Name: ANTONIO CHAMPION Address: home [address] [place] [address] Name: ALBA CHAMPION Address: home [address] [place] [address] Name: ANTONIO VARGAS Address: home [address] [place] [address] Name: WARREN VARGAS Address: home [address] Name: CRISSY FOX Address: home [address] [place] [address]
--- OUTSIDE RECORDS SUMMARY | 2023-11-12 22:20 | XMS_ITS | Continuity of Care Document ---
Author Organization [facility] Address [address] [place] [address]- Care Team Providers Care Document Control Clerk Name Role Phone Po Quentin MCFARLAND Primary Care Physician [phone] Encounter [facility] ACCT R [id number] Date(s): 10/07/23 - 11/07/23 [facility] [address] [place] [address]- Attending Physician: Montserrat Muhammad MD Admitting Physician: Montserrat Muhammad MD Allergies, Adverse Reactions, Alerts Substance Reaction Severity Status carbamazepine 1, 2 anticonvulsant hypersensitivity syn drome Active phenytoin 3 anticonvulsant hypersensitivity syndrome Active OXcarbazepine Severe Active phenobarbital 4 mookie marcello syndr ome anticonvulsant hypersensitivity syndrome Severe Active Lamictal 5 mookie marcello syndr ome 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 Start Date: 06/23/21 Status: Ordered acetaminophen-HYDROcodone 325 mg-5 mg oral tablet 1 tablet, By Mouth, Every 6 hours, PRN for pain, # 12 tablet, 0 Refills, Maintenance, 10/18/23 15:03:00 EDT, Tablet, [facility]/pharmacy #[id number], Partial fill upon patient request if the prescription is for aschedule II opioid drug., 1 tablet By Mouth Every 6... Start Date: 10/18/23 Status: Ordered baclofen 10 mg oral tablet 10 mg, By Mouth, 3 times a day, PRN, # 15 tablet, Refills 0, Tot. Refills 0, Maintenance, Spasm, 10/16/23 15:17:00 EDT, Route to Pharmacy Electronically, [facility], Partial fill upon patient request if [...] 0 Refills, Maintenance, 10/21/23 14:33:00 EDT, Tablet, [facility]/pharmacy #[id number], Partial fill upon patient request if the prescription is for a schedule II opioid drug., 163, cm, 10/16/23... Start Date: 10/21/23 Status: Ordered traZODone 50 mg oral tablet 1-2 tablets, By Mouth, Daily at bedtime, Refills 0, Maintenance, 10/05/23 11:06:00 EDT, Partial fill upon patient request if the prescription is for a schedule II opioid drug. Start Date: 4/13/24 Status: Ordered Problem List Condition Confirmation Course [...] stopped in October with and move to [place] (was previously living in [place]) 2Managed by PCP 3Patient states received treatment in 2018 4quit with 5with previous partner, does not have contact with him, has protective order and currenlty feels safe 6Cutting down with 7[place] [facility] Vital Signs Most recent to oldest [Reference Range]: 1 Height 162 cm (10/08/23 9:28 AM) Oxygen Saturation [94-100 %] 95 % (10/08/23 9:28 AM) Pulse Rate [55-90 bpm] 48 bpm *L* (10/08/23 9:28 AM) Blood Pressure [90-138/55-84 mm Hg] 118/ 66mm Hg (10/08/23 9:28 AM) Respiratory Rate [16-30 br/min] 14 br/mi n *L* (10/08/23 9:28 AM) Mode of Delivery (Oxygen) Room air (10/08/23 9:28 AM) Blood pressure sites Arm, left (10/08/23 9:28 AM) Social History Social History Type Response Tobacco Use: 4 or less cigar ettes(less than 1/4 pack)/day in last 30 days. Other: Cutting down with , currently down to one cigarette a day, wants to quit. States gets rashes with patch. Sex Note * Cipriano MARQUEZ, Jazmin Escobedo: PERFORM, SIGN, VERIFY Event Display: Patient Education/Instruction Authored Date: [facility] *Pain Management Clinical Summary Name SANTI VARGAS Age 32 Years 1990 PCP Quentin Magana MD PCP Visit Date Additional Instructions: Scheduled Appointments?? Future Appointments ?*[facility] [address] ?[place],??[place],??[address] ?Phone:??[phone]?Fax:??-- ?Appt. Date:??10/10/2023?11:30 AM ?Scheduled Provider:??Adam MCFARLAND, Samuel Lange Follow-Up Instructions ?? With: Address: When: Montserrat Muhammad [address] [place] [address] Business () , only if needed Diagnosis Medications: Please continue your medications until treatment is completed or stopped by your provider. Discuss any questions related to medications with your provider. Medications to Continue with No Changes These medications were not printed or sent to your pharmacy Acetaminophen (acetaminophen 325 mg oral tablet) 650 Milligram Oral every 4 hours as needed Pain , Mild. Take 2 tablets every 4 hours as needed for pain. Refills: 0. Next Dose: Clonazepam (clonazePAM 1 mg oral tablet) 1 tab(s) Oral twice a day. Next Dose: Durable Medical Equipment (Walker) Patient needs walker for discharge. Thank you. Refills: 0. Next Dose: Gabapentin (gabapentin 600 mg oral tablet) 1 tab(s) Oral 3 times a day. Next Dose: lumateperone (Caplyta 42 mg oral capsule) 1 capsule Oral Daily at Bedtime. Next Dose: Melatonin (melatonin 10 mg oral tablet) 1 tab(s) Oral Daily at Bedtime as needed as needed for insomnia. Next Dose: Miscellaneous Rx (outpatient Physical therapy) Patient to go to outpatient physical therapy for bilateral sciatica. Refills: 0. Next Dose: Multivitamin (multivitamin Multiple Vitamins oral tablet) 1 tab(s) Oral every other day. Next Dose: Oxcarbazepine (OXcarbazepine 300 mg oral tablet) 1.5 tab(s) Oral twice a day. Next Dose: Quetiapine (QUEtiapine 100 mg oral tablet) 1 tab(s) Oral Daily at Bedtime. Next Dose: Quetiapine (QUEtiapine 50 mg oral tablet, extended release) 1 tab(s) Oral Daily. Next Dose: Tramadol (traMADol 50 mg oral tablet) 1 tab(s) Oral 3 times a day. Next Dose: Trazodone (traZODone 50 mg oral tablet) 1-2 tablets Oral Daily at Bedtime. Next Dose: Allergy Info:?? OXcarbazepine; Lamictal; lamotrigine; primidone; phenobarbital; phenytoin; carbamazepine Medications Given This Visit Future Orders ?No future orders Future Orders ?No future orders Vital Signs Height 162 cm Weight BMI Blood Pressure 118 mm Hg/66 mm Hg Temperature Pulse Rate 48 bpm Respiratory Rate 14 br/min 02 Sat Mode of Delivery 95 %/Room air You can now view a summary of your hospital visit from the comfort of your home through a free online portal called [email or web address]. [email or web address] is a website that allows you to securely view your medical information including discharge summary, medications and follow-up visits. ??You can alsosend a secure electronic message to your doctor???s office to request appointments, renew medications or just ask a question. You can enroll at [email or web address] or register during your next office visit. Disclaimer:?? The information provided is of a general nature and is intended to be used in conjunction with the recommendations and advice of your health care practitioner. ??Every effort has been made to ensure that the information provided is accurate and complete at the time it is provided to you however, as your needs change, or, as new ??information becomes available, different or additional instructions may be required. If you have questions, please consult with your primary care provider or pharmacist, as appropriate. ??This information is not intended to serve as substitution for assessment and evaluation by a qualified health care provider. If you do not have a primary care provider, you may find a [facility] provider by calling [facility] at [phone]. [facility], in keeping with [facility] guidance, no longer requires face masks for staff, patientsor visitors in most situations. Similar to time spent indoors at other locations, there is the chance that you were exposed to respiratory viruses during your time with us (such as flu or COVID-19).? If you develop symptoms concerning for a viral respiratory infection, please seek testing (and treatment if indicated) from your medical provider or home test kit. For information about the plan of care including goals and instructions for your diagnosis, please see the patient education orders section of this document. Patient Education Materials?? The content of this educational material or handout may have been modified, supplemented, or adapted from its original content and format to support your individualized medical care. POST PROCEDURE INSTRUCTIONS You have received an injection for treatment of your pain. A local anesthetic (numbing medication) and a steroid were injected ??? Today, we advise you to limit your activity and you may resume normal activity the following day as tolerated. ??? It may take 2-3 days up to 2 weeks to see the full effect of the steroid medication. ??? You may have some discomfort at the injection site. Apply ice to the area for 30 minutes every 3 hours as needed. ??? Some possible side effects of the steroid may include facial flushing (red, warm face), sweating and an increase in your blood sugar. If you have diabetes, monitor your blood sugar daily for the next few days. If your blood sugars are over 250, please contact your primary care provider. ??? Do not soak in bathtubs, swimming pools, or Jacuzzis for the next couple of days. You may take a shower. ??? Monitor the injection site area for a possible infection. Signs would include increased swelling, increased redness, fever or chills. WHEN TO SEEK MEDICAL ATTENTION IMMEDIATELY INJECTIONS OF THE BACK AND NECK ??? New weakness of your legs, severe back/neck pain and loss of bladder/bowel control or inabilityto urinate or have a bowel movement. ??? Redness or swelling at the procedure site. ??? Fever greater than 100 degrees. TRIGGER POINT INJECTIONS/INTERCOSTAL NERVE BLOCK ??? New shortness of breath or dry cough. ??? Fever greater than 100 degrees. ??? Redness or swelling at the procedure site. If you have any questions or concerns, please call the [facility]. Patient Care team information Care Team Personnel Name: Elie Parker RN Position: [facility] RN Member Role: Primary Care Nurse Name: Florence Galvez Position: [facility] RN Member Role: Primary Care Nurse Name: Georgette Calvillo RN Position: S RN Member Role: Primary Care Nurse Name: Hitesh Burt RN Position: S RN Member Role: Primary Care Nurse Name: Bruna Hoyos RN Position: [facility] RN Member Role: Primary Care Nurse Name: Natasha Mireles LPN Position: [facility] RN Member Role: Primary Care Nurse Name: [...] Reference Physician Member Role: PCP Address: Address: [address] [place] [id number] Name: Cecily Dunlap RN Position: S RN Member Role: Primary Care Nurse Name: Evita Ernandez LPN Position: S RN Member Role: Primary Care Nurse Name: Amelie Traore RN Position: S RN Member Role: Primary Care Nurse Name: Deyanira Caballero RN Position: S RN Member Role: Primary Care Nurse Care Team Related Persons Name: SKY MCKEON Address: [employer] Address: home [address] [place] [address] [place] Name: ANTONIO CHAMPION Address: home [address] [place] [address] Name: ALBA CHAMPION Address: home [address] [place] [address] Name: ANTONIO VARGAS Address: home [address] [place] [address] Name: WARREN VARGAS Address: home [address] Name: CRISSY FOX Address: home [address] [place] [address]
--- OUTSIDE RECORDS SUMMARY | 2023-11-12 22:20 | XMS_ITS | Continuity of Care Document ---
Author Organization [facility] Address [address] [place] [id number]- Care Team Providers Care Field Care Advocate Name Role Phone Po Quentin MCFARLAND Primary Care Physician [phone] Encounter [facility] Date(s): 08/19/23 - 09/18/[address] [address]- Attending Physician: Bernardo Eason Admitting Physician: Bernardo [...] 06/23/21 4:19:00 EST, Route to Pharmacy Electronically, [facility]/pharmacy #[id number], Partial fill upon omer... Start Date: 06/23/21 Status: Ordered Apri 0.15 mg-0.03 mg oral tablet 1 tablet, By Mouth, Daily, # 28 tablet, 3 Refills, Maintenance, 01/22/22 12:59:00 EDT, Tablet, [facility]/pharmacy #[id number], Partial fill upon patient [...] 1 Refills, Soft Stop, 08/02/21 12:51:00 EST, [facility]/pharmacy #[id number], Partial fill upon patient request if the prescription is for a schedule II opioid drug., 162, cm, 08/02/21 12:39:00 EST, Height, 86.1, kg,... Start Date: 08/02/21 Status: Ordered Donna 30 mg oral tablet 1 tablet = 30 mg, By Mouth, Once, # 1 tablet, 11 Refills, Soft Stop, 06/01/22 14:34:00 EST, [facility]/pharmacy #[id number], Partial fill upon patient [...] kit, 0 Refills, Maintenance, 06/24/21 14:08:00 EST, [facility]/pharmacy #[id number], pt has been on Amitriptyline, topamax, Propranolol... Start Date: 06/24/21 Status: Ordered famotidine 20 mg oral tablet 20 mg, 1, tablet, By Mouth, 2 times a day, # 28 tablet, Refills 1, Tot. Refills 1, Maintenance, 08/02/21 12:49:00 EST, Route to Pharmacy Electronically, [facility]/pharmacy #[id number], Partial fill upon patient [...] Refills 0, Maintenance, NEEDED FOR MODERATE PAIN, 08/11/23 20:31:00 EST, Route to Pharmacy Electronically, [id number], 162, cm, 06/03/23 14:01:00 EST, Height, 84, kg, 04/09/22 0:16:00 EDT,... Start Date: 08/11/23 Status: Ordered lidocaine 4% patch 1 patch, [...] 3 Refills, Maintenance, 05/23/22 11:17:00 EST, Tablet, [facility]/pharmacy #[id number], Partial fill upon patient [...] move to [place] (was previously living in [place]) 2Managed by PCP 3Patient states received treatment in 2019 4quit with 5with previous partner, does not have contact with him, has protective order and currenlty feels safe 6Cutting down with 7Treated at [facility] Social History Social History Type Response Tobacco Use: 4 or less cigar ettes(less than 1/4 pack)/day in last 30 days. Other: Cutting down with , currently down to one cigarette a day, wants to quit. States gets rashes with patch. Sex Patient Care team information Care Team Personnel Name: Bruna Hoyos RN Position: LATISHA RN Member Role: Primary Care Nurse Name: Quentin Magana MD Position: Reference Physician Member Role: PCP Address: Address: [address] [place] [address]- Care Team Related Persons Name: SKY MCKEON Address: [employer] Address: home [address] [place] [address] Name: ANTONIO CHAMPION Address: home [address] [place] [address] Name: ALBA CHAMPION Address: home [address] [place] [address] Name: ANTONIO VARGAS Address: home [address] [place] [address] Name: WARREN VARGAS Address: home [address] Name: CRISSY FOX Address: home [address] [place] [address]
--- OUTSIDE RECORDS SUMMARY | 2023-11-12 22:21 | XMS_ITS | Continuity of Care Document ---
Author Organization [facility] ter Address [address] [place] [id number] Care Team Providers Care Location Director Name Role Phone Fermin Llamas MD, Zabrina Primary Care Physician [phone] 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 Start Date: 06/23/21 Status: Ordered baclofen 10 mg oral tablet 10 mg, By Mouth, 3 times a day, PRN, # 15 tablet, Refills 0, Tot. Refills 0, Maintenance, Spasm, 10/16/23 15:17:00 EDT, Route to Pharmacy Electronically, [facility], Partial fill upon patient request [...] drug. Start Date: 04/08/22 Status: Ordered gabapentin 300 mg oral capsule 600 mg, Capsule, By Mouth, 10/16/23 13:00:00 EDT Start Date: 10/16/23 Stop Date: 10/16/23 Status: Completed gabapentin 600 mg oral tablet [...] opioid drug. Start Date: 10/05/23 Status: Ordered oxyCODONE 10 mg oral tablet 1 tablet = 10 mg, By Mouth, Every 4 hours, PRN Pain , Severe, for 2 days, # 12 tablet, 0 Refills, Acute 10/18/23 15:16:00 EDT, 10/16/23 15:16:00 EDT, Tablet, [facility], Partial fill upon patient request if the prescription is for a sche... Start Date: 10/16/23 Stop Date: 10/18/23 Status: Ordered polyethylene glycol 3350 oral powder for reconstitution = 17 Gm, By Mouth, Daily, PRN Constipation, for 7 days, dissolve in 4 to 8 oz of beverage, # 238 Gm, 0 Refills, Acute 10/23/23 15:16:00 EDT, 10/16/23 15:16:00 EDT, REC Powder, [facility], Partial fill upon patient request if the prescrip... Start Date: 10/16/23 Stop Date: 10/23/23 Status: Ordered QUEtiapine 200 mg oral tablet 200 mg, By Mouth, Daily at bedtime, Refills 0, Maintenance, 10/16/23 15:08:00 EDT, Partial fill upon patient request if the prescription is for a schedule II opioid drug. Start Date: 10/16/23 Status: Ordered traMADol 50 mg oral tablet = 50 mg, By Mouth, Every 6 hours, PRN Other, for 5 days, Pain moderate / severe not to exceed 400 mg/day, # 20 tablet, 0 Refills, Acute 10/21/23 16:00:00 EDT, 10/16/23 16:00:00 EDT, Tablet, [facility], Partial fill upon patient request... Start Date: 10/16/23 Stop Date: 10/21/23 Status: Ordered traZODone 50 mg [...] move to [place] (was previously living in [place]) 2Managed by PCP 3Patient states received treatment in 2018 4quit with 5with previous partner, does not have contact with him, has protective order and currenlty feels safe 6Cutting down with 7Treated at [facility] [place] Results Radiology Reports * Exam Date Time Procedure Performing Provider Status 10/15/23 1:55 AM MRI Abdomen W/O Contrast Edith Webb; Auth (Verified) Notes: (MRI Abdomen W/O Contrast) Reason For Exam: elevated LFTs;Other: RESULT: MRI Abdomen W/O Contrast MRI Abdomen W/O Contrast CLINICAL INDICATION: elevated LFTs; Clinical Question(s): biliary-pancreatic obst ? TECHNIQUE: Multiplanar, multisequence noncontrast MRI evaluation of the abdomen was performed without intravenous contrast. 3-D rotating maximum intensity projection MRCP images of the biliary tree were generated on the same workstation with concurrent physician supervision. COMPARISON: US 10/10/2023 FINDINGS: Image quality is somewhat degraded by patient motion artifact. T2-weighted images are limited centrally due to dielectric effect artifact. LOWER THORAX: No pleural or pericardial effusion. LIVER: Normal contour and size. No suspicious lesion, within limits of noncontrast technique. Normal parenchymal signal. GALLBLADDER: Normal. No gallstones or wall thickening. BILE DUCTS: There is mild prominence of the intrahepatic bile ducts with mild 0.9 cm asymmetric dilatation of the left hepatic duct relative to the right (series 5 image 29, series 4 image 40). No obstructing lesion identified, within limits of noncontrast technique. Extrahepatic bile duct is normal in diameter with no choledocholithiasis. SPLEEN: No splenomegaly. PANCREAS: Normal. No pancreatic ductal dilatation. ADRENAL GLANDS: No nodules. KIDNEYS: No hydronephrosis. No suspicious lesion, within limits of noncontrast technique. STOMACH/UPPER GI TRACT: Stomach and visualized abdominal small bowel normal in caliber. Moderate stool retention throughout the visualized colon. PERITONEUM AND RETROPERITONEUM: No loculated fluid collection or peritoneal mass. LYMPH NODES: No lymphadenopathy. VESSELS: Abdominal aorta is nonaneurysmal. Large caliber arteries and veins demonstrate intact flowvoids. ABDOMINAL WALL: Tiny fat-containing umbilical hernia. BONES: Unremarkable. IMPRESSION: 1. Study somewhat limited due to patient motion artifact. Mild prominence of intrahepatic bile ducts with mild 0.9 cm asymmetric dilatation of left hepatic duct relative to right. These findings are nonspecific with no obstructing lesion identified, within limits of noncontrast technique. If there is continued clinical suspicion for biliary obstruction, a contrast enhanced study could be considered when clinically feasible. Extrahepatic bile duct is normal in diameter with no choledocholithiasis. 2. Normal gallbladder with no cholelithiasis. 3. Moderate constipation. I have personally reviewed the images and I agree with this report. WSN: [id number] Ordering Physician: Luis Felipe Carey Dictated By: Serjio Ventura MD Dictated Date/Time: 10/15/23 10:54 a Reviewed By: Garry Guzmán MD Signed By: Garry Guzmán MD Signed Date/Time: 10/15/23 10:59 am Transcribed By: SONU Transcribed Date/Time: 10/15/23 9:49 am * Exam Date Time Procedure Performing Provider Status 10/10/23 8:04 PM US Liver Liana Garrett; Auth (V erified) Notes: (US Liver) Reason For Exam: transaminitis;Other: RESULT: US Liver US Liver Reason: Other:; transaminitis COMPARISON: None. IMAGING TECHNIQUE: Grayscale and color Doppler ultrasound examination of the liver. FINDINGS: Liver: Diffusely echogenic parenchyma. No suspicious lesion. Smooth hepatic contour. Main portal vein patent with normal hepatopetal direction of flow. Biliary Tree: No intrahepatic or extrahepatic bile duct dilation is identified. Common duct: 0.7 cm. Other: Partially visualized gallbladder contains layering sludge in the lumen. No wall thickening is seen. IMPRESSION: Echogenic liver likely representing hepatic steatosis. No suspicious lesion. Sludge in gallbladder lumen without evidence of acute cholecystitis. WSN: [id number] Ordering Physician: Leo Hoang Dictated By: Marleen Garza MD Dictated Date/Time: 10/10/23 8:41 pm Reviewed By: Marleen Garza MD Signed By: Marleen Garza MD Signed Date/Time: 10/10/23 8:41 pm Transcribed By: SONU Transcribed Date/Time: 10/10/23 8:40 pm * Exam Date Time Procedure Performing Provider Status 10/07/23 6:46 PM MRA/MRV Head W/O Contrast Lary Griffin; Auth (Verified) Notes: (MRA/MRV Head W/O Contrast) Reason For Exam: Sever trigeminal pain, possible IX nerve impairment;Other: RESULT: MRA/MRV Head W/O Contrast MRI Brain W/O Contrast, MRA Neck W/ Contrast, MRA Head W/O Contrast INDICATION: Sever trigeminal pain, possible IX nerve impairment; Clinical Question(s): AVM; Order Comment: Please see Reference Text for complete list of contraindications AVM TECHNIQUE: MRI of the brain was performed without contrast utilizing sagittal T1, axial T2, axial FLAIR, axial SWAN, and axial DWI sequences. MRA of head: 3D Time of flight techniques. MIP images are reformatted. MRA of neck: Axial dlyvbn-adlvbwe-ejeiyoux images were obtained throughout the next. After 20 cc Clariscan administered intravenously, MRA of the neck were obtained with 3D coronal gradient-echo images. MIP images were reformatted. COMPARISON: MR brain without with contrast on 10/06/2023 FINDINGS: BRAIN and EXTRA-AXIAL SPACES: The ventricles, cistern and sulci are within normal limits. No hydrocephalus is seen. There is no intracranial hemorrhage, tumor or acute infarct. No white matter disease is noted. The findings are unchanged since the prior study. EXTRACRANIAL SOFT TISSUES: Orbits are unremarkable. Paranasal mild mucosal thickening is seen within the paranasal sinuses. The mastoids are unremarkable. BONES: Marrow signal is preserved. MRA of head: The study is slightly by motion artifacts. Bilateral internal carotid arteries at skull-base appear normal in calibers and appearance. No stenosis or dissection is seen. The posterior communicating arteries are opacified. No posterior communicating artery aneurysm is noted. Bilateral ACAs and MCAs as well as their branches appear normal in calibers and configuration. No evidence of stenosis, aneurysm or vascular malformation. Bilateral intracranial vertebral arteries appear normal in calibers. The basilar artery shows no definite stenosis. No basilar tip aneurysm is seen. Both optometry doctor are within normal limits. MRA of neck: There is a 4 vessel arch. The left vertebral artery arises from aortic arch directly. The proximal great neck vessels show no definite stenosis. The right common carotid artery has a normal caliber. The right internal carotid artery shows 0% stenosis by NASCET criteria. No ulceration or dissection. The left common carotid artery shows a normal caliber. The left internal carotid artery shows 0% stenosis by NASCET criteria. No ulceration or dissection. Right vertebral artery: Patent without stenosis. Left vertebral artery: It arises from aortic arch directly. Patent without stenosis. IMPRESSION: Normal brain. Normal MRA of head. Bilateral internal carotid arteries show no significant stenosis by NASCET criteria. Bilateral vertebral arteries are widely patent without stenosis or dissection. WSN: [id number] Ordering Physician: Eileen Zhang Dictated By: Luis Rodarte MD Dictated Date/Time: 10/08/23 8:18 am Reviewed By: Luis Rodarte MD Signed By: Luis Rodarte MD Signed Date/Time: 10/08/23 8:18 am Transcribed By: SONU Transcribed Date/Time: 10/08/23 8:15 am * Exam Date Time Procedure Performing Provider Status 10/07/23 6:46 PM MRA Neck W/ Contrast Camila Griffin; Auth (Verified) Notes: (MRA Neck W/ Contrast) Reason For Exam: Sever trigeminal pain, possible IX nerve impairment;Other: RESULT: MRA Neck W/ Contrast MRI Brain W/O Contrast, MRA Neck W/ Contrast, MRA Head W/O Contrast INDICATION: Sever trigeminal pain, possible IX nerve impairment; Clinical Question(s): AVM; Order Comment: Please see Reference Text for complete list of contraindications AVM TECHNIQUE: MRI of the brain was performed without contrast utilizing sagittal T1, axial T2, axial FLAIR, axial SWAN, and axial DWI sequences. MRA of head: 3D Time of flight techniques. MIP images are reformatted. MRA of neck: Axial zosqhe-rmxjlmy-szytgutb images were obtained throughout the next. After 20 cc Clariscan administered intravenously, MRA of the neck were obtained with 3D coronal gradient-echo images. MIP images were reformatted. COMPARISON: MR brain without with contrast on 10/06/2023 FINDINGS: BRAIN and EXTRA-AXIAL SPACES: The ventricles, cistern and sulci are within normal limits. No hydrocephalus is seen. There is no intracranial hemorrhage, tumor or acute infarct. No white matter disease is noted. The findings are unchanged since the prior study. EXTRACRANIAL SOFT TISSUES: Orbits are unremarkable. Paranasal mild mucosal thickening is seen within the paranasal sinuses. The mastoids are unremarkable. BONES: Marrow signal is preserved. MRA of head: The study is slightly by motion artifacts. Bilateral internal carotid arteries at skull-base appear normal in calibers and appearance. No stenosis or dissection is seen. The posterior communicating arteries are opacified. No posterior communicating artery aneurysm is noted. Bilateral ACAs and MCAs as well as their branches appear normal in calibers and configuration. No evidence of stenosis, aneurysm or vascular malformation. Bilateral intracranial vertebral arteries appear normal in calibers. The basilar artery shows no definite stenosis. No basilar tip aneurysm is seen. Both optometry doctor are within normal limits. MRA of neck: There is a 4 vessel arch. The left vertebral artery arises from aortic arch directly. The proximal great neck vessels show no definite stenosis. The right common carotid artery has a normal caliber. The right internal carotid artery shows 0% stenosis by NASCET criteria. No ulceration or dissection. The left common carotid artery shows a normal caliber. The left internal carotid artery shows 0% stenosis by NASCET criteria. No ulceration or dissection. Right vertebral artery: Patent without stenosis. Left vertebral artery: It arises from aortic arch directly. Patent without stenosis. IMPRESSION: Normal brain. Normal MRA of head. Bilateral internal carotid arteries show no significant stenosis by NASCET criteria. Bilateral vertebral arteries are widely patent without stenosis or dissection. WSN: [id number] Ordering Physician: Eileen Zhang Dictated By: Luis Rodarte MD Dictated Date/Time: 10/08/23 8:18 am Reviewed By: Luis Rodarte MD Signed By: Luis Rodarte MD Signed Date/Time: 10/08/23 8:18 am Transcribed By: SONU Transcribed Date/Time: 10/08/23 8:15 am * Exam Date Time Procedure Performing Provider Status 10/07/23 6:46 PM MRI Brain W/O Contrast Ravi Griffin (Verified) Notes: (MRI Brain W/O Contrast) Reason For Exam: Sever trigeminal pain, possible IX nerve impairment;Other: RESULT: MRI Brain W/O Contrast MRI Brain W/O Contrast, MRA Neck W/ Contrast, MRA Head W/O Contrast INDICATION: Sever trigeminal pain, possible IX nerve impairment; Clinical Question(s): AVM; Order Comment: Please see Reference Text for complete list of contraindications AVM TECHNIQUE: MRI of the brain was performed without contrast utilizing sagittal T1, axial T2, axial FLAIR, axial SWAN, and axial DWI sequences. MRA of head: 3D Time of flight techniques. MIP images are reformatted. MRA of neck: Axial cafgds-xdfvtfa-deihagyn images were obtained throughout the next. After 20 cc Clariscan administered intravenously, MRA of the neck were obtained with 3D coronal gradient-echo images. MIP images were reformatted. COMPARISON: MR brain without with contrast on 10/06/2023 FINDINGS: BRAIN and EXTRA-AXIAL SPACES: The ventricles, cistern and sulci are within normal limits. No hydrocephalus is seen. There is no intracranial hemorrhage, tumor or acute infarct. No white matter disease is noted. The findings are unchanged since the prior study. EXTRACRANIAL SOFT TISSUES: Orbits are unremarkable. Paranasal mild mucosal thickening is seen within the paranasal sinuses. The mastoids are unremarkable. BONES: Marrow signal is preserved. MRA of head: The study is slightly by motion artifacts. Bilateral internal carotid arteries at skull-base appear normal in calibers and appearance. No stenosis or dissection is seen. The posterior communicating arteries are opacified. No posterior communicating artery aneurysm is noted. Bilateral ACAs and MCAs as well as their branches appear normal in calibers and configuration. No evidence of stenosis, aneurysm or vascular malformation. Bilateral intracranial vertebral arteries appear normal in calibers. The basilar artery shows no definite stenosis. No basilar tip aneurysm is seen. Both optometry doctor are within normal limits. MRA of neck: There is a 4 vessel arch. The left vertebral artery arises from aortic arch directly. The proximal great neck vessels show no definite stenosis. The right common carotid artery has a normal caliber. The right internal carotid artery shows 0% stenosis by NASCET criteria. No ulceration or dissection. The left common carotid artery shows a normal caliber. The left internal carotid artery shows 0% stenosis by NASCET criteria. No ulceration or dissection. Right vertebral artery: Patent without stenosis. Left vertebral artery: It arises from aortic arch directly. Patent without stenosis. IMPRESSION: Normal brain. Normal MRA of head. Bilateral internal carotid arteries show no significant stenosis by NASCET criteria. Bilateral vertebral arteries are widely patent without stenosis or dissection. WSN: [id number] Ordering Physician: Eileen Zhang Dictated By: Luis Rodarte MD Dictated Date/Time: 10/08/23 8:18 am Reviewed By: Luis Rodarte MD Signed By: Luis Rodarte MD Signed Date/Time: 10/08/23 8:18 am Transcribed By: SONU Transcribed Date/Time: 10/08/23 8:15 am * Exam Date Time Procedure Performing Provider Status 10/06/23 9:37 AM MRI Brain W+W/O Contrast Edith Dejesus; Auth (Verified) Notes: (MRI Brain W+W/O Contrast) Reason For Exam: Pain/Trauma RESULT: MRI Brain W+W/O Contrast MRI Brain W+W/O Contrast INDICATION / CLINICAL QUESTION: Reason: Pain Trauma; Clinical Question(s): Tumor Primary; Trigeminal neuralgia, evaluate for neurovascular compression demyelinating lesion. TECHNIQUE: MRI of the brain was performed with and without contrast utilizing sagittal and axial T1, axial T2, axial FLAIR, axial SWAN, and axial DWI sequences, and post-contrast 3D T1 RIOJAS with multiplanar reformats. The axial T2 CUBE sequence was also obtained through the cavernous sinuses. 18 mL of Clariscan was administered intravenously. COMPARISON: CT head, 04/08/2022. MRI of the brain, 02/09/2009. FINDINGS: This exam is degraded by motion. BRAIN and EXTRA-AXIAL SPACES: The ventricles and sulci are normal in size. No abnormal signal is seen in the brain parenchyma, and there is no evidence of restricted diffusion to suggest acute infarction. The brainstem and cerebellum are normal. There is no hemorrhage, midline shift, or mass effect. There is no extra-axial collection. Flow voids are preserved in the dominant intracranial vessels. Thin axial T2 sequence was obtained through the cavernous sinuses. Motion precludes accurate assessment of the trigeminal nerves. There is no abnormal enhancement in the brain or meninges. EXTRACRANIAL SOFT TISSUES: Orbits are unremarkable. Paranasal sinuses and mastoids are unremarkable. BONES: Marrow signal is preserved. IMPRESSION: Normal MRI of the brain given motion. WSN: [id number] Ordering Physician: Manan Dallas Dictated By: Lizet Yoon MD Dictated Date/Time: 10/06/23 1:58 pm Reviewed By: Lizet Yoon MD Signed By: Lizet Yoon MD Signed Date/Time: 10/06/23 1:58 pm Transcribed By: SONU Transcribed Date/Time: 10/06/23 1:53 pm Vital Signs Most recent to oldest [Reference Range]: 1 2 3 Height 163 cm (10/16/23 10:05 AM) 163 cm (10/13/23 11:00 PM) 163 cm (10/13/23 6:50 PM) Weight 81.1 kg (10/16/23 10:05 AM) 81.1 kg (10/07/23 7:31 PM) 80.1 kg (10/05/23 1:09 PM) Oxygen Saturation [94-100 %] 97 % (10/16/23 3:00 PM) 97 % (10/16/23 2:15 PM) 96 % (10/16/23 2:00 PM) Pulse Rate [55-90 bpm] 73 bpm (10/16/23 3:00 PM) 66 bpm (10/16/23 10:05 AM) 64 bpm (10/16/23 7:00 AM) Body Mass Index [18.5-24.99 kg/m2] 30.52 kg/m2 *>HHI* (10/16/23 10:05 AM) 30.15 kg/m2 *>HHI* (10/05/23 1:09 PM) Blood Pressure [90-138/55-84 mm Hg] 127/79mm Hg (10/16/23 3:00 PM) 111/72mm Hg (10/16/23 2:15 PM) 118/78mm Hg (10/16/23 2:00 PM) Respiratory Rate [16-30 br/min] 18 br/min (10/16/23 4:53 PM) 18 br/min (10/16/23 3:00 PM) 18 br/min (10/16/23 2:50 PM) Temperature [96.8-100.4 DegF] 97.9 DegF (10/16/23 3:00 PM) 98.4 DegF (10/16/23 1:45 PM) 98.5 DegF (10/16/23 1:00 PM) Liters per Minute 6 L/min (10/16/23 1:00 PM) Mode of Delivery (Oxygen) Room air (10/16/23 3:00 PM) Room air (10/16/23 2:15 PM) Room air (10/16/23 2:00 PM) Blood pressure sites Arm, left (10/16/23 3:00 PM) Arm, left (10/16/23 1:00 PM) Arm, right (10/16/23 10:05 AM) Temperature Route Oral (10/16/23 3:00 PM) Temporal (10/16/23 1:00 PM) Temporal (10/16/23 10:05 AM) Dry Weight 80.1 kg (10/05/23 1:09 PM) Weight Obtained Via Bed scale (10/07/23 7:31 PM) Bed scale (10/05/23 1:09 PM) Dry Weight Obtained Via Bed scale (10/05/23 1:09 PM) Social History Social History Type Response Tobacco Use: 4 or less cigar ettes(less than 1/4 pack)/day in last 30 days. Other: Cutting down with , currently down to one cigarette a day, wants to quit. States gets rashes with patch. Sex History and physical note * Manan Dallas DO: PERFORM, MODIFY, MODIFY Event Display: History and Physical Hospital Authored Date: [id number] Patient: ??GAYLA VARGAS ? Age:??32 Years?Sex:??Female?:??1990?? Chief Complaint/Reason for Consultation BIBA coming from home. son called ems for facepain/ having sz. aox4 for ems on arrival. had 10 sec sz for ems but no postictal period. pt has multiple complaints at this times History of Present Illness This is a 32-year-old female with past medical history including sciatica, anxiety, asthma, possible seizure disorder, and mood disorder, who currently presents to the hospital with increased pain related to trigeminal neuralgia with some episodes of convulsions/spasms.?? She reports having pain mainly on the left side of her face around the jaw region radiating up her head.?? She states that these episodes have increased in frequency.?? She reports that she was seen by neurology as an outpatient for her symptoms and reportedly had an MRI of her brain done with unclear results (on review of records in [facility], no recent brain MRI imaging noted, and no outpatient notes from neurology).?? Per theED documentation, the patient reported that she has an upcoming appointment in November to be seen by neurologist, but due to her worsening symptoms she presented to the ED lab work obtained on this patient was fairly unremarkable with a white count of 10.1 and normal chemistry panel.?? Patient's CK was slightly elevated at 200.?? TSH was 0.81..?? The ED??reportedly reached out to neurology for consultation.?? She is now admitted for further management. Review of Systems A complete review of systems was obtained and noted to be negative except as stated above in the HPI. Objective ? Vital Signs?? Temperature: 98 DegF (10/06/23 04:14:00) Temperature Route: Oral (10/06/23 04:14:00) Pulse Rate: 67 bpm (10/06/23 04:14:00) Respiratory Rate: 18 br/min (10/06/23 04:14:00) Systolic Blood Pressure: 106 mm Hg (10/06/23 04:14:00) Diastolic Blood Pressure: 65 mm Hg (10/06/23 04:14:00) Blood pressure sites: Arm, right (10/06/23 04:14:00) Mean Arterial Pressure: 79 mm Hg (10/06/23 04:14:00) Pulse Pressure: 41 mm Hg (10/06/23 04:14:00) Oxygen Saturation: 96 % (10/06/23 04:14:00) Mode of Delivery (Oxygen): Room air (10/06/23 04:14:00) Early Warning Score: 0 (10/06/23 04:15:22) ? Physical Exam General: Alert, in no acute cardiopulmonary distress. Mental Status: Oriented to person, place and time. Normal affect. Head: Normocephalic. Eyes: Pupils are equal, round and reactive to light. Extraocular muscles intact. Ear, Nose and Throat: Oropharynx clear, mucous membranes moist. Ears and nose without masses, lesions or deformities. Trachea midline. Neck: Supple, Full range of motion. Respiratory: Clear to auscultation and percussion. No wheezing, rales or rhonchi. Cardiovascular: Heart sounds normal. Regular rate and rhythm, no murmurs, rubs or gallops. Gastrointestinal: Abdomen soft, non-tender, non-distended. Normal bowel sounds. No pulsatile mass. No hepatosplenomegaly. Neurologic: Cranial nerves II-XII grossly intact. No focal neurological deficits. Moves all extremities spontaneously. Sensation intact bilaterally. Skin: No rashes or lesions. No petechiae or purpura. No edema. Musculoskeletal: No cyanosis or clubbing. No gross deformities. Normal range of motion. Assessment/Plan Assessment:??This is a 32-year-old female with past medical history as noted above, who currently presents to the hospital??with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 10/07/2023 00:14 ?? CHEM GENERAL Sodium 141 mmol/L ()?? 10/07/2023 00:14 Potassium 4.2 mmol/L ()?? 10/07/2023 00:14 Chloride 108 mmol/L (High)?? 10/07/2023 00:14 Bicarbonate Level 24 mmol/L ()?? 10/07/2023 00:14 Anion Gap 9 ()?? 10/07/2023 00:14 Glucose Level 85 mg/dL ()?? 10/07/2023 00:14 BUN 18 mg/dL ()?? 10/07/2023 00:14 Creatinine-Blood 0.6 mg/dL ()?? 10/07/2023 00:14 Estimated GFR Creatinine 124 ML/MIN/1.73 M2 ()?? 10/07/2023 00:14 Calcium 8.8 mg/dL ()?? 10/07/2023 00:14 ?? ENDOCRINE/TUMOR MARKER Prolactin 48.7 ng/mL (High)?? 10/08/2023 01:10 ? Abnormal Labs ?? ENDOCRINE/TUMOR MARKER Prolactin?48.7 ng/mL (High)?10/08/2023 01:10 ?? Note: Critical results are displayed in red. ? CBC, CBC w/Diff?? No qualifying data available. ?? BMP, Mg, and Phos?? No qualifying data available. ?? LFT?? No qualifying data available. ?? Urinalysis?? No qualifying data available. ?? 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 Age:??32 Years?Sex:??Female?:??1990?? 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) PTSD (post-traumatic stress disorder) (F43.10) ADHD (F90.9) Bipolar disorder (F31.9) Generalized anxiety disorder (F41.9) Mood disorder (F39) POSSIBLE / SUSPECTED Cluster B personality disorder (F60.9) POSSIBLE / SUSPECTED conversion disorder (F44.9) Hepatic steatosis (K76.0) Transaminitis (R74.01) Tourette syndrome (F95.2) _ Discharge Medications Acetaminophen (acetaminophen 325 mg oral tablet)?650?Milligram?By Mouth?3 times a day?as needed?not to exceed 2000 mg/day?Pain , Mild Baclofen (baclofen 10 mg oral tablet)?10?Milligram?By Mouth?3 times a day?as needed?for 5?Days?Spasm Clonazepam (clonazePAM 1 mg oral tablet)?1?tab(s)?1?Milligram?By Mouth?2 times a day?as needed?Anxiety Gabapentin (gabapentin 600 mg oral tablet)?1?tab(s)?600?Milligram?By Mouth?3 times a day lumateperone (Caplyta 42 mg oral capsule)?1?capsule?42?Milligram?By Mouth?Daily at bedtime Melatonin (melatonin 10 mg oral tablet)?1?tab(s)?10?Milligram?By Mouth?Daily at bedtime?as needed?as needed for insomnia Multivitamin (multivitamin Multiple Vitamins oral tablet)?1?tab(s)?By Mouth?Every otherday Oxycodone (oxyCODONE 10 mg oral tablet)?1?tab(s)?10?Milligram?By Mouth?Every 4 hours?as needed?Pain , Severe?for 2?Days Polyethylene Glycol 3350 (polyethylene glycol 3350 oral powder for reconstitution)?17?gram?By Mouth?Daily?as needed?Constipation?for 7?Days?dissolve in 4 to 8 oz of beverage Quetiapine (QUEtiapine 200 mg oral tablet)?200?Milligram?By Mouth?Daily at bedtime Tramadol (traMADol 50 mg oral tablet)?50?Milligram?By Mouth?Every 6 hours?as needed?Other?for 5?Days?Pain moderate / severenot to exceed 400 mg/day Trazodone (traZODone 50 mg oral tablet)?1-2 tablets?By Mouth?Daily at bedtime Medications Started As per patient instruction Medications Discontinued As per patient instruction Doses Changed As per patient instruction Future Appointments October. 2023 2:30 PM EDT ?? With: Adam MCFARLAND, Samuel Lange Where: [facility] [address] [place] [address] Drive [address] [place] [address]- Status: Pending Objective 32 years old young lady with medical history of obesity (BMI = 33.6), asthma,??fatty liver disease,hepatic steatosis, transaminitis,??h.o. L4-L5 & L5- S1 disc herniations with sciatica (L-spine MRI 03/2022), bipolar disorder, ADHD, Tourette's syndrome, PTSD , generalized anxiety disorder, possible personality disorder, possible conversion disorder, chronic headaches ,chronic vertigo ,possibleseizure disorder vs. PNES / prior h.o. psychiatric hospitalizations , mood disorder, admitted on 10/07/2023 with intractable pain from right- side??trigeminal neuralgia, (?) episodes of convulsions , spasms . Being followed by Neurology, Neurosurgery, Psychiatry and Acute Pain Service ?? Trigeminal neuralgia (G50.0):??. 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 S/P percutaneous retrogasserian glycerol rhizotomy, right ( Dr. Medina 10/16/2023) Patient was seen by acute pain service, neurology, neurosurgery team during hospital stay. Continue Tylenol as needed, Baclofen, home tramadol and Oxycodone for pain control. Also on home Gabapentin Follow up with neurosurgery as outpatient as scheduled. ? PTSD (post-traumatic stress disorder) (F43.10):??. ADHD (F90.9):??. Bipolar disorder (F31.9):??. Generalized anxiety disorder (F41.9):??. Mood disorder (F39):??. POSSIBLE / SUSPECTED Cluster B personality disorder (F60.9):??. POSSIBLE / SUSPECTED conversion disorder (F44.9):??Psychiatry input much appreciated Continue lumateperone , gabapentin , quetiapine , clonazepam Pt??does not takes oxcarbazepine at home because of rash Follow up with PCP as outpatient. ?? Hepatic steatosis (K76.0):??. Transaminitis (R74.01):??.LFT improving now. Likely medication induced. MRI abdomen - Mild prominence of intrahepatic bile ducts with mild 0.9 cm asymmetric dilatation of left hepatic duct relative to right. Nonspecific with no obstructing lesion identified Follow up with PCP as outpatient. ?? Measurements?? Height: 163 cm (10/16/23) Weight: 81.1 kg (10/16/23) Dry Weight: 80.1 kg (10/05/23) Body Mass Index:??30.52 kg/m2??Critical (10/16/23) ? Vital Signs?? Temperature: 97.9 DegF (10/16/23 15:00:00) Temperature Route: Oral (10/16/23 15:00:00) Normothermic Measures: Warming blanket (10/16/23 13:00:00) Pulse Rate: 73 bpm (10/16/23 15:00:00) Heart Rate Monitored: 67 bpm (10/16/23 14:15:00) Respiratory Rate: 18 br/min (10/16/23 15:00:00) Systolic Blood Pressure: 127 mm Hg (10/16/23 15:00:00) Diastolic Blood Pressure: 79 mm Hg (10/16/23 15:00:00) Blood pressure sites: Arm, left (10/16/23 15:00:00) Mean Arterial Pressure: 93 mm Hg (10/16/23 10:05:00) Pulse Pressure: 39 mm Hg (10/16/23 14:15:00) Oxygen Saturation: 97 % (10/16/23 15:00:00) Liters per Minute: 6 L/min (10/16/23 13:00:00) Mode of Delivery (Oxygen): Room air (10/16/23 15:00:00) Early Warning Score: 2 (10/16/23 15:08:36) ? . Physical Exam General: Awake, not in??distress Head and neck: Atraumatic, no neck swelling Eye: no injection or jaundice, EOMI. Cardiac: RRR, no murmurs, gallops or rubs?? Pulmonary: Normal breathing sounds bilaterally with good air entry with??no wheezing or??rhonchi Abdominal: No tenderness or rebound tenderness, normal BS, no HSM Skin: No rashes, jaundice or scratching holt Extremities: No edema, no swelling or varicose veins Neuro: awake, alert oriented X3, no focal weakness. Psych:?? less anxious?? Surgical Procedures Neurolysis Head/Neck with Neurolytic Age 0410/16/2023 11:41 Consultants Neurology Neurosurgery Psychiatric team Pending Results Add On Lab Order ordered on 10/10/2023 Add On Lab Order ordered on 10/10/2023 Add On Lab Order ordered on 10/12/2023 XR C-Arm < 1 Hour ordered on 10/16/2023 Patient Education Titles WebMD Ignite Patient Education - Polyethylene Glycol 3350 Powder For Oral Solution?? WebMD Ignite Patient Education - Oxycodone Oral Tablet 5 mg?? Web[employer] Ignite Patient Education - Baclofen Oral Tablet?? Web[employer] Ignite Patient Education - Trigeminal Neuralgia?? Web[employer] Ign[employer] Patient Education - Nerve Blocks?? Follow-Up Appointments Added Follow Up ?Time Frame ?Comments Alleene Tiffanie Llamas MD?1 week Patient Instructions You will go home with the following NEW medications:?? Baclofen (baclofen 10 mg oral tablet)?10?Milligram?By Mouth?3 times a day?as needed?for 5?Days?Spasm Oxycodone (oxyCODONE 10 mg oral tablet)?1?tab(s)?10?Milligram?By Mouth?Every 4 hours?as needed?Pain , Severe?for 2?Days Polyethylene Glycol 3350 (polyethylene glycol 3350 oral powder for reconstitution)?17?gram?By Mouth?Daily?as needed?Constipation?for 7?Days?dissolve in 4 to 8 oz of beverage? The following medications were CHANGED : Quetiapine (QUEtiapine 200 mg oral tablet)?200?Milligram?By Mouth?Daily at bedtime. ? The following medications were?? STOPPED: None. ? Activity changes: Please contact your primary care physician for further refill of medications. ? Who to follow up with after being discharged from the hospital: -??Please follow up at your primary??care doctor's office in 1-2 weeks. Please make appointment with the clinic. - Please follow up with neurosurgery as outpatient. Please follow up as??scheduled.? Reasons to immediately return to the emergency room or call 911: - You pass out or faint. - You develop any acute weakness or numbness in any part of the body. - You develop any acute??speech difficulty, swallowing problem,??vision problem.? - You have any other concerns that you think require emergency management. Post Discharge Care Code Status: ??Full Resuscitation ?? Discharge ?10/16/23 16:06:00 EDT Discharge Prescriptions ?ePrescribed, 10/16/23 16:06:00 EDT Home Health Face to Face ^HomeHealthFTF Results Discharge Labs BLOOD BANK Blood Type A Positive ()?? 10/10/2023 12:41 Antibody Screen Negative ()?? 10/10/2023 12:41 ?? BLOOD COUNT & DIFF WBC 11.0 k/mm3 ()?? 10/16/2023 08:55 RBC 4.70 m/mm3 ()?? 10/16/2023 08:55 Hgb 14.9 Gm/dL ()?? 10/16/2023 08:55 Hct 44.1 % ()?? 10/16/2023 08:55 MCV 93.8 femtoliters ()?? 10/16/2023 08:55 MCH 31.7 pg ()?? 10/16/2023 08:55 MCHC 33.8 g/dL ()?? 10/16/2023 08:55 Platelet Count 459 k/mm3 ()?? 10/16/2023 08:55 RDW-SD 44.2 femtoliters ()?? 10/16/2023 08:55 MPV 10.6 femtoliters ()?? 10/16/2023 08:55 Nucleated RBC (Automated) 0.0 #/100 WBC'S ()?? 10/16/2023 08:55 Abs. NRBC 0.0 k/mm3 ()?? 10/16/2023 08:55 Abs. Neut 5.4 k/mm3 ()?? 10/11/2023 02:25 Abs. Lymph 2.8 k/mm3 ()?? 10/11/2023 02:25 Abs. Heard 0.8 k/mm3 ()?? 10/11/2023 02:25 Abs. Eo 0.3 k/mm3 ()?? 10/11/2023 02:25 Abs. Baso 0.1 k/mm3 ()?? 10/11/2023 02:25 Neut % 57.6 % ()?? 10/11/2023 02:25 Lymph % 29.8 % ()?? 10/11/2023 02:25 Heard % 8.2 % ()?? 10/11/2023 02:25 Eos % 3.3 % ()?? 10/11/2023 02:25 Baso % 0.6 % ()?? 10/11/2023 02:25 Imm Gran 0.5 % ()?? 10/11/2023 02:25 Abs. Imm Gran 0.1 k/mm3 ()?? 10/11/2023 02:25 ?? CARDIAC CK, Total 68 units/L ()?? 10/13/2023 05:40 CK MB Confirmation - Quant 4.5 ng/mL ()?? 10/05/2023 12:41 ?? CHEM GENERAL Sodium 139 mmol/L ()?? 10/16/2023 08:55 Potassium 4.4 mmol/L ()?? 10/16/2023 08:55 Chloride 100 mmol/L ()?? 10/16/2023 08:55 Bicarbonate Level 30 mmol/L (High)?? 10/16/2023 08:55 Anion Gap 9 ()?? 10/16/2023 08:55 Glucose Level 87 mg/dL ()?? 10/16/2023 08:55 Glucose, POC 90 mg/dL ()?? 10/12/2023 13:29 BUN 17 mg/dL ()?? 10/16/2023 08:55 Creatinine-Blood 0.8 mg/dL ()?? 10/16/2023 08:55 Estimated GFR Creatinine 109 ML/MIN/1.73 M2 ()?? 10/16/2023 08:55 Calcium 10.3 mg/dL ()?? 10/16/2023 08:55 Phosphorus 5.2 mg/dL (High)?? 10/13/2023 05:40 Magnesium 2.1 mg/dL ()?? 10/16/2023 08:55 Protein, Total 7.5 Gm/dL ()?? 10/16/2023 08:55 Albumin 4.9 Gm/dL (High)?? 10/16/2023 08:55 AG Ratio 2.4 ()?? 10/11/2023 02:25 LDH 218 units/L ()?? 10/12/2023 02:07 Alkaline Phosphatase 261 units/L (High)?? 10/16/2023 08:55 AST (SGOT) 46 units/L (High)?? 10/16/2023 08:55 ALT (SGPT) 148 units/L (High)?? 10/16/2023 08:55 Bilirubin, Total 0.4 mg/dL ()?? 10/16/2023 08:55 Bilirubin, Direct <0.2 mg/dL ()?? 10/16/2023 08:55 Bilirubin, Indirect Direct bilirubin is less than the measureable limit. Therefore, indirect mg/dL ()?? 10/16/2023 08:55 ? COAG INR 1.0 ()?? 10/16/2023 08:55 Protime (PT) 10.5 seconds ()?? 10/16/2023 08:55 APTT 30.2 seconds ()?? 10/14/2023 08:46 Fibrinogen 412 mg/dL ()?? 10/14/2023 08:46 ?? ENDOCRINE/TUMOR MARKER TSH 0.81 uIU/mL ()?? 10/05/2023 12:41 Prolactin 48.7 ng/mL (High)?? 10/08/2023 01:10 Percent Monomeric Prolactin 99 % ()?? 10/08/2023 01:10 BHCG (HCG & Beta) <1 mIU/mL ()?? 10/10/2023 19:42 ?? HEME OTHER Hold Lavender Top SPECIMEN DISCARDED AFTER 24 HOURS. ()?? 10/12/2023 11:55 ? IMMUNOLOGY GENERAL Liver/Kidney Microsomal A <20.1 ()?? 10/12/2023 02:07 Anti-Nuclear Antibody Screen NEGATIVE ()?? 10/12/2023 02:07 Mitochondrial Ab <20.0 ()?? 10/12/2023 02:07 Sm Antibodies,IgG <0.2 ()?? 10/14/2023 08:46 EXERCISE EQUIPMENT SPECIALIST Antibodies,IgG <0.2 ()?? 10/14/2023 08:46 ? LIPID STUDIES Triglycerides 106 mg/dL ()?? 10/13/2023 05:40 ? SEROLOGY INF DISEASE Anti Hepatitis A IgM NON REACTIVE ()?? 10/10/2023 18:18 Hepatitis B Surface Antigen NON REACTIVE ()?? 10/10/2023 18:18 Hepatitis B Core Ab, IgM NON REACTIVE ()?? 10/10/2023 18:18 Hepatitis C Ab NON REACTIVE ()?? 10/14/2023 08:46 ?? TOXICOLOGY/TDM Dilantin Level 25.8 mg/L (Critical)?? 10/10/2023 19:42 Phenytoin Level, Free 1.7 ()?? 10/10/2023 19:42 Salicylate Level <0.3 mg/dL (Low)?? 10/10/2023 18:18 Acetaminophen Level <5 mg/L (Low)?? 10/10/2023 18:18 ?? UA/URINALYSIS Appear/Color, Urine YELLOW ()?? 10/10/2023 19:45 Clarity TURBID (Abnormal)?? 10/10/2023 19:45 Specific Bronson, Urine 1.018 ()?? 10/10/2023 19:45 pH, Urine 6.0 ()?? 10/10/2023 19:45 Albumin, Urine TRACE ()?? 10/10/2023 19:45 Glucose, Urine NEGATIVE ()?? 10/10/2023 19:45 Ketones, Urine NEGATIVE ()?? 10/10/2023 19:45 Bilirubin, Urine NEGATIVE ()?? 10/10/2023 19:45 Hemoglobin, Urine NEGATIVE ()?? 10/10/2023 19:45 Nitrite, Urine NEGATIVE ()?? 10/10/2023 19:45 Leukocyte, Urine 2+ (Abnormal)?? 10/10/2023 19:45 Urobilinogen NORMAL mg/dL ()?? 10/10/2023 19:45 WBC's, Urine 8 /HPF (High)?? 10/10/2023 19:45 RBC's, Urine 1 /HPF ()?? 10/10/2023 19:45 Bacteria HEAVY HPF (Abnormal)?? 10/10/2023 19:45 Squamous Epith 13 /HPF (High)?? 10/10/2023 19:45 Mucus SLIGHT /LPF ()?? 10/10/2023 19:45 Culture Indication CULTURE NOT INDICATED ()?? 10/10/2023 19:45 ?? URINE OTHER Malb/Creat Ratio Unable to calculate mg/Gm ()?? 10/10/2023 19:45 Urine Creat For Micro Alb 79.8 mg/dL ()?? 10/10/2023 19:45 Micro-Albumin <12.0 mg/L ()?? 10/10/2023 19:45 Est Creatinine Clearance 88.63 mL/min ()?? 10/16/2023 10:14 ? 35 ??minutes spent on discharge * Laura Villeda RN: PERFORM Event Display: Patient Education/Instruction Authored Date: Inpatient Adult Discharge Instructions. [address] [address] Name: GAYLA VARGAS : 1990?? Visit: 10/07/2023 16:55?? Current Date: 10/16/2023 16:15 ?? Account: [id number]?? Inpatient Adult Discharge Instructions We would like to thank you for allowing us to assist you with your healthcare needs. The following includes patient education materials and information regarding your injury/illness. Our entire staffstrives to provide an excellent experience for our patients and their families. PLEASE ENSURE YOU FOLLOW-UP PER THE INSTRUCTIONS BELOW! ?? YOUR OPINION IS IMPORTANT TO US! Please complete the survey you may receive by mail or email. Your feedback will be used to make improvements to the healthcare experiences of our patients and their families. Surveys are administered by [employer] ?? If further treatment with your primary care physician or another doctor is recommended, it is important for you to keep the appointment. Call your primary care physician or return to the Emergency Department immediately if your condition worsens, fails to improve, or new symptoms develop. If you need to find a doctor, you can call [facility] for a referral at [phone] or toll free at [phone] or log in to [email or web address].. ?? [facility], in keeping with [facility] guidance, no longer requires face masks for staff, patientsor visitors in most situations. Similiar to time spent indoors at other locations, there is the chance that you were exposed to repiratory viruses during your time with us (such as flu or COVID-19). If you develop symptoms concerning for a viral respiratory infection, please seek testing (and treatment if indicated) from your medical provider or home test kit. ?? You can view and manage your care through the patient portal or by using a health care missy of your choosing. [employer] is a website that allows you to securely view your medical information including your hospital discharge summary, office visit summaries, medications and follow-up visits. You can also request appointments, renew medications, and request access to your medical information using a health care missy of your choosing, or just ask a question. You can enroll at [email or web address] or register during your next office visit. You have been discharged from [facility], Patient Care Unit: D5A??. If you have any questions regarding these instructions, including results of studies pending, afteryou leave, please call us and we will be happy to assist you 14/01. [facility] Your Care Team Attending Physician Guille Schmitt MD?? Consulting Providers Guille Schmitt MD?? Discharging Providers Guille Schmitt MD Reason for Your Visit AXEL coming from home. son called ems for facepain/ having sz. aox4 for ems on arrival. had 10 sec sz for ems but no postictal period. pt has multiple complaints at this times?? Your Diagnosis Trigeminal neuropathy PTSD (post-traumatic stress disorder) ADHD Bipolar disorder Generalized anxiety disorder Hepatic steatosis Mood disorder POSSIBLE / SUSPECTED Cluster B personality disorder POSSIBLE / SUSPECTED conversion disorder Seizure Tourette syndrome Transaminitis Tests Performed Below is a partial list of the tests performed during your hospitalization. You may have had other tests and procedures not included in this list. Please discuss all test results with your provider. Acetaminophen Level ACUTE HEPATITIS PROFILE TIFFANIE Screen Anti LKM ANTI BARRAZA ANTI EXERCISE EQUIPMENT SPECIALIST PANEL ANTI-HEPATITIS C Antimitochondrial Ab APTT BASIC METABOLIC PANEL BUN CBC w/ Differential CK (CREATINE KINASE) CK Total Only CKMB CONFIRMATION/QUANT COMPLETE BLOOD COUNT Comprehensive Metabolic Panel CPK Total Only Creatinine FIBRINOGEN GLUCOSE POC HCG PLUS BETA HEPATIC FUNCTION PANEL Hepatitis A Ab IgM Hepatitis B Core Ab IgM Hepatitis B Surface Antigen HOLD LAVENDER TUBE LDH LFT's Liver Function Panel Lytes MAGNESIUM Mg Level Phenytoin Free Level Phenytoin Total Level Phosphorus Level Prolactin Level PROLACTIN, MONOMERIC PROTIME PROFILE PT (INR) SALICYLATE Triglycerides TSH TSH with T4 Reflex (Adults Only) Type and Screen UA W/Reflex Culture & Renal URINARY MICROALBUMIN Head MRA/MRV W/O Contrast MRA Neck W/ Contrast MRI Abdomen W/O Contrast MRI Brain W+W/O Contrast MRI Brain W/O Contrast US Liver XR C-Arm < 1 Hour?-- Results Pending -- You will be contacted within 72 hours with your results. Add On Lab Order?? C-Arm < 1 Hour?? Primary Care Provider Fermin Llamas MD , Tiffanie Mancilla? Advance Directive Health Care Proxy on File Yes - Health Care Proxy Discharge Vitals Temperature: 97.9 DegF Height: 163 cm Pulse Rate: 73 bpm Weight: 81.1 kg Respiratory Rate: 18 br/min Body Mass Index:??30.52 kg/m2??Critical Systolic Blood Pressure: 127 mm Hg Body surface area: 1.92 Diastolic Blood Pressure: 79 mm Hg ?? Oxygen Saturation: 97 % ?? Studies Pending All studies ordered during this hospital stay have been completed unless listed below. Please discuss all pending results with your provider listed above in these instructions. ?? Add On Lab Order?? C-Arm < 1 Hour?? What to do next Instructions From Your Doctor You will go home with the following NEW medications:?? Baclofen (baclofen 10 mg oral tablet)?10?Milligram?By Mouth?3 times a day?as needed?for 5?Days?Spasm Oxycodone (oxyCODONE 10 mg oral tablet)?1?tab(s)?10?Milligram?By Mouth?Every 4 hours?as needed?Pain , Severe?for 2?Days Polyethylene Glycol 3350 (polyethylene glycol 3350 oral powder for reconstitution)?17?gram?By Mouth?Daily?as needed?Constipation?for 7?Days?dissolve in 4 to 8 oz of beverage? The following medications were CHANGED : Quetiapine (QUEtiapine 200 mg oral tablet)?200?Milligram?By Mouth?Daily at bedtime. ? The following medications were?? STOPPED: None. ? Activity changes: Please contact your primary care physician for further refill of medications. ? Who to follow up with after being discharged from the hospital: -??Please follow up at your primary??care doctor's office in 1-2 weeks. Please make appointment with the clinic. - Please follow up with neurosurgery as outpatient. Please follow up as??scheduled.? Reasons to immediately return to the emergency room or call 911: - You pass out or faint. - You develop any acute weakness or numbness in any part of the body. - You develop any acute??speech difficulty, swallowing problem,??vision problem.? - You have any other concerns that you think require emergency management. ?? Orders??Status: ??Full Resuscitation? 10/16/23 16:06:00 EDT?? Prescriptions??, ??10/16/23 16:06:00 EDT?? Scheduled Follow-Up Appointments October. 2023 2:30 PM EDT ?? With: Adam MCFARLAND, Samuel Lange Where: [facility] [address] [place] [address] Drive [address] [place] [address]- Status: Pending You Need to Schedule the Following Appointments Follow Up with??Fermin Llamas MD , Tiffanie Mancilla When:??Within 1 week Where: [address] [place] [address] [address] [place] [address]- Discharge Medications GAYLA VARGAS :1990 Visit Date:10/07/2023 Medications: Please continue your medications until treatment is completed or stopped by your provider. Medications not listed below should be discontinued. Discuss any questions related to medications with your provider. What How Much When Instructions Next Dose New Baclofen (baclofen 10 mg oral tablet) 10 Milligram Oral 3 times a day as needed for Spasm Duration: 5 Days Pickup at [facility] 3 As needed, last dose 10/16/23 at 8am New Oxycodone (oxyCODONE 10 mg oral tablet) 1 tab(s) Oral Every 4 hours as needed for Pain , Severe Duration: 2 Days Pickup at [facility] 3 As needed, last dose 10/16/23 at 8am New Polyethylene Glycol 3350 (polyethylene glycol 3350 oral powder for reconstitution) 17 gram Oral Daily as needed for Constipation Duration: 7 Days dissolve in 4 to 8 oz of beverage ?? Pickup at [facility] 3 As needed, not given Changed Acetaminophen (acetaminophen 325 mg oral tablet) 650 Milligram Oral 3 times a day as needed for Pain , Mild not to exceed 2000 mg/ day ?? As needed, not given Changed Clonazepam (clonazePAM 1 mg oral tablet) 1 tab(s) Oral Twice a day as needed for Anxiety As needed, not given Changed Quetiapine (QUEtiapine 200 mg oral tablet) 200 Milligram Oral Daily at Bedtime Today 10/16/23 at 9pm Changed Tramadol (traMADol 50 mg oral tablet) 50 Milligram Oral Every 6 hours as needed for Other Duration: 5 Days Pain moderate / ??severe not to exceed 400 mg/ day ?? Pickup at [facility] 3 As needed, last dose 10/16/23 at 4am Unchanged Gabapentin (gabapentin 600 mg oral tablet) 1 tab(s) Oral 3 times a day Today 10/16/23 at 9pm Unchanged lumateperone (Caplyta 42 mg oral capsule) 1 capsule Oral Daily at Bedtime Today 10/16/23 at 9pm Unchanged Melatonin (melatonin 10 mg oral tablet) 1 tab(s) Oral Daily at Bedtime as needed for as needed for insomnia As needed, last dose 10/15/23 at 8am Unchanged Multivitamin (multivitamin Multiple Vitamins oral tablet) 1 tab(s) Oral Every other day As directed, not given Unchanged Trazodone (traZODone 50 mg oral tablet) 1-2 tablets Oral Daily at Bedtime Today 10/16/23 at 9pm Pharmacy Information [facility] 3: [address], [place] [id number] [phone] ?? What How Much When Comments Stop Taking Durable Medical Equipment (Walker) See instructions Patient needs walker for discharge. Thank you ?? Stop Taking Miscellaneous Rx (outpatient Physical therapy) See instructions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 available in [place]. Scan this code on your smartphone or tablet or use the web address below. You can also ask your pharmacist for a printout. If you have any questions, please ask your pharmacist. The display and use of this drug information is subject to Terms of Use. Copyright(c) 2023 [employer]. ?? The in[employer]. All rights reserved. This information is not [...] Care Nurse Name: Mauricio Leigh RN Position: [facility] RN Member Role: Primary Care Nurse Name: Talisha Mane RN Position: S RN Member Role: Primary Care Nurse Name: Fermin Llamas MD , Tiffanie Mancilla Position: Reference Physician Member Role: PCP Address: Address: [address] [place] [address] [address] [place] [address]- Name: Cecily Dunlap RN Position: S RN Member Role: Primary Care Nurse Name: Evita Ernandez LPN Position: S RN Member Role: Primary Care Nurse Name: Amelie Traore RN Position: S RN Member Role: Primary Care Nurse Name: Deyanira Caballero RN Position: [facility] RN Member Role: Primary Care Nurse Care Team Related Persons Name: SKY MCKEON Address: [employer] Address: home [address] [place] [address] Name: ANTONIO CHAMPION Address: home [address] [place] [address] Name: ALBA CHAMPION Address: home [address] [place] [address] Name: ANTONIO VARGAS Address: home [address] [place] [address] Name: WARREN VARGAS Address: home [address] Name: CRISSY FOX Address: home [address] [place] [address]
--- OUTSIDE RECORDS SUMMARY | 2023-11-12 22:21 | XMS_ITS | Continuity of Care Document ---
Author Organization [facility] Address [address] [place], [place] [address]willy michelle, [address] [place] [address]- Care Team Providers Care Case Management Coordinator Name Role Phone Quentin Magana MD Primary Care Physician [phone] [facility] [place] Date(s): 10/31/23 - 11/07/23 [facility] [address] [place] [address] Drive [address] [place] [address]- Attending Physician: Samuel Medina MD Referring Physician: Quentin Magana MD Allergies, [...] [id number] Partial fill upon patient request if the pre... Start Date: 06/23/21 Status: Ordered acetaminophen-HYDROcodone 325 mg-5 mg oral tablet 1 tablet, By Mouth, Every 6 hours, PRN for pain, # 12 tablet, 0 Refills, Maintenance, 10/18/23 15:03:00 EDT, Tablet, [facility]/pharmacy #[id number], Partial fill upon patient request if the prescription is for aschedule II opioid drug., 1 tablet By Mouth Every 6... Start Date: 10/18/23 Status: Ordered baclofen 10 mg oral tablet 10 mg, By Mouth, 3 times a day, PRN, # 15 tablet, Refills 0, Tot. Refills 0, Maintenance, Spasm, 10/16/23 15:17:00 EDT, Route to Pharmacy Electronically, [facility], Partial fill upon patient request [...] 0 Refills, Maintenance, 10/21/23 14:33:00 EDT, Tablet, [facility]/pharmacy #[id number], Partial [...] stopped in October with and move to [place] (was previously living in [place]) 2Managed by PCP 3Patient states received treatment in 2019 4quit with 5with previous partner, does not have contact with him, has protective order and currenlty feels safe 6Cutting down with 7Treated at [facility] Social History Social History Type Response Tobacco [...] Reference Physician Member Role: PCP Address: Address: [address] [place] [id number] Name: Cecily Dunlap RN Position: S RN Member Role: Primary Care Nurse Name: Evita Ernandez LPN Position: S RN Member Role: Primary Care Nurse Name: Eugenie MARQUEZ, Amelie Lord Position: S RN Member Role: Primary Care Nurse Name: Deyanira Caballero RN Position: [facility] RN Member Role: Primary Care Nurse Care Team Related Persons Name: SKY MCKEON Address: [employer] Address: home [address] [place] [address] Name: ANTONIO CHAMPION Address: home [address] [place] [address] Name: ALBA CHAMPION Address: home [address] [place] [address] Name: ANTONIO VARGAS Address: home [address] [place] [address] Name: WARREN VARGAS Address: home [address] Name: CRISSY FOX Address: home [address] [place] [address]
--- OUTSIDE RECORDS SUMMARY | 2023-11-12 22:21 | XMS_ITS | Continuity of Care Document ---
Author Organization [facility] Address [address] [place] [address]- Care Team Providers Care Cook Chili Name Role Phone Po Quentin MCFARLAND Primary Care Physician Encounter [facility] Date(s): 06/03/23 - 09/18/[address] [address] Attending Physician: Not on Staff, Attending MD [...] 06/23/21 4:19:00 EST, Route to Pharmacy Electronically, [facility]/pharmacy #[id number], Partial fill upon omer... Start Date: 06/23/21 Status: Ordered Apri 0.15 mg-0.03 mg oral tablet 1 tablet, By Mouth, Daily, # 28 tablet, 3 Refills, Maintenance, 01/22/22 12:59:00 EDT, Tablet, [facility]/pharmacy #[id number], Partial fill upon patient request if [...] 1 Refills, Soft Stop, 08/02/21 12:51:00 EST, [facility]/pharmacy #[id number], Partial fill upon patient request if [...] 08/02/21 12:49:00 EST, Route to Pharmacy Electronically, [facility]/pharmacy #[id number], Partial fill upon patient request if [...] 08/11/23 20:31:00 EST, Route to Pharmacy Electronically, [facility] STORE [id number], 162, cm, 12/11/23 14:01:00 EST, Height, 84, kg, 04/09/22 0:16:00 [...] 3 Refills, Maintenance, 05/23/22 11:17:00 EST, Tablet, [facility]/pharmacy #[id number], Partial fill upon patient request if [...] move to [place] (was previously living in [place]) 2Managed by PCP 3Patient states received treatment in 2019 4quit with 5with previous partner, does not have contact with him, has protective order and currenlty feels safe 6Cutting down with 7Treated at [facility] Social [...] Physician Member Role: PCP Address: Address: [address] [place] [address]- [place] Care Team Related Persons Name: SKY MCKEON Address: [employer] Address: home [address] [place] [address] Name: ANTONIO CHAMPION Address: home [address] [place] [address] Name: ALBA CHAMPION Address: home [address] [place] [address] Name: ANTONIO VARGAS Address: home [address] [place] [address] Name: WARREN VARGAS Address: home [address] Name: CRISSY FOX Address: home [address] [place] [address]
--- OUTSIDE RECORDS SUMMARY | 2023-11-12 22:21 | XMS_ITS | Continuity of Care Document ---
Author Organization [facility] Address [address] [facility] [address], [address], [address] [place] [address]- Care Team Providers Care Engineering Production Liaison Name Role Phone Po Quentin MCFARLAND Primary Care Physician [phone] [place] [facility]s): 09/02/23 - 10/02/23 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/pharmacy #[id number], Partial fill upon omer... Start Date: 06/23/21 Status: Ordered Apri 0.15 mg-0.03 mg oral tablet 1 tablet, By Mouth, Daily, # 28 tablet, 3 Refills, Maintenance, 01/22/22 12:59:00 EDT, Tablet, [facility]/pharmacy #[id number], Partial fill upon patient request if [...] 1 Refills, Soft Stop, 08/02/21 12:51:00 EST, [facility]/pharmacy #[id number], Partial fill upon patient request if the prescription is for a schedule II opioid drug., 162, cm, 08/02/21 12:39:00 EST, Height, 86.1, kg,... Start Date: 08/02/21 Status: Ordered Donna 30 mg oral tablet 1 tablet = 30 mg, By Mouth, Once, # 1 tablet, 11 Refills, Soft Stop, 06/01/22 14:34:00 EST, [facility]/pharmacy #[id number], Partial fill upon patient request if [...] kit, 0 Refills, Maintenance, 06/24/21 14:08:00 EST, [facility]/pharmacy #0373, pt has been on Amitriptyline, topamax, Propranolol... Start Date: 06/24/21 Status: Ordered famotidine 20 mg oral tablet 20 mg, 1, tablet, By Mouth, 2 times a day, # 28 tablet, Refills 1, Tot. Refills 1, Maintenance, 08/02/21 12:49:00 EST, Route to Pharmacy Electronically, [facility]/pharmacy #[id number], Partial fill upon patient request if [...] 08/11/23 20:31:00 EST, Route to Pharmacy Electronically, [facility] STORE [id number], 162, cm, 06/03/23 14:01:00 EST, Height, 84, [...] 3 Refills, Maintenance, 05/23/22 11:17:00 EST, Tablet, [facility]/pharmacy #[id number], Partial fill upon patient request if [...] stopped in October with and move to [place] (was previously living in [place]) 2Managed by PCP 3Patient states received treatment in 2018 4quit with 5with previous partner, does not have contact with him, has protective order and currenlty feels safe 6Cutting down with 7Treated at [facility] [place] Social History Social [...] Physician Member Role: PCP Address: Address: [address] [place] [address]- Care Team Related Persons Name: SKY MCKEON Address: [employer] Address: home [address] [place], [place] Name: ANTONIO CHAMPION Address: home [address] [place], [place] Name: ALBA CHAMPION Address: home [address] [place], [place] Name: ANTONIO VARGAS Address: home [address] [place] [address] Name: WARREN VARGAS Address: home [address] Name: CRISSY FOX Address: home [address] [place], [place]
[2023-11-12 22:33] VITALS: BP 105/52; PULSE 66; RESP 17; TEMP 36.6; O2SAT 94
[2023-11-12 22:35] VITALS: BP 105/52; PULSE 66; RESP 17; TEMP 36.6; O2SAT 94
== END 2023-11-12 22:37 | disposition home or self-care (01) ==
PROVIDERS: Emergency Provider Emergency Medicine; PCP Internal Medicine
DX: G50.0 Trigeminal neuralgia (principal); R56.9 Unspecified convulsions
CPT/HCPCS: 36415; 80048; 80076; 80307; 83605; 85025; 99283; 99284

== ENCOUNTER 2024-01-19 00:16 | Emergency (ER) | payer OTHER, SELFPAY ==
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
[2024-01-19 00:25] VITALS: PULSE 129; O2SAT 97
[2024-01-19 00:31] VITALS: BP 121/94; PULSE 111; RESP 22; TEMP -17.7; TEMP 0; O2SAT 99; BMI 27.5
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
[2024-01-19] MEDS: LORazepam 2 MG/ML VIAL IVPUSH (01:26)
[2024-01-19] MEDS: 0.9 % Sodium Chloride 1,000 ML 999 ML IV (01:28)
[2024-01-19] MEDS: clonazePAM 1 MG TABLET PO (01:28)
[2024-01-19] MEDS: traMADoL HCL 50 MG TABLET 100 MG PO (01:28)
[2024-01-19 01:38] LABS: MANUAL DIFF FLAG NO
[2024-01-19 01:39] LABS: Basophils Absolute Auto 0.1 X10*3/uL (0.0-0.2); Basophils Percent Auto 0.8 % (0-2); Eosinophils Absolute Auto 0.2 X10*3/uL (0.0-0.4); Eosinophils Percent Auto 1.5 % (0-4); Hematocrit 40.2 % (37.0-47.0); Hemoglobin 14.1 g/dl (12.0-16.0); Imm Gran Abs Auto 0.04 X10*3/uL (0.00-0.03); Imm Gran Pct Auto 0.3 % (0.0-0.4); Lymphocytes Absolute Auto 3.3 X10*3/uL (1.2-4.9); Lymphocytes Percent Auto 27.8 % (20-40); Mean Corpuscular HGB Conc 35.1 g/dl (31.0-35.0); Mean Corpuscular Hemoglobin 32.9 pg (27.0-33.0); Mean Corpuscular Volume 93.9 fL (80.0-98.0); Mean Platelet Volume 10.8 fL (9.4-12.3); Monocytes Absolute Auto 0.9 X10*3/uL (0.1-1.2); Monocytes Percent Auto 7.5 % (2-11); Neutrophils Absolute Auto 7.3 x10*3/uL (2.0-8.3); Neutrophils Percent Auto 62.1 % (45-73); Platelet Count 367 X10*3/uL (160-400); Red Blood Count 4.28 X10*6/uL (4.20-5.50); Red Cell Distribution Width 12.7 % (11.0-16.0); White Blood Count 11.8 X10*3/uL (4.8-10.8)
[2024-01-19 01:51] VITALS: BP 133/72; PULSE 92; RESP 16; TEMP 36.8; O2SAT 95
[2024-01-19 02:12] LABS: Partial Thromboplastin Time 31.4 SEC (26.0-36.8)
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
--- OUTSIDE RECORDS SUMMARY | 2024-01-19 02:25 | XMS_ITS | Continuity of Care Document ---
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 douloureux. How to say it isr-OGN-ny-andry ner-AL-juh ?? What causes trigeminal neuralgia? Researchers think that a blood vessel pressing against the trigeminal nerve triggers the pain. Other possible causes may be: ??? Multiple sclerosis (MS) ??? A tumor pressing on the nerve ??? An abnormal tangle of arteries and veins ??? Nerve damage from oral surgery, stroke, or injury to the face ?? Who is at risk for trigeminal neuralgia? It happens most often in people older than 50. But younger people can also have it. Trigeminal neuralgia is more common in females. ?? Symptoms of trigeminal neuralgia The pain can be triggered by pressure on your cheek. This pressure may come from a razor when shaving. Or from your fingers when putting on makeup. Brushing your teeth, standing in the wind, washing your face, eating, drinking, and even talking may trigger attacks of pain. A flare-up begins with tingling or numbness in the area. Then pain starts to come and go, often in bursts that last anywhere from a few seconds to 2 minutes. During a flare-up, these bursts of pain may occur more often until the pain almost never stops. The pain can be so severe it can make it hardto get through your day. But it???s not life-threatening. People with trigeminal neuralgia may have these symptoms: ??? Flashes of severe pain in the cheek or jaw, rarely on both sides ??? The pain feels like electric shocks or like a knife ??? Pain is often triggered by wind or touching, eating, or brushing your teeth ??? Anxiety from the thought of the pain returning ?? Diagnosing trigeminal neuralgia Your healthcare provider will ask about your health history and give you a physical and neurological exam. Tell your provider details about your pain, such as the location, intensity, and descriptionof the pain. This may help with making a diagnosis. Imaging tests such as an MRI may be used to look for other causes of pain such as from a tumor or multiple sclerosis. ?? Treatment for trigeminal neuralgia Most common rgmc-mry-vogofrk and prescription pain medicines don???t work for the pain from this condition. Treatment may include: ??? Anticonvulsant medicine ??? Tricyclic antidepressants ??? Lidocaine (intranasal spray or intravenous) ??? Surgery, if medicine doesn???t work ??? Acupuncture ??? Biofeedback ??? Stereotactic radiosurgery ??? Percutaneous balloon rhizotomy ??? Radiofrequency ablation ??? Glycerol injection ?? Living with trigeminal neuralgia This condition is not life-threatening. But the pain and anticipation of the pain can interfere with your life. Working closely with your healthcare provider will help you find the best pain management methods for you. Alternative therapies have also been shown to help. Some of these include: ??? Acupuncture ??? Vitamin and nutritional therapy ??? Botulinum injections ??? Chiropractic treatments ??? Biofeedback You may find that certain activities seem to trigger the pain more than others. Over the next few weeks, keep a pain diary. Write down when your symptoms happen and how they feel. Certain activities,such as touching your face, chewing, talking, or brushing your teeth, may bring on the pain. Cold air can also trigger the pain. Make sure you write down any triggers and discuss these with your provider. This will help guide treatment. ?? When to call your healthcare provider Call your healthcare provider or get medical care right away if you have any of these: ??? Fever of100.4??F (38??C) or higher ??? Headache with very stiff neck ??? Repeated vomiting ??? Extreme drowsiness or confusion ??? Dizziness or fainting ??? A new feeling of weakness or numbness or tingling in your arm, leg, or face ??? Trouble speaking or seeing ?? Last Reviewed Date: 2023 ?? 2894-0929 [employer]. All rights reserved. This information is not intended as a substitute for professional medical care. Always follow your healthcare professional's instructions. ?? * Marylou Paulson RN: PERFORM Event Display: Patient Education Leaflets Authored Date: [id number] Nerve Blocks ?? 128 Nerve Blocks Nerve blocks are procedures that can help prevent or manage many different types of pain. They are often injections of medicines that block pain from specific nerves. They can be used for pain reliefas well as??total loss of feeling if needed for surgery. Perhaps the best-known nerve block is an epidural. Many women ask for an epidural during childbirth to ease the pain of labor and delivery. In an epidural, the provider injects an anestheticmedicine into the space surrounding the spinal cord. About nerve blocks Nerve blocks require needles, often along with a fluoroscope (live X-ray), ultrasound, or CT scan to properly guide the needle.??The healthcare provider may also use low-level electrical stimulation to locate the nerve causing pain.??The needles and guided images are used to inject pain-relieving or anti- inflammatory medicines??around??a nerve or group of nerves. Click Image to Enlarge This numbs the area or relieves inflammation. Sometimes chemicals or surgery is used to intentionally damage or??cut the nerve. Nerve blocks halt the pain messages coming from the nerves in a certainpart of the body. ?? Types of nerve blocks Nerve blocks can be temporary or longer lasting. Healthcare providers may give them with??local anesthesia??after numbing the area where the needle enters the skin.??They can also block pain signals to an area by deliberately cutting or destroying certain nerves during surgery. These are types of surgical nerve blocks: ??? Sympathetic blockade. The healthcare provider gives a medicine to block pain from the sympathetic nervous system in a specific area. ??? Neurectomy. A damaged peripheral nerve is surgically destroyed. ??? Rhizotomy. The surgeon destroys the root of the nerves that extend from the spine. These are types of nonsurgical nerve blocks: ??? Epidural analgesia or anesthesia. The??healthcare provider??may inject medicine in the area surrounding the spinal cord. ??? Spinal anesthesia or analgesia. The??healthcare provider??may inject medicine in the fluid surrounding the spinal cord. ??? Pe ripheral nerve blockade.??The??healthcare provider??may inject medicine around a target nerve causing pain. ?? Benefits of nerve blocks Nerve blocks can be used to manage chronic (long-term) pain, pain after surgery, or??severe acute (short-term) pain. Nerve blocks ease pain by offering immediate relief. They can also offer longer-term relief, because some injections reduce irritation to the nerves to let them heal. Nerve blocks can help people who have chronic pain function better in their daily lives, allowing them to go to work, exercise, and do daily tasks. Temporary nerve blocks are often a short-term fix. The pain may return in just a few hours after the medicines wear off. Some people may need repeated or even long-term nerve block treatments to manage inflammation and pain. ?? Common uses for nerve blocks Nerve blocks are often used during surgeries to ease pain. They may also be used to manage the painof chronic health conditions or injuries in which the nerves are damaged, inflamed, or irritated. Nerve blocks are commonly used to manage pain that comes from the spine, as well as debilitating pain that affects the arms, legs, neck, and buttocks. Click to Enlarge: Example of epidural insertion You and your healthcare provider may discuss a nerve block to manage these types of pain: ??? Laborand delivery pain ??? Pain after surgery ??? Cancer-related pain ??? Arthritis pain ??? Severe facial pain, like trigeminal neuralgia ??? Low back pain ??? Headaches, including migraines and occipital neuralgia ??? Chronic regional pain syndrome, or CRPS ?? Other uses for nerve blocks Healthcare providers may use a nerve block as a tool to find out what is causing your pain and where it is coming from. By judging how you react to a temporary nerve block and how it affects your pain, your healthcare provider can better figure out the reason for your pain, where it is located, andhow to best treat it. ?? Risks of nerve blocks Like all procedures, nerve blocks carry some risks. A nerve block can lead to bleeding and infection where the shot was given. The medicine may also spill into other areas unexpectedly, and healthcare providers may hit the wrong nerve during surgery. Compared with many procedures, though, nerve blocks appear to be quite safe.? Who should not have nerve blocks? You may not be a good candidate for nerve block if you:? Have an infection at the site of the injection ??? Are on anticoagulants or have a bleeding disorder ??? Have prior nerve problems in thearea of the nerve being injected ?? Last Reviewed Date: 2023 ?? 3016-6753 [employer]. All rights reserved. This information is not intended as a substitute for professional medical care. Always follow your healthcare professional's instructions. ?? Patient Care team information Care Team Personnel Name: Elie Parker RN Position: S RN Member Role: Primary Care Nurse Name: Florence Galvez Position: S RN Member Role: Primary Care Nurse Name: Barry Vallejo RN Position: S RN Member Role: Primary Care Nurse Name: Leigh Ann White Position: S RN Supv Member Role: Primary Care Nurse Name: Georgette Calvillo RN Position: S RN Member Role: Primary Care Nurse Name: Hitesh Burt RN Position: S RN Member Role: Primary Care Nurse Name: Gayatri Cheung RN Position: S RN Supv Member Role: Primary Care Nurse Name: Bruna [...] RN Member Role: Primary Care Nurse Name: Opal Carrera Position: S RN Member Role: Primary Care Nurse Name: Talisha Mane RN Position: [facility] RN Member Role: Primary Care Nurse Name: Quentin Magana MD Position: Reference Physician Member Role: PCP Address: Address: [address] [place] [id number] Name: Cecily Dunlap RN Position: [facility] RN Member Role: Primary Care Nurse Name: Evita Ernandez LPN Position: [facility] RN Member Role: Primary Care Nurse Name: Amelie Traore RN Position: [facility] RN Member Role: Primary Care Nurse Name: Deyanira Caballero RN Position: [facility] RN Member Role: Primary Care Nurse Care Team Related Persons Name: SKY MCKEON Address: [employer] Address: home [address] [place] [address] [place] Name: ANTONIO CHAMPION Address: home [address] [place] [address] Name: ALBA CHAMPION Address: home [address] [place] [address] Name: ANTONIO VARGAS Address: home [address] [place] [address] Name: WARREN VARGAS Address: home [address] Name: CRISSY FOX Address: home [address] [place] [address]
--- OUTSIDE RECORDS SUMMARY | 2024-01-19 02:25 | XMS_ITS | Continuity of Care Document ---
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 Start Date: 06/23/21 Status: Ordered baclofen 10 mg oral tablet 10 mg, By Mouth, 3 times a day, PRN, # 15 tablet, Refills 0, Tot. Refills 0, Maintenance, Spasm, 10/16/23 15:17:00 EDT, Route to Pharmacy Electronically, [facility], Partial fill upon patient request if [...] drug. Start Date: 10/05/23 Status: Ordered QUEtiapine 50 mg oral tablet, [...] stopped in October with and move to [place] (was previously living in [place]) 2Managed by PCP 3Patient states received treatment [...] Member Role: Primary Care Nurse Name: Vinicio Winston RN Position: S RN Member Role: Primary Care Nurse Name: Carolina Gonzalez RN Position: S RN Member Role: Primary Care Nurse Name: Florence Park LPN Position: S RN Member Role: Primary Care Nurse Name: Mauricio Leigh RN Position: S RN Member Role: Primary Care Nurse Name: Opal Carrera RN Position: S RN Member Role: Primary Care Nurse Name: Talisha Mane RN Position: S RN Member Role: Primary Care Nurse Name: Quentin Magana MD Position: Reference Physician Member Role: PCP Address: Address: [address] [place] [id number] Name: Cecily Dunlap RN Position: S RN Member Role: Primary Care Nurse Name: Evita Ernandez LPN Position: S RN Member Role: Primary Care Nurse Name: Amelie Traore RN Position: S RN Member Role: Primary Care Nurse Name: Deyanira Caballero RN Position: S RN Member Role: Primary Care Nurse Care Team Related Persons Name: SKY MCKEON Address: [employer] Address: home [address] [place] [address] Name: ANTONIO CHAMPION Address: home [address] [place] [address] Name: ALBA CHAMPION Address: home [address] [place] [address] Name: ANTONIO VARGAS Address: home [address] [place] [address] Name: WARREN VARGAS Address: home [address] Name: CRISSY FOX Address: home [address] [place] [address]
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
--- OUTSIDE RECORDS SUMMARY | 2024-01-19 02:26 | XMS_ITS | Continuity of Care Document ---
Author Organization [facility] Address [address] [place], [place] [address]willy michelle, [address] [place] [address]- Care Team Providers Care Dehydrator Tender Name Role Phone Quentin Magana MD Primary Care Physician [phone] Encounter [facility] Date(s): 12/05/23 - 12/12/23 [facility] [address] [place] [address] Drive [address] [place] [address]- Attending Physician: Samuel Medina MD Referring Physician: [...] 4:19:00 EST, Route to Pharmacy Electronically, [facility]/pharmacy#[id number], Partial fill upon patient request if the pre... Start Date: 06/23/21 Status: Ordered baclofen 10 mg oral tablet 10 mg, By Mouth, 3 times a day, PRN, # 15 tablet, Refills 0, Tot. Refills 0, Maintenance, Spasm, 10/16/23 15:17:00 EDT, Route to Pharmacy Electronically, [facility], Partial fill upon patient request if [...] stopped in October with and move to [place] (was previously living in [place]) 2Managed by [...] Reference Physician Member Role: PCP Address: Address: [address] [place] [address]- Name: Cecily Dunlap RN Position: S RN Member Role: Primary Care Nurse Name: Evtia Ernandez LPN Position: S RN Member Role: Primary Care Nurse Name: Amelie Traore RN Position: S RN Member Role: Primary Care Nurse Name: Deyanira Caballero RN Position: S RN Member Role: Primary Care Nurse Care Team Related Persons Name: SKY MCKEON Address: [employer] Address: home [address] [place] [address] Name: ANTONIO CHAMPION Address: home [address] [place] [address] Name: ALBA CHAMPION Address: home [address] [place] [address] Name: ANTONIO VARGAS Address: home [address] [place] [address] Name: WARREN VARGAS Address: home [address] Name: CRISSY FOX Address: home [address] [place] [address]
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
--- OUTSIDE RECORDS SUMMARY | 2024-01-19 02:26 | XMS_ITS | Continuity of Care Document ---
Author Organization [facility] Address [address] [place], [place] [address]willy michelle, [address] [place] [address]- Care Team Providers Care Centrifugal Separator Name Role Phone Po Quentin MCFARLAND Primary Care Physician Encounter [facility] [place] Date(s): 11/13/23 - 12/13/23 [facility] [address] [place] [address] Drive [address] [place] [address]- Allergies, Adverse Reactions, Alerts Substance Reaction Severity [...] Pharmacy Electronically, [facility]/pharmacy#[id number], Partial fill upon patient request if the pre... Start Date: 06/23/21 Status: Ordered baclofen 10 mg oral tablet 10 mg, By Mouth, 3 times a day, PRN, # 15 tablet, Refills 0, Tot. Refills 0, Maintenance, Spasm, 10/16/23 15:17:00 EDT, Route to Pharmacy Electronically, [facility], Partial fill upon patient [...] stopped in October with and move to [place] (was previously living in [place]) 2Managed by [...] Care Nurse Name: Gayatri Cheung RN Position: [facility] RN Supv Member Role: Primary Care Nurse [...] Physician Member Role: PCP Address: Address: [address] [place] [id number]- Name: Cecily Dunlap RN Position: S RN Member Role: Primary Care Nurse Name: Evita Ernandez LPN Position: S RN Member Role: Primary Care Nurse Name: Eugenie MARQUEZ, Amelie Lord Position: S RN Member Role: Primary Care Nurse Name: Deyanira Caballero RN Position: S RN Member Role: Primary Care Nurse Care Team Related Persons Name: SKY MCKEON Address: AMERCN Address: home [address] [place] [address] Name: ANTONIO CHAMPION Address: home [address] [place] [address] Name: ALBA CHAMPION Address: home [address] [place] [address] Name: ANTONIO VARGAS Address: home [address] [place] [address] Name: WARREN VARGAS Address: home [address] Name: CRISSY FOX Address: home [address] [place] [address]
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
[2024-01-19] MEDS: Morphine Sulfate 4 MG/ML CARTRIDGE IVPUSH ×5 (02:28→05:32)
[2024-01-19 02:29] LABS: Alanine Aminotransferase 65 U/L (0-31); Albumin Level 4.4 g/dL (3.5-5.0); Alkaline Phosphatase 46 U/L (39-117); Anion Gap 13 (12-20); Aspartate Amino Transferase 40 U/L (5-31); Bilirubin Total 0.4 mg/dL (0.0-1.0); Blood Urea Nitrogen 14 mg/dL (9-16); Calcium 9.7 mg/dL (8.4-10.2); Carbon Dioxide 22 mmol/L (22-29); Chloride 110 mmol/L (96-108); Creatinine Clr Calc Pharmacy 93.1; Estimated Glomerular Filt Rate > 60; Ethanol < 10 mg/dL; Glucose Random 94 mg/dL (60-115); HCG Quantitative < 2 mIU/mL; Lipase 10 U/L (8-78); Magnesium 2.2 mg/dL (1.6-2.6); Sodium 141 mmol/L (135-145)
[2024-01-19] MEDS: Gabapentin 400 MG CAPSULE 800 MG PO (03:46)
[2024-01-19] MEDS: OXcarbazepine 300 MG TABLET 600 MG PO (03:46)
[2024-01-19 04:10] VITALS: BP 103/65; PULSE 88; RESP 16; TEMP 36.9; O2SAT 97
[2024-01-19 04:16] LABS: Appearance Urine Cloudy; Color Urine Yellow; Glucose Urine UA Negative (Negative); Leukocyte Esterase Urine Trace (Negative); Nitrite Urine Negative (Negative); Specific Gravity - Urine 1.025 (1.005-1.025); UMIC TRIGGER UACC YES; Urine Blood Negative (Negative); Urine Ketones Trace mg/dL (Negative); Urine Protein Trace mg/dL (Neg-Trace)
[2024-01-19 04:27] LABS: Bacteria Urine None Seen (None Seen); Hyaline Casts Urine 0-2 /LPF (0-2); WBC Urine 0-5 /HPF (0-5)
[2024-01-19 04:28] LABS: Amphetamine Screen Urine POSITIVE (Not Detect); Barbiturates, Urine Not Detected (Not Detect); Benzodiazepines Screen Urine POSITIVE (Not Detect); Buprenorphine Scr Not Detected (Not Detect); Cannabinoid Screen Urine POSITIVE (Not Detect); Cocaine Screen Urine Not Detected (Not Detect); Fentanyl, urine Not Detected (Not Detect); Methadone Screen, Urine Not Detected (Not Detect); Opiate Screen Urine POSITIVE (Not Detect); Oxycodone Screen Urine Not Detected (Not Detect); Phencyclidine Screen Urine Not Detected (Not Detect)
[2024-01-19] MEDS: Lidocaine HCl 1 % MPF 5 ML VIAL INFILTRATI (05:31)
[2024-01-19] MEDS: Bacitracin Oint 0.9 GM PACKET 1 APPL TOPICAL (05:31)
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
[2024-01-19 06:53] VITALS: BP 103/65; PULSE 88; RESP 16; TEMP 36.9; O2SAT 97
== END 2024-01-19 06:20 | disposition home or self-care (01) ==
PROVIDERS: Emergency Provider Emergency Medicine Emergency Medical Services; PCP Internal Medicine
DX: S01.111A Laceration without foreign body of right eyelid and periocular area, initial encounter (principal); S06.9X9A Unspecified intracranial injury with loss of consciousness of unspecified duration, initial encounter; S40.021A Contusion of right upper arm, initial encounter; S40.211A Abrasion of right shoulder, initial encounter; R56.9 Unspecified convulsions; G50.0 Trigeminal neuralgia; R51.9 Headache, unspecified; M54.2 Cervicalgia; Y04.2XXA Assault by strike against or bumped into by another person, initial encounter; Y93.89 Activity, other specified; Y92.89 Other specified places as the place of occurrence of the external cause; Y99.8 Other external cause status; Z79.899 Other long term (current) drug therapy; F17.210 Nicotine dependence, cigarettes, uncomplicated
CPT/HCPCS: 12011; 36415; 70450; 70486; 72125; 80053; 80307; 81001; 82550; 83690; 83735; 84702; 85025; 85730; 96360; 96366; 96374; 96375; 99284; J2060; J2270

== ENCOUNTER 2024-01-21 15:11 | Emergency (ER) | payer OTHER, SELFPAY ==
[2024-01-21 15:15] VITALS: BP 123/84; PULSE 111; O2SAT 98
[2024-01-21 15:28] VITALS: BP 142/89; PULSE 104; RESP 20; TEMP 36.9; O2SAT 97; BMI 26.7
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
[2024-01-21 16:07] LABS: MANUAL DIFF FLAG NO
[2024-01-21 16:10] LABS: Basophils Absolute Auto 0.1 X10*3/uL (0.0-0.2); Basophils Percent Auto 0.6 % (0-2); Eosinophils Absolute Auto 0.3 X10*3/uL (0.0-0.4); Eosinophils Percent Auto 2.6 % (0-4); Hematocrit 39.4 % (37.0-47.0); Hemoglobin 13.8 g/dl (12.0-16.0); Imm Gran Abs Auto 0.02 X10*3/uL (0.00-0.03); Imm Gran Pct Auto 0.2 % (0.0-0.4); Lymphocytes Absolute Auto 3.2 X10*3/uL (1.2-4.9); Lymphocytes Percent Auto 29.3 % (20-40); Mean Corpuscular Hemoglobin 32.7 pg (27.0-33.0); Mean Corpuscular Volume 93.4 fL (80.0-98.0); Mean Platelet Volume 10.6 fL (9.4-12.3); Monocytes Absolute Auto 0.6 X10*3/uL (0.1-1.2); Monocytes Percent Auto 5.8 % (2-11); Neutrophils Absolute Auto 6.6 x10*3/uL (2.0-8.3); Neutrophils Percent Auto 61.5 % (45-73); Platelet Count 334 X10*3/uL (160-400); Red Blood Count 4.22 X10*6/uL (4.20-5.50); Red Cell Distribution Width 12.4 % (11.0-16.0); White Blood Count 10.8 X10*3/uL (4.8-10.8)
[2024-01-21 16:23] LABS: Alanine Aminotransferase 87 U/L (0-31); Albumin Level 4.1 g/dL (3.5-5.0); Alkaline Phosphatase 58 U/L (39-117); Anion Gap 13 (12-20); Aspartate Amino Transferase 68 U/L (5-31); Bilirubin Total 0.6 mg/dL (0.0-1.0); Blood Urea Nitrogen 13 mg/dL (9-16); Calcium 9.5 mg/dL (8.4-10.2); Carbon Dioxide 24 mmol/L (22-29); Chloride 104 mmol/L (96-108); Estimated Glomerular Filt Rate > 60; Glucose Random 85 mg/dL (60-115); Potassium 3.6 mmol/L (3.3-5.1); Sodium 137 mmol/L (135-145); Total Protein 6.5 g/dL (6.5-8.0)
[2024-01-21] MEDS: LORazepam 2 MG/ML VIAL IVPUSH (16:35)
[2024-01-21] MEDS: Gabapentin 100 MG CAPSULE 200 MG PO (16:36)
[2024-01-21] MEDS: ondansetron HCL 4 MG/2 ML VIAL IVPUSH (16:36)
[2024-01-21 16:38] VITALS: RESP 22
[2024-01-21] MEDS: Morphine Sulfate 4 MG/ML CARTRIDGE IVPUSH (16:38)
[2024-01-21] MEDS: OLANZapine 10 MG TABLET PO (17:04)
[2024-01-21] MEDS: traMADoL HCL 50 MG TABLET PO (17:21)
[2024-01-21] MEDS: clonazePAM 1 MG TABLET PO (17:22)
--- NOTE | 2024-01-21 17:23 | PC.NURSE ---
Pt continues to be restless, upset and crying in pain. Pt medicated per MAR. Will continue to monitor.
[2024-01-21 17:24] VITALS: BP 138/89; PULSE 96; RESP 20; TEMP 36.9; O2SAT 98
[2024-01-21 17:55] LABS: HCG Quantitative < 2 mIU/mL
[2024-01-21 19:06] VITALS: BP 130/78; PULSE 78; RESP 16; TEMP 36.6; O2SAT 98
[2024-01-21 19:20] VITALS: BP 130/78; PULSE 78; RESP 16; TEMP 36.6; O2SAT 98
[2024-01-26 10:58] LABS: Oxcarbazepine <1.0 mcg/mL (8.0-35.0)
== END 2024-01-21 19:22 | disposition home or self-care (01) ==
PROVIDERS: Physician Assistant; Emergency Provider Emergency Medicine
DX: R56.9 Unspecified convulsions (principal); G50.0 Trigeminal neuralgia; Z79.899 Other long term (current) drug therapy
CPT/HCPCS: 36415; 80053; 80339; 84702; 85025; 96374; 96375; 99284; J2060; J2270; J2405

== ENCOUNTER 2024-03-18 17:51 | Emergency (ER) | payer OTHER, SELFPAY ==
--- NOTE | ~2024-03-18 | CT_ITS ---
EXAMINATION: CT HEAD WITHOUT CONTRAST CLINICAL INFORMATION: Head injury COMPARISON: CT head without contrast 01/19/2024 TECHNIQUE: Contiguous axial imaging was performed from the skull base to vertex without intravenous administration of contrast. This CT examination was performed using dose optimization techniques as appropriate, variously including the following: *Automated exposure control *Adjustment of mA and/or kV according to patient size (this includes techniques or standardized protocols for targeted exams where dose is matched to indication/reason for exam; i.e. extremities or head) *Use of iterative reconstruction technique DLP: 767 mGy-cm FINDINGS: There is no evidence of acute intracranial hemorrhage or edematous territorial infarction. Delgado-white matter differentiation is preserved. The ventricles are normal in morphology and size. No evidence for obstructive hydrocephalus. No abnormal mass effect or midline shift. No extra-axial fluid collections. No acute soft tissue or osseous abnormalities. Mild paranasal sinus mucosal thickening. The mastoids are well-aerated. CT/CT head/brain wo IV con IMPRESSION: No acute intracranial pathology. Electronically signed by: Shilo Howe MD 03/19/2024 11:08 AM EDT
[2024-03-18 18:10] VITALS: BP 118/92; PULSE 128; O2SAT 97; BMI 20.8
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
--- NOTE | 2024-03-18 18:44 | PC.NURSE ---
Pt comes into bed- argumentative swearing at travel writer and staff- pt states I am not violent or suicidal- I am not crazy- Pt lower herself down on the ground- no head strike- witnessed by multiple staff members
[2024-03-18] MEDS: LORazepam 2 MG/ML VIAL IM (18:48)
[2024-03-18] MEDS: Haloperidol Lactate 5 MG/ML VIAL IM (18:48)
--- NOTE | 2024-03-18 21:08 | PC.NURSE ---
Patient is currently in bed appears sleeping, respiration +/=/non labored patient was chemically restraint with Haldol 5 mg IM and Ativan 2 mg IM for her increased aggression, combativeness, loud disruptive, uncooperative, high risk behavior, and unable to follow direction at 1848 with good effect, will continue to monitor
[2024-03-19 00:07] LABS: Appearance Urine Turbid; Color Urine Dark Yellow; Glucose Urine UA Negative (Negative); Leukocyte Esterase Urine Large (3+) (Negative); Nitrite Urine Negative (Negative); UMIC TRIGGER UACC YES; Urine Blood Trace (Negative); Urine Ketones Negative (Negative); Urine Protein 30 (1+) mg/dL (Neg-Trace)
[2024-03-19 00:12] LABS: MANUAL DIFF FLAG NO
[2024-03-19 00:14] LABS: Basophils Absolute Auto 0.1 X10*3/uL (0.0-0.2); Basophils Percent Auto 0.6 % (0-2); Eosinophils Absolute Auto 0.3 X10*3/uL (0.0-0.4); Eosinophils Percent Auto 2.8 % (0-4); Hematocrit 38.7 % (37.0-47.0); Hemoglobin 13.7 g/dl (12.0-16.0); Imm Gran Abs Auto 0.04 X10*3/uL (0.00-0.03); Imm Gran Pct Auto 0.4 % (0.0-0.4); Lymphocytes Absolute Auto 3.6 X10*3/uL (1.2-4.9); Mean Corpuscular HGB Conc 35.4 g/dl (31.0-35.0); Mean Corpuscular Hemoglobin 32.7 pg (27.0-33.0); Mean Corpuscular Volume 92.4 fL (80.0-98.0); Mean Platelet Volume 10.1 fL (9.4-12.3); Monocytes Absolute Auto 0.9 X10*3/uL (0.1-1.2); Monocytes Percent Auto 8.4 % (2-11); Neutrophils Absolute Auto 6.3 x10*3/uL (2.0-8.3); Neutrophils Percent Auto 55.8 % (45-73); Platelet Count 358 X10*3/uL (160-400); Red Blood Count 4.19 X10*6/uL (4.20-5.50); Red Cell Distribution Width 12.5 % (11.0-16.0); White Blood Count 11.2 X10*3/uL (4.8-10.8)
[2024-03-19 00:19] VITALS: BP 97/55; PULSE 73; RESP 16; TEMP 36.4; O2SAT 99
[2024-03-19 00:19] LABS: Amphetamine Screen Urine POSITIVE (Not Detect); Barbiturates, Urine Not Detected (Not Detect); Benzodiazepines Screen Urine Not Detected (Not Detect); Buprenorphine Scr Not Detected (Not Detect); Cannabinoid Screen Urine POSITIVE (Not Detect); Cocaine Screen Urine Not Detected (Not Detect); Fentanyl, urine Not Detected (Not Detect); Methadone Screen, Urine Not Detected (Not Detect); Opiate Screen Urine Not Detected (Not Detect); Oxycodone Screen Urine Not Detected (Not Detect); Phencyclidine Screen Urine Not Detected (Not Detect)
[2024-03-19 00:19] LABS: Bacteria Urine Trace (None Seen); Squamous Epithelial Cell Urine >20 /HPF (0-2); UACC Culture Trigger YES; WBC Urine >50 /HPF (0-5)
[2024-03-19] MEDS: OXcarbazepine 300 MG TABLET 600 MG PO ×2 (00:24→08:00)
[2024-03-19] MEDS: Gabapentin 400 MG CAPSULE 800 MG PO ×2 (00:24→08:00)
[2024-03-19] MEDS: QUEtiapine Fumarate 100 MG TABLET PO (00:24)
[2024-03-19] MEDS: clonazePAM 0.5 MG TABLET PO ×2 (00:26→06:39)
[2024-03-19 00:39] LABS: Alanine Aminotransferase 19 U/L (0-31); Albumin Level 4.1 g/dL (3.5-5.0); Alkaline Phosphatase 43 U/L (39-117); Anion Gap 15 (12-20); Aspartate Amino Transferase 25 U/L (5-31); Bilirubin Total 0.8 mg/dL (0.0-1.0); Blood Urea Nitrogen 19 mg/dL (9-16); Calcium 9.3 mg/dL (8.4-10.2); Carbon Dioxide 23 mmol/L (22-29); Chloride 108 mmol/L (96-108); Creatinine Clr Calc Pharmacy 76.2; Estimated Glomerular Filt Rate > 60; Ethanol < 10 mg/dL; Glucose Random 96 mg/dL (60-115); HCG Quantitative < 2 mIU/mL; Magnesium 2.2 mg/dL (1.6-2.6); Potassium 3.7 mmol/L (3.3-5.1); Sodium 142 mmol/L (135-145); Total Protein 6.6 g/dL (6.5-8.0)
[2024-03-19 06:00] VITALS: RESP 16
--- NOTE | 2024-03-19 07:15 | PC.NURSE ---
Assumed care of patient at 0645, patient appears to be in no apparent distress, does appear to be mildly agitated, wanting to talk to speak with care team I need to be to work for 8am . Germán, CARE team aware
[2024-03-19] MEDS: Magnesium Oxide 400 MG TABLET PO (08:00)
[2024-03-19 08:25] VITALS: BP 106/75; PULSE 102; RESP 16; TEMP 36.6; O2SAT 98
--- NOTE | 2024-03-19 08:49 | PHA.MEDREC ---
Pharmacy Consult ? Medication Reconciliation Pharmacy has reviewed the medication reconciliation done by nursing.
[2024-03-19] MEDS: Butalb/Acetamin/Caff 50/325/40 TABLET 1 TAB PO (10:16)
[2024-03-19 11:21] VITALS: BP 112/56; PULSE 87; RESP 14; TEMP 36.3; O2SAT 96
== END 2024-03-19 11:23 | disposition home or self-care (01) ==
PROVIDERS: Physician Assistant Medical; Emergency Provider Emergency Medicine; PCP Internal Medicine
DX: F22 Delusional disorders (principal); R44.1 Visual hallucinations; R45.1 Restlessness and agitation; J45.909 Unspecified asthma, uncomplicated; F17.210 Nicotine dependence, cigarettes, uncomplicated; Z78.1 Physical restraint status; Z79.899 Other long term (current) drug therapy
CPT/HCPCS: 36415; 70450; 80053; 80307; 81001; 83735; 84702; 85025; 87086; 96372; 99285; J1630; J2060; S9485

== ENCOUNTER 2024-06-18 07:16 | Emergency (ER) | payer OTHER, SELFPAY ==
--- NOTE | 2024-06-18 | ECG_ITS ---
Test Reason : seizure Blood Pressure : / mmHG Vent. Rate : 084 BPM Atrial Rate : 084 BPM P-R Int : 170 ms QRS Dur : 098 ms QT Int : 372 ms P-R-T Axes : 076 074 058 degrees QTc Int : 439 ms Normal sinus rhythm Normal ECG When compared with ECG of 15-FEB-2023 10:04, Vent. rate has increased BY 34 BPM QT has lengthened Referred By: Carlee Crespo Electronically Signed By:Cassius Jain
--- NOTE | ~2024-06-18 | CT_ITS ---
EXAMINATION: CT HEAD WITHOUT CONTRAST CLINICAL INFORMATION: Fall, headache. COMPARISON: 03/19/2024, 01/19/2024. TECHNIQUE: Contiguous axial imaging was performed from the skull base to vertex without intravenous administration of contrast. This CT examination was performed using dose optimization techniques as appropriate, variously including the following: *Automated exposure control *Adjustment of mA and/or kV according to patient size (this includes techniques or standardized protocols for targeted exams where dose is matched to indication/reason for exam; i.e. extremities or head) *Use of iterative reconstruction technique DLP: 676 mGy-cm FINDINGS: There is no evidence of intracranial hemorrhage or extra-axial fluid collection. There is no mass effect, or edema. No CT evidence of acute territorial infarct. Ventricles, sulci, and cisterns are normal in size and configuration for patient age. No hydrocephalus. No midline shift. Negative insular ribbon sign. Negative hyperdense MCA. No significant white matter abnormalities. Normal sella noted. Globes and orbital contents image normally. No extracranial soft tissue abnormalities. The paranasal sinuses, mastoid air cells, and tympanic cavities are normally aerated. No suspicious bony abnormalities. No fractures identified. CT/CT head/brain wo IV con IMPRESSION: 1. No acute intracranial abnormality. Electronically signed by: Tae Fiore MD 06/18/2024 09:15 AM ARIN
[2024-06-18 07:20] VITALS: BP 107/63; BP 139/81; PULSE 113; PULSE 91; RESP 22; TEMP 36.8; O2SAT 97; O2SAT 99; BMI 30.3
--- NOTE | 2024-06-18 07:26 | PC.NURSE ---
Pt.'s primary RN requested that this RN take pt.'s toddler son out of pt.'s room for a few moments while EKG performed because child keeps pressing the buttons on EKG machine. Verbal OK per pt.'s mother to take son out of the room for a few moments. Mother told this RN that son likes technical sales support specialist. This RN walked child to network security officer to get a fake badge, then immediately back to mother's room.
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
[2024-06-18 07:48] LABS: MANUAL DIFF FLAG NO
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
[2024-06-18] MEDS: Ketorolac Tromethamine 15 MG/ML VIAL IVPUSH (07:54)
[2024-06-18] MEDS: Acetaminophen 1,000 MG/100 ML PIGGYBACK 400 MG IV (07:54)
[2024-06-18 07:57] LABS: Basophils Percent Auto 0.3 % (0-2); Eosinophils Absolute Auto 0.1 X10*3/uL (0.0-0.4); Eosinophils Percent Auto 1.1 % (0-4); Hematocrit 40.8 % (37.0-47.0); Hemoglobin 14.1 g/dl (12.0-16.0); Imm Gran Abs Auto 0.02 X10*3/uL (0.00-0.03); Imm Gran Pct Auto 0.3 % (0.0-0.4); Lymphocytes Absolute Auto 2.5 X10*3/uL (1.2-4.9); Lymphocytes Percent Auto 40.3 % (20-40); Mean Corpuscular HGB Conc 34.6 g/dl (31.0-35.0); Mean Corpuscular Hemoglobin 32.8 pg (27.0-33.0); Mean Corpuscular Volume 94.9 fL (80.0-98.0); Mean Platelet Volume 10.2 fL (9.4-12.3); Monocytes Absolute Auto 0.5 X10*3/uL (0.1-1.2); Monocytes Percent Auto 8.2 % (2-11); Neutrophils Absolute Auto 3.1 x10*3/uL (2.0-8.3); Neutrophils Percent Auto 49.8 % (45-73); Platelet Count 365 X10*3/uL (160-400); Red Cell Distribution Width 12.7 % (11.0-16.0); White Blood Count 6.1 X10*3/uL (4.8-10.8)
[2024-06-18 08:07] LABS: Anion Gap 11 (12-20); Blood Urea Nitrogen 14 mg/dL (9-16); Carbon Dioxide 23 mmol/L (22-29); Chloride 110 mmol/L (96-108); Creatinine Clr Calc Pharmacy 108.8; Estimated Glomerular Filt Rate > 60; Glucose Random 91 mg/dL (60-115); Potassium 4.1 mmol/L (3.3-5.1); Sodium 140 mmol/L (135-145)
[2024-06-18 08:11] LABS: HCG Quantitative < 2 mIU/mL
[2024-06-18] MEDS: LORazepam 2 MG/ML VIAL IM (08:41)
[2024-06-18] MEDS: OLANZapine 10 MG VIAL IM (08:41)
[2024-06-18 08:54] LABS: Ethanol < 10 mg/dL
--- NOTE | 2024-06-18 08:54 | MHC.EDTECH ---
patient changed over into hospital clothing with security and RN. patient belongings locked up. Patient belongings list completed.
[2024-06-18 08:56] VITALS: PULSE 104; RESP 16; O2SAT 97
--- NOTE | 2024-06-18 08:56 | MHC.CARE ---
Addendum entered by Lurdes Parker, [facility] 06/18/24 09:14: Bee Tha is additional refractory products supervisor [phone] Original Note: Patients ongoing social science teacher is Alana Amador [phone] Patients social science teacher refractory products supervisor is Yuridia [phone]
--- NOTE | 2024-06-18 08:58 | PC.NURSE ---
pt's son seemingly nervous around mother as mother continues to yell/swear at employees. pt hiding behind this RNs leg and refusing to go back in room with his mother. pt seemingly distraught, erratic, and paranoid. pt continuously stating that we are trying to steal her child from her. pt becoming increasingly escalated/attempting to rip of IV access. charge account authorizer aware of situation. MD bedside to assess. CARE team consult placed. pt then placed on section/chemically restrained. pt changed over w/ security bedside. pt then wanded for safety precautions by security. belongings obtained/list created. pt's son is currently w/ clinical telephone order supervisor as charge account authorizer/CARE team are reaching out to DCF in regards to a safe disposition at this time. plan of care ongoing.
[2024-06-18 08:59] LABS: Appearance Urine Clear; Color Urine Yellow; Glucose Urine UA Negative (Negative); Leukocyte Esterase Urine Small (1+) (Negative); Nitrite Urine Negative (Negative); PH 5.5 (5.0-9.0); Specific Gravity - Urine <= 1.005 (1.005-1.025); UMIC TRIGGER UACC YES; Urine Blood Negative (Negative); Urine Ketones Negative (Negative); Urine Protein Negative (Neg-Trace)
[2024-06-18 09:05] LABS: Bacteria Urine 2+ (None Seen); Hyaline Casts Urine 0-2 /LPF (0-2); RBC Urine 0-2 /HPF (0-2); UACC Culture Trigger YES; WBC Urine 0-5 /HPF (0-5)
[2024-06-18 09:10] LABS: Amphetamine Screen Urine Not Detected (Not Detect); Barbiturates, Urine Not Detected (Not Detect); Benzodiazepines Screen Urine Not Detected (Not Detect); Buprenorphine Scr Not Detected (Not Detect); Cannabinoid Screen Urine POSITIVE (Not Detect); Cocaine Screen Urine Not Detected (Not Detect); Fentanyl, urine Not Detected (Not Detect); Methadone Screen, Urine Not Detected (Not Detect); Opiate Screen Urine Not Detected (Not Detect); Oxycodone Screen Urine Not Detected (Not Detect); Phencyclidine Screen Urine Not Detected (Not Detect)
[2024-06-18 09:11] VITALS: BP 111/69; PULSE 69; RESP 16; O2SAT 100
--- NOTE | 2024-06-18 09:23 | MHC.CARE ---
CARE team was called by ED nursing staff as Pt was here for medical concerns however had come to the hospital with her toddler son who was roaming the ED and following staff. Pt was reportedly yanking on son and screaming at him they are going to take you. Of note, son is non verbal/autistic. Pt continued to act paranoid, erratic, and belligerent to staff attempting to rip out her IV and leave with son. At that time Pt was placed on a Section 12a and a 51A is being filed by Jessa-nursing staff. DCF is being contacted by CARE steam tender to coordinate where Pt's son will go at this time as there is not a safe disposition at this time and Pt is not IPLOC and will not be leaving the ED.
[2024-06-18 09:41] VITALS: BP 104/64; PULSE 60; RESP 16; O2SAT 100
--- NOTE | 2024-06-18 10:04 | PC.NURSE ---
pt remains asleep/resting in no apparent distress s/p medication administration. 1:1 sitter bedside. pt's child remains w/ CARE team at this time as plan of care continues ongoing.
--- NOTE | 2024-06-18 11:11 | PHA.MEDREC ---
Addendum entered by Ayad Patricio RPh 06/18/24 11:28: Reviewed by [facility]. Confirmed clonazepam 1mg BID. Original Note: Pharmacy Consult ? Medication Reconciliation Pharmacy has completed the medication reconciliation. Patient confirmed medications with me. She confirmed she is taking the Clonazepam 1mg tab twice daily as needed for anxiety now instead of the 0.5mg tab TID right now. She confirmed she takes her Caplyta 42mg at bedtime. She confirmed she is still taking the Tramadol she was just prescribed recently as needed for pain and stated it is a 50mg tab and looking in claims the patient had Tramadol 25mg tabs filled 06/10 with a qty of 7 for a 2 day supply, in recent fills the patient was consistently getting 50mg tabs filled before hand.
--- NOTE | 2024-06-18 11:14 | PC.NURSE ---
pt speaking w/ DCF at this time.
--- NOTE | 2024-06-18 11:35 | MHC.EDTECH ---
belongings in POD LOCKER 8
--- NOTE | 2024-06-18 12:47 | MHC.CARE ---
T/W called [facility] where Pt has OP providers. Therapist is Sarah Wooten and medication prescriber is Bethany Alexander. for both providers. T/W left messages with both providers to obtain information on Pt and see if there are any significant safety concerns. Awaiting return call.
--- NOTE | 2024-06-18 12:48 | PC.NURSE ---
pt remains calm/cooperative at this time. requesting medication. provider notified/aware that pharmacy completed med rec. will administer medication when able. 1:1 sitter remains present.
[2024-06-18 12:55] VITALS: BP 119/74; PULSE 79; RESP 18; TEMP 36.8; O2SAT 99
[2024-06-18] MEDS: clonazePAM 1 MG TABLET PO ×2 (13:19→20:30)
[2024-06-18] MEDS: OXcarbazepine 300 MG TABLET 600 MG PO (13:19)
[2024-06-18] MEDS: Gabapentin 400 MG CAPSULE 800 MG PO ×2 (15:44→20:30)
[2024-06-18 17:44] VITALS: BP 127/81; PULSE 70; RESP 15; TEMP 36.8; O2SAT 100
[2024-06-18] MEDS: QUEtiapine Fumarate 300 MG TABLET PO (20:30)
[2024-06-19 06:21] VITALS: BP 107/69; PULSE 84; RESP 13; TEMP 36.8; O2SAT 99
--- NOTE | 2024-06-19 07:57 | PC.NURSE ---
pt a&o, ambulating on unit, pt denying si/hi, pt requesting her medications which will be administered shortly. pt currently speaking on phone, will continue plan of care
[2024-06-19] MEDS: OXcarbazepine 300 MG TABLET 600 MG PO (08:04)
[2024-06-19] MEDS: Gabapentin 400 MG CAPSULE 800 MG PO ×2 (08:04→14:09)
[2024-06-19] MEDS: clonazePAM 1 MG TABLET PO (08:04)
--- NOTE | 2024-06-19 08:36 | MHC.CARE ---
Pt requesting to leave today stating I have court for DCF however T/W was told by DCF yesterday there would be a 72 hour hold and then a court date would occur. Pt is asking to be re-evaluated and will today as it appears we will not have an inpatient bed for her. She asked to speak with a human rights advocate. All requests to speak with an advocate are escalated to ED charge nurse who will speak with Pt. This request was escalated to Jacquelin ED charge nurse who will speak with Pt. Pt is also requesting to speak with her contract attorney however stated she is having difficulty making the call from the POD phone. T/W stated if Pt provided the number I would contact her contract attorney and ask him to call here to speak with her. Awaiting Pt's contract attorney phone number to make the phone call for her. Per staff, Pt was agitated and belligerent with staff last evening calling Dr. Zak bullard as he walked by. Pt was also reportedly yelling at ED staff in regard to food and other issues.
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
--- NOTE | 2024-06-19 09:35 | PC.NURSE ---
- Barrie- senior director creative services for patient- would like call from care team. Germán from care team was notified.
--- NOTE | 2024-06-19 10:19 | PC.NURSE ---
patient tearful over comments BH1 was making to her, this nurse spoke with the patient about keeping distance and not interacting or showing reaction to the patient that was yelling the comments to her, pt is wanting to discharge and keeps stating I dont feel safe. Germán from care team is now speaking to the patient and he has told her that there will be an inpt bed search for the patient continuing.
--- NOTE | 2024-06-19 10:51 | PC.NURSE ---
jg from admissions called stating they have a bed at [facility] for this patient but they need 2 weeks of the patients caplyta 42 mg medication to go with her, this nurse asked the patient if she had the med with her which the patient stated it was at home, this nurse then asked if there was anybody who could bring the medication which she stated she had nobody to bring the medication. this nurse went and spoke to brittany from care team about the situation- they are getting ahold of gricelda and speaking with dr. foreman about the medication. This nurse stated to care team that if the patient recently filled the medication, it may not be able to be a partial fill paid by insurance. The care team is currently looking into this.
[2024-06-19] MEDS: LORazepam 1 MG TABLET PO (11:12)
--- NOTE | 2024-06-19 11:15 | PC.NURSE ---
pt medicated with 1x dose of ativan as ordered by Dr. Knowles.
--- NOTE | 2024-06-19 11:29 | MHC.CARE ---
Pt was accepted to [facility] ([phone]) by [facility]. The ETA is 4pm and the accepting provider is Dr. Peterson. The [place] is [address] [place] [address]. No nurse to nurse is required by the accepting facility. Pod RN and CARE team have been notified of placement.
[2024-06-19 12:55] VITALS: BP 147/83; PULSE 81; RESP 22; O2SAT 99
[2024-06-19] MEDS: OLANZapine 10 MG VIAL 5 MG IM (12:55)
--- NOTE | 2024-06-19 14:13 | PC.NURSE ---
pt became agitated and yelling, security called for assistance, dr. foreman came to see patient and spoke with her. pt now requesting tramadol.
[2024-06-19] MEDS: traMADoL HCL 50 MG TABLET PO (14:20)
--- NOTE | 2024-06-19 15:06 | MHC.CARE ---
Nurse Waiter/Waitress Formal for Pt from [facility] called to provide her information if needed. Bharti- [phone]
[2024-06-19 15:26] VITALS: BP 128/73; PULSE 98; RESP 16; TEMP 36.8; O2SAT 98
--- NOTE | 2024-06-19 15:27 | MHC.CARE ---
Pt made verbal threats to T/W in the pod this afternoon. Pt was agitated and belligerent in regard to staying at the hospital and said to this technical writer I am coming for you. I know where you work and I will come for you. Documenting threats for safety if patient does return to the hospital she should not meet with T/W.
== END 2024-06-19 15:28 ==
PROVIDERS: Emergency Provider Emergency Medicine; PCP Internal Medicine
DX: F32.9 Major depressive disorder, single episode, unspecified (principal); J45.909 Unspecified asthma, uncomplicated; G50.0 Trigeminal neuralgia; F41.9 Anxiety disorder, unspecified; F43.10 Post-traumatic stress disorder, unspecified; F17.210 Nicotine dependence, cigarettes, uncomplicated; F12.90 Cannabis use, unspecified, uncomplicated; Z79.899 Other long term (current) drug therapy
CPT/HCPCS: 36415; 70450; 80048; 80307; 81001; 84702; 85025; 87086; 93005; 96372; 96374; 96375; 99285; J0131; J1885; J2060; J2359; S9485

== ENCOUNTER → 2024-06-18 07:28 | Outpatient (BNV) | payer OTHER, SELFPAY | PROVIDERS: Emergency Provider Emergency Medicine; PCP Internal Medicine; Visit Provider Internal Medicine Cardiovascular Disease | DX: I45.81 Long QT syndrome (principal) | CPT/HCPCS: 93010 ==

== ENCOUNTER → 2024-06-18 07:40 | Outpatient (BNV) | payer OTHER, SELFPAY | PROVIDERS: Emergency Provider Emergency Medicine; PCP Internal Medicine; Visit Provider Radiology Diagnostic Radiology | DX: R51.9 Headache, unspecified (principal) | CPT/HCPCS: 70450 ==

== ENCOUNTER 2024-07-01 13:37 | Emergency (ER) | payer OTHER, SELFPAY ==
--- NOTE | ~2024-07-01 | XR_ITS ---
EXAMINATION: XR CHEST CLINICAL INFORMATION: ?aspiration COMPARISON: X-ray dated February 15, 2023. TECHNIQUE: 2 views of the chest were obtained. FINDINGS: No hyperinflation. No consolidation, pleural effusion or pneumothorax. Cardiomediastinal silhouette is normal. Osseous structures are intact. XR/XR chest 2V IMPRESSION: No acute airspace disease. Electronically signed by: Ravi Kirkpatrick MD 07/01/2024 03:29 PM [facility] [place]
--- NOTE | ~2024-07-01 | CT_ITS ---
CLINICAL HISTORY: diffuse abdominal pain CT abdomen and pelvis without contrast Comparison: Report from 01/18/22 was reviewed. 01/15/13. Findings: No consolidation at the lung bases. Unremarkable gallbladder and bladder. No hydronephrosis. Punctate bilateral nephrolithiasis The other solid organs are normal. There are dilated loops of small bowel which measure up to 3.2 cm. There is no discrete transition point. Question mild small bowel wall thickening. Mild dilation of the colon, measuring up to 6.3 cm in the transverse colon. There is a mild amount of pneumatosis in the ascending colon. No portal venous gas. Normal vasculature. No lymphadenopathy. No ascites. No acute osseous abnormality. Impression: Mild pneumatosis coli in the ascending colon could be infectious/inflammatory. No portal venous gas. Ischemia is considered unlikely. Mild dilation of the small bowel and colon without a discrete transition point may indicate ileus. Mild wall thickening of the small bowel may indicate enteritis. This document has been electronically signed by: Alana Jama MD on 07/01/2024 17:21:35
[2024-07-01 13:58] VITALS: BP 105/78; BP 132/71; PULSE 111; PULSE 116; RESP 20; TEMP 36.7; O2SAT 97; O2SAT 99; BMI 30.9
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
[2024-07-01 14:13] VITALS: BP 121/77; PULSE 118; RESP 16; TEMP 37.2; O2SAT 98
[2024-07-01] MEDS: Ondansetron ODT 4 MG TAB.RAPDIS TRANSLINGU (14:13)
[2024-07-01] MEDS: OXcarbazepine 150 MG TABLET 450 MG PO (14:13)
[2024-07-01] MEDS: Acetaminophen 325 MG TABLET 650 MG PO (14:33)
[2024-07-01 14:54] LABS: Hematocrit 45.8 % (37.0-47.0); Hemoglobin 16.2 g/dl (12.0-16.0); Mean Corpuscular HGB Conc 35.4 g/dl (31.0-35.0); Mean Corpuscular Hemoglobin 32.8 pg (27.0-33.0); Mean Corpuscular Volume 92.7 fL (80.0-98.0); Mean Platelet Volume 9.7 fL (9.4-12.3); Platelet Count 401 X10*3/uL (160-400); Red Blood Count 4.94 X10*6/uL (4.20-5.50); Red Cell Distribution Width 12.6 % (11.0-16.0); White Blood Count 23.4 X10*3/uL (4.8-10.8)
--- NOTE | 2024-07-01 14:59 | PC.NURSE ---
patient tolerating water while in ED
[2024-07-01 15:07] LABS: Alanine Aminotransferase 27 U/L (0-31); Albumin Level 4.1 g/dL (3.5-5.0); Alkaline Phosphatase 55 U/L (39-117); Anion Gap 16 (12-20); Aspartate Amino Transferase 31 U/L (5-31); Bilirubin Total 0.4 mg/dL (0.0-1.0); Blood Urea Nitrogen 17 mg/dL (9-16); C Reactive Protein 1.87 mg/dL (< or = 0.50); Calcium 8.7 mg/dL (8.4-10.2); Carbon Dioxide 21 mmol/L (22-29); Chloride 109 mmol/L (96-108); Creatinine Clr Calc Pharmacy 124.5; Estimated Glomerular Filt Rate > 60; Glucose Random 109 mg/dL (60-115); Lipase 15 U/L (8-78); Magnesium 1.6 mg/dL (1.6-2.6); Potassium 4.1 mmol/L (3.3-5.1); Sodium 142 mmol/L (135-145); Total Protein 6.8 g/dL (6.5-8.0)
[2024-07-01 15:30] LABS: Erythrocyte Sedimentation Rate 2 MM/HR (0-20)
[2024-07-01 15:32] LABS: Band Neutrophils Percent 5 % (3-5); Lymphocytes Absolute Manual 1.2 X10*3/uL (1.2-4.9); Lymphocytes Percent Manual 5 % (20-40); Monocytes Absolute Manual 2.1 X10*3/uL (0.1-1.2); Monocytes Percent Manual 9 % (2-11); Neutrophils Absolute Manual 20.1 X10*3/uL (2.0-8.3); Neutrophils Percent Manual 81 % (45-73)
[2024-07-01 15:33] LABS: RBC Morphology NORMAL
[2024-07-01 15:34] LABS: Influenza A PCR NEGATIVE (Negative); Influenza B PCR NEGATIVE (Negative); Resp Syncy Virus RNA Qual PCR NEGATIVE (Negative); SARS COV2 PCR INHOUSE NEGATIVE (Negative)
[2024-07-01 15:36] LABS: Platelet Estimate INCREASED (NORMAL); Platelet Morphology Comment NORMAL
[2024-07-01] MEDS: 0.9 % Sodium Chloride 1,000 ML 999 ML IV (15:40)
[2024-07-01 16:31] LABS: HCG Quantitative < 2 mIU/mL
[2024-07-01 16:57] LABS: Appearance Urine Clear; Color Urine Yellow; Glucose Urine UA Negative (Negative); Leukocyte Esterase Urine Negative (Negative); Nitrite Urine Negative (Negative); Specific Gravity - Urine >= 1.030 (1.005-1.025); UMIC TRIGGER UACC YES; Urine Blood Large (3+) (Negative); Urine Ketones Trace mg/dL (Negative); Urine Protein Trace mg/dL (Neg-Trace)
[2024-07-01 17:10] LABS: Bacteria Urine Trace (None Seen); Hyaline Casts Urine 0-2 /LPF (0-2); RBC Urine 0-2 /HPF (0-2); WBC Urine 0-5 /HPF (0-5)
[2024-07-01] MEDS: clonazePAM 1 MG TABLET PO (17:20)
[2024-07-01] MEDS: Gabapentin 600 MG TABLET 800 MG PO (17:20)
--- NOTE | 2024-07-01 17:39 | PC.NURSE ---
patient on the phone asking someone to bring her in medications, doesnt want anyone to know , overheard by staff. ED security made aware that patient is to have no visitors.
--- NOTE | 2024-07-01 17:53 | PC.NURSE ---
patient started yelling at staff, patient ripped out IV. security called. patient refused AMA papers and vitals. patient ambulated off of unit swearing and threatening staff.
== END 2024-07-01 17:56 | disposition left against medical advice (07) ==
PROVIDERS: Physician Assistant Medical; Emergency Provider Student in an Organized Health Care Education/Training Program; PCP Internal Medicine
DX: D72.829 Elevated white blood cell count, unspecified (principal); R11.2 Nausea with vomiting, unspecified; G50.0 Trigeminal neuralgia; R19.7 Diarrhea, unspecified; Z03.818 Encounter for observation for suspected exposure to other biological agents ruled out; Z79.899 Other long term (current) drug therapy
CPT/HCPCS: 0241U; 36415; 71046; 74176; 80053; 81001; 83605; 83690; 83735; 84702; 85007; 85025; 85027; 85652; 86140; 87040; 99284

== ENCOUNTER → 2024-07-01 13:57 | Outpatient (BNV) | payer OTHER, SELFPAY | PROVIDERS: Emergency Provider Student in an Organized Health Care Education/Training Program; PCP Internal Medicine; Visit Provider Radiology Diagnostic Radiology | DX: R10.9 Unspecified abdominal pain (principal) | CPT/HCPCS: 71046; 74176 ==

== ENCOUNTER 2024-07-03 07:00 | Emergency (ER) | payer OTHER, SELFPAY ==
[2024-07-03] VITALS (9 sets, daily range): BP systolic 94–115; BP diastolic 46–75; PULSE 41–98; RESP 13–18; TEMP 36.6–36.9; O2SAT 97–100; BMI 29.7
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
[2024-07-03] MEDS: 0.9 % Sodium Chloride 1,000 ML 999 ML IV ×2 (08:20→09:50)
[2024-07-03 08:26] LABS: MANUAL DIFF FLAG NO
[2024-07-03 08:27] LABS: Basophils Absolute Auto 0.1 X10*3/uL (0.0-0.2); Basophils Percent Auto 0.6 % (0-2); Eosinophils Absolute Auto 0.4 X10*3/uL (0.0-0.4); Eosinophils Percent Auto 4.8 % (0-4); Hematocrit 37.5 % (37.0-47.0); Hemoglobin 13.2 g/dl (12.0-16.0); Imm Gran Abs Auto 0.03 X10*3/uL (0.00-0.03); Imm Gran Pct Auto 0.4 % (0.0-0.4); Lymphocytes Absolute Auto 2.5 X10*3/uL (1.2-4.9); Lymphocytes Percent Auto 31.3 % (20-40); Mean Corpuscular HGB Conc 35.2 g/dl (31.0-35.0); Mean Corpuscular Hemoglobin 33.2 pg (27.0-33.0); Mean Corpuscular Volume 94.2 fL (80.0-98.0); Mean Platelet Volume 9.5 fL (9.4-12.3); Monocytes Absolute Auto 0.5 X10*3/uL (0.1-1.2); Monocytes Percent Auto 6.3 % (2-11); Neutrophils Absolute Auto 4.5 x10*3/uL (2.0-8.3); Neutrophils Percent Auto 56.6 % (45-73); Platelet Count 355 X10*3/uL (160-400); Red Blood Count 3.98 X10*6/uL (4.20-5.50); Red Cell Distribution Width 12.7 % (11.0-16.0); White Blood Count 7.9 X10*3/uL (4.8-10.8)
[2024-07-03 08:33] LABS: INTERNATIONAL NORM RATIO 0.8 (0.9-1.1); Prothrombin Time 9.7 SEC (10.9-12.4)
[2024-07-03] MEDS: Ketorolac Tromethamine 15 MG/ML VIAL IVPUSH (08:33)
[2024-07-03 08:35] LABS: OBS Int Ctl Valid YES; OBS1 NEGATIVE (NEGATIVE)
[2024-07-03 08:42] LABS: Magnesium 1.9 mg/dL (1.6-2.6)
[2024-07-03 08:51] LABS: Alanine Aminotransferase 19 U/L (0-31); Albumin Level 3.6 g/dL (3.5-5.0); Alkaline Phosphatase 43 U/L (39-117); Anion Gap 10 (12-20); Aspartate Amino Transferase 15 U/L (5-31); Bilirubin Total 0.1 mg/dL (0.0-1.0); Blood Urea Nitrogen 11 mg/dL (9-16); Carbon Dioxide 24 mmol/L (22-29); Chloride 112 mmol/L (96-108); Estimated Glomerular Filt Rate > 60; Glucose Random 100 mg/dL (60-115); Lipase 21 U/L (8-78); Potassium 4.2 mmol/L (3.3-5.1); Sodium 142 mmol/L (135-145)
[2024-07-03 09:47] LABS: Appearance Urine Clear; Color Urine Yellow; Glucose Urine UA Negative (Negative); Leukocyte Esterase Urine Negative (Negative); Nitrite Urine Negative (Negative); Specific Gravity - Urine <= 1.005 (1.005-1.025); Urine Blood Negative (Negative); Urine Ketones Negative (Negative); Urine Protein Negative (Neg-Trace)
[2024-07-03 09:50] LABS: UPreg QC Valid YES; Urine Pregnancy NEGATIVE (NEGATIVE)
[2024-07-03 09:51] LABS: Bacteria Urine 2+ (None Seen); Hyaline Casts Urine 0-2 /LPF (0-2); RBC Urine 0-2 /HPF (0-2); WBC Urine 0-5 /HPF (0-5)
[2024-07-03] MEDS: traMADoL HCL 50 MG TABLET PO (10:55)
[2024-07-03] MEDS: Lactated Ringers 1,000 ML 999 ML IV (10:56)
[2024-07-03 11:11] LABS: C Reactive Protein 3.12 mg/dL (< or = 0.50)
[2024-07-03 11:17] LABS: Amphetamine Screen Urine Not Detected (Not Detect); Barbiturates, Urine POSITIVE (Not Detect); Benzodiazepines Screen Urine Not Detected (Not Detect); Buprenorphine Scr Not Detected (Not Detect); Cannabinoid Screen Urine POSITIVE (Not Detect); Cocaine Screen Urine Not Detected (Not Detect); Fentanyl, urine Not Detected (Not Detect); Methadone Screen, Urine Not Detected (Not Detect); Opiate Screen Urine Not Detected (Not Detect); Oxycodone Screen Urine Not Detected (Not Detect); Phencyclidine Screen Urine Not Detected (Not Detect)
== END 2024-07-03 12:55 | disposition home or self-care (01) ==
PROVIDERS: Physician Assistant; Emergency Provider Emergency Medicine; PCP Internal Medicine
DX: R11.2 Nausea with vomiting, unspecified (principal); R10.2 Pelvic and perineal pain; F17.210 Nicotine dependence, cigarettes, uncomplicated; Z79.899 Other long term (current) drug therapy; Z51.81 Encounter for therapeutic drug level monitoring
CPT/HCPCS: 36415; 80053; 80307; 81001; 81025; 82272; 83690; 83735; 85025; 85610; 86140; 87040; 99284; J1885; J7120

== ENCOUNTER 2024-07-09 14:12 | Outpatient (AMB) | payer OTHER, SELFPAY ==
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
[2024-07-09 14:24] VITALS: BP 100/70; PULSE 68; TEMP 36.3; O2SAT 95; BMI 30.2
== END 2024-07-09 15:04 | disposition home or self-care (01) ==
PROVIDERS: PCP Internal Medicine; Visit Provider Internal Medicine
DX: F32.9 Major depressive disorder, single episode, unspecified (principal)

== ENCOUNTER → 2024-07-09 14:12 | Outpatient (BNVA) | payer OTHER, SELFPAY | PROVIDERS: PCP Internal Medicine; Visit Provider Internal Medicine | DX: F32.9 Major depressive disorder, single episode, unspecified (principal) | CPT/HCPCS: 96127; 99212 ==

== ENCOUNTER 2025-05-11 13:48 | Emergency (ER) | payer OTHER, SELFPAY ==
[2025-05-11 14:13] VITALS: BP 118/81; PULSE 91; RESP 18; TEMP 36.6; O2SAT 98; BMI 32.4
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
[2025-05-11 14:48] LABS: MANUAL DIFF FLAG NO
[2025-05-11 14:53] LABS: Hematocrit 43.8 % (37.0-47.0); Hemoglobin 15.0 g/dl (12.0-16.0); Imm Gran Abs Auto 0.04 X10*3/uL (0.00-0.03); Imm Gran Pct Auto 0.4 % (0.0-0.4); Lymphocytes Absolute Auto 4.2 X10*3/uL (1.2-4.9); Mean Corpuscular HGB Conc 34.2 g/dl (31.0-35.0); Mean Corpuscular Hemoglobin 32.6 pg (27.0-33.0); Mean Corpuscular Volume 95.2 fL (80.0-98.0); NRBC Abs Auto 0.000 X10*3/uL (0.0-0.012); NRBC Pct Auto 0.0 /100WBC (0.0-0.2); Platelet Count 435 X10*3/uL (160-400); Red Blood Count 4.60 X10*6/uL (4.20-5.50); White Blood Count 9.9 X10*3/uL (4.8-10.8)
[2025-05-11 15:10] LABS: Alanine Aminotransferase 16 U/L (0-31); Albumin Level 4.8 g/dL (3.5-5.0); Alkaline Phosphatase 47 U/L (39-117); Anion Gap 12 (12-20); Aspartate Amino Transferase 19 U/L (5-31); Blood Urea Nitrogen 9 mg/dL (9-16); Calcium 9.5 mg/dL (8.4-10.2); Carbon Dioxide 25 mmol/L (22-29); Chloride 107 mmol/L (96-108); Creatinine Clr Calc Pharmacy 110.1; Estimated Glomerular Filt Rate > 60; Lipase 21 U/L (8-78); Magnesium 2.2 mg/dL (1.6-2.6); Potassium 3.6 mmol/L (3.3-5.1); Sodium 140 mmol/L (135-145); Total Protein 7.3 g/dL (6.5-8.0); Troponin-I High Sensitivity < 2.7 ng/L (<3.5-17.0)
[2025-05-11 15:43] LABS: Resp Syncy Virus RNA Qual PCR NEGATIVE (Negative); SARS COV2 PCR INHOUSE NEGATIVE (Negative)
--- NOTE | 2025-05-11 16:04 | ECG_ITS ---
Test Reason : dizziness Blood Pressure : */* mmHG Vent. Rate : 61 BPM Atrial Rate : 61 BPM P-R Int : 156 ms QRS Dur : 98 ms QT Int : 394 ms P-R-T Axes : 90 61 38 degrees QTcB Int : 396 ms Poor data quality, interpretation may be adversely affected Normal sinus rhythm Normal ECG When compared with ECG of 18-Jun-2024 07:28, No significant change was found Referred By: Marisabel Burks Electronically Signed By: PATTY QUINONES
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
[2025-05-11 16:28] LABS: Appearance Urine Cloudy; Glucose Urine UA Negative (Negative); PH 6.0 (5.0-9.0); Specific Gravity - Urine 1.025 (1.005-1.025); UMIC TRIGGER UACC YES
[2025-05-11 16:31] VITALS: BP 136/92; BP 138/83; BP 157/89; PULSE 70; PULSE 87; PULSE 88
[2025-05-11 16:45] LABS: UACC Culture Trigger YES
[2025-05-11 17:10] VITALS: BP 127/78; PULSE 70; RESP 14; O2SAT 98
[2025-05-11] MEDS: cefTRIAXone sodium 1 GM, Lidocaine HCl 1 % MPF 2.1 ML IM (17:46)
[2025-05-11 17:50] VITALS: BP 127/78; PULSE 70; RESP 14; TEMP 36.4; O2SAT 98
[2025-05-11 18:31] LABS: Cannabinoid Screen Urine POSITIVE (Not Detect)
[2025-05-12 12:05] LABS: Bacterial Vaginosis PCR POSITIVE (Negative); Candida Group PCR NOT DETECTED (Not Detect); Candida glab krusei PCR NOT DETECTED (Not Detect); Trichomonas vaginalis PCR NOT DETECTED (Not Detect)
[2025-05-12 14:06] LABS: CT PCR NOT DETECTED (Not Detect.); NG PCR NOT DETECTED (Not Detect.)
== END 2025-05-11 17:56 | disposition home or self-care (01) ==
PROVIDERS: Physician Assistant Medical; Emergency Provider Emergency Medicine; PCP Internal Medicine
DX: R11.2 Nausea with vomiting, unspecified (principal); R42 Dizziness and giddiness; N76.0 Acute vaginitis; B96.89 Other specified bacterial agents as the cause of diseases classified elsewhere; Z20.2 Contact with and (suspected) exposure to infections with a predominantly sexual mode of transmission; Z88.5 Allergy status to narcotic agent; Z88.8 Allergy status to other drugs, medicaments and biological substances
CPT/HCPCS: 80048; 80076; 80307; 81001; 81515; 83690; 83735; 84484; 84702; 85025; 87086; 87491; 87591; 87637; 93005; 96372; 99284; 99285; J0696; J2003

== ENCOUNTER → 2025-05-11 16:04 | Outpatient (BNV) | payer OTHER, SELFPAY | PROVIDERS: Emergency Provider Emergency Medicine; PCP Internal Medicine; Visit Provider Internal Medicine | DX: R42 Dizziness and giddiness (principal) | CPT/HCPCS: 93010 ==

== ENCOUNTER 2025-05-21 05:43 | Emergency (ER) | payer OTHER, SELFPAY ==
--- OUTSIDE RECORDS SUMMARY | 2025-05-19 19:31 | XMS_ITS | Continuity of Care Document ---
Author Organization [facility] ter Address [address] [place] [id number]- Care Team Providers Care Medical Pathology Teacher Name Role Phone Fermin Llamas MD, Zabrina Primary Care Physician [phone] Encounter [facility] [id number] Date(s): 05/19/25 - 05/19/[address] [address]- Discharge Disposition: A-D/C Home Attending Physician: Abhi Mtz MD Admitting Physician: Abhi Mtz MD Referring Physician: Not on Staff, Referring MD Encounter Type: Disch ES Allergies, Adverse Reactions, Alerts Substance Criticality Severity Reaction Reaction Severity Status carbamazepine 1, 2 anticonvu lsant hypersensitivity syndrome Active primidone 3 anticonvulsant hypersensitivity syndrome Active phenytoin 4 anticonvulsant hypersensitivity syndrome Active phenobarbital 5 High criticality 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 Lamictal 6 High criticality 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 lamotrigine High criticality Severe anticonvuls ant hypersensitivity syndrome Active Patient reports taking carbamazepine [...] 0, Maintenance, Pain , Mild, 06/23/21 4:19:00 AM EST, Route to Pharmacy Electronically, [facility]/pharmacy #[id number], Partial fill upon patient request if the prescription is for a schedule II opioid drug., 162, cm, 06/22/21 14:22:00 EST, Height, 86.1, kg, 06/21/21 5:31:00 EST, Dry Weight Start Date: 06/23/21 Status: Ordered Medication Dispense Status: Completed Quantity: 60.0 Unit: tablet Total Allowed Fills: 1 Fills Dispensed: 0 Adderall 30 mg oral tablet 1 tablet = 30 mg, By Mouth, 2 times a day, 0 Refills, Maintenance, 08/22/24 7:32:00 AM EST, Partial fill upon patient request if the prescription is for a schedule II opioid drug. Start Date: 08/22/24 Status: Ordered Medication Dispense Status: Completed Total Allowed Fills: 1 Fills Dispensed: 0 Caplyta 42 mg oral capsule 1 capsule = 42 mg, By Mouth, Daily at bedtime, 0 Refills, Maintenance, 10/05/23 11:07:00 AM EDT, Partial fill upon patient request if the prescription is for a schedule II opioid drug. Start Date: 10/05/23 Status: Ordered Medication Dispense Status: Completed Total Allowed Fills: 1 Fills Dispensed: 0 clonazePAM 1 mg oral tablet 1 tablet = 1 mg, By Mouth, 2 times a day, PRN Anxiety, 0 Refills, Maintenance, 04/08/22 6:27:00 PM EDT, Tablet, Partial fill upon patient request if the prescription is for a schedule II opioid drug. Start Date: 04/08/22 Status: Ordered Medication Dispense Status: Completed Total Allowed Fills: 1 Fills Dispensed: 0 [facility] MELATONIN 10 MG TABLET [facility] MELATONIN 10 MG TABLET, TAKE 1.5 TABLET ORALLY EVERY NIGHT AT BEDTIME FOR SLEEP Start Date: 08/22/24 Status: Ordered Medication Dispense Status: Completed Total Allowed Fills: 1 Fills Dispensed: 0 Dilaudid Inj 1 mg, Injection, IV Push Slowly, Once, STAT, 05/19/25 3:38:00 PM EST, Stop date 05/19/25 3:57:16 PMEST Start Date: 05/19/25 Stop Date: 05/19/25 Status: Completed Medication Dispense Status: Completed Total Allowed Fills: 1 Fills Dispensed: 0 gabapentin 800 mg oral tablet 1 tablet = 800 mg, By Mouth, 3 times a day, # 90 tablet, 0 Refills, Maintenance, 08/22/24 2:06:00 PM EST, Tablet, Partial fill upon patient request if the prescription is for a schedule II opioid drug. Start Date: 08/22/24 Status: Ordered Medication Dispense Status: Completed Quantity: 90.0 Unit: tablet Total Allowed Fills: 1 Fills Dispensed: 0 hydrOXYzine pamoate 50 mg oral capsule TAKE 1 CAP THREE TIMES A DAY NEEDED FOR AGITATION Start Date: 08/22/24 Status: Ordered Medication Dispense Status: Completed Total Allowed Fills: 1 Fills Dispensed: 0 magnesium oxide 400 mg oral tablet TAKE 1 TABLET BY MOUTH EVERY DAY Start Date: 08/22/24 Status: Ordered Medication Dispense Status: Completed Total Allowed Fills: 1 Fills Dispensed: 0 metroNIDAZOLE 500 mg oral tablet 1 tablet = 500 mg, By Mouth, Every 12 hours, # 14 tablet, 0 Refills, Soft Stop, 12/19/24 7:19:00 PM EDT, Tablet, [facility]/pharmacy #[id number], Partial fill upon patient request if the prescription is for a schedule II opioid drug., 159, cm, 12/19/24 8:46:00 EDT, Height, 79, kg, 12/19/24 8:46:00 EDT, Dry Weight Start Date: 12/19/24 Stop Date: 12/26/24 Status: Ordered Medication Dispense Status: Completed Quantity: 14.0 Unit: tablet Total Allowed Fills: 1 Fills Dispensed: 0 multivitamin Multiple Vitamins oral tablet 1 tablet, By Mouth, Every other day, 0 Refills, Maintenance, 10/05/23 11:08:00 AM EDT, Partial fill upon patient request if the prescription is for a schedule II opioid drug. Start Date: 10/05/23 Status: Ordered Medication Dispense Status: Completed Total Allowed Fills: 1 Fills Dispensed: 0 OXcarbazepine 600 mg oral tablet TAKE 1 TABLET BY MOUTH TWICE A DAY FOR 90 DAYS Start Date: 08/22/24 Status: Ordered Medication Dispense Status: Completed Total Allowed Fills: 1 Fills Dispensed: 0 QUEtiapine 300 mg oral tablet TAKE 1 TABLET EVERY DAY AT BEDTIME FOR PSYCHOSIS Start Date: 08/22/24 Status: Ordered Medication Dispense Status: Completed Total Allowed Fills: 1 Fills Dispensed: 0 tiZANidine 4 mg oral tablet 4 mg, 1, tablet, By Mouth, 3 times a day, PRN, # 21 tablet, Refills 0, Tot. Refills 0, Maintenance,Pain , Moderate, 03/23/25 11:49:00 AM EDT, Route to Pharmacy Electronically, [facility]/pharmacy #[id number], Partial fill upon patient request if the prescription is for a schedule II opioid drug., 163, cm, 12/20/24 12:24:00 EDT, Height, 81.9, kg, 12/20/24 12:24:00 EDT, Dry Weight Start Date: 03/23/25 Stop Date: 03/30/25 Status: Ordered Medication Dispense Status: Completed Quantity: 21.0 Unit: tablet Total Allowed Fills: 1 Fills Dispensed: 0 traMADol 50 mg oral tablet 1 tablet = 50 mg, By Mouth, Every 8 hours, PRN as needed for pain, # 5 tablet, 0 Refills, Maintenance, 05/19/25 7:06:00 PM EST, Tablet, [id number], Partial fill upon patient request if the prescription is for a schedule II opioid drug., 163, cm, 04/13/25 8:22:00 EDT, Height, 86, kg, 04/13/25 8:22:00 EDT, Dry Weight Start Date: 05/19/25 Status: Ordered Medication Dispense Status: Completed Quantity: 5.0 Unit: tablet Total Allowed Fills: 1 Fills Dispensed: 0 traZODone 100 mg oral tablet TAKE 1 TABLET AT BEDTIME FOR INSOMNIA Start Date: 08/22/24 Status: Ordered Medication Dispense Status: Completed Total Allowed Fills: 1 Fills Dispensed: 0 Problem List Condition Confirmation Course Effective Dates [...] Active PTSD (post-traumatic stress disorder) Confirmed Active Tobacco use 6 Confirmed Active Trichomonal vaginitis during 7 Confirmed Active 1Not currently in therapy or on medications. Was previously taking seroquel 150mg to sleep, gabapentin 400mg four times daily, clonazepam 0.5mg BID for anxiety but stopped in October with and move to [place] (was previously living in [place]) 2Managed by PCP 3Patient states received treatment in 2018 4quit with 5with previous partner, does not have contact with him, has protective order and currenlty feels safe 6Cutting down with 7Treated at [facility] [place] Results Radiology Reports * Exam Date Time Procedure Performing Provider Status 05/19/25 6:[address] Cervical Spine W/O Contrast Auth (Verified) Notes: (CT Cervical Spine W/O Contrast) Reason For Exam: Neck trauma, dangerous injury mechanism;Other: RESULT: CT Cervical Spine W/O Contrast CT Head/Brain W/O Contrast, CT Cervical Spine W/O Contrast Hx of Present Illness: from a police station,was filing reports, has a witnessed seizure and dropped dowm, was found on the ground by EMS, c-collar was a trigger, take off. PMH of brain surgery,cc right eye blurriness, seizure, trigeminal neuralgia; Reason: Headache(s); Clinical Question(s): Hematoma; Order Comment: COMPARISON: None. TECHNIQUE: Incremental CT without contrast through the head was formatted in axial and coronal plane. Spiral CT without contrast through the cervical spine was formatted in 3 planes. Automatic tube modulation was used for the cervical spine and iterative dose reconstruction was used for both the head and cervical spine to optimize scan parameters and image quality. FINDINGS: Supervisor [place] Findings, Lines and Tubes: None. CT of HEAD: BRAIN: No parenchymal hemorrhage, midline shift, or mass effect. Delgado-white matter differentiation is well preserved. No acute infarct. No white matter lesions. VENTRICLES: Ventricles, sulci, and basilar cisterns are normal. EXTRA-AXIAL SPACES: No subarachnoid hemorrhage. No subdural or epidural collection. SKULL/SOFT TISSUES: No fractures or suspicious bony lesions. The extracranial soft tissues are unremarkable. SINUSES: The paranasal sinuses and mastoid air cells are clear. ORBITS: Visualized orbits and globes are intact. CT of CERVICAL SPINE: CERVICAL SPINE: No fracture or acute malalignment. C5-6 broad disc herniation greater on the right side. OTHER BONES: Normal. CERVICAL SOFT TISSUES:Unremarkable. LUNG APICES: Clear lung apices. IMPRESSION: No acute abnormality of the head or cervical spine. Moderate to large disc herniation at C5-C6 greater on the right side. WSN: [id number] Ordering Physician: Consuelo Lugo Dictated By: Salinas Can MD Dictated Date/Time: 05/19/25 6:16 pm Reviewed By: Salinas Can MD Signed By: Salinas Can MD Signed Date/Time: 05/19/25 6:16 pm Transcribed By: SONU Transcribed Date/Time: 05/19/25 6:09 pm * Exam Date Time Procedure Performing Provider Status 05/19/25 6:[address] Head/Brain W/O Contrast Auth (Verified) Notes: (CT Head/Brain W/O Contrast) Reason For Exam: Headache(s) RESULT: CT Head/Brain W/O Contrast CT Head/Brain W/O Contrast, CT Cervical Spine W/O Contrast Hx of Present Illness: from a police station,was filing reports, has a witnessed seizure and dropped dowm, was found on the ground by EMS, c-collar was a trigger, take off. PMH of brain surgery,cc right eye blurriness, seizure, trigeminal neuralgia; Reason: Headache(s); Clinical Question(s): Hematoma; Order Comment: COMPARISON: None. TECHNIQUE: Incremental CT without contrast through the head was formatted in axial and coronal plane. Spiral CT without contrast through the cervical spine was formatted in 3 planes. Automatic tube modulation was used for the cervical spine and iterative dose reconstruction was used for both the head and cervical spine to optimize scan parameters and image quality. FINDINGS: Supervisor [place] Findings, Lines and Tubes: None. CT of HEAD: BRAIN: No parenchymal hemorrhage, midline shift, or mass effect. Delgado-white matter differentiation is well preserved. No acute infarct. No white matter lesions. VENTRICLES: Ventricles, sulci, and basilar cisterns are normal. EXTRA-AXIAL SPACES: No subarachnoid hemorrhage. No subdural or epidural collection. SKULL/SOFT TISSUES: No fractures or suspicious bony lesions. The extracranial soft tissues are unremarkable. SINUSES: The paranasal sinuses and mastoid air cells are clear. ORBITS: Visualized orbits and globes are intact. CT of CERVICAL SPINE: CERVICAL SPINE: No fracture or acute malalignment. C5-6 broad disc herniation greater on the right side. OTHER BONES: Normal. CERVICAL SOFT TISSUES:Unremarkable. LUNG APICES: Clear lung apices. IMPRESSION: No acute abnormality of the head or cervical spine. Moderate to large disc herniation at C5-C6 greater on the right side. WSN: [id number] Ordering Physician: Consuelo Lugo Dictated By: Salinas Can MD Dictated Date/Time: 05/19/25 6:16 pm Reviewed By: Salinas Can MD Signed By: Salinas Can MD Signed Date/Time: 05/19/25 6:16 pm Transcribed By: SONU Transcribed Date/Time: 05/19/25 6:09 pm Vital Signs Most recent to oldest [Reference Range]: 1 2 3 Oxygen Saturation [94-100 %] 99 % (05/19/25 6:33 PM) 99 % (05/19/25 4:24 PM) 98 % (05/19/25 2:30 PM) Pulse Rate [55-90 bpm] 64 bpm (05/19/25 6:33 PM) 87 bpm (05/19/25 4:24 PM) 110 bpm *H* (05/19/25 2:30 PM) Blood Pressure [90-138/55-84 mm Hg] 124/79mm Hg (05/19/25 4:24 PM) 136/84mm Hg (05/19/25 2:15 PM) Respiratory Rate [16-30 br/min] 16 br/min (05/19/25 6:33 PM) 18 br/min (05/19/25 4:24 PM) 20 br/min (05/19/25 3:54 PM) Temperature [96.8-100.4 DegF] 98.2 DegF (05/19/25 6:33 PM) 97.9 DegF (05/19/25 2:15 PM) Mode of Delivery (Oxygen) Room air (05/19/25 6:33 PM) Room air (05/19/25 4:24 PM) Room air (05/19/25 2:30 PM) Temperature Route Axillary (05/19/25 6:33 PM) Social History Social History Type Response Tobacco Use: 4 or less cigar ettes(less than 1/4 pack)/day in last 30 days. Other: Cutting down with , currently down to one cigarette a day, wants to quit. States gets rashes with patch. Sexual Orientation Self described orien tation: ; Straight or heterosexual Sex Sex Representation Female (finding) Status Unknown Note * Keren Arrington MD: PERFORM Event Display: Patient Education Leaflets Authored Date: Trigeminal Neuralgia ?? [id number] Trigeminal Neuralgia You have trigeminal neuralgia. This is pain caused by irritation of the trigeminal nerve on your face. Symptoms include sudden, sharp pain in your head, face, or jaw. It may feel like an electric shock. It can last for several seconds or minutes. It often happens on only 1 side of your face. Pain may be set off by things such as moving your jaw when brushing your teeth or eating. Or by a touch onthe skin of your face or cold air. The pain may be caused by something irritating the trigeminal nerve, such as a blood vessel pressing against it. But the exact cause of this problem often isn???t known. It can be very painful. But the condition isn???t dangerous. Some people have underlying health problems causing trigeminal neuralgia, such as multiple sclerosis. Trigeminal neuralgia is often treated with medicines. These include antiseizure medicines or antidepressants. Certain other treatments may also help. In some cases, you may need surgery. For some people, radiation therapy is needed with a precise tool called gamma knife. This does not make any cuts(incisions). You may need an imaging test, such as a CT or MRI scan of the brain and skull. You will be advised if other health problems need treatment. Home care Your healthcare provider may prescribe medicines to help ease and prevent pain. Take all medicines as directed Please note that it may take several changes in dose and medicines before the right combination is found that controls the pain. General care: ? Don't do any specific activities that seem to set off the pain. ??? Keep a pain diary for several weeks. Write down when your symptoms happen and how they feel. Certain activities, such as touching your face, chewing, talking, or brushing your teeth, may bring on the pain. Cold air can also set off the pain. Make sure you write down any triggers and discuss these with your provider. This will help guide treatment. ?? Follow-up care Follow up with your healthcare provider, or as advised. If you were referred to a specialist, be sure to make an appointment. ?? When to get medical advice Call your healthcare provider or get medical care right away??if any of these occur: ??? Fever of 100.4??F (38??C) or higher, or as advised by your provider ??? Headache with very stiff neck ??? You aren???t able to keep liquids down (repeated vomiting) ??? Extreme drowsiness or confusion ??? Dizziness or fainting ??? A new feeling of weakness or numbness or tingling in your arm, leg, or face ???Trouble speaking or seeing ?? Last Reviewed Date: 2024 00:00:00 ?? [id number] [employer]. All rights reserved. This information is not intended as a substitute for professional medical care. Always follow your healthcare professional's instructions. ?? Patient Care team information Care Team Personnel Name: Elie Parker RN Position: [facility] RN Member Role: Primary Care Nurse Name: Florence Galvez Position: S RN Member Role: Primary Care Nurse Name: Leigh Ann Lan RN Position: [facility] RN Lizzette Member Role: Primary Care Nurse Name: Georgette Calvillo RN Position: [facility] RN Member Role: Primary Care Nurse Name: Hitesh Burt RN Position: [facility] RN Member Role: Primary Care Nurse Name: Gayatri Cheung RN Position: [facility] RN Member Role: Primary Care Nurse Name: Bruna Hoyos RN Position: [facility] RN Member Role: Primary Care Nurse Name: Georgette Lyons RN Position: [facility] ED RN W/OE and Tasks Member Role: Primary Care Nurse Name: Caridad Brown RN Position: [facility] RN Member Role: Primary Care Nurse Name: Gavin Allen RN Position: [facility] RN Member Role: Primary Care Nurse Name: Carolina Gonzalez RN Position: [facility] RN Member Role: Primary Care Nurse Name: Mauricio Leigh RN Position: [facility] RN Member Role: Primary Care Nurse Name: Opal Carrera RN Position: [facility] RN Member Role: Primary Care Nurse Name: Fermin Llamas MD , Daily Mancilla Position: Reference Physician Member Role: PCP Address: [address] [place] [address] Telecom: Name: Cecily Dunlap RN Position: [facility] RN Member Role: Primary Care Nurse Name: Evita Ernandez LPN Position: [facility] RN Member Role: Primary Care Nurse Name: Amelie Traore RN Position: [facility] RN Member Role: Primary Care Nurse Name: Deyanira Caballero RN Position: [facility] RN Member Role: Primary Care Nurse Care Team Related Persons Name: SKY MCKEON Name: ANTONIO CHAMPION Name: ALBA CHAMPION Name: ANTONIO VARGAS Name: WARREN VARGAS Name: CRISSY FOX Insurance Providers Guarantor name: Health Plan Information #: 1 Payer: [employer] Payer Identifier: Member Number: [id number] [id number] Sub[facility] Identifier: [id number] Relationship to Subscriber: self Coverage Type: NA Coverage Verification Date: NA Telecom: NA Address: NA
[2025-05-21 05:52] VITALS: BP 132/76; PULSE 107; O2SAT 99
[2025-05-21 05:57] VITALS: BP 97/62; PULSE 90; RESP 19; TEMP 36.8; O2SAT 98; BMI 32.0
[2025-05-21 05:59] VITALS: BP 133/87; PULSE 89; RESP 14; O2SAT 98
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
[2025-05-21] MEDS: diazePAM 10 MG/2 ML CARTRIDGE 5 MG IM (06:47)
--- OUTSIDE RECORDS SUMMARY | 2025-05-21 06:58 | XMS_ITS | Clinical Summary ---
Author Organization [facility] Address [address] [place] [address] Care Team Providers [employer] Foreperson Name Role Phone Unknown Primary Care Provider [phone] Allergies Active Allergy Reactions Criticality Noted Date Comments Lamotrigine Unknown/Patient and Family Unable to Define Medium 06/27/2019 Phenobarbital Unknown/Patient and Family Unable to Define Medium 06/27/2019 Medications ibuprofen (MOTRIN) 600 MG tablet Take 1 tablet (600 mg total) by mouth 3 (three) times a day as needed for mild pain (pain). 20 tablet 08/19/19 20 Active ondansetron (ZOFRAN-ODT) 4 MG disintegrating tablet Take 1 tablet (4 mg total) by mouth 3 times daily (every 8 hours) as needed for nausea or vomiting. Place tablet on tongue to dissolve. 10 tablet 08/25/19 20 Active proMETHAZINE (PHENERGAN) 25 MG suppository Insert 1 suppository (25 mg total) into the rectum Every 4 (four) to 6 (six) hours as needed for nausea or vomiting. 10 suppository 08/27/19 20 Active amitriptyline (ELAVIL) 25 MG tablet Take 25 mg by mouth nightly. Active butalbital-acetami nophen-caffeine (FioriCET, ESGIC) 50-325-40 mg tablet Take 1-2 tablets by mouth every 4 (four) hours as needed for pain. Max: 6 capsules/table ts in 24 hours 12 tablet 10/21/19 20 Active polyethylene glycol (miraLAx) 17 g packet Take 1 packet (17 g total) by mouth daily. 10 packet 12/07/19 20 Active gabapentin (NEURONTIN) 600 MG tablet Take 1 tablet (600 mg total) by mouth 3 (three) times a day. 04/08/20 Active clonazePAM (KlonoPIN) 1 MG tablet Take 1 tablet (1 mg total) by mouth 2 times a day. 04/08/20 Active Caplyta 42 MG Cap Take 42 mg by mouth nightly. 12/05/19 Active magnesium oxide 400 (240 Mg) MG Tab tablet Take 1 tablet (400 mg total) by mouth daily. 11/15/19 Active prazosin (MINIPRESS) 2 MG capsule Take 1-2 capsules (2-4 mg total) by mouth nightly as needed. 10/17/19 Active QUEtiapine (SEROquel XR) 50 MG Tablet SR 24 hr Take 1 tablet (50 mg total) by mouth every evening. 11/24/19 Active QUEtiapine (SEROquel) 100 MG tablet Take 1-3 tablets (100-300 mg total) by mouth nightly as needed. 11/15/19 Active oxyCODONE (ROXICODONE) 10 mg immediate release tabletIndications: Back pain,Intractable back pain Take 1 tablet (10 mg total) by mouth every 4 (four) hours as needed for severe pain. Max Daily Amount: 60 mg 20 tablet 01/14/20 Active predniSONE (DELTASONE) 20 MG tabletIndications: Back pain,Intractable back pain Take 1 tablet (20 mg total) by mouth every morning with breakfast. With food. Do not start before January 14, 2023. 5 tablet 01/15/20 Active Active Problems Problem Noted Date Diagnosed Date Intractable back pain 01/08/2023 Family History Medical History Relation Name Comments Hypertension Father Diabetes Mother Heart attack Mother Relation Name Status Comments Father Mother Social History Tobacco Use Types Packs/Day Years Used Date Smoking Tobacco: Some Days Cigarettes Smokeless Tobacco: Never Alcohol Use Standard Drinks/Week Comments Not Currently 0 (1 standard drink = 0.6 oz pur e alcohol) AUDIT-C Answer Date Recorded Q1: How often do you have a drink containing alcohol? Never 01/08/2023 Q2: How many drinks containi ng alcohol do you have on a typical day when you are drinking? Patient does not drink Q3: How often do you have si x or more drinks on one occasion? Never 01/08/2023 Overall Financial Resource Strain (CARDIA) Answe r Date Recorded How hard is it for you to pa y for the very basics like food, housing, medical care, and heating? Somewhat hard 01/09/2023 Hunger Vital Sign Answer Date Recorded Within the past 12 months, y ou worried that your food would run out before you got the money to buy more. Never true 01/10/20 23 Within the past 12 months, t he food you bought just didn't last and you didn't have money to get more. Never true 01/09/2023 PRAPARE - Transportation Answer Date Re corded In the past 12 months, has l ack of transportation kept you from medical appointments or from getting medications? No 12/22 In the past 12 months, has l ack of transportation kept you from meetings, work, or from getting things needed for daily living? No 01/09/2023 Housing Stability Vital Sign Answer Lucio e Recorded In the last 12 months, was t here a time when you were not able to pay the mortgage or rent on time? No 01/09/2023 In the last 12 months, how many places have you lived? 1 01/09/2023 In the last 12 months, was t here a time when you did not have a steady place to sleep or slept in a residential (including now)? No 01/09/2023 Comments No Sex and Gender Information Value Date Recorded Sex Assigned at Female 01/07/2023 2:12 PM EDT Legal Sex Female 5:55 PM EDT Gender Identity Female 01/07/2023 2:12 PM EDT Sexual Orientation Choose not to disclose 2022 2:12 PM EDT Last Filed Vital Signs Vital Sign Reading Time Taken Comments Blood Pressure 111/58 01/13/2023 7:57 AM EDT Pulse 72 01/13/2023 7:57 AM EDT Temperature 35.8 C (96.5 F) 01/13/2023 7:57 AM EDT Respiratory Rate 18 01/13/2023 7:57 AM EDT Oxygen Saturation 100% 01/13/2023 7:57 AM EDT Inhaled Oxygen Concentration - - Weight 86.2 kg (190 lb) 12/22/2019 10:24 PM EDT Height 162.6 cm (5' 4 ) 12/22/2019 10:24 PM EDT Body Mass Index 32.61 12/22/2019 10:24 PM EDT Plan of Treatment Health Maintenance Due Date Last Done Comments Hepatitis C Virus Screening 1991 HIV Screening 12/30/2004 DTaP/Tdap/Td Vaccines (1 - Tdap) 12/30/2010 Hepatitis B Vaccines (1 of 3 - 19+ 3-dose series) 12/30/2010 Pneumococcal Vaccine: Pediat consuelo (0-5 Years) and At-Risk Patients (6 to 49 Years) (1 of 2 - PCV) 12/30/2010 Pap Smear (Ages 21-65) 12/30/2012 Influenza Vaccine 01/22/2025 06/22/2021, , 07/19/2019, Additional history exists COVID-19 Vaccine ( - 2023-2 5 season) 2025 HPV Vaccines (No Doses Required) Completed Insurance [facility] MEDICAID OUT OF STATE [facility] Advance Directives Documents on File Type Date Recorded Patient [facility] [place] Expl anation Advance Directive-Scan 01/11/2023 Nathan Martin [facility] PROXY HH 01/11/2023 * Full Code (Latest Code Status on File) Date Activated Date Inactivated Comments 01/08/2023 2:46 AM Healthcare Agents on File Name Relationship Healthcare Agent Relationship Communication Nathan Luu Healthcare product sales representative 1. [facility] [place] Care Teams [employer] Foreperson Relationship Specialty Start Date End Date Unknown Unknow Provider Address PCP - General 01/07/23
[2025-05-21 07:16] VITALS: BP 133/87; PULSE 89; RESP 14; TEMP 36.7; O2SAT 98
== END 2025-05-21 07:20 | disposition home or self-care (01) ==
PROVIDERS: Emergency Provider Emergency Medicine; PCP Internal Medicine
DX: G50.0 Trigeminal neuralgia (principal); R51.9 Headache, unspecified; M25.511 Pain in right shoulder; Z79.899 Other long term (current) drug therapy; F17.210 Nicotine dependence, cigarettes, uncomplicated
CPT/HCPCS: 96372; 99284; J1885; J3360